=== PATIENT | female | born 1935 | race Caucasian/White ===

== ENCOUNTER → 2016-11-29 | Outpatient (CLI) | payer MEDICARE, MEDICAID ==
[2016-11-29 18:27] LABS: ALBUMIN 3.6 GM/DL (3.2-5.2); ALBUMIN/GLOBULIN RATIO 1.06 (1.00-1.93); ALKALINE PHOSPHATASE 153 U/L (45-117); ALT/SGPT 25 U/L (12-78); ANION GAP 7 MEQ/L (8-16); AST/SGOT 23 U/L (15-37); BILIRUBIN,TOTAL 0.5 MG/DL (0.2-1.0); BLOOD UREA NITROGEN 15 MG/DL (7-18); CALCIUM LEVEL 9.3 MG/DL (8.8-10.2); CARBON DIOXIDE LEVEL 29 MEQ/L (21-32); CHLORIDE LEVEL 100 MEQ/L (98-107); CHOLESTEROL LEVEL 172 MG/DL (<200); CREATININE FOR GFR 0.77 MG/DL (0.55-1.02); GLOMERULAR FILTRATION RATE > 60.0 (>39); GLUCOSE, FASTING 98 MG/DL (83-110); POTASSIUM SERUM 4.1 MEQ/L (3.5-5.1); SODIUM LEVEL 136 MEQ/L (136-145); TRIGLYCERIDES LEVEL 112 MG/DL (<150)
== END ==
LOC: M WUC 08:32
PROVIDERS: ATTEND Nurse Practitioner Family
DX: R73.01 Impaired fasting glucose (principal); E55.9 Vitamin D deficiency, unspecified; I10 Essential (primary) hypertension

== ENCOUNTER → 2016-11-30 | Outpatient (CLI) | payer MEDICARE, MEDICAID ==
--- NOTE | 2016-11-30 11:48 | REP ---
THYROID ULTRASOUND: Real-time sonographic evaluation of the thyroid performed and compared to a prior study of 03/04/2016. Right lobe measures 4.4 x 2.5 x 2.7 cm and left lobe 3.9 x 1.6 x 1.2 cm. A complex cystic nodule in the lower pole on the right measures 5 x 6 x 3 mm unchanged. There appears to be a new slightly hypoechoic nodule in the mid right lobe 4 mm in diameter. In the left lobe a heterogeneous primarily solid nodule in the mid aspect measures 3.5 x 2.5 x 2.7 cm, unchanged. Complex cystic nodule in the left lower pole appears new measuring 4 x 3 x 2 mm. IMPRESSION: New solid nodule mid right lobe 4 mm in diameter is of doubtful significance. Complex nodule in the lower pole of the right lobe is unchanged. Dominant nodule mid left lobe unchanged. New complex cystic nodule left lower pole measures 4 x 3 x 2 mm. Signed by Thom Reyes MD 11/30/2016 03:54 P
== END ==
LOC: M RAD 10:12
PROVIDERS: ATTEND Otolaryngology
DX: R94.6 Abnormal results of thyroid function studies (principal)

== ENCOUNTER → 2017-04-01 | Outpatient (CLI) | payer MEDICARE, MEDICAID ==
--- NOTE | 2017-04-01 14:40 | REPMRS ---
Patient History The patient states she has not had a clinical breast exam in over a year. Patient is postmenopausal. Family history of breast cancer in sister at age 50 or over, breast cancer in 2 maternal aunts under age 50, and endometrial cancer in daughter at age 50 or over. 2 benign cyst aspirations of the left breast, August 08, 2009. Digital Woman Screen Mammo: April 01, 2017 - Exam #: [id number] Bilateral CC and MLO view(s) were taken. Technologist: Isidra Leung Technologist Prior study comparison: March 25, 2016, digital woman screen mammo performed at [facility]. February 25, 2015, digital woman screen mammo performed at [facility]. FINDINGS: There are scattered fibroglandular densities. There has been no change in the appearance of the mammogram from the prior studies. There is a mild amount of residual fibroglandular tissue which is fairly symmetric. There is no interval development of dominant mass, architectural distortion, or clustered microcalcification suggestive of malignancy. There is a benign appearing intramammary node in the upper outer quadrant of the left breast. Scattered lymph nodes are seen in the right axilla. No significant changes when compared with prior studies. ASSESSMENT: BI-RADS/ACR category 2 mammogram. Benign finding(s). Recommendation Routine screening mammogram in 1 year (for women over age 40). This mammogram was interpreted with the aid of an FDA-approved computer-aided dectection system. A. Negative x-ray reports should not delay biopsy if a dominant or clinically suspicious mass is present. B. Four to eight percent of cancers are not identified by mammography. C. Adenosis and dense breast may obscure an underlying neoplasm. Electronically Signed By: Hernandez Leung MD 04/01/17 [id number]
== END ==
LOC: M WHC 11:09
PROVIDERS: ATTEND Family Medicine
DX: Z12.31 Encounter for screening mammogram for malignant neoplasm of breast (principal); Z78.0 Asymptomatic menopausal state; Z80.3 Family history of malignant neoplasm of breast

== ENCOUNTER → 2017-06-09 | Outpatient (CLI) | payer MEDICARE, MEDICAID ==
--- NOTE | 2017-06-09 15:37 | REP ---
Left hip two views: Comparison 02/08/2013. There is demineralization. There is no fracture or dislocation. No calcifications or foreign bodies except for calcified vascular atheroma. No change from the prior study. Impression: Negative plain film study of the left hip. However, given that the the patient has had symptoms for 2 weeks. Consider MRI follow up. Signed by Thom Nur MD 06/09/2017 03:28 P
== END ==
LOC: M WUC 14:11
PROVIDERS: ATTEND Nurse Practitioner Family
DX: M25.552 Pain in left hip (principal); M85.88 Other specified disorders of bone density and structure, other site

== ENCOUNTER → 2017-06-11 | Outpatient (CLI) | payer MEDICARE, MEDICAID ==
--- NOTE | 2017-06-11 16:29 | REP ---
Follow-up low-dose lung screening CT: Comparisons 06/25/2016. The study is performed without IV contrast. Images are presented at lung windowing only. The patient has five lung nodules, all 3 mm in diameter or less, unchanged from the prior study on images 46, 63, 64 and 65. There are no new nodules or masses. There are numerous bulla scattered throughout the lung austin bilaterally, unchanged. There is a parenchymal scar in the posterior sulcus of the right lung, unchanged. Impression: There are five lung nodules, all 3 mm in size or less, unchanged from the prior study. This is a category 2 low-dose screening lung CT with the probability of malignancy less than 1%. Annual follow-up low-dose screening CT is recommended. Signed by Thom Nur MD 06/11/2017 04:20 P
== END ==
LOC: M RAD 12:35
PROVIDERS: ATTEND Nurse Practitioner Family
DX: Z12.2 Encounter for screening for malignant neoplasm of respiratory organs (principal); Z87.891 Personal history of nicotine dependence; R91.8 Other nonspecific abnormal finding of lung field

== ENCOUNTER → 2017-06-23 | Outpatient (CLI) | payer MEDICARE, MEDICAID ==
--- NOTE | 2017-06-23 13:38 | REP ---
THYROID ULTRASOUND: Real-time sonographic evaluation of the thyroid performed and compared to a prior study of 11/30/2016. Right lobe measures 4.2 x 2.0 x 1.7 cm and the left lobe 5.9 x 2.1 x 3.0 cm. Once again, there is a tiny nodule in the mid right lobe, 6 x 3 x 4 mm and complex cyst in the lower pole on the right 5 x 4 x 6 mm. There is an unchanged nodule in the mid left lobe 3.5 x 2.8 x 3.0 cm. There is an adjacent tiny 3 mm cyst. IMPRESSION: Stable exam. Signed by Thom Reyes MD 06/23/2017 04:44 P
== END ==
LOC: M RAD 10:42
PROVIDERS: ATTEND Otolaryngology
DX: R94.6 Abnormal results of thyroid function studies (principal)

== ENCOUNTER → 2017-07-11 | Outpatient (CLI) | payer MEDICARE, MEDICAID ==
[2017-07-11 19:06] LABS: ALBUMIN 3.6 GM/DL (3.2-5.2); ANION GAP 8 MEQ/L (8-16); BLOOD UREA NITROGEN 12 MG/DL (7-18); CALCIUM LEVEL 9.6 MG/DL (8.8-10.2); CARBON DIOXIDE LEVEL 29 MEQ/L (21-32); CHLORIDE LEVEL 97 MEQ/L (98-107); CREATININE FOR GFR 0.73 MG/DL (0.55-1.02); GLOMERULAR FILTRATION RATE > 60.0 (>39); GLUCOSE, FASTING 100 MG/DL (83-110); POTASSIUM SERUM 5.1 MEQ/L (3.5-5.1); SODIUM LEVEL 134 MEQ/L (136-145)
== END ==
LOC: M WUC 08:14
PROVIDERS: ATTEND Nurse Practitioner Family
DX: I10 Essential (primary) hypertension (principal)

== ENCOUNTER → 2017-07-11 | Outpatient (CLI) | payer MEDICARE, MEDICAID ==
[2017-07-11 19:06] LABS: BASO # 0.1 10^3/uL (0.0-0.2); BASO % 1.2 % (0.0-1.0); EOS # 0.4 10^3/uL (0.0-0.50); EOS % 5.7 % (0.0-3.0); IMMATURE GRANULOCYTE % 0.3 % (0-0); LYMPH # 2.2 10^3/uL (1.5-4.5); LYMPH % 32.2 % (24.0-44.0); MEAN CORPUSCULAR HEMOGLOBIN 28.7 pg (27.0-33.0); MEAN CORPUSCULAR HGB CONC 32.6 g/dl (32.0-36.5); MEAN CORPUSCULAR VOLUME 87.9 fl (80.0-96.0); MONO # 0.6 10^3/uL (0.0-0.8); NEUTROPHILS # 3.6 10^3/uL (1.8-7.7); NEUTROPHILS % 51.6 % (36.0-66.0); PLATELET COUNT, AUTOMATED 318 10^3/uL (150-450); RED CELL DISTRIBUTION WIDTH 14.2 % (11.5-14.5); WHITE BLOOD COUNT 6.9 10^3/uL (4.0-10.0)
[2017-07-11 19:15] LABS: ALBUMIN 3.5 GM/DL (3.2-5.2); ALBUMIN/GLOBULIN RATIO 0.97 (1.00-1.93); ALKALINE PHOSPHATASE 158 U/L (45-117); ALT/SGPT 28 U/L (12-78); ANION GAP 10 MEQ/L (8-16); AST/SGOT 19 U/L (7-37); BILIRUBIN,TOTAL 0.5 MG/DL (0.2-1.0); BLOOD UREA NITROGEN 12 MG/DL (7-18); CALCIUM LEVEL 9.2 MG/DL (8.8-10.2); CARBON DIOXIDE LEVEL 27 MEQ/L (21-32); CHLORIDE LEVEL 99 MEQ/L (98-107); CREATININE FOR GFR 0.79 MG/DL (0.55-1.02); FREE T4 1.04 NG/DL (0.76-1.46); GLOMERULAR FILTRATION RATE > 60.0 (>39); GLUCOSE, FASTING 97 MG/DL (83-110); MAGNESIUM LEVEL 1.7 MG/DL (1.8-2.4); POTASSIUM SERUM 4.9 MEQ/L (3.5-5.1); SODIUM LEVEL 136 MEQ/L (136-145); TOTAL PROTEIN 7.1 GM/DL (6.4-8.2)
== END ==
LOC: M WUC 08:09
PROVIDERS: ATTEND Nurse Practitioner Family
DX: I10 Essential (primary) hypertension (principal); E07.9 Disorder of thyroid, unspecified; E55.9 Vitamin D deficiency, unspecified

== ENCOUNTER → 2018-01-23 | Outpatient (CLI) | payer MEDICARE, MEDICAID ==
[2018-01-23 17:28] LABS: ALBUMIN 3.7 GM/DL (3.2-5.2); ALBUMIN/GLOBULIN RATIO 1.16 (1.00-1.93); ALKALINE PHOSPHATASE 137 U/L (45-117); ALT/SGPT 27 U/L (12-78); ANION GAP 8 MEQ/L (8-16); AST/SGOT 20 U/L (7-37); BILIRUBIN,TOTAL 0.4 MG/DL (0.2-1.0); BLOOD UREA NITROGEN 17 MG/DL (7-18); CALCIUM LEVEL 9.3 MG/DL (8.8-10.2); CARBON DIOXIDE LEVEL 27 MEQ/L (21-32); CHLORIDE LEVEL 101 MEQ/L (98-107); CREATININE FOR GFR 0.73 MG/DL (0.55-1.30); GLOMERULAR FILTRATION RATE > 60.0 (>32); GLUCOSE, FASTING 96 MG/DL (70-100); MAGNESIUM LEVEL 1.8 MG/DL (1.8-2.4); POTASSIUM SERUM 4.3 MEQ/L (3.5-5.1); SODIUM LEVEL 136 MEQ/L (136-145); TOTAL PROTEIN 6.9 GM/DL (6.4-8.2)
== END ==
LOC: M WUC 08:08
DX: I10 Essential (primary) hypertension (principal)
CPT/HCPCS: 83735

== ENCOUNTER → 2018-02-07 | Outpatient (REF) | payer MEDICARE, MEDICAID ==
[2018-02-07 16:20] LABS: TOTAL 25(OH) VITAMIN D 26.3 NG/ML (30.0-100.0)
== END ==
LOC: M SFHCPLAZ 14:00
DX: E55.9 Vitamin D deficiency, unspecified (principal); Z68.41 Body mass index [BMI] 40.0-44.9, adult
CPT/HCPCS: 82306

== ENCOUNTER → 2018-03-25 | Outpatient (CLI) | payer MEDICARE, MEDICAID | LOC: M RAD 14:02 | DX: J84.10 Pulmonary fibrosis, unspecified (principal) | CPT/HCPCS: 71250 ==

== ENCOUNTER → 2018-06-24 | Outpatient (CLI) | payer MEDICARE, MEDICAID | LOC: M PLARAD 07:39 | DX: M25.571 Pain in right ankle and joints of right foot (principal); Z53.29 Procedure and treatment not carried out because of patient's decision for other reasons ==

== ENCOUNTER → 2018-06-24 | Outpatient (CLI) | payer MEDICARE, MEDICAID ==
[2018-06-24 14:53] LABS: CREATININE FOR GFR 0.73 MG/DL (0.55-1.30); GLOMERULAR FILTRATION RATE > 60.0 (>32)
[2018-06-24 14:53] LABS: BLOOD UREA NITROGEN 12 MG/DL (7-18)
== END ==
LOC: M WUC 10:11
DX: M25.571 Pain in right ankle and joints of right foot (principal)
CPT/HCPCS: 82565

== ENCOUNTER → 2018-07-01 | Outpatient (CLI) | payer MEDICARE, MEDICAID | LOC: M PLARAD 08:07 | DX: M19.071 Primary osteoarthritis, right ankle and foot (principal); M25.471 Effusion, right ankle | CPT/HCPCS: 73723 ==

== ENCOUNTER → 2018-07-15 | Outpatient (CLI) | payer MEDICARE, MEDICAID | LOC: M RAD 09:11 | DX: E04.1 Nontoxic single thyroid nodule (principal) | CPT/HCPCS: 76536 ==

== ENCOUNTER → 2018-08-16 | Outpatient (CLI) | payer MEDICARE, MEDICAID ==
[2018-08-16 12:48] LABS: ALBUMIN 3.4 GM/DL (3.2-5.2); ALT/SGPT 20 U/L (12-78); BILIRUBIN,TOTAL 0.7 MG/DL (0.2-1.0); BLOOD UREA NITROGEN 14 MG/DL (7-18); CARBON DIOXIDE LEVEL 29 MEQ/L (21-32); CHLORIDE LEVEL 96 MEQ/L (98-107); CREATININE FOR GFR 0.73 MG/DL (0.55-1.30); GLOMERULAR FILTRATION RATE > 60.0 (>32); GLUCOSE, FASTING 97 MG/DL (70-100); MAGNESIUM LEVEL 1.5 MG/DL (1.8-2.4); POTASSIUM SERUM 4.2 MEQ/L (3.5-5.1); SODIUM LEVEL 134 MEQ/L (136-145); TOTAL PROTEIN 6.9 GM/DL (6.4-8.2)
== END ==
LOC: M WUC 08:28
PROVIDERS: ATTEND Nurse Practitioner Family
DX: I10 Essential (primary) hypertension (principal)

== ENCOUNTER → 2018-08-19 | Outpatient (CLI) | payer MEDICARE, MEDICAID ==
[~2018-08-19] MED LIST: LIDOCAINE 1% MDV 20ML VIAL As Ordered ONE
--- NOTE | 2018-08-19 17:13 | REP ---
ULTRASOUND-GUIDED LEFT THYROID BIOPSY The procedure was performed under the direct supervision of Dr. Sol. The patient has a history of A 4.3 x 2.7 x 3.5 cm complex solid and cystic nodule in the mid/lower pole of the left thyroid seen on a previous ultrasound dated 07/15 10/17. The risks and benefits of the procedure were explained to the patient and informed consent was obtained. The left thyroid nodule was localized using ultrasound guidance. The skin was prepped and draped in a sterile fashion. 1% lidocaine was used as a local anesthetic. Using ultrasound guidance four fine-needle aspirations were obtained using 25 gauge needles. The patient tolerated the procedure well and there were no immediate complications. After the appropriate amount of monitored convalescence the patient was discharged from the department. Reviewed by MALICK Granda 08/19/2018 03:14 P Electronically Signed by Chris Sol MD 08/19/2018 05:03 P
== END ==
LOC: M RADPRO 11:50
PROVIDERS: ATTEND Otolaryngology
DX: R94.6 Abnormal results of thyroid function studies (principal); E04.2 Nontoxic multinodular goiter; J44.9 Chronic obstructive pulmonary disease, unspecified; I10 Essential (primary) hypertension; K21.9 Gastro-esophageal reflux disease without esophagitis; Z87.891 Personal history of nicotine dependence; Z79.82 Long term (current) use of aspirin; Z79.899 Other long term (current) drug therapy; Z88.0 Allergy status to penicillin

== ENCOUNTER → 2019-01-19 | Outpatient (CLI) | payer MEDICARE, MEDICAID ==
--- NOTE | 2019-01-19 14:17 | REPMRS ---
Patient History The patient states she has not had a clinical breast exam in over a year. Family history of breast cancer at age 50 or over in sister, breast cancer under age 50 in maternal aunt, breast cancer at age 50 or over in maternal aunt, endometrial cancer at age 50 or over in daughter. 2 benign cyst aspirations of the left breast, August 08, 2009. 3D TOMOSYNTHESIS WAS PERFORMED. Digital Woman Screen Mammo: January 19, 2019 - Exam #: [id number] Bilateral CC and MLO view(s) were taken. Technologist: Mary Anne Monet, Technologist Prior study comparison: April 01, 2017, digital woman screen mammo performed at [facility] [employer] [facility] [employer]. March 25, 2016, digital woman screen mammo performed at [facility]. FINDINGS: There are scattered fibroglandular densities. There is a fairly symmetric fibroglandular pattern in both breasts. There has been no interval development of masses, areas of architectural distortion or clusters of microcalcifications typical of malignancy. Assessment: BI-RADS/ACR category 2 mammogram. Benign Findings. Recommendation Routine screening mammogram of both breasts in 1 year (for women over age 40). This mammogram was interpreted with the aid of an FDA-approved computer-aided dectection system. Electronically Signed By: Thom Reyes MD 01/19/19 4515
== END ==
LOC: M WHC 12:46
PROVIDERS: ATTEND Nurse Practitioner Family
DX: Z12.31 Encounter for screening mammogram for malignant neoplasm of breast (principal); Z80.3 Family history of malignant neoplasm of breast; Z86.018 Personal history of other benign neoplasm

== ENCOUNTER → 2019-02-27 | Outpatient (CLI) | payer MEDICARE, MEDICAID ==
--- NOTE | 2019-02-27 16:29 | REP ---
Ultrasound-guided left thyroid biopsy This procedure was performed by MALICK Dwyer, under the direct supervision of Dr. Reyes. The patient has a history of heterogeneous enlarged thyroid gland with a dominant nodule on the left than that has increased in size from the previous study of ultrasound dated 07/15/2019. The risks and the benefits of the procedure were explained to the patient and informed consent was obtained both verbally and written. Directly prior to the start of the procedure, a formal time out was completed in the procedure room. The left] thyroid nodule was localized using ultrasound guidance. The skin was prepped and draped in a sterile fashion. 1% lidocaine was used as a local anesthetic. Using ultrasound guidance 6 fine-needle aspirations were obtained using 25 gauge needles of the left thyroid nodule. The patient tolerated the procedure well and there were no immediate complications. After the appropriate amount of monitored convalescence the patient was discharged from the department. Reviewed by MALICK Dwyer 02/27/2019 01:50 P Electronically Signed by Thom Reyes MD 02/27/2019 04:20 P
== END ==
LOC: M RADPRO 12:15
PROVIDERS: ATTEND Otolaryngology
DX: E04.2 Nontoxic multinodular goiter (principal); Z79.82 Long term (current) use of aspirin; Z79.899 Other long term (current) drug therapy; Z88.0 Allergy status to penicillin

== ENCOUNTER → 2019-04-14 | Outpatient (REF) | payer MEDICARE, MEDICAID | LOC: M LAB REF 12:52 | PROVIDERS: ATTEND Otolaryngology | DX: E04.2 Nontoxic multinodular goiter (principal); R94.6 Abnormal results of thyroid function studies ==

== ENCOUNTER → 2019-05-31 | Outpatient (REF) | payer MEDICARE, MEDICAID ==
[2019-05-31 10:12] LABS: HEMATOCRIT 42.6 % (36.0-47.0); HEMOGLOBIN 14.5 g/dl (12.0-15.5); MEAN CORPUSCULAR HEMOGLOBIN 29.4 pg (27.0-33.0); MEAN CORPUSCULAR VOLUME 86.4 fl (80.0-96.0); PLATELET COUNT, AUTOMATED 328 10^3/uL (150-450); RED BLOOD COUNT 4.93 10^6/uL (4.00-5.40); WHITE BLOOD COUNT 7.1 10^3/uL (4.0-10.0)
[2019-05-31 10:26] LABS: ALBUMIN 3.6 GM/DL (3.2-5.2); ALT/SGPT 24 U/L (12-78); BILIRUBIN,TOTAL 0.7 MG/DL (0.2-1.0); BLOOD UREA NITROGEN 13 MG/DL (7-18); CALCIUM LEVEL 9.7 MG/DL (8.8-10.2); CARBON DIOXIDE LEVEL 27 MEQ/L (21-32); CHLORIDE LEVEL 96 MEQ/L (98-107); CHOLESTEROL LEVEL 178 MG/DL (<200); CHOLESTEROL RISK RATIO 2.781 (<5); CREATININE FOR GFR 0.85 MG/DL (0.55-1.30); GLOMERULAR FILTRATION RATE > 60.0 (>32); GLUCOSE, FASTING 102 MG/DL (70-100); HDL CHOLESTEROL 64 MG/DL (>40); LDL CHOLESTEROL 86 MG/DL (<100); MAGNESIUM LEVEL 1.6 MG/DL (1.8-2.4); NON-HDL-C 114 MG/DL; POTASSIUM SERUM 4.4 MEQ/L (3.5-5.1); SODIUM LEVEL 131 MEQ/L (136-145); TOTAL PROTEIN 7.1 GM/DL (6.4-8.2); TRIGLYCERIDES LEVEL 141 MG/DL (<150)
[2019-05-31 10:52] LABS: TOTAL 25(OH) VITAMIN D 44.9 NG/ML (30.0-100.0)
== END ==
LOC: M SFHCPLAZ 08:17
PROVIDERS: ATTEND Nurse Practitioner Family
DX: I10 Essential (primary) hypertension (principal); E78.2 Mixed hyperlipidemia; R73.01 Impaired fasting glucose; E66.9 Obesity, unspecified; K21.9 Gastro-esophageal reflux disease without esophagitis; Z79.899 Other long term (current) drug therapy

== ENCOUNTER → 2019-12-11 | Outpatient (REF) | payer MEDICARE, MEDICAID ==
[2019-12-11 14:18] LABS: BLOOD UREA NITROGEN 16 MG/DL (7-18); CALCIUM LEVEL 10.1 MG/DL (8.8-10.2); CARBON DIOXIDE LEVEL 23 MEQ/L (21-32); CHLORIDE LEVEL 97 MEQ/L (98-107); CREATININE FOR GFR 0.74 MG/DL (0.55-1.30); GLOMERULAR FILTRATION RATE > 60.0 (>32); GLUCOSE, FASTING 111 MG/DL (70-100); MAGNESIUM LEVEL 1.7 MG/DL (1.8-2.4); POTASSIUM SERUM 4.7 MEQ/L (3.5-5.1); SODIUM LEVEL 128 MEQ/L (136-145)
[2019-12-11 14:36] LABS: HEMOGLOBIN A1c 6.4 %
== END ==
LOC: M SFHCPLAZ 10:19
PROVIDERS: ATTEND Family Medicine
DX: R73.01 Impaired fasting glucose (principal); I10 Essential (primary) hypertension; E83.42 Hypomagnesemia
CPT/HCPCS: 36415; 80048; 83036; 83735; G0463

== ENCOUNTER → 2019-12-14 | Outpatient (REF) | payer MEDICARE, MEDICAID ==
[2019-12-14 11:43] LABS: BLOOD UREA NITROGEN 18 MG/DL (7-18); CALCIUM LEVEL 10.3 MG/DL (8.8-10.2); CARBON DIOXIDE LEVEL 26 MEQ/L (21-32); CHLORIDE LEVEL 97 MEQ/L (98-107); CREATININE FOR GFR 0.78 MG/DL (0.55-1.30); GLOMERULAR FILTRATION RATE > 60.0 (>32); GLUCOSE, FASTING 105 MG/DL (70-100); MAGNESIUM LEVEL 2.1 MG/DL (1.8-2.4); POTASSIUM SERUM 4.5 MEQ/L (3.5-5.1); SODIUM LEVEL 130 MEQ/L (136-145)
[2019-12-14 11:45] LABS: HEMOGLOBIN A1c 6.4 %
== END ==
LOC: M SFHCPLAZ 10:25
PROVIDERS: ATTEND Family Medicine
DX: R73.01 Impaired fasting glucose (principal); I10 Essential (primary) hypertension; E83.42 Hypomagnesemia

== ENCOUNTER → 2020-02-15 | Outpatient (CLI) | payer MEDICARE, MEDICAID ==
--- NOTE | 2020-02-15 10:27 | REPPI ---
TWO-VIEW CHEST: 02/15/2020 INDICATION: Dyspnea. COMPARISON: 11/07/2006 FINDINGS: Bibasilar atelectasis is re-demonstrated. There is no significant pulmonary consolidation or pneumothorax. The cardiac silhouette is unremarkable in size. IMPRESSION: No acute cardiopulmonary process. Electronically Signed by Joseph Shaver DO 02/16/2020 08:42 A
== END ==
LOC: M PLAIMG 09:11
PROVIDERS: ATTEND Family Medicine
DX: J98.11 Atelectasis (principal); R06.02 Shortness of breath; R73.01 Impaired fasting glucose; I10 Essential (primary) hypertension; E87.1 Hypo-osmolality and hyponatremia
CPT/HCPCS: 36415; 71046; 80048; 83036; 83930; 83935; 84300; 85027; G0463

== ENCOUNTER → 2020-02-15 | Outpatient (REF) | payer MEDICARE, MEDICAID ==
[2020-02-15 11:20] LABS: HEMATOCRIT 45.7 % (36.0-47.0); HEMOGLOBIN 15.4 g/dl (12.0-15.5); MEAN CORPUSCULAR HEMOGLOBIN 29.6 pg (27.0-33.0); MEAN CORPUSCULAR HGB CONC 33.7 g/dl (32.0-36.5); MEAN CORPUSCULAR VOLUME 87.9 fl (80.0-96.0); PLATELET COUNT, AUTOMATED 320 10^3/uL (150-450); WHITE BLOOD COUNT 7.3 10^3/uL (4.0-10.0)
[2020-02-15 11:22] LABS: BLOOD UREA NITROGEN 15 MG/DL (7-18); CALCIUM LEVEL 9.7 MG/DL (8.8-10.2); CARBON DIOXIDE LEVEL 28 MEQ/L (21-32); CHLORIDE LEVEL 100 MEQ/L (98-107); CREATININE FOR GFR 0.81 MG/DL (0.55-1.30); GLOMERULAR FILTRATION RATE > 60.0 (>32); GLUCOSE, FASTING 103 MG/DL (70-100); POTASSIUM SERUM 4.8 MEQ/L (3.5-5.1); SODIUM LEVEL 135 MEQ/L (136-145)
[2020-02-15 11:26] LABS: OSMOLALITY SERUM 284 MOSM/KG (280-301)
[2020-02-15 11:41] LABS: HEMOGLOBIN A1c 6.1 %
[2020-02-15 17:49] LABS: OSMOLALITY URINE 515 MOSM/KG (500-800)
[2020-02-15 19:06] LABS: SODIUM,RANDOM URINE 33 MEQ/L
== END ==
LOC: M SFHCPLAZ 09:09
PROVIDERS: ATTEND Family Medicine
DX: R06.02 Shortness of breath (principal); R73.01 Impaired fasting glucose; I10 Essential (primary) hypertension; E87.1 Hypo-osmolality and hyponatremia

== ENCOUNTER → 2020-03-10 | Outpatient (CLI) | payer MEDICARE, MEDICAID ==
[2020-03-10 13:37] LABS: ALBUMIN 3.4 GM/DL (3.2-5.2); ALT/SGPT 28 U/L (12-78); BILIRUBIN,TOTAL 0.4 MG/DL (0.2-1.0); BLOOD UREA NITROGEN 13 MG/DL (7-18); CALCIUM LEVEL 9.3 MG/DL (8.8-10.2); CARBON DIOXIDE LEVEL 27 MEQ/L (21-32); CHLORIDE LEVEL 98 MEQ/L (98-107); CHOLESTEROL LEVEL 144 MG/DL (<200); CREATININE FOR GFR 0.71 MG/DL (0.55-1.30); GLOMERULAR FILTRATION RATE > 60.0 (>32); GLUCOSE, FASTING 99 MG/DL (70-100); HDL CHOLESTEROL 59 MG/DL (>40); LDL CHOLESTEROL 67 MG/DL (<100); NON-HDL-C 85 MG/DL; POTASSIUM SERUM 4.2 MEQ/L (3.5-5.1); SODIUM LEVEL 132 MEQ/L (136-145); TRIGLYCERIDES LEVEL 90 MG/DL (<150)
== END ==
LOC: M WUC 08:08
PROVIDERS: ATTEND Physician Assistant
DX: E78.2 Mixed hyperlipidemia (principal)

== ENCOUNTER → 2020-06-23 | Outpatient (CLI) | payer MEDICARE, MEDICAID ==
[2020-06-23 17:56] LABS: BLOOD UREA NITROGEN 13 MG/DL (7-18); CALCIUM LEVEL 8.7 MG/DL (8.8-10.2); CARBON DIOXIDE LEVEL 27 MEQ/L (21-32); CHLORIDE LEVEL 103 MEQ/L (98-107); CREATININE FOR GFR 0.82 MG/DL (0.55-1.30); GLOMERULAR FILTRATION RATE > 60.0 (>32); GLUCOSE, FASTING 94 MG/DL (70-100); POTASSIUM SERUM 3.9 MEQ/L (3.5-5.1); SODIUM LEVEL 138 MEQ/L (136-145)
== END ==
LOC: M WUC 08:03
PROVIDERS: ATTEND Physician Assistant
DX: I10 Essential (primary) hypertension (principal)

== ENCOUNTER 2020-07-18 10:39 | Emergency (ER) | payer MEDICARE, MEDICAID ==
[~2020-07-18] VITALS: Ht 154.9 cm; Wt 94.1 kg
[2020-07-18] MEDS ORDERED: LATA0.0015 (10:55)
[2020-07-18] MEDS ORDERED: FAMO40TA3 (10:55)
[2020-07-18] MEDS ORDERED: ASPI81CH33 PO (10:55)
[2020-07-18] MEDS ORDERED: AMLO1TAB24 (10:55)
[2020-07-18] MEDS ORDERED: INDA125TA (10:55)
[2020-07-18] MEDS ORDERED: ROSU10TA6 (10:55)
[2020-07-18] MEDS ORDERED: IRBE300T7 (10:55)
[2020-07-18] MEDS ORDERED: POTA1TAB14 (10:55)
[2020-07-18] MEDS ORDERED: TREL1AER (10:55)
[2020-07-18] MEDS ORDERED: BISO5TAB14 (10:55)
[2020-07-18] MEDS ORDERED: VENTAER (10:55)
[2020-07-18] MEDS ORDERED: NORCO, ANEXSIA 5/325MG TABLET (HYDROcodone/ACETAMINOPHEN) PO ONE (12:00)
--- NOTE | 2020-07-18 12:27 | REPVR ---
PROCEDURE INFORMATION: Exam: CT Lumbar Spine Without Contrast Exam date and time: 07/18/2020 11:47 AM Age: 84 years old Clinical indication: Low back pain; Additional info: Low back pain radiating to left leg TECHNIQUE: Imaging protocol: Computed tomography images of the lumbar spine without contrast. Radiation optimization: All CT scans at this facility use at least one of these dose optimization techniques: automated exposure control; mA and/or kV adjustment per patient size (includes targeted exams where dose is matched to clinical indication); or iterative reconstruction. COMPARISON: No relevant prior studies available. FINDINGS: Vertebrae: Krfg-lv-[id number] upper lumbar dextroconvex scoliosis and lower lumbar levoconvex scoliosis. There is right lateral listhesis of L2 on L3. Trace 1-2 mm of degenerative retrolisthesis of L1 on L2. Approximately 4 mm of grade 1 degenerative anterolisthesis of L4 on L5. Marked left eccentric disc height loss and spondylosis at L2-L3 along the inner curvature of upper lumbar dextroconvex scoliosis. L1-L2: Left foraminal disc protrusion causes moderate left neural foraminal stenosis. L2-L3: Left eccentric disc osteophyte complex, facet arthropathy and ligamentum flavum buckling. Central spinal canal stenosis is mild. The lateral recesses are narrowed near the L3 nerve roots. Severe left and moderate right neural foraminal stenoses. L3-L4: Marked facet arthropathy and ligamentum flavum buckling. No significant central spinal canal stenosis. Moderate right and mild left neural foraminal stenoses. L4-L5: Anterolisthesis with pseudo bulging of the intervertebral disc. Severe facet arthropathy. The central spinal canal remains patent. The lateral recesses are narrowed near the L5 nerve roots. No significant foraminal stenoses. L5-S1: Moderate to severe facet arthropathy. No stenoses. Gallbladder and bile ducts: Cholecystectomy clips in the gallbladder fossa. Kidneys and ureters: The left kidney demonstrates a simple cyst measuring approximately 5.6 cm. No specific follow-up is indicated. There are additional smaller left kidney simple cysts. Stomach and bowel: A duodenal lipoma measures approximately 1.3 cm. Vasculature: The aorta demonstrates atherosclerosis. Soft tissues: Unremarkable. IMPRESSION: 1. Degenerative scoliosis. 2. Left eccentric degenerative disc disease at L2-L3. 3. Moderate left neural foraminal stenosis at L1-L2. 4. Lateral recess stenoses at L2-L3. Severe left and moderate right neural foraminal stenoses. 5. Moderate right and mild left neural foraminal stenoses at L3-L4. 6. Lateral recess stenoses at L4-L5. COMMENTS: Consistent with the [employer]'s Incidental Findings Committee white paper (J Am Giacomo Radiol 2018): Any incidental renal lesion less than 1 cm or classified as too small to characterize, or any incidental cystic renal lesion characterized as simple-appearing, is likely benign. No follow-up imaging is recommended for these lesions per consensus recommendations based on imaging criteria. Electronically signed by: Azra Dawn On 07/18/2020 12:26:56 PM
--- NOTE | 2020-07-18 13:41 | REP ---
INDICATION: left hip pain. TECHNIQUE: AP pelvis and two views left hip FINDINGS: AP pelvis shows moderate bilateral asymmetric hip joint space narrowing. Degenerative changes are seen involving the imaged spine. Degenerative changes are seen involving the sacroiliac joints. There is no evidence of an acute fracture. Two views of the left hip show asymmetric and joint space narrowing. There is no fracture, dislocation, or subluxation. IMPRESSION: Chronic changes as described above. <Electronically signed by Prasad Crabtree > 07/18/20 1040
[2020-07-18] MEDS ORDERED: NORC1TAB7 PO (14:22)
[2020-07-18 14:52] VITALS: BP 180/81
--- NOTE | 2020-07-20 09:39 | ED PDOC ---
Post-Departure Follow-Up dr fregoso faxed formal repor tof ct ls spine for fu Meron Villalta MD Jul 20, 2020 09:39
== END 2020-07-18 15:00 | disposition home or self-care (01) ==
LOC: EDBD 10:39 → M ED 10:39
DX: M16.12 Unilateral primary osteoarthritis, left hip (principal); M51.36 Other intervertebral disc degeneration, lumbar region; I10 Essential (primary) hypertension; J44.9 Chronic obstructive pulmonary disease, unspecified; E04.9 Nontoxic goiter, unspecified; M19.90 Unspecified osteoarthritis, unspecified site; Z79.899 Other long term (current) drug therapy; Z79.82 Long term (current) use of aspirin; Z88.0 Allergy status to penicillin

== ENCOUNTER → 2020-09-17 | Outpatient (REF) | payer MEDICARE, MEDICAID ==
[~2020-09-17] MED LIST changes: +AMLO1TAB24 PO; +ASPI81CH33 PO; +BISO5TAB14 PO; +COMBAER6 INH; +DEXA6TAB PO; +FAMO20TA PO; +FAMO40TA3 PO; +INDA125TA PO; +IRBE300T7 PO; +LATA0.0015 OU; -LIDOCAINE 1% MDV 20ML VIAL As Ordered ONE; +NORC1TAB7 PO; +POTA1TAB14 PO; +ROSU10TA6 PO; +TREL1AER INH; +VENTAER INH
[2020-09-17 14:08] LABS: HEMOGLOBIN A1c 5.5 %
[2020-09-17 14:31] LABS: CREATININE FOR GFR 0.96 MG/DL (0.55-1.30); GLOMERULAR FILTRATION RATE 59.1 (>32); POTASSIUM SERUM 4.5 MEQ/L (3.5-5.1)
== END ==
LOC: M SFHCPLAZ 10:27
PROVIDERS: ATTEND Family Medicine
DX: R73.01 Impaired fasting glucose (principal); I10 Essential (primary) hypertension
CPT/HCPCS: 36415; 80048; 83036; G0463

== ENCOUNTER 2020-09-29 09:43 | Inpatient (IN) | payer MEDICARE, MEDICAID ==
[~2020-09-29] VITALS: Ht 154.9 cm; Wt 52.4 kg
[~2020-09-29 09:43] MED LIST changes: -COMBAER6 INH; -DEXA6TAB PO; -FAMO20TA PO
--- OUTSIDE RECORDS SUMMARY | 2020-09-29 09:48 | CCD ---
Author Author [facility] Organization [facility] Address Unknown Phone Unavailable Care Team Providers Care Avionics System Engineer Name Role Phone Gisele Boyce Unavailable PROBLEMS Type Condition ICD9-CM Code [id number] Code Onset Dates Condition S tatus SNOMED Code Notes Problem Essential hypertension I10 Active 58960893 Problem BMI 40.0-44.9, adult Z68.41 Active 475398936 Problem Arthritis M19.90 Active 6121045 Problem Vitamin D deficiency E55.9 Active 24501068 Problem Meralgia paresthetica of right side G57.11 Acti ve 609938588484761 Problem Obesity E66.9 Active 998501241 Problem Chronic obstructive pulmonary disease, unspecified COPD ty pe J44.9 Active 28824229 Problem Impaired fasting glucose R73.01 Active 0816792 07 Problem Stress incontinence N39.3 Active 71691677 Problem Gastroesophageal reflux disease, esophagitis pre sence not specified K21.9 Active 553485919 Problem Hypomagnesemia E83.42 Active 760484082 Problem Mixed hyperlipidemia E78.2 Active 089047177 ALLERGIES Allergen (clinical drug ingredient) Drug/Non Drug Allergy do cumented on EMR Reaction Allergy Type Onset Date Status Penicillin (For Allergies Use Only) Anaphylaxis Drug Aller gy Active ENCOUNTERS from 1935 to 2020-09-21 Encounter Location Date Provider Diagnosis [address] [address] Aug, Gisele Boyce Pain of left lateral upper thigh M79.652 ; Gastroesophageal reflux disease, esophagitis presence not specified K21.9 ; Essential hypertension I10 ; Impaired fasting glucose R73.01 ; Mixed hyperlipidemia E78.2 ; Chronic obstructive pulmonary disease, unspecified COPD type J44.9 and Age-related osteoporosis without current pathological fracture M81.0 IMMUNIZATIONS Vaccine Route Administration Date Status Influenza (High Dose 65 & up) IM Intramuscular Jun 10, 2016 A dministered Influenza (High Dose 65 & up) IM Intramuscular Jun 03, 2015 A dministered Zoster 0.65mL (Zostavax) IM Intramuscular Jul 08, 2011 Admini stered Pneumococcal Adult 0.5mL (Pneumovax 23) Unknown Jul 08, 2011 Administered TDAP 0.5mL (Boostrix) Unknown Sep 10, 2008 Administer ed Pneumococcal 0.5mL (Prevnar 13) IM Intramuscular Jul 03, 2015 Administered Influenza (High Dose 65 & up) Unknown Jun 02, 2017 Ad ministered Influenza (6mo & up) Fluzone Unknown Jun 04, 2017 Adm inistered Influenza (Pharmacy Given) Unknown Jun 07, 2020 Admin istered Influenza (6mo & up) Fluzone Unknown Jun 01, 2011 Adm inistered Influenza (18 yrs & older) Flublok IM Intramuscular Jun 07, 2019 Administered Influenza (6mo & up) Fluzone Unknown Sep 03, 2009 Adm inistered SOCIAL HISTORY Tobacco Use: Social History Observation Description Date Details (start date - stop date) Former Smoker Sex Assigned At : Social History Observation Description Sex Assigned At Unknown Education: Question Answer Notes Level of Education: High School Audit Question Answer Notes Total Score: 0 Interpretation: Alcohol Education Language: Question Answer Notes Languages spoken: Estonian Latter Day: Question Answer Notes [employer] 08 [employer] Sexual Hx: Question Answer Notes Had sex in the last 12 months (vaginal, oral, or anal)? No Drug and Alcohol Question Answer Notes Total Score: 0 Interpretation: No problems reported Alcohol Screening: Question Answer Notes Did you have a drink containing alcohol in the past year? Ye s Points 1 Interpretation Negative How often did you have six or more drinks on one occas ion in the past year? Never (0 points) How many drinks did you have on a typica l day when you were drinking in the past year? 1 or 2 (0 points) How often did you have a drink containing alcohol in t he past year? Monthly or less (1 point) BMI Care Goal Follow-Up Question Answer Notes Above Normal BMI Follow-Up Lifestyle education regarding t Tobacco Use: Question Answer Notes Are you a: former smoker she quit smoking in 2000; prior to that she had accrued a 45 pack year hx How long has it been since you last smoked? > 10 years REASON FOR REFERRAL No Information VITAL SIGNS Weight 208 lbs Aug, Height 61.5 in Aug, BMI 38.66 kg/m2 Aug, Heart Rate 18 /min Aug, Respiratory Rate 70 /min Aug, Temperature 97.3 degrees Fahrenheit Aug, Oximetry 96 Aug, Blood pressure systolic 150 mm Hg Aug, Blood pressure diastolic 80 mm Hg Aug, MEDICATIONS Medication SIG (Take, Route, Frequency, Duration) Notes Start Da te End Date Status Zinc 15 MG 1 tab Orally Once a day A ctive Selenimin-200 200 MCG 1 tablet Orally- 299mcg Once a day- otc Active Vitamin D3 2000 UNIT 1 tablet (23200) Orally BID otc Active Magnesium 400 MG 1 capsule with food Orally once daily Active Cinnamon 500 MG 2 caps Orally daily otc Active Irbesartan 300 MG 1 tablet Orally Once a day. Dr. Aguilera Active Vitamin B Complex 1 1 tab(s) p.o. once daily Active Indapamide 1.25 MG 1 tablet in the morning Orally Once a day Active Norvasc 5mg 1 tab orally twice daily Active Atorvastatin Calcium 10 MG 1 tablet Orally Once a day Active Potassium Chloride ER 20 MEQ 1 tab Orally daily Active Co Q 10 200 mg 1 cap(s) p.o. daily/OTC Active Vitamin C 1000 mg 1 tab(s) p.o. daily Active Saline Nasal [place] 0.65 % 2 drops in each nostril as needed Nasally every 2 hrs Active Tylenol PM Extra Strength 500-25 MG 1 tablet Orally at bedtime as nee ded Active Famotidine 40 MG 1 tablet at bedtime Orally Once a day Feb, Active Eye Drops Relief 0.05-0.25 % Ophthalmic Active Lutein 20 MG 1 cap(s) Orally daily A ctive FiberCon 625 MG 1 tablet Orally TID otc Active Flaxseed Oil 1000 MG Orally QOD Act wei Trelegy Ellipta 100-62.5-25 MCG/INH 1 puff Inhalation Once a day Active Aspir-Low 81 MG 1 tablet Orally Once a day Active Ventolin HFA 108 (90 Base) MCG/ACT 1 puff as needed Inhalation ever y 4 hrs Active Bisoprolol Fumarate 5 MG 1 tablet Orally Once a day Active Glucosamine Chondr Complex 500-400 MG 1 capsule with a meal Orally bi d Active Tart Moody Advanced Orally Acti ve May Have zeaxanthin daily Activ e May have tumerics as directed 725mg otc daily Active PROCEDURES No Information RESULTS Component Value Reference Range HEMOGLOBIN A1c Reviewed date:09/18/2020 07:04:26 Interpretation:Normal Performing Lab:[facility], [facility] [address] [address] , ,[place] [address] HEMOGLOBIN A1c 5.5 ESTIMATED AVERAGE GLUCOSE 111 60-110 Basic Metabolic Profile (BMP) Reviewed date:09/18/2020 07:04:26 Interpretation:Normal Performing Lab:[facility], [facility] [address] [address] , ,[place] [address] GLUCOSE, FASTING 105 70-100 BLOOD UREA NITROGEN 21 7-18 CREATININE FOR GFR 0.96 0.55-1.30 GLOMERULAR FILTRATION RATE 59.1 >32 SODIUM LEVEL 135 136-145 POTASSIUM SERUM 4.5 3.5-5.1 CHLORIDE LEVEL 102 98-107 CARBON DIOXIDE LEVEL 26 21-32 CALCIUM LEVEL 10.0 8.8-10.2 REASON FOR VISIT F/u HTN, IFG, GERD MEDICAL (GENERAL) HISTORY Type Description Date Medical History Hypertension Medical History Hyperlipidemia Medical History Obesity Medical History Cataracts - Dr. Ye Medical History Vitamin D deficiency Medical History DEXA 02/2016 F/U 5 years Medical History Left hip XR 02/09 nml Medical History MRI Brain11/05/14 Min Small vessel disease / Mild Vol loss Medical History Echo CANNY 04/1315 Grade I DD, Nml Systolic Function. Medical History Thyroid mass- ENT: Dr. Mccallum Medical History Stable pulmonary nodules on lung CT Medical History Colonoscopy: Patent refuses Medical History Regadenosen NM stress test normal 01/29/20 Surgical History appendicitis 1953 Surgical History D & C x 4 (Zev Hinds) early Surgical History tubal ligation 1961 Surgical History hysterectomy 1967 Surgical History cholecystectomy 2006 Surgical History vaginal polyps ([place]) 2007 Surgical History Colonoscopy: declines; refuses stools ca rds and cologuard Surgical History thyroid biopsy-benign 11/08/2015 Surgical History Multiple thyroid biopsy's per pt, [facility] 2019 Hospitalization History admitted for 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 If reflux persists, she should call and I will switch her back to omeprazole. Aug, Essential hypertension (ICD-10 - I10) Per JNC 8 guidelines, goal BP 150/90 if age >60; is meeting goal on current regimen. Advised heart-healthy diet, sodium restriction. Aug, Impaired fasting glucose (ICD-10 - R73.01) Recheck A1c. Aug, Mixed hyperlipidemia (ICD-10 - E78.2) Aug, Chronic obstructive pulmonar y disease, unspecified COPD type (ICD- 10 - J44.9) Symptoms currently at her baseline; has some difficulty with exertion - cardiac workup negative and PFTs stable. I suspect deconditioning and obesity likely are contributing to her CIFUENTES. Aug, Age-related osteoporosis wit hout current pathological fracture (ICD-10 - M81.0) Dexa in 2015 showed fairly normal bone density; due for repeat this year. Declines order now, will schedule with her [employer] provider at [facility] to have this ordered. PLAN OF TREATMENT Medication Medication Name Sig Start Date Stop Date Trelegy Ellipta 100-62.5-25 MCG/INH 1 puff Inhalation Once a day Bisoprolol Fumarate 5 MG 1 tablet Orally Once a day Atorvastatin Calcium 10 MG 1 tablet Orally Once a day Ventolin HFA 108 (90 Base) MCG/ACT 1 puff as needed Inhalation e very 4 hrs Norvasc 5mg 1 tab orally twice daily Indapamide 1.25 MG 1 tablet in the morning Orally Once a day Famotidine 40 MG 1 tablet at bedtime Orally Once a day Feb, 2 020 Potassium Chloride ER 20 MEQ 1 tab Orally daily Irbesartan 300 MG 1 tablet Orally Once a day. Dr. Aguilera Treatment Notes Assessment Notes Clinical Notes Gastroesophageal reflux disease, esophagitis presence not sp ecified I recommended that she stop Vit C as this may be contributing to reflux symptoms. If reflux persists, she should call and I will switch her back to omeprazole. Essential hypertension Per JNC 8 guideli henry, goal BP 150/90 if age >60; is meeting goal on current regimen. Advised heart-healthy diet, sodium restriction. Impaired fasting glucose Recheck A1c. Chronic obstructive pulmonary disease, unspecified COPD type Symptoms currently at her baseline; has some difficulty with exertion - cardiac workup negative and PFTs stable. I suspect deconditioning and obesity likely are contributing to her CIFUENTES. Age-related osteoporosis without current pathological fractu re Dexa in 2016 showed fairly normal bone density; due for repeat this year. Declines order now, will schedule with her [employer] provider at [facility] to have this ordered. Next Appt Details 02/2021; 30 min Reason:AWV Provider Name:Gisele Boyce, 2021-03-18 10:30:00 AM, [address] [place], [address], Follow Up:02/2021; 30 minAWV Insurance Providers Payer Name Payer Address Payer Phone Insured Name Patient Relati onship to Insured Coverage Start Date Coverage End Date MEDICARE Part A and B [address] [facility] [id number] [employer] [address] [facility] [address] [employer] [employer]
--- OUTSIDE RECORDS SUMMARY | 2020-09-29 09:48 | CCD | Continuity of Care Document ---
Author Author Kerri PEREZ PANhanC Organization Unknown Address [address] [place] [address] Phone [phone] Care Team Providers Care Mushroom Cultivator Name Role Phone Gisele Boyce MD [facility] [phone] Problems Description No Information Available Social History Type Date Description Comments Sex Unknown ETOH Use Denies alcohol use Tobacco Use Start: Unknown End: Unknown Patient is a former smoker Allergies, Adverse Reactions, Alerts Active Allergies Reaction Severity Comments Date Penicillin 04/25/2018 Medications Active Medications SIG Qnty Indications Ordering Provide r Date Meloxicam 15mg Tablets 1 by mouth every day with food or milk 90tabs M19.071 Jose Mejia MD Selenium 200mcg Tablets Unknown Turmeric 500mg Capsules Unknown Tart Moody Advanced Capsules Unknown Zeaxanthin Powder Unknown Zinc 30mg Capsules Unknown Saline Mist [place] 0.65% Solution Unknown Eye Drops 0.012-0.2% Solution Unknown Tylenol PM Extra Strength 500-25mg Tablets 2 by mouth every night at bedtime as needed Unknown Melatonin 5mg Capsules 1 by mouth every day Unknown Vaseline Gel around n ostriles as needed Unknown Famotidine 40mg Tablets Unknown Rosuvastatin Calcium 10mg Tablets Unknown Latanoprost 0.005% Solution Unknown Bisoprolol Fumarate 5mg Tablets Unknown Trelegy Ellipta 100- 62.5-25mcg/Inh Aerosol Unknown Ventolin HFA 108(90Base) mcg/Act A erosol Unknown Probiotic Capsules every day Unknown Amiodipine Besayate 5MG Unknown 0 Irbesartan 300mg Tablets 1 by mouth every night at bedtime Unknown Indapamide 1.25mg Tablets one tab by mouth a day Unknown Omeprazole 20mg Capsules DR 1 tab once a day Unknown Magnesium-Oxide 400(241.3Mg) mg Ta blets 1 by mouth twice a day Unknown Potassium 75mg Tablets Unknown Spironolactone 25mg Tablets Unknown Aspirin 81mg Tablets DR 1 by mouth every day Unknown B Complex Tablets Unknown Vitamin C 500mg Capsules 1 by mouth every day Unknown Vitamin D3 25mcg (1000 Ut) Chewtabs Unknown Cinnamon 500mg Tablets Unknown Co-Q 10 [place]-3 Fish Oil Edgar-3 C apsules Unknown Fiber-Caps 625mg Tablets Unknown Flax Seed Oil 1300mg Capsules Unknown Glucosamine Chondroitin 1500 Complex 1500Com Capsules 1 by mouth every day Unknown 000 Lutein 20mg Capsules Unknown Red Yeast Rice 600mg Capsules Unknown Immunizations Description No Information Available Vital Signs Date Vital Result Comment 07/19/2020 10:48am Body Temperature 96.9 F Height 60.5 inches 5'0.50" Weight 203.50 lb BMI (Body Mass Index) 39.1 kg/m2 09/18/2019 9:12am Body Temperature 97.7 F Height 61.50 inches 5'1.50" Weight 211.38 lb BMI (Body Mass Index) 39.3 kg/m2 Results Description No Information Available Procedures Date Code Description Status 08/13/2020 06277 Manual Therapy Each 15 Minutes C ompleted 08/13/2020 68619 Therapeutic Procedure, Each 15 M inutes Completed 08/06/2020 41113 Physical Therapy Eval - Low Comp lexity Completed Medical Devices Description No Information Available Encounters Type Date Location Provider Dx Diagnosis Office Visit 08/16/2020 3:00p Nba Perez PA-C G5 7.02 Lesion of sciatic nerve, left lower limb Office Visit 07/19/2020 10:15a [place] Beatris Perez PA-C G5 7.02 Lesion of sciatic nerve, left lower limb Assessments Date Code Description Provider 08/16/2020 G57.02 Lesion of sciatic nerve, left lo wer limb Beatris Perez PA-C 08/13/2020 G57.02 Lesion of sciatic nerve, left lo wer limb Yashira Lassiter P.T.A. 08/06/2020 G57.02 Lesion of sciatic nerve, left lo wer limb Lukasz Moreno, PT, DPT 07/19/2020 G57.02 Lesion of sciatic nerve, left lo wer limb Beatris Perez PA-C Plan of Treatment Future Appointment(s):* 08/20/2020 11:00 am - Yashira Lassiter P.T.A. at Physical Therapy 08/16/2020 - Beatris Perez PA-C* G57.02 Lesion of sciatic nerve, left lower limb* Follow up:* prn. Functional Status Description No Information Available Mental Status Description No Information Available Referrals Refer to Reason for Referral Status Appt Date Beatris Perez PA-C PT BASED ON MED. [facility] TO PT DEPT. NT C reated [address] [place] [address] [place] [address] [phone]
--- OUTSIDE RECORDS SUMMARY | 2020-09-29 09:48 | CCD ---
Continuity of Care Document (CCD) Created on: 09/04/2020 Kerri Sanchez External Reference #: [id number] : 1935 Sex: Female Author Author Kerri COE Organization Unknown Address [address] [place] [address] Phone [phone] Care Team Providers Care Emergency Medicine Physician Assistant Name Role Phone Gisele Boyce MD [facility] [phone] Problems Description No Information Available Social History [...] Unknown Zinc 30mg Capsules Unknown Saline Mist [place] 0.65% Solution Unknown Eye Drops 0.012-0.2% Solution [...] Unknown Cinnamon 500mg Tablets Unknown Co-Q 10 [place]-3 Fish Oil [place]-3 C apsules Unknown Fiber-Caps 625mg Tablets Unknown [...] Information Available Procedures Date Code Description Status 08/20/2020 44461 Manual Therapy Each 15 Minutes C ompleted 08/20/2020 22647 Therapeutic Procedure, Each 15 M inutes Completed 08/13/2020 20383 Manual Therapy Each 15 Minutes C ompleted 08/13/2020 30585 Therapeutic Procedure, Each 15 M inutes Completed 08/06/2020 96970 Physical Therapy Eval - Low Comp lexity Completed Medical Devices Description No Information Available Encounters Type Date Location Provider Dx Diagnosis Office Visit 08/16/2020 3:00p [place] Perez PA-C G5 7.02 Lesion of sciatic nerve, left lower limb Office Visit 07/19/2020 10:15a Nba Perez PA-C G5 7.02 Lesion of sciatic nerve, left lower limb Assessments Date Code Description Provider 08/20/2020 G57.02 Lesion of sciatic nerve, left lo wer limb Yashira Scee P.T.A. 08/16/2020 G57.02 Lesion of sciatic nerve, left lo wer limb Beatris Perez PA-C 08/13/2020 G57.02 Lesion of sciatic nerve, left lo wer limb Yashira Scee P.T.A. 08/06/2020 G57.02 Lesion of sciatic nerve, left lo wer limb Lukasz Moreno, PT, DPT 07/19/2020 G57.02 Lesion of sciatic nerve, left lo wer limb Beatris Perez PA-C Plan of Treatment 08/16/2020 - Beatris Perez PA-C* G57.02 Lesion of sciatic nerve, left lower limb* Follow up:* prn. Functional Status Description No Information Available Mental Status Description No Information Available Referrals Refer to Dr Reason for Referral Status Appt Date Beatris Perez PA-C PT BASED ON MED. [facility] TO PT DEPT. NT C reated [address] [place] [address] [address] [place] [address] [phone]
--- OUTSIDE RECORDS SUMMARY | 2020-09-29 09:48 | CCD | Continuity of Care Document ---
Author Author Kerri LASSITER Organization Unknown Address [address] [place] [address] Phone [phone] Care Team Providers Care Surgical Services Manager Name Role Phone Gisele Boyce MD [facility] [phone] Problems Description No Information Available Social History [...] Unknown Zinc 30mg Capsules Unknown Saline Mist [place] 0.65% Solution Unknown Eye Drops 0.012-0.2% Solution [...] Unknown Cinnamon 500mg Tablets Unknown Co-Q 10 [place]-3 Fish Oil [place]-3 C apsules Unknown Fiber-Caps 625mg Tablets Unknown [...] Available Procedures Date Code Description Status 08/13/2020 60263 Manual Therapy Each 15 Minutes C ompleted 08/13/2020 20817 Therapeutic Procedure, Each 15 M inutes Completed 08/06/2020 42472 Physical Therapy Eval - Low Comp lexity Completed Medical Devices Description No Information Available Encounters Type Date Location Provider Dx Diagnosis Office Visit 07/19/2020 10:15a Nba Perez PA-C G5 7.02 Lesion of sciatic nerve, left lower limb Assessments Date Code Description Provider 08/16/2020 G57.02 Lesion of sciatic nerve, left lo wer limb Beatris Perez PA-C 08/13/2020 G57.02 Lesion of sciatic nerve, left lo wer limb Yashira Lassiter P.T.AXavier 08/06/2020 G57.02 Lesion of sciatic nerve, left [...] Beatris Perez PA-C PT BASED ON MED. [facility] TO PT DEPT. NT C reated [address] [place] [address] [address] [place] [address] [phone]
--- OUTSIDE RECORDS SUMMARY | 2020-09-29 09:48 | CCD ---
Author Author [facility] Organization [facility] Address Unknown Phone Unavailable Care Team Providers Care Supervisor Mirror Fabrication Name Role Phone Gisele Boyce Unavailable PROBLEMS Type Condition ICD9-CM Code [id number] Code Onset Dates Condition S tatus SNOMED Code Notes Problem Essential hypertension I10 Active 64407408 Problem BMI 40.0-44.9, adult Z68.41 Active 043961414 Problem Arthritis M19.90 Active 4653225 Problem Vitamin D deficiency E55.9 Active 68031905 Problem Meralgia paresthetica of right side G57.11 Acti ve 269636150209276 Problem Obesity E66.9 Active 037197548 Problem Chronic obstructive pulmonary disease, unspecified COPD ty pe J44.9 Active 05375590 Problem Impaired fasting glucose R73.01 Active 8623816 07 Problem Stress incontinence N39.3 Active 57861843 Problem Gastroesophageal reflux disease, esophagitis pre sence not specified K21.9 Active 297828715 Problem Hypomagnesemia E83.42 Active 217418810 Problem Mixed hyperlipidemia E78.2 Active 351280743 ALLERGIES Allergen (clinical drug ingredient) Drug/Non Drug Allergy do cumented on EMR Reaction Allergy Type Onset Date Status Penicillin (For Allergies Use Only) Anaphylaxis Drug Aller gy Active ENCOUNTERS from 1935 to 2020-08-14 Encounter Location Date Provider Diagnosis [facility] [address] [place] [address] Jul, Gisele Austen IMMUNIZATIONS Vaccine Route Administration Date Status Influenza [...] Education Language: Question Answer Notes Languages spoken: French Temple: Question Answer Notes Temple 08 Orthodoxy Sexual Hx: Question Answer Notes Had sex [...] REASON FOR REFERRAL No Information VITAL SIGNS No information MEDICATIONS Medication SIG (Take, Route, Frequency, Duration) Notes Start Da te End Date Status Indapamide 1.25 MG 1 tablet in the morning Orally Once a day Active Eye Drops Relief 0.05-0.25 % Ophthalmic Active Irbesartan 300 MG 1 tablet Orally Once a day. Dr. Aguilera Active Melatonin 5 MG 1 tablet at bedtime as neede d with food Orally: 5mg/10mg Once a day as needed Active Aspir-Low 81 MG 1 tablet Orally Once a day Active Atorvastatin Calcium 10 MG 1 tablet Orally Once a day Active Vitamin D3 2000 UNIT 1 tablet (71922) Orally BID otc Active Saline Nasal [place] 0.65 % 2 drops in each nostril as needed Nasally every 2 hrs Active Tylenol PM Extra Strength 500-25 MG 1 tablet Orally at bedtime as nee ded Active Famotidine 40 MG 1 tablet at bedtime Orally Once a day for 90 da y(s) Feb, Active Cinnamon 500 MG 2 caps Orally daily otc Active Lutein 20 MG 1 cap(s) Orally daily A ctive Zinc 15 MG 1 tab Orally Once a day A ctive Magnesium 400 MG 1 capsule with food Orally once daily Active Vitamin C 1000 mg 1 tab(s) p.o. daily Active Vitamin B Complex 1 1 tab(s) p.o. once daily Active Selenimin-200 200 MCG 1 tablet Orally- 299mcg Once a day- otc Active Flaxseed Oil 1000 MG Orally QOD Act wei Co Q 10 200 mg 1 cap(s) p.o. daily/OTC Active Norvasc 5mg 1 tab orally twice daily for 90 days Active FiberCon 625 MG 1 tablet Orally TID otc Active May have tumerics as directed 725mg otc daily Active Glucosamine Chondr Complex 500-400 MG 1 capsule with a meal Orally bi d Active May Have zeaxanthin daily Activ e Tart Moody Advanced Orally Acti ve Potassium Chloride ER 20 MEQ 1 tab Orally daily for 90 days Active PROCEDURES No Information RESULTS No Results REASON FOR VISIT New Refill Request MEDICAL (GENERAL) HISTORY Type Description Date Medical History Hypertension Medical History Hyperlipidemia Medical History Obesity Medical History Cataracts - Dr. Ye Medical History Vitamin D deficiency Medical History DEXA 02/2016 F/U 5 years Medical History Left hip XR 02/09 nml Medical History MRI Brain3//15 Min Small vessel disease / Mild Vol loss Medical History Echo CANNY 04/1315 Grade I DD, Nml Systolic Function. Medical History Thyroid mass- ENT: Dr. Mccallum Medical History Stable pulmonary nodules on lung CT Medical History Colonoscopy: Patent refuses Medical History Regadenosen NM stress test normal 01/29/20 20 Surgical History appendicitis 1953 Surgical History D & C x 4 (Zve Zuniga) early Surgical History tubal ligation 1961 Surgical History hysterectomy 1967 Surgical History cholecystectomy 2006 Surgical History vaginal polyps ([place]) 2007 Surgical History Colonoscopy: declines; refuses stools ca rds and cologuard Surgical History thyroid biopsy-benign 11/08/2015 Surgical History Multiple thyroid biopsy's per pt, [facility] 2018 Hospitalization History admitted for anaphylaxis to penicill in [place] No Information Health Concerns No Information MEDICAL EQUIPMENT No Information MENTAL STATUS No Information FUNCTIONAL STATUS No Information ASSESSMENTS No Information PLAN OF TREATMENT Medication Medication Name Sig Start Date Stop Date Famotidine 40 MG 1 tablet at bedtime Orally Once a day fo r 90 day(s) Feb, Potassium Chloride ER 20 MEQ 1 tab Orally daily for 90 days Irbesartan 300 MG 1 tablet Orally Once a day. Dr. Aguilera Norvasc 5mg 1 tab orally twice daily for 90 days Atorvastatin Calcium 10 MG 1 tablet Orally Once a day Indapamide 1.25 MG 1 tablet in the morning Orally Once a day Next Appt Details Provider Name:Gisele Boyce, 2020-09-17 10:00:00 AM, [address] [place], [address], Insurance Providers Payer Name Payer Address Payer Phone Insured Name Patient Relati onship to Insured Coverage Start Date Coverage End Date MEDICARE Part A and B [address] [facility] [phone] ANGELINE PRIETO MEDICAID [place]O [id number] [facility] [id number] ANGELINE PRIETO
--- OUTSIDE RECORDS SUMMARY | 2020-09-29 09:48 | CCD | Continuity of Care Document ---
Author Author Kerri PEREZ PANhanC Organization Unknown Address [address] [place] [address] Phone [phone] Care Team Providers Care Supervisor Insecticide Name Role Phone Gisele Boyce MD [facility] [phone] Problems Description No Information Available Social History [...] Unknown Zinc 30mg Capsules Unknown Saline Mist [place] 0.65% Solution Unknown Eye Drops 0.012-0.2% Solution [...] Unknown Cinnamon 500mg Tablets Unknown Co-Q 10 [place]-3 Fish Oil [place]-3 C apsules Unknown Fiber-Caps 625mg Tablets Unknown [...] Available Procedures Date Code Description Status 08/20/2020 46508 Manual Therapy Each 15 Minutes C ompleted 08/20/2020 19813 Therapeutic Procedure, Each 15 M inutes Completed 08/13/2020 94085 Manual Therapy Each 15 Minutes C ompleted 08/13/2020 86915 Therapeutic Procedure, Each 15 M inutes Completed 08/06/2020 25390 Physical Therapy Eval - Low Comp lexity Completed Medical Devices Description No Information Available Encounters Type Date Location Provider Dx Diagnosis Office Visit 08/16/2020 3:00p [place] PA-C G5 7.02 Lesion of sciatic [...] limb Beatris Perez PA-C Plan of Treatment No Information Available Functional Status Description No Information Available Mental Status Description No Information Available Referrals Refer to Reason for Referral Status Appt Date Beatris Perez PA-C [facility] TO PT DEPT. NT C reated [address] [place] [address] [address] [place], [place] [id number] [phone]
--- OUTSIDE RECORDS SUMMARY | 2020-09-29 09:49 | CCD ---
Author Author [facility] Organization [facility] Address Unknown Phone Unavailable Care Team Providers Care Lead Data Entry Operator Name Role Phone Gisele Boyce Unavailable PROBLEMS Type Condition ICD9-CM Code [id number] Code Onset Dates Condition S tatus SNOMED Code Notes Problem Essential hypertension I10 Active 45509784 Problem BMI 40.0-44.9, adult Z68.41 Active 432946302 Problem Arthritis M19.90 Active 6158787 Problem Vitamin D deficiency E55.9 Active 94998663 Problem Meralgia paresthetica of right side G57.11 Acti ve 364255451481361 Problem Obesity E66.9 Active 772568725 Problem Chronic obstructive pulmonary disease, unspecified COPD ty pe J44.9 Active 63110182 Problem Impaired fasting glucose R73.01 Active 0456876 07 Problem Stress incontinence N39.3 Active 37581477 Problem Gastroesophageal reflux disease, esophagitis pre sence not specified K21.9 Active 688604101 Problem Hypomagnesemia E83.42 Active 297568501 Problem Mixed hyperlipidemia E78.2 Active 910983722 ALLERGIES Allergen (clinical drug ingredient) Drug/Non Drug Allergy do cumented on EMR Reaction Allergy Type Onset Date Status Penicillin (For Allergies Use Only) Anaphylaxis Drug Aller gy Active ENCOUNTERS from 1935 to 2020-07-19 Encounter Location Date Provider Diagnosis [facility] [address] [place] [address] Jun, Gisele Austen IMMUNIZATIONS Vaccine Route Administration Date [...] Unknown Jun 04, 2017 Adm inistered Influenza (18 yrs & older) Flublok IM Intramuscular Jun 07, 2019 Administered Influenza (6mo & up) Fluzone Unknown Jun 01, 2011 Adm inistered Influenza (Pharmacy Given) Unknown Jun 07, 2020 Admin istered Influenza (6mo & up) Fluzone Unknown Sep [...] Education Language: Question Answer Notes Languages spoken: Slovak Shinto: Question Answer Notes Shinto 08 Holiness Sexual Hx: Question Answer Notes Had sex [...] Active Vitamin D3 2000 UNIT 1 tablet (64680) Orally BID otc Active Saline Nasal [place] 0.65 % 2 drops in each nostril [...] 5mg 1 tab orally twice daily for 45 Active FiberCon 625 MG 1 tablet Orally [...] Information RESULTS No Results REASON FOR VISIT Ed visit [facility] D/C 07/18: Leg Pain MEDICAL (GENERAL) HISTORY Type Description Date Medical History Hypertension Medical History Hyperlipidemia Medical History Obesity Medical History Cataracts - Dr. Garcia-angela Medical History Vitamin D deficiency Medical History DEXA 02/2016 F/U 5 years Medical History Left hip XR 02/09 nml Medical History MRI Brain11/05/15 Min Small vessel disease / Mild Vol loss Medical History Echo CANNY 04/1315 Grade I DD, Nml Systolic Function. Medical History Thyroid mass- ENT: Dr. Mccallum Medical History Stable pulmonary nodules on lung CT Medical History Colonoscopy: Patent refuses Medical History Regadenosen NM stress test normal 01/29/20 20 Surgical History appendicitis 1953 Surgical History D & C x 4 (Zev Zuniga) early Surgical History tubal ligation 1961 [...] 5mg 1 tab orally twice daily for 45 Atorvastatin Calcium 10 MG 1 tablet Orally Once a day Indapamide 1.25 MG 1 tablet in the morning Orally Once a day Next Appt Details Provider Name:Gisele Boyce, 2020-09-17 10:00:00 AM, [address] [place], [address], Insurance Providers Payer Name Payer Address Payer Phone Insured Name Patient Relati onship to Insured Coverage Start Date Coverage End Date MEDICAID [employer] [address] [facility] [id number] ANGELINE PRIETO MEDICARE Part A and B [address] [facility] [id number] [phone] ANGELINE PRIETO
--- OUTSIDE RECORDS SUMMARY | 2020-09-29 09:49 | CCD | Continuity of Care Document ---
Author Author Kerri ZARCO DPT Organization Unknown Address [address] [place] [address] Phone [phone] Care Team Providers Care Inspector Plating Name Role Phone Gisele Boyce MD [facility] [phone] Problems Description No Information Available Social History [...] Unknown Zinc 30mg Capsules Unknown Saline Mist [place] 0.65% Solution Unknown Eye Drops 0.012-0.2% Solution [...] Unknown Cinnamon 500mg Tablets Unknown Co-Q 10 [place]-3 Fish Oil [place]-3 C apsules Unknown Fiber-Caps 625mg Tablets Unknown [...] kg/m2 Results Description No Information Available Procedures Description No Information Available Medical Devices Description No Information Available Encounters Type Date Location Provider Dx Diagnosis Office Visit 07/19/2020 10:15a Nba Perez PA-C G5 7.02 Lesion of sciatic nerve, left lower limb Assessments Date Code Description Provider 08/06/2020 G57.02 Lesion of sciatic nerve, left lo wer limb Lukasz Zarco, PT, DPT 07/19/2020 G57.02 Lesion of sciatic nerve, left lo wer limb Beatris Perez PA-C Plan of Treatment Future Appointment(s):* 08/13/2020 11:30 am - Yashira Lassiter P.T.A. at Physical Therapy * 08/16/2020 3:00 pm - Beatris Perez PA-C at [place] Functional Status Description No Information Available Mental Status Description No Information Available Referrals Refer to Dr Reason for Referral Status Appt Date Beatris Perez PA-C PT BASED ON MED. [facility] TO PT DEPT. NT C reated [address] [facility] [address] [place] [address] [phone]
--- OUTSIDE RECORDS SUMMARY | 2020-09-29 09:49 | CCD | Continuity of Care Document ---
Author Author Kerri ZARCO DPT Organization Unknown Address [address] [place] [address] Phone [phone] Care Team Providers Care Consumer Advocate Name Role Phone Gisele Boyce MD [facility] [phone] Problems Description No Information Available Social History [...] Unknown Zinc 30mg Capsules Unknown Saline Mist [place] 0.65% Solution Unknown Eye Drops 0.012-0.2% Solution [...] Unknown Cinnamon 500mg Tablets Unknown Co-Q 10 [place]-3 Fish Oil [place]-3 C apsules Unknown Fiber-Caps 625mg Tablets Unknown [...] Information Available Procedures Date Code Description Status 08/06/2020 06900 Physical Therapy Eval - Low Comp lexity Completed Medical Devices Description No Information Available Encounters Type Date Location Provider Dx Diagnosis Office Visit 07/19/2020 10:15a Nba Perez PA-C G5 7.02 Lesion of sciatic nerve, left lower limb Assessments Date Code Description Provider 08/06/2020 G57.02 Lesion of sciatic nerve, left lo wer limb Lukasz M. Dinan, PT, DPT 07/19/2020 G57.02 Lesion of sciatic nerve, left lo wer limb Beatris Perez PA-C Plan of Treatment Future Appointment(s):* 08/13/2020 11:30 am - Yashira Lassiter P.T.A. at Physical Therapy * 08/16/2020 3:00 pm - Beatris Perez PA-C at [place] Functional Status Description No Information Available Mental Status Description No Information Available Referrals Refer to Reason for Referral Status Appt Date Beatris Perez PA-C PT BASED ON MED. [facility] TO PT DEPT. NT C reated [facility] [address] [place] [address] [phone]
--- OUTSIDE RECORDS SUMMARY | 2020-09-29 09:49 | CCD | Continuity of Care Document ---
Author Author Kerri PEREZ PANhanC Organization Unknown Address [address] [place] [address] Phone [phone] Care Team Providers Care Joinery Factory Worker Name Role Phone Gisele Boyce MD [facility] [phone] Problems Description No Information Available Social History [...] Unknown Zinc 30mg Capsules Unknown Saline Mist [place] 0.65% Solution Unknown Eye Drops 0.012-0.2% Solution [...] Unknown Cinnamon 500mg Tablets Unknown Co-Q 10 [place]-3 Fish Oil [place]-3 C apsules Unknown Fiber-Caps 625mg Tablets Unknown [...] lower limb Assessments Date Code Description Provider 07/19/2020 G57.02 Lesion of sciatic nerve, left lo wer limb Beatris Perez PA-C Plan of Treatment Future Appointment(s):* 08/06/2020 12:30 pm - Lukasz Moreno, PT, DPT at Physical Therapy * 08/16/2020 3:00 pm - Beatris Perez PA-C at [place] 07/19/2020 - Beatris Perez PA-C* G57.02 Lesion of sciatic nerve, left lower limb* Follow up:* 4 weeks back/left hip recheck Functional Status Description No Information Available Mental Status Description No Information Available Referrals Refer to Reason for Referral Status Appt Date Beatris Perez PA-C PT BASED ON MED. [facility] TO PT DEPT. NT C reated [address] [facility] [address] [place] [address] [phone]
--- OUTSIDE RECORDS SUMMARY | 2020-09-29 09:49 | CCD | Continuity of Care Document ---
Author Author Kerri HEBERT PA Organization Unknown Address [address] [place] [address] Phone [phone] Care Team Providers Care Bean Picker Name Role Phone Gisele Boyce M.D. AUTM [phone] Kathy Scott M.D. AUTM [phone] Problems Active Problems Provider Date Epistaxis Roscoe Mccallum MD Onset: 09/27/2014 Breast lump Aj Hernández DO Onset: 5 Gastroesophageal reflux disease Roscoe Mccallum MD Onset: 0 11/06/2014 Allergic rhinitis Vickey Macedo II, PA-C Onset: 02/12/2015 Thyroid function tests abnormal Roscoe Mccallum MD Onset: 1 09/28/2014 Essential hypertension Onset: Ex-smoker MANDEEP Campos Onset: 04/24/2020 Panacinar emphysema MANDEEP Campos Onset: 04/24/2020 Social History Type Date Description Comments Sex Unknown Cigarette Use Pack Years - 62 ETOH Use Denies alcohol use Recreational Drug Use Denies Drug Use Tobacco Use Start: Unknown End: Unknown Patient is a former smoker 1-1 1/2 PPD FOR 40 YEARS QUIT 2000 Smoking Status Reviewed: 07/10/20 Patient is a former smoker 1- 1 1/2 PPD FOR 40 YEARS QUIT 2000 Allergies, Adverse Reactions, Alerts Active Allergies Reaction Severity Comments Date Penicillin HIVES,THROAT CLOSING 009 Medications Active Medications SIG Qnty Indications Ordering Provide r Date Trelegy Ellipta 100- 62.5-25mcg/Inh Aerosol 1 puff daily 60units J43.1 Wilfrido Boss DXavierOXavier 06/03/2020 Ventolin HFA 108(90Base) mcg/Act A erosol 2 puffs qid/prn 18gm J43.1 Wilfrido Boss D.O. 06/03/2020 Bisoprolol Fumarate 5mg Tablets 1 tab by mouth every day Unknown Rosuvastatin Calcium 10mg Tablets 1 tab by mouth every day Unknown Famotidine 40mg Tablets 1 by mouth every day Unknown Probiotic Capsules 1 by mouth every day Unknown Cholestoff 450mg Tablets 2 tabs by mouth every day Unknown Irbesartan 300mg Tablets 1 tab by mouth every day Unknown Selenium 299mcg Tablets 1 qd Unknown Flaxseed Oil 1000mg Capsules 1 cap by mouth 3x a week Unknown Fiber Formula Capsules 1 tab by mouth three times a day Unknown Cinnamon 500mg Tablets 1 tab by mouth every day Unknown Vitamin D3 2000Unit Tablets 5 Per Day Unknown Zinc 15 30mg Tablets once a d ay Unknown Tart Moody Advanced 1200mg Capsul es daily Unknown Aspir-[address] 1 tab by mouth every day Unknown Amlodipine Besylate 5mg Tablets 1 by mouth bid Unknown Indepamide 1.25mg 1 tab by mouth every day Unknown Glucosamine Chondroitin Complex C apsules 1 tab by mouth twice a day Unknown Tumeric 720mg daily Unknown Zeaxanthin 4mg Tab daily Unknown Lutein 20mg Capsules 1 tab by mouth every day Unknown Coq10 Maximum Strength 200mg Capsu les t by mouth every day Unknown Vitamin C 1000mg Tablets maicol y Unknown Vitamin B Complex Tablets 1 by mouth every day Unknown Magnesium Oxide 400mg Tablets 1 tab by mouth every day Unknown Potassium Chloride ER 20Meq Tablet s ER 1 tab by mouth every day Unknown 0 Eye Drops Solution Unknown Saline Nasal [place] 0.65% Solution use twice daily 1Month Unknown Immunizations CPT Code Status Date Vaccine Lot # [id number] Given 06/08/2019 Afluria, Quadrivalent, 0.5ml , [facility]# [id number] Vital Signs Date Vital Result Comment 07/10/2020 2:57pm BP Systolic 138 mmHg BP Diastolic 72 mmHg Heart Rate 81 /min O2 % BldC Oximetry 92 % Body Temperature 97.4 F Height 61 inches 5'1" Weight 209.00 lb BMI (Body Mass Index) 39.5 kg/m2 [place] Body Weight 105 lb Weight 94.802 kg 06/03/2020 3:02pm BP Systolic 168 mmHg BP Diastolic 84 mmHg Heart Rate 66 /min O2 % BldC Oximetry 96 % Body Temperature 96.7 F Height 61 inches 5'1" Weight 209.50 lb BMI (Body Mass Index) 39.6 kg/m2 [place] Body Weight 105 lb Weight 95.029 kg Results Description No Information Available Procedures Date Code Description Status 06/03/2020 54601 Aerosol Or Vapor Inhalations Com pleted 04/30/2020 13905 Diffusing Capacity Completed 04/30/2020 59019 Plethysmography Determination Rozina ng Volumes & Per Airway Resist Completed 04/30/2020 03312 Maximum Breathing Capacity, Maxi mal Voluntary Ventilation Completed 04/30/2020 82585 Bronchospasm Evaluation Complete d Medical Devices Description No Information Available Encounters Type Date Location Provider Dx Diagnosis Office Visit 06/03/2020 3:00p [facility] MANDEEP Campos J43.1 Panlobular emphysema Z87.891 Personal history of nicotine dependence Office Visit 04/24/2020 10:30a [facility] MANDEEP Campos J43.1 Panlobular emphysema R06.00 Dyspnea, unspecified Z87.891 Personal history of nicotine dependence Assessments Date Code Description Provider 07/10/2020 J43.1 Panlobular emphysema Carlos corea PA 07/10/2020 Z87.891 Personal history of nicotine dep endence MANDEEP Campos 06/03/2020 J43.1 Panlobular emphysema MANDEEP Feliz 06/03/2020 Z87.891 Personal history of nicotine dep endence MANDEEP Campos 04/30/2020 J43.1 Panlobular emphysema Pulmonary [facility] 04/24/2020 J43.1 Panlobular emphysema MANDEEP Feliz 04/24/2020 R06.00 Dyspnea, unspecified MANDEEP Feliz 04/24/2020 Z87.891 Personal history of nicotine dep endence MANDEEP Campos Plan of Treatment Future Appointment(s):* 01/07/2021 11:30 am - MANDEEP Campos at [facility] 07/10/2020 - MANDEEP Campos* J43.1 Panlobular emphysema * Z87.891 Personal history of nicotine dependence * * New Labs:* FVL/[place], Ordered: 07/10/20 * Follow up:* Follow up in 6 months with jamie Functional Status Functional Condition Comment Date Status Glasses Active Independent with all ADL's Activ e Standard cane is used to ambulate Active Mental Status Mental Condition Comment Date Status Cognitive ability not impaired A ctive Referrals Description No Information Available
--- OUTSIDE RECORDS SUMMARY | 2020-09-29 09:49 | CCD | Continuity of Care Document ---
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 Isidra Hays DPM-pc Onset: 01/31/2018 Pain in limb Isidra Hays DPM-pc Onset: 01/31/2018 Hammer toe Isidra Hays DPM-pc Onset: 01/31/2018 Onychomycosis Isidra Hays DPM-pc Onset: 01/31/2018 Social History Type Date Description Comments Sex Unknown Tobacco Use Start: Unknown End: Unknown Former Cigarette Smo ker Tobacco Use Start: Unknown Never Smoked Cigars Tobacco Use Start: Unknown Never Smoked A Pipe Smoking Status Reviewed: 05/22/20 Never Smoked A Pipe Tobacco Use Start: Unknown Never Used Smokeless Tobacco ETOH Use Rarely consumes alcohol Tobacco Use Start: Unknown End: Unknown Patient is a former smoker Allergies, Adverse Reactions, Alerts Active Allergies Reaction Severity Comments Date Penicillin Urticaria 01/31/2018 Medications Active Medications SIG Qnty Indications Ordering Provide r Date Zinc 15 66mg Tablets Unknown Zeaxanthin Powder Unknown Tart Moody Advanced Capsules Unknown Turmeric 500mg Capsules 1 by mouth twice a day Unknown Probiotic Capsules once a da y Unknown Magnesium Oxide 400mg Capsules 1 by mouth once daily Unknown Lutein 20mg Capsules Unknown Glucosamine Chondroitin Complex C apsules Unknown Flax Seed Oil 1000mg Capsules Unknown Ra Fiber-Cap 625mg Tablets Unknown Cholestoff 450mg Tablets Unknown Cinnamon 500mg Tablets Unknown Vitamin D3 50mcg (2000 Ut) Capsules Unknown Vitamin C 1000mg Tablets 1 000 mg a day Unknown B Complex Tablets Unknown Aspirin Adult Low Dose 81mg Tablet s DR 1 by mouth every day Unknown Ventolin HFA 108(90Base) mcg/Act A erosol 2 puff every 4-6 hours as needed Unknown 0 Trelegy Ellipta 100- 62.5-25mcg/Inh Aerosol inhale 1 puff by mouth once a day. Unknow n Bisoprolol Fumarate 5mg Tablets Unknown Latanoprost 0.005% Solution 1 drop into both eyes at night. Unknown Rosuvastatin Calcium 10mg Tablets 1 by mouth every day Unknown Famotidine 40mg Tablets take one tablet by mouth twice a day Unknown Irbesartan 300mg Tablets T deborah One A Day Unknown Omeprazole 20mg Capsules DR Unknown Indapamide 1.25mg Tablets [place]tecJay [place] Amlodipine Besylate 5mg Tablets Unknown Potassium Chloride Juliette ER 20Meq Tablets ER Unknown Immunizations Description No Information Available Vital Signs Date Vital Result Comment 08/01/2020 10:26am Weight 204.00 lb Weight 92.534 kg Height 61 inches 5'1" BMI (Body Mass Index) 38.5 kg/m2 BSA (Body Surface Area) 1.90 m2 01/16/2019 3:29pm Weight 213.00 lb Weight 96.617 kg Results Description No Information Available Procedures Date Code Description Status 08/01/2020 94845 Debridement Nails Any Method 6 O r More Completed 08/01/2020 77886 Pare Hyperkeratotic Lesion, 2-4 Completed 05/22/2020 56268 Debridement Nails Any Method 6 O r More Completed 05/22/2020 12913 Pare Hyperkeratotic Lesion, 2-4 Completed 03/12/2020 92889 Debridement Nails Any Method 6 O r More Completed 03/12/2020 21050 Pare Hyperkeratotic Lesion, 2-4 Completed Medical Devices Description No Information Available Encounters Description No Information Available Assessments Date Code Description Provider 08/01/2020 E11.49 Type 2 diabetes joaquin itus with other diabetic neurological complication JASON MontanaM-pc 08/01/2020 M20.10 Hallux valgus (acquired), unspec ified foot Isidra JASON HaysM-pc 08/01/2020 M20.41 Other hammer toe(s) (acquired), right foot Isidra Zay DPM-pc 08/01/2020 B35.1 Tinea unguium Isidra Hays DPM-pc 08/01/2020 L84 Corns and callosities Isidra Will iams, DPM-pc 08/01/2020 M79.671 Pain in right foot Isidra Beckwith korin DPM-pc 05/22/2020 E11.49 Type 2 diabetes joaquin itus with other diabetic neurological complication JASON MontanaM-pc 05/22/2020 M20.10 Hallux valgus (acquired), unspec ified foot Isidra Zay DPM-pc 05/22/2020 M20.41 Other hammer toe(s) (acquired), right foot Isidra JASON HaysM-pc 05/22/2020 B35.1 Tinea unguium Isidra Zay DPM-pc 05/22/2020 L84 Corns and callosities Isidra Will iams, DPM-pc 05/22/2020 M79.671 Pain in right foot Isidra Beckwith korni DPM-pc 03/12/2020 E11.49 Type 2 diabetes joaquin itus with other diabetic neurological complication IsidraJASON JovelM-pc 03/12/2020 M20.10 Hallux valgus (acquired), unspec ified foot JASON MontanaM-pc 03/12/2020 M20.41 Other hammer toe(s) (acquired), right foot Isidra Zay DPM-pc 03/12/2020 B35.1 Tinea unguium Isidra Zay DPM-pc 03/12/2020 L84 Corns and callosities Isidra Will iams, DPM-pc 03/12/2020 M79.671 Pain in right foot Laurel Still Plan of Treatment Future Appointment(s):* 10/10/2020 10:00 am - Laurel Montana at [facility] Pod[facility] 08/01/2020 - Laurel Montana* E11.49 Type 2 diabetes mellitus with other diabetic neurological complication * M20.10 Hallux valgus (acquired), unspecified foot * M20.41 Other hammer toe(s) (acquired), right foot * B35.1 Tinea unguium* Comments:* Pairing or cutting of hyperkeratotic lesions: 2 to 4 lesions from pinch callus region and medial side of first metatarsals with scalpel and burred to normal thicknessDebridement of nail(s), any method: x10 with nippers and burred to normal thickness she is continuing to walk with a cane for stability and will start physical therapy for her back next weekLotion to feet, follow-up 10 weeks. * L84 Corns and callosities * M79.671 Pain in right foot * All * New Medication:* - Functional Status Description No Information Available Mental Status Description No Information Available Referrals Description No Information Available
--- OUTSIDE RECORDS SUMMARY | 2020-09-29 09:49 | CCD | Continuity of Care Document ---
Author Author Kerri PEREZ PA-C Organization Unknown Address [address] [place] [id number] Phone [phone] Care Team Providers Care Damage Prevention Coordinator Name Role Phone Gisele Boyce MD [facility] [phone] Problems Description No Information Available Social History [...] day with food or milk 90tabs M19.071 Jsoe Mejia MD Vaseline Gel around n ostriles as needed Unknown Melatonin 5mg Capsules 1 by mouth every day Unknown Tylenol PM Extra Strength 500-25mg Tablets 2 by mouth every night at bedtime as needed Unknown Eye Drops 0.012-0.2% Solution Unknown Saline Mist [place] 0.65% Solution Unknown Zinc 30mg Capsules Unknown Zeaxanthin Powder Unknown Tart Moody Advanced Capsules Unknown Turmeric 500mg Capsules Unknown Selenium 200mcg Tablets Unknown Red Yeast Rice 600mg Capsules Unknown Lutein 20mg Capsules Unknown Glucosamine Chondroitin 1500 Complex 1500Com Capsules 1 by mouth every day Unknown 000 Flax Seed Oil 1300mg Capsules Unknown Fiber-Caps 625mg Tablets Unknown Co-Q 10 Hope-3 Fish Oil Hope-3 C apsules Unknown Cinnamon 500mg Tablets Unknown Vitamin D3 25mcg (1000 Ut) Chewtabs Unknown Vitamin C 500mg Capsules 1 by mouth every day Unknown B Complex Tablets Unknown Aspirin 81mg Tablets DR 1 by mouth every day Unknown Spironolactone 25mg Tablets Unknown Potassium 75mg Tablets Unknown Magnesium-Oxide 400(241.3Mg) mg Ta blets 1 by mouth twice a day Unknown Omeprazole 20mg Capsules DR 1 tab once a day Unknown Indapamide 1.25mg Tablets one tab by mouth a day Unknown Irbesartan 300mg Tablets 1 by mouth every night at bedtime Unknown Amiodipine Besayate 5MG Unknown 0 Immunizations Description No Information Available Vital Signs [...] Information Available Assessments Date Code Description Provider 07/19/2020 G57.02 Lesion of sciatic nerve, left lo wer limb Beatris Perez PA-C Plan of Treatment 07/19/2020 - Beatris Perez PA-C* G57.02 Lesion of sciatic nerve, left lower limb* Follow up:* 4 weeks back/left hip recheck Functional Status Description No Information Available Mental Status Description No Information Available Referrals Description No Information Available
--- OUTSIDE RECORDS SUMMARY | 2020-09-29 09:50 | CCD ---
Author Author [facility] Organization [facility] Address Unknown Phone Unavailable Care Team Providers Care Power Transformer Assembler Name Role Phone Radha Ferrera, Erick Goyal MD, FACS Unavailable Unavailable Garcia Ferrera, Erick Goyal MD, FACS Unavailable Unavailable Garcia Ferrera, Erick Goyal MD, FACS Unavailable Unavailable Garcia Ferrera, Erick Goyal MD, FACS Unavailable Unavailable Garcia Ferrera, Erick Goyal MD, FACS Unavailable Unavailable Garcia Ferrera, Erick Goyal MD, FACS Unavailable Unavailable Garcia Ferrera, Erick Goyal MD, FACS Unavailable Unavailable Garcia Ferrera, Erick Goyal MD, FACS Unavailable Unavailable Garcia Ferrera, Erick Goyal MD, FACS Unavailable Unavailable Garcia Ferrera, Erick Goyal MD, FACS Unavailable Unavailable Garcia Ferrera, Erick Goyal MD, FACS Unavailable Unavailable Garcia Ferrera, Erick Goyal MD, FACS Unavailable Unavailable Garcia Ferrera, Erick Goyal MD, FACS Unavailable Unavailable Garcia Ferrera, Erick Goyal MD, FACS Unavailable Unavailable Garcia Ferrera, Erick Goyal MD, FACS Unavailable Unavailable Garcia Ferrera, Erick Goyal MD, FACS Unavailable Unavailable Garcia Ferrera, Erick Goyal MD, FACS Unavailable Unavailable Garcia Ferrera, Erick Goyal MD, FACS Unavailable Unavailable Garcia Ferrera, Erick Goyal MD, FACS Unavailable Unavailable Garcia Ferrera, Erick Goyal MD, FACS Unavailable Unavailable Garcia Ferrera, Erick Goyal MD, FACS Unavailable Unavailable Garcia Ferrera, Erick Goyal MD, FACS Unavailable Unavailable Garcia Ferrera, Erick Goyal MD, FACS Unavailable Unavailable Garcia Ferrera, Erick Goyal MD, FACS Unavailable Unavailable Garcia Ferrera, Erick Goyal MD, FACS Unavailable Unavailable Garcia Ferrera, Erick Goyal MD, FACS Unavailable Unavailable Garcia Ferrera, Erick Goyal MD, FACS Unavailable Unavailable Garcia Ferrera, Erick Goyal MD, FACS Unavailable Unavailable Garcia Ferrera, Erick Goyal MD, FACS Unavailable Unavailable Garcia Ferrera, Erick Goyal MD, FACS Unavailable Unavailable Garcia Ferrera, Erick Goyal MD, FACS Unavailable Unavailable Garcia Ferrera, Erick Goyal MD, FACS Unavailable Unavailable Garcia Ferrera, Erick Goyal MD, FACS Unavailable Unavailable Garcia Ferrera, Erick Goyal MD, FACS Unavailable Unavailable Symenow, Homa Gisele PA Unavailable Unavailable Symenow, Homa Gisele PA Unavailable Unavailable Symenow, Homa Gisele PA Unavailable Unavailable Symenow, Homa Gisele PA Unavailable Unavailable Symenow, Homa Gisele PA Unavailable Unavailable Symenow, Homa Gisele PA Unavailable Unavailable Symenow, Homa Gisele PA Unavailable Unavailable Symenow, Homa Gisele PA Unavailable Unavailable Symenow, Homa Gisele PA Unavailable Unavailable Symenow, Homa Gisele PA Unavailable Unavailable Symenow, Homa Gisele PA Unavailable Unavailable Symenow, Homa Gisele PA Unavailable Unavailable Symenow, Homa Gisele PA Unavailable Unavailable Symenow, Homa Gisele PA Unavailable Unavailable Symenow, Homa Gisele PA Unavailable Unavailable Symenow, Homa Gisele PA Unavailable Unavailable Symenow, Homa Gisele PA Unavailable Unavailable Symenow, Homa Gisele PA Unavailable Unavailable Symenow, Homa Gisele PA Unavailable Unavailable Symenow, Homa Gisele PA Unavailable Unavailable Symenow, Homa Gisele PA Unavailable Unavailable Symenow, Homa Gisele PA Unavailable Unavailable Symenow, Homa Gisele PA Unavailable Unavailable Symenow, Homa Gisele PA Unavailable Unavailable Symenow, Homa Gisele PA Unavailable Unavailable Symenow, Homa Gisele PA Unavailable Unavailable Symenow, Homa Gisele PA Unavailable Unavailable Symenow, Homa Gisele PA Unavailable Unavailable Symenow, Homa Gisele PA Unavailable Unavailable Symenow, Homa Gisele PA Unavailable Unavailable Symenow, Homa Gisele PA Unavailable Unavailable Symenow, Homa Gisele PA Unavailable Unavailable Symenow, Homa Gisele PA Unavailable Unavailable Symenow, Homa Gisele PA Unavailable Unavailable Symenow, Homa Gisele PA Unavailable Unavailable Symenow, Homa Gisele PA Unavailable Unavailable LIS, J MARIANELA DPM PC Unavailable Unavailable LIS, J MARIANELA [facility] Unavailable Unavailable LIS, J MARIANELA [facility] Unavailable Unavailable LIS, J MARIANELA [facility] Unavailable Unavailable LIS, J MARIANELA [facility] Unavailable Unavailable LIS, J MARIANELA [facility] Unavailable Unavailable LIS, J MARIANELA [facility] Unavailable Unavailable LIS, J MARIANELA [facility] Unavailable Unavailable LIS, J MARIANELA [facility] Unavailable Unavailable LIS, J MARIANELA [facility] Unavailable Unavailable LIS, J MARIANELA [facility] Unavailable Unavailable LIS, J MARIANELA [facility] Unavailable Unavailable LIS, J MARIANELA [facility] Unavailable Unavailable LIS, J MARIANLEA [facility] Unavailable Unavailable LIS, J MARIANELA [facility] Unavailable Unavailable LIS, J MARIANELA [facility] Unavailable Unavailable LIS, J MARIANELA [facility] Unavailable Unavailable LIS, J MARIANELA [facility] Unavailable Unavailable LIS, J MARIANELA [facility] Unavailable Unavailable LIS, J MARIANELA [facility] Unavailable Unavailable LIS, J MARIANELA [facility] Unavailable Unavailable LIS, J MARIANELA [facility] Unavailable Unavailable LIS, J MARIANELA [facility] Unavailable Unavailable LIS, J MARIANELA [facility] Unavailable Unavailable LIS, J MARIANELA [facility] Unavailable Unavailable LIS, J MARIANELA [facility] Unavailable Unavailable Ana, M Giacomoatt PA Unavailable Unavailable Mateo Perezatt PA Unavailable Unavailable Mateo Perezatt PA Unavailable Unavailable Ana, M Giacomoatt PA Unavailable Unavailable Ana, M Giacomoatt PA Unavailable Unavailable Ana, M Barratt PA Unavailable Unavailable Perez, M Barratt PA Unavailable Unavailable Perez, M Barratt PA Unavailable Unavailable Ana, M Giacomoatt PA Unavailable Unavailable Ana, M Giacomoatt PA Unavailable Unavailable Ana, M Giacomoatt PA Unavailable Unavailable Perez, M Giacomoatt PA Unavailable Unavailable Perez, M Giacomoatt PA Unavailable Unavailable Perez, M Barratt PA Unavailable Unavailable Perez, M Barratt PA Unavailable Unavailable Ana, M Giacomoatt PA Unavailable Unavailable Ana, Mateo Goodenatt PA Unavailable Unavailable Perez, M Barratt PA Unavailable Unavailable Perez, M Barratt PA Unavailable Unavailable Perez, M Barratt PA Unavailable Unavailable Perez, M Barratt PA Unavailable Unavailable Perez, M Barratt PA Unavailable Unavailable Perez, M Barratt PA Unavailable Unavailable Perez, M Barratt PA Unavailable Unavailable Perez, M Barratt PA Unavailable Unavailable Perez, M Barratt PA Unavailable Unavailable Perez, M Barratt PA Unavailable Unavailable Overholt, T Parrish PA Unavailable Unavailable Overholt, T Parrish PA Unavailable Unavailable Overholt, T Parrish PA Unavailable Unavailable Overholt, T Parrish PA Unavailable Unavailable Overholt, T Parrish PA Unavailable Unavailable Overholt, T Parrish PA Unavailable Unavailable Overholt, T Parrish PA Unavailable Unavailable Overholt, T Parrish PA Unavailable Unavailable Overholt, T Parrish PA Unavailable Unavailable Overholt, T Parrish PA Unavailable Unavailable Overholt, T Parrish PA Unavailable Unavailable Overholt, T Parrish PA Unavailable Unavailable Overholt, T Parrish PA Unavailable Unavailable Overholt, T Parrish PA Unavailable Unavailable Overholt, T Parrish PA Unavailable Unavailable HEBERT, M JAI PA Unavailable Unavailable HEBERT, M JAI PA Unavailable Unavailable HEBERT, M JAI PA Unavailable Unavailable HEBERT, M JAI PA Unavailable Unavailable HEBERT, M JAI PA Unavailable Unavailable HEBERT, M JAI PA Unavailable Unavailable HEBERT, M JAI PA Unavailable Unavailable HEBERT, M JAI PA Unavailable Unavailable HEBERT, M JAI PA Unavailable Unavailable HEBERT, M JAI PA Unavailable Unavailable HEBERT, M JAI PA Unavailable Unavailable HEBERT, M JAI PA Unavailable Unavailable HEBERT, M JAI PA Unavailable Unavailable HEBERT, M JAI PA Unavailable Unavailable HEBERT, M JAI PA Unavailable Unavailable HEBERT, M JAI PA Unavailable Unavailable HEBERT, M JAI PA Unavailable Unavailable HEBERT, M JAI PA Unavailable Unavailable HEBERT, M JAI PA Unavailable Unavailable HEBERT, M JAI PA Unavailable Unavailable HEBERT, M JAI PA Unavailable Unavailable HEBERT, M JAI PA Unavailable Unavailable HEBERT, M JAI PA Unavailable Unavailable HEBERT, M JAI PA Unavailable Unavailable HEBERT, M JAI PA Unavailable Unavailable HEBERT, M JAI PA Unavailable Unavailable HEBERT, M JAI PA Unavailable Unavailable HEBERT, M JAI PA Unavailable Unavailable HEBERT, M JAI PA Unavailable Unavailable HEBERT, M JAI PA Unavailable Unavailable HEBERT, Mateo VERGARA MANDEEP Unavailable Unavailable HEBERT, Mateo VERGARA MANDEEP Unavailable Unavailable HEBERT, Mateo VERGARA MANDEEP Unavailable Unavailable Re-disclosure Warning The records that you are about to access may contain information from federally-assisted alcohol or drug abuse programs. If such information is present, then the following federally mandated warning applies: This information has been disclosed to you from records protected by federal confidentiality rules (42 CFR part 2). The federal rules prohibit you from making any further disclosure of this information unless further disclosure is expressly permitted by the written consent of the person to whom it pertains or as otherwise permitted by 42 CFR part 2. A general authorization for the release of medical or other information is NOT sufficient for this purpose. The Federal rules restrict any use of the information to criminally investigate or prosecute any alcohol or drug abuse patient.The records that you are about to access may contain highly sensitive health information, the redisclosure of which is protected by Article 27-F of the [facility] Public Health law. If you continue you may have access to information: Regarding HIV / AIDS; Provided by facilities licensed or operated by the [facility] Office of Mental Health; or Provided by the [facility] Office for People With Developmental Disabilities. If such information is present, then the following [facility] mandated warning applies: This information has been disclosed to you from confidential records which are protected by state law. State law prohibits you from making any further disclosure of this information without the specific written consent of the person to whom it pertains, or as otherwise permitted by law. Any unauthorized further disclosure in violation of state law may result in a fine or senior living sentence or both. A general authorization for the release of medical or other information is NOT sufficient authorization for further disc losure. Allergies and Adverse Reactions Type Description Substance Reaction Status Data Source(s ) Drug allergy Penicillin (For Allergies Use Only) Drug allergy Anaph ylaxis Active eCW1 ([facility]) Family History Family Member Name Family Member Gender Family Member Status Date o f Status Description Data Source(s) Unknown Male Problem MEDENT ([facility] ) Encounters Encounter Providers Location Date Indications Data Source(s ) [place] [address] [facility] [address] 09/17/2020 12:00:00 AM EST eCW1 ([facility]) Outpatient Attender: Beatris KAUFMAN Physical Therapy 02:00:00 PM EST MEDENT ([facility]) [place] [address] [facility] [address] 08/13/2020 12:00:00 AM EST eCW1 ([facility]) Outpatient Attender: MARIANELA HAYS [facility] 08/01/2020 10:00:00 AM EST - 08/01/2020 10:00:00 AM EST [facility] Outpatient Attender: Beatris KAUFMAN Physical Therapy 09:15:00 AM EST MEDENT ([facility]) Unknown [address] [facility] [address] 07/19/2020 12:00:00 AM EST eCW1 ([facility]) Outpatient Attender: Gisele KAUFMAN Main Office 06/25/2020 09:15:00 AM EDT MEDENT ([facility]) Outpatient<td ID="encounterTypeDescripti onID0">IOP CHECK</td><td>Jay Jay Ferrera MD, FACS</td><td>Jay Jay Pina MD [facility]</td><td>06/05/2020</td><td>2:24PM</td><td>3:09PM</td><td><content ID="encounterDiagnosisID0-0">Borderline Glaucoma Open Angle with Borderline Findings Both Eyes</content></td> Attender: Jay Jay Ferrera MD, FACS [facility] 06/05/2020 02:24:00 PM EDT - 06/05/2020 03:09:00 PM ED T Borderline Glaucoma Open Angle with Borderline Findings Both Eyes ANN (Jay Jay Ferrera MD [facility]) Borderline Glaucoma Open Angle with Bord heather Findings Both Eyes Outpatient Attender: JAI Mccallum/Melida/Unruly/Reji dl 06/03/2020 03:00:00 PM EDT MEDENT ([facility]) Outpatient Attender: MARIANELA HAYS [facility] 05/28/2020 04:06:00 PM EDT - 05/22/2020 04:06:00 PM EDT [facility] Patient discharged. Unknown [address] [facility] [address] 05/21/2020 12:00:00 AM EDT eCW1 ([facility]) Outpatient Attender: Gisele KAUFMAN Main Office 05/08/2020 08:00:00 AM EDT MEDENT ([facility]) Outpatient Attender: JAI Mccallum/Melida/Unruly/Rein lula 04/24/2020 10:30:00 AM EDT MEDENT ([facility]) Outpatient<td ID="encounterTypeDescripti onID1">9 Month Follow-Up</td><td>Jay Jay Pina MD, FACS</td><td>Jay Jay Pina MD [facility]</td><td>04/04/2020</td><td>9:47AM</td><td>10:40AM</td><td><content ID="encounterDiagnosisID1-0">History of Nicotine Dependence</content>, <content ID="encounterDiagnosisID1-1">Essential Hypertension</content>, <content ID="encounterDiagnosisID1-2">Cataract Senile Posterior Subcapsular Polar</content>, <content ID="encounterDiagnosisID1-3">Cataract Senile Nuclear</content>, <content ID="encounterDiagnosisID1-4">Borderline Glaucoma Open Angle with Borderline Findings Both Eyes</content>, <content ID="encounterDiagnosisID1-5">Cataract Senile Cortical Bilateral</content>, <content ID="encounterDiagnosisID1-6">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</content></td> Attender: Jay Jay Ferrera MD, FACS Jay Jay Pina MD [facility] 04/04/2020 09:47:00 AM EDT - 04/04/2020 10:40:00 AM EDT Macular Degeneration Nonexudative Bilate ral Intermediate Dry Stage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Cataract Senile Cortical BilateralEssential HypertensionCataract Senile Cortical BilateralEssential HypertensionHistory of Nicotine DependenceHistory of Nicotine DependenceCataract Senile Posterior Subcapsular PolarCataract Senile Posterior Subcapsular PolarBorderline Glaucoma Open Angle with Borderline Findings Both EyesCataract Senile NuclearBorderline Glaucoma Open Angle with Borderline Findings Both EyesCataract Senile Nuclear ANN (Jay Jay Ferrera MD [facility]) Macular Degeneration Nonexudative Bilate ral Intermediate Dry Stage Macular Degeneration Nonexudative Bilate ral Intermediate Dry Stage Cataract Senile Cortical Bilateral Essential Hypertension Cataract Senile Cortical Bilateral Essential Hypertension History of Nicotine Dependence History of Nicotine Dependence Cataract Senile Posterior Subcapsular Po lar Cataract Senile Posterior Subcapsular Po lar Borderline Glaucoma Open Angle with Bord heather Findings Both Eyes Cataract Senile Nuclear Borderline Glaucoma Open Angle with Bord heather Findings Both Eyes Cataract Senile Nuclear Out[place] [address] [facility] [address] 03/19/2020 12:00:00 AM EDT eCW1 [facility]) Outpatient Attender: MARIANELA HAYS DPM PC 03/12/2020 03:10:00 PM EDT - 03/12/2020 03:10:00 PM EDT [facility] Unknown [address] [facility] [address] 02/19/2020 12:00:00 AM EDT eCW1 ([facility]) Outpatient [address] [facility] [place] [address] 02/15/2020 12:00:00 AM EDT eCW1 ([facility]) Unknown [address] [facility] [place] [address] 02/10/2020 12:00:00 AM EDT eCW1 ([facility]) Outpatient Attender: MARIANELA HAYS DPM [facility] 01/02/2020 01:29:00 PM EDT - 01/02/2020 01:29:00 PM EDT [facility] Outpatient Attender: Gisele KAUFMAN Main Office 12/27/2019 09:45:00 AM EDT MEDENT ([facility]) [facility] [address] [facility] [address] 12/15/2019 12:00:00 AM EDT eCW1 ([facility]) [address] [address] 12/12/2019 12:00:00 AM EDT eCW1 ([facility]) [address] [address] 12/12/2019 12:00:00 AM EDT eCW1 ([facility]) [address] [address] 12/11/2019 12:00:00 AM EDT eCW1 ([facility]) [address] [address] 11/01/2019 12:00:00 AM EST eCW1 ([facility]) [address] [address] 10/29/2019 12:00:00 AM EST eCW1 ([facility]) [address] [address] 10/26/2019 12:00:00 AM EST eCW1 ([facility]) Outpatient Attender: MARIANELA PIERRE 10/24/2019 10:24:00 AM EST - 10/24/2019 10:24:00 AM [facility] Outpatient Attender: Parrish KAUFMAN Physical Therapy 08:00:00 AM EST MEDENT ([facility]) Outpatient Attender: MARIANELA IPERRE 08/15/2019 10:47:00 AM EST - 08/15/2019 10:47:[address] [address] 08/10/2019 12:00:00 AM EST eCW1 ([facility]) [address] [address] 08/02/2019 12:00:00 AM EST eCW1 ([facility]) Immunizations Vaccine Date Status Description Data Source(s) COVID-19 VACCINE, MRNA, [id number], LNP-S ([employer])/PF 09/28/19 12:00:00 AM EST completed [facility] IIV3. This is one of two codes replacing CVX 15, which is being retired. 06/07/2020 03:12:00 PM EDT completed eCW1 ([facility]) IIV3. This is one of two codes replacing CVX 15, which is being retired. 06/07/2020 03:12:00 PM EDT completed eCW1 ([facility]) IIV3. This is one of two codes replacing CVX 15, which is being retired. 06/07/2020 03:12:00 PM EDT completed eCW1 ([facility]) INFLUENZA VACCINE QUADRIVALENT (65 YR UP)/MF59 C.1/PF 05/28/2020 12:00:00 AM EDT completed [facility] Medications Medication Brand Name Start Date Product Form Dose Route Admi nistrative Instructions Pharmacy Instructions Status Indications Reaction Description Data Source(s) 100-62.5-25 mcg 08/27/2020 12:00:00 AM EST blister with lynda ce 60 INHALE ONE PUFF BY MOUTH EVERY DAY INHALE ONE PUFF BY MOUTH EVERY DAY SOLD: 08/30/2020 [facility] 5 mg 08/20/2020 12:00:00 AM EST tablet 180 TAKE ONE TABLET BY MOUTH TWICE A DAY TAKE ONE TABLET BY MOUTH TWICE A DAY SOLD: 08/21/2020 [facility] 5-325 mg 07/18/2020 12:00:00 AM EST tablet 15 TAKE ONE TABLET BY MOUTH THREE TIMES A DAY NEEDED FOR PAIN MAXIMUM DAILY DOSE = THREE TABLETS TAKE ONE TABLET BY MOUTH THREE TIMES A DAY NEEDED FOR PAIN MAXIMUM DAILY DOSE = THREE TABLETS SOLD: 07/18/2020 [facility] 5 mg 07/15/2020 12:00:00 AM EST tablet 90 TAKE ONE TABLET BY MOUTH TWICE A DAY TAKE ONE TABLET BY MOUTH TWICE A DAY SOLD: 07/18/2020 [facility] 200 ACTUAT Albuterol 0.09 MG/ACTUAT Metered Dose Inhal er [Ventolin] Ventolin HFA 06/24/2020 12:00:00 AM EDT RESPIRATORY active MEDENT ([facility]) latanoprost 0.05 MG/ML Ophthalmic Solution Latanoprost 06/24/2020 12:00:00 AM EDT OPHTHALMIC active MEDENT ([facility]) Trelegy Ellipta Trelegy Ellipta 06/24/2020 12:00:00 AM EDT RESPIRATORY active MEDENT ([facility]) Famotidine 40 MG Oral Tablet Famotidine 40 MG Oral Tablet 12:00:00 AM EDT 1 active famotidine 40 MG Oral Tablet ANN (Jay Jay Ferrera MD [facility]) Indapamide 1.25 MG Oral Tablet Indapamide 1.25 MG Oral Table t 06/05/2020 12:00:00 AM EDT 1 active indapami de 1.25 MG Oral Tablet ANN (Jay Jay Ferrera MD [facility]) Bisoprolol Fumarate 5 MG Oral Tablet Bisoprolol Fumarate 5 M G Oral Tablet 06/05/2020 12:00:00 AM EDT 1 active bisoprolol fumarate 5 MG Oral Tablet ANN (Jay Jay Ferrera MD [facility]) Rosuvastatin calcium 10 MG Oral Tablet Rosuvastatin Ca lcium 10 MG Oral Tablet Rosuvastatin Calcium 10 MG Oral Tablet 06/05/2020 12:00:00 AM EDT 1 active rosuvastatin calcium 10 MG Oral Tablet ANN (Jay Jay Ferrera MD [facility]) Trelegy Ellipta 100-62.5-25 MCG/INH Inhalation Aerosol Powder Breath Activated Trelegy Ellipta 100-62.5-25 MCG/INH Inhalation Aerosol Powder Breath Activated 06/05/2020 12:00:00 AM EDT active 30 ACTUAT fluticasone furoate 0.1 MG/ACTUAT / umeclidinium 0.0625 MG/ACTUAT / vilanterol 0.025 MG/ACTUAT Dry Powder Inhaler [Trelegy] ANN (Jay Jay Ferrera MD [facility]) 200 ACTUAT Albuterol 0.09 MG/ACTUAT Mete red Dose Inhaler [Ventolin] Ventolin HFA 108 (90 Base) MCG/ACT Inhalation Aerosol Solution Ventolin HFA 108 (90 Base) MCG/ACT Inhalation Aerosol Solution 06/05/2020 12:00:00 AM EDT 1 active [id number] 200 ACTUAT albuter ol 0.09 MG/ACTUAT Metered Dose Inhaler [Ventolin] ANN (Jay Jay Ferrera MD [facility]) Amlodipine 5 MG Oral Tablet amLODIPine Besylate 5 MG O ral Tablet amLODIPine Besylate 5 MG Oral Tablet 06/05/2020 12:00:00 AM EDT 1 active amlodipine 5 MG Oral Tablet ANN (Jay Jay Ferrera MD [facility]) irbesartan 300 MG Oral Tablet Irbesartan 300 MG Oral T ablet Irbesartan 300 MG Oral Tablet 06/05/2020 12:00:00 AM EDT 1 active irbesartan 300 MG Oral Tablet ANN (Jay Jay Ferrera MD [facility]) 90 mcg/actuation 06/04/2020 12:00:00 AM EDT HFA aerosol inha ler 18 INHALE TWO PUFFS BY MOUTH FOUR TIMES A DAY NEEDED INHALE TWO PUFFS BY MOUTH FOUR TIMES A DAY NEEDED SOLD: 07/01/2020 [facility] 90 mcg/actuation 06/04/2020 12:00:00 AM EDT HFA aerosol inha ler 18 INHALE TWO PUFFS BY MOUTH FOUR TIMES A DAY NEEDED INHALE TWO PUFFS BY MOUTH FOUR TIMES A DAY NEEDED SOLD: 07/27/2020 [facility] 90 mcg/actuation 06/04/2020 12:00:00 AM EDT HFA aerosol inha ler 18 INHALE TWO PUFFS BY MOUTH FOUR TIMES A DAY NEEDED INHALE TWO PUFFS BY MOUTH FOUR TIMES A DAY NEEDED SOLD: 06/04/2020 [facility] 100-62.5-25 mcg 06/03/2020 12:00:00 AM EDT blister with lynda ce 60 INHALE ONE PUFF BY MOUTH EVERY DAY INHALE ONE PUFF BY MOUTH EVERY DAY SOLD: 08/02/2020 [facility] 100-62.5-25 mcg 06/03/2020 12:00:00 AM EDT blister with lynda ce 60 INHALE ONE PUFF BY MOUTH EVERY DAY INHALE ONE PUFF BY MOUTH EVERY DAY SOLD: 06/03/2020 [facility] Trelegy Ellipta Trelegy Ellipta 06/03/2020 12:00:00 AM EDT RESPIRATORY active MEDENT ([facility], ) 200 ACTUAT Albuterol 0.09 MG/ACTUAT Metered Dose Inhal er [Ventolin] Ventolin HFA 06/03/2020 12:00:00 AM EDT RESPIRATORY active MEDENT ([facility], ) 100-62.5-25 mcg 06/03/2020 12:00:00 AM EDT blister with lynda ce 60 INHALE ONE PUFF BY MOUTH EVERY DAY INHALE ONE PUFF BY MOUTH EVERY DAY SOLD: 07/01/2020 [facility] 20 mEq 05/30/2020 12:00:00 AM EDT tablet extended release 90 TAKE ONE TABLET BY MOUTH EVERY DAY WITH FOOD TAKE ONE TABLET BY MOUTH EVERY DAY WITH FOOD SOLD: 06/03/2020 [facility] Glucosamine Chondroitin Complex 05/07/2020 12:00:00 AM EDT ORAL active MEDENT ([facility]) Polyethylene Glycol 400 4 MG/ML / Propyl kristina glycol 3 MG/ML Ophthalmic Solution [Systane] Systane 05/07/2020 12:00:00 AM EDT activ e MEDENT ([facility]) Famotidine 40 MG Oral Tablet Famotidine 05/07/2020 12:00:00 AM EDT ORAL active MEDENT ([facility]) Diphenhydramine Citrate 38 MG / Ibuprofen 200 MG Oral Tablet Ibuprofen PM 05/07/2020 12:00:00 AM EDT ORAL active MEDENT ([facility]) 20 mEq 05/04/2020 12:00:00 AM EDT tablet,ER particles/cry stals 90 TAKE ONE TABLET BY MOUTH EVERY DAY TAKE ONE TABLET BY MOUTH EVERY DAY SOLD: 05/07/2020 [facility] 5 mg 04/24/2020 12:00:00 AM EDT tablet 45 TAKE ONE-HALF TABLET BY MOUTH EVERY DAY TAKE ONE-HALF TABLET BY MOUTH EVERY DAY SOLD: 07/18/2020 [facility] 5 mg 04/24/2020 12:00:00 AM EDT tablet 45 TAKE ONE-HALF TABLET BY MOUTH EVERY DAY TAKE ONE-HALF TABLET BY MOUTH EVERY DAY SOLD: 04/24/2020 [facility] Bisoprolol Fumarate 5 MG Oral Tablet Bisoprolol Fumarate 12:00:00 AM EDT ORAL active [facility] ([facility] Rosuvastatin calcium 10 MG Oral Tablet [Crestor] Crestor 04/22/2020 12:00:00 AM EDT ORAL active [facility] ([facility]) 10 mg 04/22/2020 12:00:00 AM EDT tablet 90 TAKE ONE TABLET BY MOUTH AT BEDTIME TAKE ONE TABLET BY MOUTH AT BEDTIME SOLD: 07/18/2020 [facility] 10 mg 04/22/2020 12:00:00 AM EDT tablet 90 TAKE ONE TABLET BY MOUTH AT BEDTIME TAKE ONE TABLET BY MOUTH AT BEDTIME SOLD: 04/24/2020 [facility] 5 mg 04/15/2020 12:00:00 AM EDT tablet 90 TAKE ONE TABLET BY MOUTH TWICE A DAY TAKE ONE TABLET BY MOUTH TWICE A DAY SOLD: 06/03/2020 [facility] 5 mg 04/15/2020 12:00:00 AM EDT tablet 90 TAKE ONE TABLET BY MOUTH TWICE A DAY TAKE ONE TABLET BY MOUTH TWICE A DAY SOLD: 04/17/2020 [facility] Famotidine 40 MG Oral Tablet Famotidine 40 MG Oral Tablet 12:00:00 AM EDT 1 active famotidine 40 MG Oral Tablet ANN (Jay Jay Ferrera MD [facility]) 0.005 % 04/04/2020 12:00:00 AM EDT drops 7 PLACE 1 DROP IN EACH EYE AT BEDTIME PLACE 1 DROP IN EACH EYE AT BEDTIME SOLD: 08/30/2020 [facility] Atorvastatin 10 mg Oral Tablet Atorvastatin 10 mg Oral Table t 04/04/2020 12:00:00 AM EDT 1 aborted Atorvas tatin 10 mg ANN (Jay Jay Ferrera MD [facility]) latanoprost 0.05 MG/ML Ophthalmic Soluti on Latanoprost 0.005% Ophthalmic Solution Latanoprost 0.005% Ophthalmic Solution 04/04/2020 12:00:00 AM EDT 1 active latanoprost 0.05 MG/ ML Ophthalmic Solution ANN (Jay Jay Ferrera MD [facility]) 0.005 % 04/04/2020 12:00:00 AM EDT drops 7 PLACE 1 DROP IN EACH EYE AT BEDTIME PLACE 1 DROP IN EACH EYE AT BEDTIME SOLD: 04/06/2020 [facility] 0.005 % 04/04/2020 12:00:00 AM EDT drops 7 PLACE 1 DROP IN EACH EYE AT BEDTIME PLACE 1 DROP IN EACH EYE AT BEDTIME SOLD: 06/19/2020 [facility] Famotidine 40 MG Oral Tablet FAMOTIDINE 03/19/2020 12:00:00 AM EDT tab let 90 TAKE ONE TABLET BY MOUTH AT BEDTIME TAKE ONE TABLET BY MOUTH AT BEDTIME SOLD: 09/17/2020 [facility] Famotidine 40 MG Oral Tablet Famotidine 40 MG 03/19/2020 12:00:00 A M EDT 1.0 {tablet_at_bedtime} active Famotidine 4 0 MG eCW1 ([facility]) Famotidine 40 MG Oral Tablet Famotidine 40 MG 03/19/2020 12:00:00 A M EDT 1.0 {tablet_at_bedtime} active Famotidine 4 0 MG eCW1 ([facility]) Famotidine 40 MG Oral Tablet Famotidine 40 MG 03/19/2020 12:00:00 A M EDT 1.0 {tablet_at_bedtime} active Famotidine 4 0 MG eCW1 ([facility]) Famotidine 40 MG Oral Tablet Famotidine 40 MG 03/19/2020 12:00:00 A M EDT 1.0 {tablet_at_bedtime} active Famotidine 4 0 MG eCW1 ([facility]) 40 mg 03/19/2020 12:00:00 AM EDT tablet 90 TAKE ONE TABLET BY MOUTH AT BEDTIME TAKE ONE TABLET BY MOUTH AT BEDTIME SOLD: 03/22/2020 [facility] Famotidine 40 MG Oral Tablet Famotidine 40 MG 03/19/2020 12:00:00 A M EDT 1.0 {tablet_at_bedtime} active Famotidine 4 0 MG eCW1 ([facility]) 40 mg 03/19/2020 12:00:00 AM EDT tablet 90 TAKE ONE TABLET BY MOUTH AT BEDTIME TAKE ONE TABLET BY MOUTH AT BEDTIME SOLD: 06/19/2020 [facility] 300 mg 02/16/2020 12:00:00 AM EDT tablet 90 TAKE ONE TABLET BY MOUTH EVERY DAY AT BEDTIME TAKE ONE TABLET BY MOUTH EVERY DAY AT BEDTIME SOLD: 02/17/2020 [facility] 300 mg 02/16/2020 12:00:00 AM EDT tablet 90 TAKE ONE TABLET BY MOUTH EVERY DAY AT BEDTIME TAKE ONE TABLET BY MOUTH EVERY DAY AT BEDTIME SOLD: 08/16/2020 [facility] 300 mg 02/16/2020 12:00:00 AM EDT tablet 90 TAKE ONE TABLET BY MOUTH EVERY DAY AT BEDTIME TAKE ONE TABLET BY MOUTH EVERY DAY AT BEDTIME SOLD: 05/16/2020 [facility] 1.25 mg 01/23/2020 12:00:00 AM EDT tablet 90 TAKE ONE TABLET BY MOUTH EVERY DAY TAKE ONE TABLET BY MOUTH EVERY DAY SOLD: 07/18/2020 [facility] 1.25 mg 01/23/2020 12:00:00 AM EDT tablet 90 TAKE ONE TABLET BY MOUTH EVERY DAY TAKE ONE TABLET BY MOUTH EVERY DAY SOLD: 01/25/2020 [facility] 1.25 mg 01/23/2020 12:00:00 AM EDT tablet 90 TAKE ONE TABLET BY MOUTH EVERY DAY TAKE ONE TABLET BY MOUTH EVERY DAY SOLD: 04/24/2020 [facility] atorvastatin 10 MG Oral Tablet Atorvastatin Calcium 01/09/2020 1 2:00:00 AM EDT ORAL completed MED[facility] ([facility]) 10 mg 01/09/2020 12:00:00 AM EDT tablet 90 TAKE ONE TABLET BY MOUTH AT BEDTIME TAKE ONE TABLET BY MOUTH AT BEDTIME SOLD: 04/10/2020 [facility] 10 mg 01/09/2020 12:00:00 AM EDT tablet 90 TAKE ONE TABLET BY MOUTH AT BEDTIME TAKE ONE TABLET BY MOUTH AT BEDTIME SOLD: 01/11/2020 [facility] Methylcellulose 500 MG Oral Tablet Fiber Therapy 12/26/2019 12:00:00 AM EDT ORAL active [facility] ([facility]) 20 mg 11/01/2019 12:00:00 AM EST capsule,delayed release (DR/EC) 90 TAKE ONE CAPSULE BY MOUTH EVERY DAY TAKE ONE CAPSULE BY MOUTH EVERY DAY SOLD: 11/05/2019 [facility] 20 mg 11/01/2019 12:00:00 AM EST capsule,delayed release (DR/EC) 90 TAKE ONE CAPSULE BY MOUTH EVERY DAY TAKE ONE CAPSULE BY MOUTH EVERY DAY SOLD: 01/30/2020 [facility] 20 mEq 10/30/2019 12:00:00 AM EST tablet extended release 90 TAKE ONE TABLET BY MOUTH EVERY DAY TAKE ONE TABLET BY MOUTH EVERY DAY SOLD: 01/30/2020 [facility] 20 mEq 10/30/2019 12:00:00 AM EST tablet extended release 90 TAKE ONE TABLET BY MOUTH EVERY DAY TAKE ONE TABLET BY MOUTH EVERY DAY SOLD: 11/01/2019 [facility] 5 mg 10/27/2019 12:00:00 AM EST tablet 60 TAKE ONE TABLET BY MOUTH TWICE A DAY TAKE ONE TABLET BY MOUTH TWICE A DAY SOLD: 02/17/2020 [facility] 5 mg 10/27/2019 12:00:00 AM EST tablet 60 TAKE ONE TABLET BY MOUTH TWICE A DAY TAKE ONE TABLET BY MOUTH TWICE A DAY SOLD: 03/18/2020 [facility] 5 mg 10/27/2019 12:00:00 AM EST tablet 60 TAKE ONE TABLET BY MOUTH TWICE A DAY TAKE ONE TABLET BY MOUTH TWICE A DAY SOLD: 12/21/2019 [facility] 5 mg 10/27/2019 12:00:00 AM EST tablet 60 TAKE ONE TABLET BY MOUTH TWICE A DAY TAKE ONE TABLET BY MOUTH TWICE A DAY SOLD: 11/21/2019 [facility] 5 mg 10/27/2019 12:00:00 AM EST tablet 60 TAKE ONE TABLET BY MOUTH TWICE A DAY TAKE ONE TABLET BY MOUTH TWICE A DAY SOLD: 01/19/2020 [facility] 5 mg 10/27/2019 12:00:00 AM EST tablet 60 TAKE ONE TABLET BY MOUTH TWICE A DAY TAKE ONE TABLET BY MOUTH TWICE A DAY SOLD: 10/29/2019 [facility] 15 mg 10/16/2019 12:00:00 AM EST tablet 90 TAKE ONE TABLET BY MOUTH EVERY DAY WITH FOOD OR MILK TAKE ONE TABLET BY MOUTH EVERY DAY WITH FOOD OR MILK S OLD: 10/20/2019 [facility] meloxicam 15 MG Oral Tablet Meloxicam 09/18/2019 12:00:00 AM EST ORAL active [facility] ([facility]) No Active Medications 09/18/2019 12:00:00 AM EST completed [facility] ([facility]) 15 mg 09/18/2019 12:00:00 AM EST tablet 30 TAKE ONE TABLET BY MOUTH EVERY DAY WITH FOOD OR MILK TAKE ONE TABLET BY MOUTH EVERY DAY WITH FOOD OR MILK S OLD: 09/18/2019 [facility] Cyclobenzaprine hydrochloride 10 MG Oral Tablet CYCLOBENZAPR INE [facility] 2019 12:00:00 AM EST tablet 10 TAKE ONE TABLET BY MOUTH AT BEDTIME TAKE ONE TABLET BY MOUTH AT BEDTIME SOLD: 2019 [facility] 800 mg 2019 12:00:00 AM EST tablet 30 TAKE ONE TABLET BY MOUTH THREE TIMES A DAY TAKE ONE TABLET BY MOUTH THREE TIMES A DAY SOLD: 2019 [facility] 20 mEq 08/02/2019 12:00:00 AM EST tablet extended release 90 TAKE ONE TABLET BY MOUTH EVERY DAY TAKE ONE TABLET BY MOUTH EVERY DAY SOLD: 08/05/2019 [facility] 5 mg 05/04/2019 12:00:00 AM EDT tablet 180 TAKE ONE TABLET BY MOUTH TWICE A DAY TAKE ONE TABLET BY MOUTH TWICE A DAY SOLD: 08/01/2019 [facility] 20 mg 05/04/2019 12:00:00 AM EDT capsule,delayed release (DR/EC) 90 TAKE ONE CAPSULE BY MOUTH EVERY DAY TAKE ONE CAPSULE BY MOUTH EVERY DAY SOLD: 08/01/2019 [facility] 300 mg 03/01/2019 12:00:00 AM EDT tablet 90 TAKE ONE TABLET BY MOUTH EVERY DAY AT BEDTIME TAKE ONE TABLET BY MOUTH EVERY DAY AT BEDTIME SOLD: 11/21/2019 [facility] 300 mg 03/01/2019 12:00:00 AM EDT tablet 90 TAKE ONE TABLET BY MOUTH EVERY DAY AT BEDTIME TAKE ONE TABLET BY MOUTH EVERY DAY AT BEDTIME SOLD: 08/31/2019 [facility] 25 mg 02/18/2019 12:00:00 AM EDT tablet 45 TAKE ONE-HALF TABLET BY MOUTH EVERY DAY TAKE ONE-HALF TABLET BY MOUTH EVERY DAY SOLD: 08/22/2019 [facility] 25 mg 02/18/2019 12:00:00 AM EDT tablet 45 TAKE ONE-HALF TABLET BY MOUTH EVERY DAY TAKE ONE-HALF TABLET BY MOUTH EVERY DAY SOLD: 11/21/2019 [facility] Spironolactone 25MG Oral Tablet Spironolactone 25MG Oral Tab let 01/31/2019 12:00:00 AM EDT 1 aborted Spirono lactone ANN (Jay Jay Ferrera MD [facility]) 1.25 mg 01/30/2019 12:00:00 AM EDT tablet 90 TAKE ONE TABLET BY MOUTH EVERY DAY TAKE ONE TABLET BY MOUTH EVERY DAY SOLD: 08/01/2019 [facility] 1.25 mg 01/30/2019 12:00:00 AM EDT tablet 90 TAKE ONE TABLET BY MOUTH EVERY DAY TAKE ONE TABLET BY MOUTH EVERY DAY SOLD: 10/29/2019 [facility] Magnesium-Vitamin D3-Turmeric [phone]-UNIT-MG O ral Capsule, conventional Magnesium-Vitamin D3-Turmeric [phone]-UNIT-MG Oral Capsule, conventional 08/05/2016 12:00:00 AM EST 1 aborted Magnesium-Vitamin D3-Turmeric ANN (Jay Jay Ferrera MD [facility]) Omeprazole 20 MG Delayed Release Oral Ca psule Omeprazole 20 MG Capsule, delayed-release Omeprazole 20 MG Capsule, delayed-release 03/11/2015 1 2:00:00 AM EDT 1 aborted omeprazole 20 MG Delayed Release Oral Capsule ANN (Jay Jay Ferrera MD [facility]) Amlodipine 10 MG Oral Tablet amLODIPine Besylate 10 MG OR TABS amLODIPine Besylate 10 MG OR TABS 03/07/2013 12:00:00 AM EDT 1 aborted amlodipine 10 MG Oral Tablet ANN (Jay Jay Ferrera MD [facility]) Insurance Providers Payer name Policy type / Coverage type Policy ID Covered libertarian ID Covered libertarian's relationship to [place] Policy [place] Plan Information EMEDNY [id number] SP [id number] MEDICARE [id number] SP [id number] J16 MEDICARE PART A [facility] [id number] 18 [id number] MEDICAID -PHYSICIAN [id number] MEDICAID [id number] MEDICARE C [id number] S [id number] J16 MEDICAID M [id number] Medicare Part B [facility] Other 0 Se lf 0 Medicare Part B [facility] Other 0 Se lf 0 MEDICAID [id number] SP [id number] [facility]-Medicaid [id number] [facility]-Medicare Part B [id number] MEDICARE [id number] SP [id number] A [facility]-Medicaid [id number] [facility] [id number] [facility] [id number] ANSI-Medicaid [id number] Medicaid Medigap Part B [id number] Self [id number] Medicare (Part B) Medicare Primary [id number] Self [id number] Medicaid Medigap Part B [id number] Self [id number] Medicare (Part B) Medicare Primary [id number] Self [id number] ANSI-Medicaid [id number] ANSI-Medicare Part B [id number] ANSI-Medicare Part B [id number] ANSI-Medicaid [id number] MEDICARE [id number] SP [id number] J16 MEDICAID [id number] SP [id number] Medicaid [place] Medigap Part B [id number] Self [id number] [place] Medicare Primary [id number] Self [id number] ANSI-Medicaid [id number] ANSI-Medicare Part B [id number] [place] Medig[place] Part [place] [id number] Self [id number] [place] Medicare Primary [id number] Self [id number] Medicare [place] Gov't Servi Medicare Primary [id number] Self [id number] MVP (pr) Commercial [id number] Self [id number] [place] Med[place] [id number] Self [id number] [place] [id number] Self [id number] MEDICARE [id number] SP [id number] A MVP (pr) Commercial [id number] Self [id number] [place] Med[place] [id number] Self [id number] [place] [id number] Self [id number] MVP (pr) Commercial [id number] Self [id number] [place] Med[place] Part [place] [id number] Self [id number] [place] [id number] Self [id number] MEDICARE PART A [facility] [id number] 18 [id number] Medicare Part B [facility] Other 0 Se lf 0 MEDICARE [id number] SP [id number] A MEDICAID [id number] SP [id number] [place] Medig[place] Part [place] [id number] Self [id number] [place] Medicare Primary [id number] Self [id number] Medicaid Medigap Part B [id number] Self [id number] Medicare (Part B) Medicare Primary [id number] Self [id number] Medicaid Medigap Part B [id number] Self [id number] Medicare (Part B) Medicare Primary [id number] Self [id number] MEDICARE [id number] SP [id number] A [place] Part [place] [id number] Self [id number] [place] Primary [id number] Self [id number] MEDICARE [id number] SP [id number] A [place] Med[place] Part [place] [id number] Self [id number] [place] Medicare Primary [id number] Self [id number] Medicare (Part B) Medicare Primary Self Medicaid Medigap Part B 2 1 Self 2 1 MEDICARE C [id number] S [id number] A Medicare [place] Gov't Servi Medicare Primary Self Medicare Medicare Primary Self [id number] A [id number] Problems, Conditions, and Diagnoses Code Display Name Description Problem Type Effective Dates Data Source(s) 529260550 Excess skin of eyelid (finding) Dermatochalasis Both E yelids Finding 06/05/2020 03:07:00 PM EDT ANN (Jay Jay Ferrera MD [facility]) 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 Problem 0 04/24/2020 12:00:00 AM EDT MEDENT ([facility], ) [id number] Ex-smoker Ex-smoker Problem 04/24/2020 12:00:00 AM ED T MEDENT ([facility], ) [id number] 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 Problem 04/04/2020 12:00:00 AM EDT ANN (Jay Jay Ferrera MD [facility]) 584190261 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 Problem 04/04/2020 12:00:00 AM EDT ANN (Jay Jay Ferrera [facility]) J44.9 06279261 Chronic obstructive pulmonary di sease, unspecified COPD type Problem 02/15/2020 12:00:00 AM EDT eCW1 ([facility]) 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 Diagnosis 08/01/2020 10:00:00 AM [facility] B351 Tinea unguium Tinea unguium Diagnosis 08/01/2020 10:00:00 AM [facility] M2041 Other hammer toe(s) (acquired), right fo ot Other hammer toe(s) (acquired), right foot Diagnosis 08/01/2020 10:00:00 AM [facility] M2010 Hallux valgus (acquired), unspecified fo ot Hallux valgus (acquired), unspecified foot Diagnosis 08/01/2020 10:00:00 AM [facility] L84 Corns and callosities Corns and callosities Diagnosis 08/01/2020 10:00:00 AM EST [facility] T09003 Pain in right foot Pain in right foot Diagnosis 03:10:00 PM EDT [facility] Surgeries/Procedures Procedure Description Date Indications Data Source(s) THERAPEUTIC PX 1/> AREAS EACH 15 MIN EXERCISES 12:00:00 AM EST MEDENT ([facility] ) MANUAL THERAPY TQS 1/> REGIONS EACH 15 MINUTES 12:00:00 AM EST MEDENT ([facility]) THERAPEUTIC PX 1/> AREAS EACH 15 MIN EXERCISES 12:00:00 AM EST MED[facility] ([facility]) MANUAL THERAPY TQS 1/> REGIONS EACH 15 MINUTES 12:00:00 AM EST MEDENT ([facility]) Physical Therapy Eval - Low Complexity 08/06/2020 12:0 0:00 AM EST MEDENT ([facility]) Pare Hyperkeratotic Lesion, 2-4 08/01/2020 12:00:00 AM EST MEDENT ([facility]) Debridement Nails Any Method 6 Or More 08/01/2020 12:0 0:00 AM EST [facility] ([facility]) ECG ROUTINE ECG W/LEAST 12 LDS W/I&R 06/25/2020 12:00: 00 AM EDT MEDENT ([facility]) Intermediate Eye Exam Established Patient Intermediate Eye Exam Established Patient 06/05/2020 12:00:00 AM EDT ANN (Saeid Ferrera MD [facility]) Aerosol Or Vapor Inhalations 06/03/2020 12:00:00 AM ED T MEDENT ([facility], ) Pare Hyperkeratotic Lesion, 2-4 05/22/2020 12:00:00 AM EDT MEDENT ([facility]) Debridement Nails Any Method 6 Or More 05/22/2020 12:0 0:00 AM EDT MED[facility] ([facility]) Bronchospasm Evaluation 04/30/2020 12:00:00 AM EDT MEDENT ([facility], ) Maximum Breathing Capacity, Maximal Voluntary Ventilation 04/30/2020 12:00:00 AM EDT MEDENT ([facility], ) Plethysmography Determination Lung Volumes & Per Airway Resi st 04/30/2020 12:00:00 AM EDT MEDENT ([facility], ) DIFFUSING CAPACITY 04/30/2020 12:00:00 AM EDT MEDENT ([facility]) Scodi, optic nerve with interpretation a nd report (WAIVER OF LIABILITY ON FILE (ABN)) Scodi, optic nerve with interpretation a nd report (WAIVER OF LIABILITY ON FILE (ABN)) 04/04/2020 12:00:00 AM EDT ANN (Saeid Ferrera MD [facility]) Comprehensive eye exam established patient (Signi/Sep Eval. & Man.) Comprehensive eye exam established patient (Signi/Sep Eval. & Man.) 04/04/2020 12:00:00 AM EDT ANN (Jay Jay Ferrera MD [facility]) Comprehensive eye exam established patient (25) Compre hensive eye exam established patient (25) 04/04/2020 12:00:00 AM EDT ANN (Jay Jay Ferrera MD [facility]) COMPUTERIZED OPHTHALMIC IMAGING OPTIC NERVE Scodi, opt ic nerve with interpretation and report (GA) 04/04/2020 12:00:00 AM EDT [facility] (Jay Jay Ferrera MD [facility]) Pare Hyperkeratotic Lesion, 2-4 03/12/2020 12:00:00 AM EDT MEDENT ([facility]) Debridement Nails Any Method 6 Or More 03/12/2020 12:0 0:00 AM [facility] MYOCARDIAL SPECT MULTIPLE STUDIES 01/29/2020 12:00:00 AM EDT MEDENT ([facility]) CV STRS TST XERS&/OR RX CONT ECG PHYS SI&R 01/29/2020 12:00:00 AM EDT MED[facility] ([facility]) ECHO TTHRC R-T 2D W/WOM-MODE COMPL SPEC&COLR DOP 01/04 12:00:00 AM EDT MED[facility] ([facility]) Pare Hyperkeratotic Lesion, 2-4 01/02/2020 12:00:00 AM EDT MED[facility] ([facility]) Debridement Nails Any Method 6 Or More 01/02/2020 12:0 0:00 AM EDT MED[facility] ([facility]) ECG ROUTINE ECG W/LEAST 12 LDS W/I&R 12/27/2019 12:00: 00 AM EDT MEDENT ([facility]) Office Visit, Est Pt., Level 4 PC 12/11/2019 12:00:00 AM EDT eCW1 ([facility]) Office Visit, Est Pt., Level 2 FC 12/11/2019 12:00:00 AM EDT eCW1 ([facility]) Pare Hyperkeratotic Lesion, 2-4 10/24/2019 12:00:00 AM EST MED[facility] ([facility]) Debridement Nails Any Method 6 Or More 10/24/2019 12:0 0:00 AM EST [facility] ([facility]) Pare Hyperkeratotic Lesion, 2-4 08/15/2019 12:00:00 AM EST [facility] ([facility]) Debridement Nails Any Method 6 Or More 08/15/2019 12:0 0:00 AM EST MED[facility] ([facility]) Results ID Date Data Source Basic Metabolic Profile (BMP) 09/17/2020 12:00:00 AM EST eCW 1 ([facility]) Name Value Range Interpretation Code Description Data María Elena rce(s) Supporting Document(s) 0.96 0.55-1.30 CREATININE FOR GFR eCW1 ([facility]) 105 70-100 GLUCOSE, FASTING eCW1 ([facility]) 21 7-18 BLOOD UREA NITROGEN eCW1 ([facility]) 135 136-145 SODIUM LEVEL eCW1 ([facility]) 59.1 >32 GLOMERULAR FILTRATION RATE eCW 1 ([facility]) 4.5 3.5-5.1 POTASSIUM SERUM eCW1 ([facility]) 102 98-107 CHLORIDE LEVEL eCW1 ([facility]) 10.0 8.8-10.2 CALCIUM LEVEL eCW1 ([facility]) 26 21-32 CARBON DIOXIDE LEVEL eCW1 ([facility]) ID Date Data Source [id number] 09/17/2020 12:00:00 AM EST eCW1 ([facility]) Name Value Range Interpretation Code Description Data María Elena rce(s) Supporting Document(s) Hemoglobin A1c/Hemoglobin.total in Blood 5.5 HEMOGLOBIN A1c eCW1 ([facility]) ID Date Data Source [id number] 09/04/2020 12:00:00 AM EST [facility] Name Value Range Interpretation Code Description Data María Elena rce(s) Supporting Document(s) Carestart Rapid COVID Antigen Test Negative [facility] This lab was reported by Andrez ferreira. ID Date Data Source [id number] 09/04/2020 12:00:00 AM EST [facility] Name Value Range Interpretation Code Description Data María Elena rce(s) Supporting Document(s) SARS coronavirus 2 RNA [Presence] in Res piratory specimen by AP[facility]LL[facility] with probe detection NEGATIVE [facility] This lab was ordered by Andrez Arango and reported by [facility] [employer]. ID Date Data Source [id number] 06/23/2020 08:04:00 AM EDT [facility]) Name Value Range Interpretation Code Description Data María Elena rce(s) Supporting Document(s) Blood Urea Nitrogen 13 mg/dL 7-18 [facility] ([facility]) Glucose, Fasting 94 mg/dL 70-100 [facility]) Glomerular Filtration Rate Laboratory test result MEDENT ([facility]) <content>Units are mL/min/1.73 m2</content>
<content></content>
<content>Chronic Kidney Disease Staging per NKF:</content>
<content></content>
<content>Stage I & II GFR >=60 Normal to Mildly Decreased</content>
<content>Stage III GFR 30- 59 Moderately Decreased</content>
<content>Stage IV GFR 15-29 Severely Decreased</content>
<content>Stage V GFR <15 Very Little GFR Left</content>
<content>ESRD GFR <15 on [facility]</content>
<content></content> Creatinine For GFR 0.82 mg/dL 0.55-1.30 MED[facility] ([facility]) Sodium Level 138 meq/L 136-145 [facility] ([facility]) Carbon Dioxide Level 27 meq/L 21-32 [facility] ([facility]) Chloride Level 103 meq/L 98-107 [facility] ([facility]) Potassium Serum 3.9 meq/L 3.5-5.1 [facility] ([facility]) Calcium Level 8.7 mg/dL 8.8-10.2 [facility] ([facility]) Anion Gap 8 meq/L 8-16 [facility] ID Date Data Source [id number] 03/10/2020 08:15:00 AM EDT [facility] ([facility]) Name Value Range Interpretation Code Description Data María Elena rce(s) Supporting Document(s) Triglycerides Level 90 mg/dL [facility] ([facility]) LDL Cholesterol 67 mg/dL [facility] ([facility]) Cholesterol Level 144 mg/dL [facility] ([facility]) HDL Cholesterol 59 mg/dL [facility] [facility]) Cholesterol Risk Ratio 2.440 MEDENT ([facility]) Non-HDL-C 85 mg/dL [facility] ID Date Data Source [id number] 03/10/2020 08:15:00 AM EDT MED[facility] ([facility]) Name Value Range Interpretation Code Description Data María Elena rce(s) Supporting Document(s) Blood Urea Nitrogen 13 mg/dL 7-18 MED[facility] ([facility]) Glucose, Fasting 99 mg/dL 70-100 MED[facility] ([facility]) Creatinine For GFR 0.71 mg/dL 0.55-1.30 MED[facility] ([facility]) Sodium Level 132 meq/L 136-145 MED[facility] ([facility]) Potassium Serum 4.2 meq/L 3.5-5.1 MED[facility] ([facility]) Glomerular Filtration Rate Laboratory test result MEDENT ([facility]) <content>Units are mL/min/1.73 m2</content>
<content></content>
<content>Chronic Kidney Disease Staging per NKF:</content>
<content></content>
<content>Stage I & II GFR >=60 Normal to Mildly Decreased</content>
<content>Stage III GFR 30- 59 Moderately Decreased</content>
<content>Stage IV GFR 15-29 Severely Decreased</content>
<content>Stage V GFR <15 Very Little GFR Left</content>
<content>ESRD GFR <15 on [facility]</content>
<content></content> Carbon Dioxide Level 27 meq/L 21-32 MEDENT ([facility]) Anion Gap 7 meq/L 8-16 MED[facility] ([facility]) Chloride Level 98 meq/L 98-107 MEDENT ([facility]) Calcium Level 9.3 mg/dL 8.8-10.2 MEDENT ([facility]) Ast/Sgot 25 U/L 7-37 MED[facility] ([facility]) Alt/SGPT 28 U/L 12-78 MED[facility] ([facility]) Alkaline Phosphatase 134 U/L 45-117 MED[facility] ([facility]) Total Protein 7.0 GM/DL 6.4-8.2 MED[facility] ([facility]) Bilirubin,Total 0.4 mg/dL 0.2-1.0 MED[facility] ([facility]) Albumin/Globulin Ratio 0.9 1.2-2.2 MED[facility] ([facility]) Albumin 3.4 GM/DL 3.2-5.2 [facility] ([facility]) ID Date Data Source [id number] 12/14/2019 08:16:00 AM EDT MED[facility] ([facility]) Name Value Range Interpretation Code Description Data María Elena rce(s) Supporting Document(s) Magnesium Level 2.1 1.8-2.4 MED[facility] ([facility]) ID Date Data Source [id number] 12/14/2019 08:16:00 AM EDT MED[facility] ([facility]) Name Value Range Interpretation Code Description Data María Elena rce(s) Supporting Document(s) Glucose 105 70-100 [facility] ([facility]) Blood Urea Nitrogen 18 7-18 [facility] ([facility]) Creatinine 0.78 0.55-1.30 MED[facility] ([facility]) Potassium 4.5 3.5-5.1 [facility] ([facility]) Sodium 130 136-145 MED[facility] ([facility]) Chloride 97 98-107 MED[facility] ([facility]) Carbon Dioxide 26 21-32 MED[facility] ([facility]) Calcium 10.3 8.8-10.2 MED[facility] ([facility]) Glomerular filtration rate/1.73 sq M.pre dicted [Volume Rate/Area] in Serum or Plasma by Creatinine-based formula (MDRD) Laboratory test result MEDENT ([facility]) ID Date Data Source [id number] 12/14/2019 08:16:00 AM EDT [facility] ([facility]) Name Value Range Interpretation Code Description Data María Elena rce(s) Supporting Document(s) Hemoglobin A1c/Hemoglobin.total in Blood 6.4 MED[facility] ([facility]) ID Date Data Source [id number] 12/11/2019 12:00:00 AM EDT eCW1 ([facility]) Name Value Range Interpretation Code Description Data María Elena rce(s) Supporting Document(s) 1.7 1.8-2.4 MAGNESIUM LEVEL [facility] ([facility]) Procedure Social History Code Duration Value Status Description Data Source(s ) Smoking 09/17/2020 12:00:00 AM EST Former Smoker completed Former Smoker eCW1 ([facility]) Smoking 07/10/2020 12:00:00 AM EST Patient is a former smoker completed Patient is a former smoker MEDENT ([facility], ) Smoking 06/25/2020 12:00:00 AM EDT Patient is a former smoker completed Patient is a former smoker [facility] ([facility]) Smoking 06/06/2020 11:01:23 AM EDT Ex-smoker (finding) complet ed Ex-smoker (finding) ANN (Jay Jay Ferrera MD [facility]) Smoking 05/22/2020 12:00:00 AM EDT Never Smoked A Pipe complet ed Never Smoked A Pipe MEDENT ([facility]) Smoking 03/19/2020 12:00:00 AM EDT Former Smoker completed Former Smoker eCW1 ([facility]) Smoking 03/19/2020 12:00:00 AM EDT Former Smoker completed Former Smoker eCW1 ([facility]) Smoking 03/19/2020 12:00:00 AM EDT Former Smoker completed Former Smoker eCW1 ([facility]) Smoking 03/19/2020 12:00:00 AM EDT Former Smoker completed Former Smoker eCW1 ([facility]) Smoking 02/15/2020 12:00:00 AM EDT Former Smoker completed Former Smoker eCW1 ([facility]) Smoking 02/15/2020 12:00:00 AM EDT Former Smoker completed Former Smoker eCW1 ([facility]) Smoking 01/30/2020 12:00:00 AM EDT Former Smoker completed Former Smoker eCW1 ([facility]) Vital Signs ID Date Data Source [id number] Name Value Range Interpretation Code Description Data Source(s) Diastolic blood pressure 80 mm[Hg] 80 mm[Hg] eCW1 ([facility]) Systolic blood pressure 150 mm[Hg] 150 mm[Hg] e CW1 ([facility]) Body temperature 97.3 [degF] 97.3 [degF] eCW1 ( [facility]) Respiratory rate 70 /min 70 /min eCW1 ([facility]) Heart rate 18 /min 18 /min eCW1 ([facility]) Body mass index (BMI) [Ratio] 38.66 kg/m2 38.66 kg/m2 W1 ([facility]) Body height 61.5 [in_i] 61.5 [in_i] W1 ([facility]) Body weight 208 [lb_av] 208 [lb_av] eCW1 ([facility]) Body surface area Derived from formula 1.90 m2 1.90 m2 MEDENT ([facility]) Body mass index (BMI) [Ratio] 38.5 kg/m2 38.5 k g/m2 MEDENT ([facility]) Body height 61 [in_i] 61 [in_i] MEDENT ([facility]) 5'1" Body weight 92.534 kg 92.534 kg MEDENT ([facility]) Body weight 204.00 [lb_av] 204.00 [lb_av] MEDEN T ([facility]) Body mass index (BMI) [Ratio] 39.1 kg/m2 39.1 k g/m2 MEDENT ([facility] ) Body weight 203.50 [lb_av] 203.50 [lb_av] MEDEN T ([facility] ) Body height 60.5 [in_i] 60.5 [in_i] MEDENT ([facility] ) 5'0.50" Body temperature 96.9 [degF] 96.9 [degF] MEDENT ([facility]) Body weight 94.802 kg 94.802 kg MEDENT ([facility], ) [place] body weight 105 [lb_av] 105 [lb_av] MEDEN T ([facility], ) Body mass index (BMI) [Ratio] 39.5 kg/m2 39.5 k g/m2 MEDENT ([facility], ) Body weight 209.00 [lb_av] 209.00 [lb_av] MEDEN T ([facility], ) Body height 61 [in_i] 61 [in_i] MEDENT ([facility], ) 5'1" Body temperature 97.4 [degF] 97.4 [degF] [facility] Oxygen saturation in Arterial blood by Pulse oximetry 92 % 92 % [facility] ([facility], ) Heart rate 81 /min 81 /min MEDENT ([facility] ) Diastolic blood pressure 72 mm[Hg] 72 mm[Hg] MEDENT ([facility], ) Systolic blood pressure 138 mm[Hg] 138 mm[Hg] [facility] Diastolic blood pressure--standing 70 mm[Hg] 7 0 mm[Hg] MEDENT ([facility]) [place] Systolic blood pressure--standing 130 mm[Hg] 13 0 mm[Hg] MEDENT ([facility]) [place] Diastolic blood pressure 76 mm[Hg] 76 mm[Hg] MEDENT ([facility]) sitting Systolic blood pressure 136 mm[Hg] 136 mm[Hg] M EDENT ([facility]) sitting Diastolic blood pressure 76 mm[Hg] 76 mm[Hg] MEDENT ([facility]) sitting, large cuff Systolic blood pressure 138 mm[Hg] 138 mm[Hg] M EDENT ([facility]) sitting, large cuff Respiratory rate 16 /min 16 /min MEDENT ( [facility]) Heart rate 76 /min 76 /min [facility] ([facility]) Regular Body mass index (BMI) [Ratio] 39.1 kg/m2 39.1 k g/m2 [facility] Body height 61 [in_i] 61 [in_i] MED[facility] ([facility]) 5'1" Body weight 207.00 [lb_av] 207.00 [lb_av] MEDEN T ([facility]) Body weight 95.029 kg 95.029 kg [facility] ([facility]) [place] body weight 105 [lb_av] 105 [lb_av] MEDEN T ([facility]) Body mass index (BMI) [Ratio] 39.6 kg/m2 39.6 k g/m2 [facility] ([facility]) Body weight 209.50 [lb_av] 209.50 [lb_av] [facility] Body height 61 [in_i] 61 [in_i] [facility] 5'1" Body temperature 96.7 [degF] 96.7 [degF] [facility] ([facility]) Oxygen saturation in Arterial blood by Pulse oximetry 96 % 96 % [facility] ([facility]) Heart rate 66 /min 66 /min [facility] ([facility]) Diastolic blood pressure 84 mm[Hg] 84 mm[Hg] [facility] ([facility]) Systolic blood pressure 168 mm[Hg] 168 mm[Hg] [facility] ([facility]) Diastolic blood pressure 66 mm[Hg] 66 mm[Hg] [facility]) sitting, large cuff Systolic blood pressure 136 mm[Hg] 136 mm[Hg] [facility]) sitting, large cuff Respiratory rate 16 /min 16 /min [facility]) Heart rate 80 /min 80 /min [facility]) Regular Body mass index (BMI) [Ratio] 39.1 kg/m2 39.1 k g/m2 [facility]) Body height 61 [in_i] 61 [in_i] [facility]) 5'1" Body weight 207.00 [lb_av] 207.00 [lb_av] MEDEN T ([facility]) Body weight 94.462 kg 94.462 kg [facility] ([facility]) [place] body weight 105 [lb_av] 105 [lb_av] [facility] Body mass index (BMI) [Ratio] 39.3 kg/m2 39.3 k g/m2 [facility] ([facility]) Body weight 208.25 [lb_av] 208.25 [lb_av] [facility] Body height 61 [in_i] 61 [in_i] [facility] ([facility]) 5'1" Body temperature 97.9 [degF] 97.9 [degF] [facility] ([facility]) Oxygen saturation in Arterial blood by Pulse oximetry 95 % 95 % [facility] ([facility]) Heart rate 99 /min 99 /min [facility] ([facility]) Diastolic blood pressure 82 mm[Hg] 82 mm[Hg] [facility] ([facility]) Systolic blood pressure 176 mm[Hg] 176 mm[Hg] [facility] ([facility]) Diastolic blood pressure 80 mm[Hg] 80 mm[Hg] eCW1 ([facility]) Systolic blood pressure 152 mm[Hg] 152 mm[Hg] e CW1 ([facility]) Body temperature 97.1 [degF] 97.1 [degF] eCW1 ( [facility]) Respiratory rate 118 /min 118 /min eCW1 ([facility]) Heart rate 18 /min 18 /min eCW1 ([facility]) Body mass index (BMI) [Ratio] 38.66 kg/m2 38.66 kg/m2 eCW1 ([facility]) Body height 61.5 [in_i] 61.5 [in_i] eCW1 ([facility]) Body weight 208 [lb_av] 208 [lb_av] eCW1 ([facility]) Diastolic blood pressure 84 mm[Hg] 84 mm[Hg] eCW1 ([facility]) Systolic blood pressure 148 mm[Hg] 148 mm[Hg] e CW1 ([facility]) Body temperature 97.9 [degF] 97.9 [degF] eCW1 ( [facility]) Respiratory rate 96 /min 96 /min eCW1 ([facility]) Heart rate 18 /min 18 /min eCW1 ([facility]) Body mass index (BMI) [Ratio] 38.66 kg/m2 38.66 kg/m2 eCW1 ([facility]) Body height 61.5 [in_i] 61.5 [in_i] eCW1 ([facility]) Body weight 208 [lb_av] 208 [lb_av] eCW1 ([facility]) Diastolic blood pressure--standing 68 mm[Hg] 6 8 mm[Hg] MEDENT ([facility]) Ra Systolic blood pressure--standing 122 mm[Hg] 12 2 mm[Hg] MED[facility] ([facility]) Ra Diastolic blood pressure 74 mm[Hg] 74 mm[Hg] MED[facility] ([facility]) sitting Systolic blood pressure 138 mm[Hg] 138 mm[Hg] M EDENT ([facility]) sitting Diastolic blood pressure 74 mm[Hg] 74 mm[Hg] MEDENT ([facility]) sitting, large cuff Systolic blood pressure 136 mm[Hg] 136 mm[Hg] M EDENT ([facility]) sitting, large cuff Respiratory rate 16 /min 16 /min MEDENT ( [facility]) Heart rate 88 /min 88 /min [facility] ([facility]) Regular Body mass index (BMI) [Ratio] 39.1 kg/m2 39.1 k g/m2 MED[facility] ([facility]) Body height 61 [in_i] 61 [in_i] [facility]) 5'1" Body weight 207.00 [lb_av] 207.00 [lb_av] MEDEN T ([facility]) Diastolic blood pressure 80 mm[Hg] 80 mm[Hg] eCW1 ([facility]) Systolic blood pressure 148 mm[Hg] 148 mm[Hg] e CW1 ([facility]) Body temperature 96.2 [degF] 96.2 [degF] eCW1 ( [facility]) Respiratory rate 95 /min 95 /min eCW1 ([facility]) Heart rate 18 /min 18 /min eCW1 ([facility]) Body mass index (BMI) [Ratio] 39.22 kg/m2 39.22 kg/m2 eCW1 ([facility]) Body height 61.5 [in_us] 61.5 [in_us] eCW1 ([facility]) Body weight Measured 211 [lb_av] 211 [lb_av] eC W1 ([facility]) Body weight 94.802 kg 94.802 kg MEDENT ([facility], ) [place] body weight 105 [lb_av] 105 [lb_av] MEDEN T ([facility], ) Body mass index (BMI) [Ratio] 39.5 kg/m2 39.5 k g/m2 MEDENT ([facility], ) Body weight 209.00 [lb_av] 209.00 [lb_av] MEDEN T ([facility]) Body height 61 [in_i] 61 [in_i] MEDENT ([facility] 5'1" Body mass index (BMI) [Ratio] 39.3 kg/m2 39.3 k g/m2 MEDENT ([facility] ) Body weight 211.38 [lb_av] 211.38 [lb_av] MEDEN T ([facility] ) Body height 61.50 [in_i] 61.50 [in_i] MEDENT ([facility]) 5'1.50" Body temperature 97.7 [degF] 97.7 [degF] MEDENT ([facility] ) Patient Treatment Plan of Care Planned Activity Planned Date Details Description Data Source (s) latanoprost 0.05 MG/ML Ophthalmic Solution 04/04/2020 12:00:00 AM Ashley JUAREZ (JayJ ay Ferrera MD [facility]) Famotidine 40 MG Oral Tablet 03/19/2020 12:00:00 AM EDT eCW1 ([facility]) Famotidine 40 MG Oral Tablet 03/19/2020 12:00:00 AM EDT eCW1 ([facility]) Famotidine 40 MG Oral Tablet 03/19/2020 12:00:00 AM EDT eCW1 ([facility]) Famotidine 40 MG Oral Tablet 03/19/2020 12:00:00 AM EDT eCW1 ([facility]) Famotidine 40 MG Oral Tablet 03/19/2020 12:00:00 AM EDT eCW1 ([facility])
[2020-09-29 10:27] LABS: BASO % 0.5 % (0.0-1.0); EOS % 0.2 % (0.0-3.0); HEMATOCRIT 44.7 % (36.0-47.0); HEMOGLOBIN 14.7 g/dl (12.0-15.5); LYMPH # 1.1 10^3/uL (1.5-5.0); LYMPH % 19.5 % (24.0-44.0); MEAN CORPUSCULAR HGB CONC 32.9 g/dl (32.0-36.5); MEAN CORPUSCULAR VOLUME 88.2 fl (80.0-96.0); MONO # 0.6 10^3/uL (0.0-0.8); MONO % 10.1 % (0.0-5.0); NEUTROPHILS % 69.4 % (36.0-66.0); PLATELET COUNT, AUTOMATED 186 10^3/uL (150-450); RED BLOOD COUNT 5.07 10^6/uL (4.00-5.40); WHITE BLOOD COUNT 5.8 10^3/uL (4.0-10.0)
--- NOTE | 2020-09-29 10:31 | REP ---
INDICATION: Syncope/near-syncope. COMPARISON: Comparison chest x-ray March 08, 2015. TECHNIQUE: Portable upright AP chest radiograph. FINDINGS: The lungs are well inflated and free of infiltrate. Pleural angles are sharp. Heart size is normal. Pulmonary vasculature is not increased. Patient is rotated somewhat to the right for the current view. The aorta is calcific and tortuous as before. There is a granulomatous nodule in the right lateral pleural angle unchanged. 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 IMPRESSION: No active disease. <Electronically signed by Darren Sol > 09/29/20 1022
--- OUTSIDE RECORDS SUMMARY | 2020-09-29 10:37 | CCD ---
Author Author [facility] Organization [facility] Address Unknown Phone Unavailable Care Team Providers Care Ag Service Manager Name Role Phone Radha Ferrera, Erick Goyal [...] Mateo Perezatt PA Unavailable Unavailable Ana, M Barratt PA Unavailable Unavailable Ana, M Giacomoatt PA Unavailable Unavailable Ana, M Barratt PA Unavailable Unavailable Perez, M Barratt PA Unavailable Unavailable Perez, M Barratt PA Unavailable Unavailable Perez, M Barratt PA Unavailable Unavailable Perez, M Giacomoatt PA [...] T Parrish PA Unavailable Unavailable Overholt, T Parirsh PA Unavailable Unavailable Overholt, T Parrish PA [...] Unavailable HEBERT, M JAI PA Unavailable Unavailable EHBERT, M JAI PA Unavailable Unavailable HEBERT, M JAI PA Unavailable Unavailable HEBERT, M JAI PA Unavailable Unavailable HEBERT, M JAI PA Unavailable Unavailable HEBERT, M JAI PA Unavailable Unavailable HEBERT, M JAI PA Unavailable Unavailable HEBERT, Mateo JAI KAUFMAN Unavailable Unavailable HEBERT, Mateo JAI KAUFMAN Unavailable Unavailable Re-disclosure Warning The records that [...] is protected by Article 27-F of the [facility] Public Health law. If you continue you may have access to information: Regarding HIV / AIDS; Provided by facilities licensed or operated by the [facility] Office of Mental Health; or Provided by the [facility] Office for People With Developmental Disabilities. If such information is present, then the following [facility] mandated warning applies: This information has [...] law may result in a fine or nursing home sentence or both. A general authorization for the release of medical or other information is NOT sufficient authorization for further disc losure. Allergies and Adverse Reactions Type Description Substance Reaction Status Data Source(s ) Drug allergy Penicillin (For Allergies Use Only) Drug allergy Anaph ylaxis Active eCW1 ([facility]) Family History Family Member Name Family Member Gender Family Member Status Date o f Status Description Data Source(s) Unknown Male Problem MEDENT ([facility], ) Encounters Encounter Providers Location Date Indications Data Source(s ) [place] [address] [facility] [facility] [address] 09/17/2020 12:00:00 AM EST eCW1 ([facility]) Outpatient Attender: Beatris KAUFMAN Physical Therapy 02:00:00 PM EST MEDENT ([facility]) Unknown [address] [facility] [address] 08/13/2020 12:00:00 AM EST eCW1 ([facility]) Outpatient Attender: MARIANELA HAYS D[facility] 08/01/2020 10:00:00 AM EST - 08/01/2020 10:00:00 AM EST [facility] Outpatient Attender: Beatris KAUFMAN Physical Therapy 09:15:00 AM EST MEDENT ([facility]) Unknown [address] [facility] [address] 07/19/2020 12:00:00 AM EST eCW1 ([facility]) Outpatient Attender: Gisele KAUFMAN Main Office 06/25/2020 09:15:00 AM EDT MEDENT ([facility]) Outpatient<td ID="encounterTypeDescripti onID0">IOP CHECK</td><td>Jay Jay Ferrera MD, FACS</td><td>Jay Jay Pina MD [facility]</td><td>06/05/2020</td><td>2:24PM</td><td>3:09PM</td><td><content ID="encounterDiagnosisID0-0">Borderline Glaucoma Open Angle with Borderline Findings Both Eyes</content></td> Attender: Jay Jay Ferrera MD, FACS [facility] 06/05/2020 02:24:00 PM EDT - 06/05/2020 03:09:00 PM ED T Borderline Glaucoma Open Angle with Borderline Findings Both Eyes ANN (Jay Jay Ferrera MD [facility]) Borderline Glaucoma Open Angle with Bord heather Findings Both Eyes Outpatient Attender: JAI Mccallum/Melida/Unruly/Reji dl 06/03/2020 03:00:00 PM EDT MEDENT ([facility]) Outpatient Attender: MARIANELA HAYS DPM PC 05/28/2020 04:06:00 PM EDT - 05/22/2020 04:06:00 PM EDT [facility] Patient discharged. Unknown [address] [facility] [facility] [address] 05/21/2020 12:00:00 AM EDT eCW1 ([facility]) Outpatient Attender: Gisele KAUFMAN Main Office 05/08/2020 08:00:00 AM EDT MEDENT ([facility]) Outpatient Attender: JAI Mccallum/Melida/Unruly/Rein lula 04/24/2020 10:30:00 AM EDT MEDENT ([facility]) Outpatient<td ID="encounterTypeDescripti onID1">9 Month Follow-Up</td><td>Jay Jay Pina MD, FACS</td><td>Jay Jay Pina MD [facility]</td><td>04/04/2020</td><td>9:47AM</td><td>10:40AM</td><td><content ID="encounterDiagnosisID1-0">History of Nicotine Dependence</content>, <content ID="encounterDiagnosisID1-1">Essential Hypertension</content>, <content ID="encounterDiagnosisID1-2">Cataract Senile Posterior Subcapsular Polar</content>, <content ID="encounterDiagnosisID1-3">Cataract Senile Nuclear</content>, <content ID="encounterDiagnosisID1-4">Borderline Glaucoma Open Angle with Borderline Findings Both Eyes</content>, <content ID="encounterDiagnosisID1-5">Cataract Senile Cortical Bilateral</content>, <content ID="encounterDiagnosisID1-6">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 [address] 03/19/2020 12:00:00 AM EDT eCW1 ([facility]) Outpatient Attender: MARIANELA HAYS DPM PC 03/12/2020 03:10:00 PM EDT - 03/12/2020 03:10:00 PM EDT [facility] Unknown [address] [facility] [address] 02/19/2020 12:00:00 AM EDT eCW1 ([facility]) Outpatient [address] [facility] [place] [address] 02/15/2020 12:00:00 AM EDT eCW1 ([facility]) Unknown [address] [facility] [place] [address] 02/10/2020 12:00:00 AM EDT eCW1 ([facility]) Outpatient Attender: MARIANELA HAYS DPM PC 01/02/2020 01:29:00 PM EDT - 01/02/2020 01:29:00 PM EDT [facility] Outpatient Attender: Gisele KAUFMAN Main Office 12/27/2019 09:45:00 AM EDT MEDENT ([facility] [address] [facility] [address] 12/15/2019 12:00:00 AM EDT eCW1 ([facility]) [address] [address] 12/12/2019 12:00:00 AM EDT eCW1 ([facility]) [address] [address] 12/12/2019 12:00:00 AM EDT eCW1 ([facility]) [address] [address] 12/11/2019 12:00:00 AM EDT eCW1 ([facility]) [address] [address] 11/01/2019 12:00:00 AM EST eCW1 ([facility]) [address] [address] 10/29/2019 12:00:00 AM EST eCW1 ([facility]) [address] [address] 10/26/2019 12:00:00 AM EST eCW1 ([facility]) Outpatient Attender: MARIANELA PIERRE 10/24/2019 10:24:00 AM EST - 10/24/2019 10:24:00 AM [facility] Outpatient Attender: Parrish KAUFMAN Physical Therapy 08:00:00 AM EST MEDENT ([facility]) Outpatient Attender: MARIANELA PIERRE 08/15/2019 10:47:00 AM EST - 08/15/2019 10:47:[address] [address] 08/10/2019 12:00:00 AM EST eCW1 ([facility]) [address] [address] 08/02/2019 12:00:00 AM EST eCW1 ([facility]) Immunizations Vaccine Date Status Description Data Source(s) COVID-19 VACCINE, MRNA, [id number], LNP-S (needmade)/PF 09/28/19 21 12:00:00 AM EST completed [facility] IIV3. This is one of two codes replacing CVX 15, which is being retired. 06/07/2020 03:12:00 PM EDT completed eCW1 ([facility]) IIV3. This is one of two codes replacing CVX 15, which is being retired. 06/07/2020 03:12:00 PM EDT completed eCW1 ([facility]) IIV3. This is one of two codes replacing CVX 15, which is being retired. 06/07/2020 03:12:00 PM EDT completed eCW1 ([facility]) INFLUENZA VACCINE QUADRIVALENT (65 YR UP)/MF59 [...] AM EDT RESPIRATORY active MEDENT ([facility]) latanoprost 0.05 MG/ML Ophthalmic Solution Latanoprost 06/24/2020 12:00:00 AM EDT OPHTHALMIC active MEDENT ([facility]) Trelegy Ellipta Trelegy Ellipta 06/24/2020 12:00:00 AM EDT RESPIRATORY active MEDENT ([facility]) Famotidine 40 MG Oral Tablet Famotidine 40 MG Oral Tablet 12:00:00 AM EDT 1 active famotidine 40 MG Oral Tablet ANN (Jay Jay Ferrera MD [facility]) Indapamide 1.25 MG Oral Tablet Indapamide 1.25 MG Oral Table t 06/05/2020 12:00:00 AM EDT 1 active indapami de 1.25 MG Oral Tablet ANN (Jay Jay Ferrera MD [facility]) Bisoprolol Fumarate 5 MG Oral Tablet Bisoprolol Fumarate 5 M G Oral Tablet 06/05/2020 12:00:00 AM EDT 1 active bisoprolol fumarate 5 MG Oral Tablet ANN (Jay Jay Ferrera MD [facility]) Rosuvastatin calcium 10 MG Oral Tablet Rosuvastatin Ca lcium 10 MG Oral Tablet Rosuvastatin Calcium 10 MG Oral Tablet 06/05/2020 12:00:00 AM EDT 1 active rosuvastatin calcium 10 MG Oral Tablet ANN (Jay Jay Ferrera MD [facility]) Trelegy Ellipta 100-62.5-25 MCG/INH Inhalation Aerosol Powder Breath Activated Trelegy Ellipta 100-62.5-25 MCG/INH Inhalation Aerosol Powder Breath Activated 06/05/2020 12:00:00 AM EDT active 30 ACTUAT fluticasone furoate 0.1 MG/ACTUAT / umeclidinium 0.0625 MG/ACTUAT / vilanterol 0.025 MG/ACTUAT Dry Powder Inhaler [Trelegy] ANN (Jay Jay Ferrera MD [facility]) 200 ACTUAT Albuterol 0.09 MG/ACTUAT Mete red Dose Inhaler [Ventolin] Ventolin HFA 108 (90 Base) MCG/ACT Inhalation Aerosol Solution Ventolin HFA 108 (90 Base) MCG/ACT Inhalation Aerosol Solution 06/05/2020 12:00:00 AM EDT 1 active [id number] 200 ACTUAT albuter ol 0.09 MG/ACTUAT Metered Dose Inhaler [Ventolin] ANN (Jay Jay Ferrera MD [facility]) Amlodipine 5 MG Oral Tablet amLODIPine Besylate 5 MG O ral Tablet amLODIPine Besylate 5 MG Oral Tablet 06/05/2020 12:00:00 AM EDT 1 active amlodipine 5 MG Oral Tablet ANN (Jay Jay Ferrera MD [facility]) irbesartan 300 MG Oral Tablet Irbesartan 300 MG Oral T ablet Irbesartan 300 MG Oral Tablet 06/05/2020 12:00:00 AM EDT 1 active irbesartan 300 MG Oral Tablet ANN (Jay Jay Ferrera MD [facility]) 90 mcg/actuation 06/04/2020 12:00:00 AM EDT HFA [...] 06/03/2020 12:00:00 AM EDT RESPIRATORY active MEDENT ([facility], ) 200 ACTUAT Albuterol 0.09 MG/ACTUAT Metered Dose Inhal er [Ventolin] Ventolin HFA 06/03/2020 12:00:00 AM EDT RESPIRATORY active MEDENT ([facility], ) 100-62.5-25 mcg 06/03/2020 12:00:00 AM [...] EDT ORAL active MEDENT ([facility]) Polyethylene Glycol 400 4 MG/ML / Propyl kristina glycol 3 MG/ML Ophthalmic Solution [Systane] Systane 05/07/2020 12:00:00 AM EDT activ e MEDENT ([facility] Famotidine 40 MG Oral Tablet Famotidine 05/07/2020 12:00:00 AM EDT ORAL active MEDENT ([facility]) Diphenhydramine Citrate 38 MG / Ibuprofen 200 MG Oral Tablet Ibuprofen PM 05/07/2020 12:00:00 AM EDT ORAL active MEDENT ([facility]) 20 mEq 05/04/2020 12:00:00 AM EDT tablet,ER [...] ORAL active MEDENT ([facility] Rosuvastatin calcium 10 MG Oral Tablet [Crestor] Crestor 04/22/2020 12:00:00 AM EDT ORAL active MEDENT ([facility]) 10 mg 04/22/2020 12:00:00 AM EDT tablet [...] Oral Tablet ANN (Jay Jay Ferrera MD [facility]) 0.005 % 04/04/2020 12:00:00 AM EDT drops 7 PLACE 1 DROP IN EACH EYE AT BEDTIME PLACE 1 DROP IN EACH EYE AT BEDTIME SOLD: 08/30/2020 [facility] Atorvastatin 10 mg Oral Tablet Atorvastatin 10 mg Oral Table t 04/04/2020 12:00:00 AM EDT 1 aborted Atorvas tatin 10 mg ANN (Jay Jay Ferrera MD [facility]) latanoprost 0.05 MG/ML Ophthalmic Soluti on Latanoprost 0.005% Ophthalmic Solution Latanoprost 0.005% Ophthalmic Solution 04/04/2020 12:00:00 AM EDT 1 active latanoprost 0.05 MG/ ML Ophthalmic Solution ANN (Jay Jay Ferrera MD [facility]) 0.005 % 04/04/2020 12:00:00 AM EDT drops [...] {tablet_at_bedtime} active Famotidine 4 0 MG eCW1 ([facility]) Famotidine 40 MG Oral Tablet Famotidine 40 MG 03/19/2020 12:00:00 A M EDT 1.0 {tablet_at_bedtime} active Famotidine 4 0 MG eCW1 ([facility]) Famotidine 40 MG Oral Tablet Famotidine 40 MG 03/19/2020 12:00:00 A M EDT 1.0 {tablet_at_bedtime} active Famotidine 4 0 MG eCW1 ([facility]) Famotidine 40 MG Oral Tablet Famotidine 40 MG 03/19/2020 12:00:00 A M EDT 1.0 {tablet_at_bedtime} active Famotidine 4 0 MG eCW1 ([facility]) 40 mg 03/19/2020 12:00:00 AM EDT tablet 90 TAKE ONE TABLET BY MOUTH AT BEDTIME TAKE ONE TABLET BY MOUTH AT BEDTIME SOLD: 03/22/2020 [facility] Famotidine 40 MG Oral Tablet Famotidine 40 MG 03/19/2020 12:00:00 A M EDT 1.0 {tablet_at_bedtime} active Famotidine 4 0 MG eCW1 ([facility]) 40 mg 03/19/2020 12:00:00 AM EDT [...] AM EDT ORAL completed MEDENT ([facility]) 10 mg 01/09/2020 12:00:00 AM EDT tablet [...] EDT ORAL active MEDENT ([facility]) 20 mg 11/01/2019 12:00:00 AM EST capsule,delayed [...] 09/18/2019 12:00:00 AM EST ORAL active MEDENT ([facility]) No Active Medications 09/18/2019 12:00:00 AM EST completed MEDENT ([facility]) 15 mg 09/18/2019 12:00:00 AM [...] TABLET BY MOUTH AT BEDTIME SOLD: 2019 [facility] 800 mg 2019 12:00:00 AM EST tablet 30 TAKE ONE TABLET BY MOUTH THREE TIMES A DAY TAKE ONE TABLET BY MOUTH THREE TIMES A DAY SOLD: 2019 [facility] 20 mEq 08/02/2019 12:00:00 AM EST [...] TABLET BY MOUTH EVERY DAY SOLD: 08/22/2019 [facility] 25 mg 02/18/2019 12:00:00 AM EDT tablet 45 TAKE ONE-HALF TABLET BY MOUTH EVERY DAY TAKE ONE-HALF TABLET BY MOUTH EVERY DAY SOLD: 11/21/2019 [facility] Spironolactone 25MG Oral Tablet Spironolactone 25MG Oral Tab let 01/31/2019 12:00:00 AM EDT 1 aborted Spirono lactone ANN (Jay Jay Ferrera MD [facility]) 1.25 mg 01/30/2019 12:00:00 AM EDT tablet 90 TAKE ONE TABLET BY MOUTH EVERY DAY TAKE ONE TABLET BY MOUTH EVERY DAY SOLD: 08/01/2019 [facility] 1.25 mg 01/30/2019 12:00:00 AM EDT tablet 90 TAKE ONE TABLET BY MOUTH EVERY DAY TAKE ONE TABLET BY MOUTH EVERY DAY SOLD: 10/29/2019 [facility] Magnesium-Vitamin D3-Turmeric 339-0705-677XR-UNIT-MG O ral Capsule, conventional Magnesium-Vitamin D3-Turmeric 971-9304-985BZ-UNIT-MG Oral Capsule, conventional 08/05/2016 12:00:00 AM EST 1 aborted Magnesium-Vitamin D3-Turmeric ANN (Jay Jay Ferrera MD [facility]) Omeprazole 20 MG Delayed Release Oral Ca psule Omeprazole 20 MG Capsule, delayed-release Omeprazole 20 MG Capsule, delayed-release 03/11/2015 1 2:00:00 AM EDT 1 aborted omeprazole 20 MG Delayed Release Oral Capsule ANN (Jay Jay Ferrera MD [facility]) Amlodipine 10 MG Oral Tablet amLODIPine Besylate 10 MG OR TABS amLODIPine Besylate 10 MG OR TABS 03/07/2013 12:00:00 AM EDT 1 aborted amlodipine 10 MG Oral Tablet ANN (Jay Jay Ferrera MD [facility]) Insurance Providers Payer name Policy type / Coverage type Policy ID Covered libertarian ID Covered libertarian's relationship to [place] Policy [place] Plan Information EMEDNY [id number] SP [id number] MEDICARE [id number] SP [id number] J16 MEDICARE PART A [facility] [id number] 18 [id number] MEDICAID -PHYSICIAN [id number] MEDICAID [id number] MEDICARE C [id number] S [id number] J16 MEDICAID M [id number] Medicare Part B Health system Other 0 Se lf 0 Medicare Part B Health system Other 0 Se lf 0 MEDICAID [id number] SP [id number] [facility]-Medicaid [id number] [facility]-Medicare Part B [id number] MEDICARE [id number] SP [id number] A [facility]-Medicaid [id number] [facility] [id number] [facility] [id number] ANSI-Medicaid [id number] Medicaid Medigap Part B [id number] Self [id number] Medicare (Part B) Medicare Primary [id number] Self [id number] Medicaid Medigap Part B [id number] Self [id number] Medicare (Part B) Medicare Primary [id number] Self [id number] ANSI-Medicaid [id number] ANSI-Medicare Part B [id number] ANSI-Medicare Part B [id number] ANSI-Medicaid [id number] MEDICARE [id number] SP [id number] J16 MEDICAID [id number] SP [id number] [place] Part [place] [id number] Self [id number] Medicare [place] Medicare Primary [id number] Self [id number] ANSI-Medicaid [id number] ANSI-Medicare Part B [id number] [place] [id number] Self [id number] [place] Medicare Primary [id number] Self [id number] Medicare [place] Gov't Servi Medicare Primary [id number] Self [id number] MVP (pr) Commercial [id number] Self [id number] [place] [id number] Self [id number] [place] Primary [id number] Self [id number] MEDICARE [id number] SP [id number] A MVP (pr) Commercial [id number] Self [id number] [place] [id number] Self [id number] [place] Primary [id number] Self [id number] MVP (pr) Commercial [id number] Self [id number] [place] [id number] Self [id number] [place] Primary [id number] Self [id number] MEDICARE PART A [facility] [id number] 18 [id number] Medicare Part B [facility] Other 0 Se lf 0 MEDICARE [id number] SP [id number] A MEDICAID [id number] SP [id number] [place] Part [place] [id number] Self [id number] [place] Medicare Primary [id number] Self [id number] Medicaid Medigap Part B [id number] Self [id number] Medicare (Part B) Medicare Primary [id number] Self [id number] Medicaid Medigap Part B [id number] Self [id number] Medicare (Part B) Medicare Primary [id number] Self [id number] MEDICARE [id number] SP [id number] A [place] Part [place] [id number] Self [id number] [place] Medicare Primary [id number] Self [id number] MEDICARE [id number] SP [id number] [place] [id number] Self [id number] [place] Medicare Primary [id number] Self [id number] Medicare (Part B) Medicare Primary Self Medicaid Medigap Part B 2 1 Self 2 1 MEDICARE C [id number] S [id number] A Medicare [place]l Gov't Servi Medicare Primary Self Medicare Medicare Primary Self [id number] A [id number] Problems, Conditions, and Diagnoses Code Display Name Description Problem Type Effective Dates Data Source(s) 792726607 Excess skin of eyelid (finding) Dermatochalasis Both E yelids Finding 06/05/2020 03:07:00 PM EDT ANN (Jay Jay Ferrera MD [facility]) [id number] Panacinar emphysema Panacinar emphysema Problem 0 04/24/2020 12:00:00 AM EDT MEDENT ([facility], ) 2499896 Ex-smoker Ex-smoker Problem 04/24/2020 12:00:00 AM ED T MEDENT ([facility], ) 290387576 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 Problem 04/04/2020 12:00:00 AM EDT ANN (Jay Jay Ferrera MD [facility]) 484293994 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 B351 Tinea unguium Tinea unguium Diagnosis 08/01/2020 10:00:00 AM [facility] M2041 Other hammer toe(s) (acquired), right fo ot Other hammer toe(s) (acquired), right foot Diagnosis 08/01/2020 10:00:00 AM [facility] M2010 Hallux valgus (acquired), unspecified fo ot Hallux valgus (acquired), unspecified foot Diagnosis 08/01/2020 10:00:00 AM [facility] L84 Corns and callosities Corns and callosities Diagnosis 08/01/2020 10:00:00 AM EST [facility] [id number] Pain in right foot Pain in right foot Diagnosis 03:10:00 PM EDT [facility] Surgeries/Procedures Procedure Description Date Indications Data Source(s) THERAPEUTIC PX 1/> AREAS EACH 15 MIN EXERCISES 12:00:00 AM EST MEDENT ([facility] MANUAL THERAPY TQS 1/> REGIONS EACH 15 MINUTES 12:00:00 AM EST MEDENT ([facility]) THERAPEUTIC PX 1/> AREAS EACH 15 MIN EXERCISES 12:00:00 AM EST MEDENT ([facility]) MANUAL THERAPY TQS 1/> REGIONS EACH 15 MINUTES 12:00:00 AM EST MEDENT ([facility]) Physical Therapy Eval - Low Complexity 08/06/2020 12:0 0:00 AM EST MEDENT ([facility]) Pare Hyperkeratotic Lesion, 2-4 08/01/2020 12:00:00 AM EST MEDENT ([facility]) Debridement Nails Any Method 6 Or More 08/01/2020 12:0 0:00 AM EST MEDENT ([facility]) ECG ROUTINE ECG W/LEAST 12 LDS W/I&R 06/25/2020 12:00: 00 AM EDT MEDENT ([facility]) Intermediate Eye Exam Established Patient Intermediate Eye Exam Established Patient 06/05/2020 12:00:00 AM EDT ANN (Saeid katherine Ferrera MD [facility]) Aerosol Or Vapor Inhalations 06/03/2020 12:00:00 AM ED T MEDENT ([facility], ) Pare Hyperkeratotic Lesion, 2-4 05/22/2020 12:00:00 AM EDT MEDENT ([facility]) Debridement Nails Any Method 6 Or More 05/22/2020 12:0 0:00 AM EDT MEDENT ([facility]) Bronchospasm Evaluation 04/30/2020 12:00:00 AM EDT MEDENT ([facility], ) Maximum Breathing Capacity, Maximal Voluntary Ventilation 04/30/2020 12:00:00 AM EDT MEDENT ([facility], ) Plethysmography Determination Lung Volumes & Per Airway Resi st 04/30/2020 12:00:00 AM EDT MEDENT ([facility], ) DIFFUSING CAPACITY 04/30/2020 12:00:00 AM EDT MEDENT ([facility]) Scodi, optic nerve with interpretation a nd report (WAIVER OF LIABILITY ON FILE (ABN)) Scodi, optic nerve with interpretation a nd report (WAIVER OF LIABILITY ON FILE (ABN)) 04/04/2020 12:00:00 AM EDT ANN (Saeid Ferrera MD [facility]) Comprehensive eye exam established patient (Signi/Sep Eval. & Man.) Comprehensive eye exam established patient (Signi/Sep Eval. & Man.) 04/04/2020 12:00:00 AM EDT ANN (Jay Jay Ferrera MD [facility]) Comprehensive eye exam established patient (25) Compre hensive eye exam established patient (25) 04/04/2020 12:00:00 AM EDT ANN (Jay Jay Ferrera MD [facility]) COMPUTERIZED OPHTHALMIC IMAGING OPTIC NERVE Scodi, opt ic nerve with interpretation and report (GA) 04/04/2020 12:00:00 AM EDT GR EENWAY (Jay Jay Ferrera MD [facility]) Pare Hyperkeratotic Lesion, 2-4 03/12/2020 12:00:00 AM EDT MEDENT ([facility] [place]) Debridement Nails Any Method 6 Or More 03/12/2020 12:0 0:00 AM EDT [facility] [place]) MYOCARDIAL SPECT MULTIPLE STUDIES 01/29/2020 12:00:00 AM EDT MEDENT ([facility]) CV STRS TST XERS&/OR RX CONT ECG PHYS SI&R 01/29/2020 12:00:00 AM EDT MEDENT ([facility]) ECHO TTHRC R-T 2D W/WOM-MODE COMPL SPEC&COLR DOP 01/04 12:00:00 AM EDT MEDENT ([facility]) Pare Hyperkeratotic Lesion, 2-4 01/02/2020 12:00:00 AM EDT MEDENT ([facility] [place]) Debridement Nails Any Method 6 Or More 01/02/2020 12:0 0:00 AM EDT MEDENT ([facility] [place]) ECG ROUTINE ECG W/LEAST 12 LDS W/I&R 12/27/2019 12:00: 00 AM EDT MEDENT ([facility]) Office Visit, Est Pt., Level 4 PC 12/11/2019 12:00:00 AM EDT eCW1 ([facility]) Office Visit, Est Pt., Level 2 FC 12/11/2019 12:00:00 AM EDT eCW1 ([facility]) Pare Hyperkeratotic Lesion, 2-4 10/24/2019 12:00:00 AM EST MEDENT ([facility] [place]) Debridement Nails Any Method 6 Or More 10/24/2019 12:0 0:00 AM EST MEDENT ([facility] [place]) Pare Hyperkeratotic Lesion, 2-4 08/15/2019 12:00:00 AM EST MEDENT ([facility] [place]) Debridement Nails Any Method 6 Or More 08/15/2019 12:0 0:00 AM EST MEDENT ([facility] [place]) Results ID Date Data Source Basic Metabolic Profile (BMP) 09/17/2020 12:00:00 AM EST eCW 1 ([facility]) Name Value Range Interpretation Code Description Data María Elena rce(s) Supporting Document(s) 0.96 0.55-1.30 CREATININE FOR GFR eCW1 ([facility]) 105 70-100 GLUCOSE, FASTING eCW1 ([facility]) 21 7-18 BLOOD UREA NITROGEN eCW1 ([facility]) 135 136-145 SODIUM LEVEL eCW1 (Pending sale to [facility]) 59.1 >32 GLOMERULAR FILTRATION RATE eCW 1 ([facility]) 4.5 3.5-5.1 POTASSIUM SERUM eCW1 ([facility] 102 98-107 CHLORIDE LEVEL eCW1 ([facility]) 10.0 8.8-10.2 CALCIUM LEVEL eCW1 ([facility]) 26 21-32 CARBON DIOXIDE LEVEL eCW1 ([facility]) ID Date Data Source [id number] 09/17/2020 12:00:00 AM EST eCW1 ([facility]) Name Value Range Interpretation Code Description Data María Elena rce(s) Supporting Document(s) Hemoglobin A1c/Hemoglobin.total in Blood 5.5 HEMOGLOBIN A1c eCW1 ([facility]) ID Date Data Source [id number] 09/04/2020 12:00:00 AM EST [facility] Name Value Range Interpretation Code Description Data María Elena rce(s) Supporting Document(s) Carestart Rapid COVID Antigen Test Negative [facility] This lab was reported by Andrez ferreira. ID Date Data Source [id number] 09/04/2020 12:00:00 AM EST [facility] Name Value Range Interpretation Code Description Data María Elena rce(s) Supporting Document(s) SARS coronavirus 2 RNA [Presence] in Res piratory specimen by APOLLO with probe detection NEGATIVE [facility] This lab was ordered by Andrez Arango and reported by [facility]. ID Date Data Source [id number] 06/23/2020 08:04:00 AM EDT [facility]ENT ([facility]) Name Value Range Interpretation Code Description Data María Elena rce(s) Supporting Document(s) Blood Urea Nitrogen 13 mg/dL 7-18 MEDENT ([facility]) Glucose, Fasting 94 mg/dL 70-100 MEDENT ([facility]) Glomerular Filtration Rate Laboratory test result MEDENT ([facility]) <content>Units are mL/min/1.73 m2</content>
<content></content>
<content>Chronic Kidney Disease Staging per NKF:</content>
<content></content>
<content>Stage I & II GFR >=60 Normal to Mildly Decreased</content>
<content>Stage III GFR 30- 59 Moderately Decreased</content>
<content>Stage IV GFR 15-29 Severely Decreased</content>
<content>Stage V GFR <15 Very Little GFR Left</content>
<content>ESRD GFR <15 on COMMUNICATIONS SENIOR ASSOCIATE</content>
<content></content> Creatinine For GFR 0.82 mg/dL 0.55-1.30 MEDENT ([facility]) Sodium Level 138 meq/L 136-145 MEDENT ([facility]) Carbon Dioxide Level 27 meq/L 21-32 MEDENT ([facility]) Chloride Level 103 meq/L 98-107 MEDENT ([facility]) Potassium Serum 3.9 meq/L 3.5-5.1 MEDENT ([facility]) Calcium Level 8.7 mg/dL 8.8-10.2 MEDENT ([facility]) Anion Gap 8 meq/L 8-16 [facility] ID Date Data Source [id number] 03/10/2020 08:15:00 AM EDT MEDENT ([facility]i [facility]) Name Value Range Interpretation Code Description Data María Elena rce(s) Supporting Document(s) Triglycerides Level 90 mg/dL MEDENT ([facility]) LDL Cholesterol 67 mg/dL MEDENT ([facility]) Cholesterol Level 144 mg/dL MEDENT ([facility]) HDL Cholesterol 59 mg/dL MEDENT ([facility]) Cholesterol Risk Ratio 2.440 MEDENT ([facility]) Non-HDL-C 85 mg/dL [facility] ID Date Data Source [id number] 03/10/2020 08:15:00 AM EDT MEDENT ([facility]) Name Value Range Interpretation Code Description Data María Elena rce(s) Supporting Document(s) Blood Urea Nitrogen 13 mg/dL 7-18 MEDENT ([facility]) Glucose, Fasting 99 mg/dL 70-100 MEDENT ([facility]) Creatinine For GFR 0.71 mg/dL 0.55-1.30 MEDENT ([facility]) Sodium Level 132 meq/L 136-145 MEDENT ([facility]) Potassium Serum 4.2 meq/L 3.5-5.1 MEDENT ([facility]) Glomerular Filtration Rate Laboratory test result MEDENT ([facility]) <content>Units are mL/min/1.73 m2</content>
<content></content>
<content>Chronic Kidney Disease Staging per NKF:</content>
<content></content>
<content>Stage I & II GFR >=60 Normal to Mildly Decreased</content>
<content>Stage III GFR 30- 59 Moderately Decreased</content>
<content>Stage IV GFR 15-29 Severely Decreased</content>
<content>Stage V GFR <15 Very Little GFR Left</content>
<content>ESRD GFR <15 on COMMUNICATIONS SENIOR ASSOCIATE</content>
<content></content> Carbon Dioxide Level 27 meq/L 21-32 MEDENT ([facility] Anion Gap 7 meq/L 8-16 MEDENT ([facility] Chloride Level 98 meq/L 98-107 MEDENT ([facility] Calcium Level 9.3 mg/dL 8.8-10.2 MEDENT ([facility] Ast/Sgot 25 U/L 7-37 MEDENT ([facility] Alt/SGPT 28 U/L 12-78 MEDENT ([facility] Alkaline Phosphatase 134 U/L 45-117 MEDENT ([facility] Total Protein 7.0 GM/DL 6.4-8.2 MEDENT ([facility] Bilirubin,Total 0.4 mg/dL 0.2-1.0 MEDENT ([facility] Albumin/Globulin Ratio 0.9 1.2-2.2 MEDENT ([facility] Albumin 3.4 GM/DL 3.2-5.2 MEDENT ([facility] ID Date Data Source [id number] 12/14/2019 08:16:00 AM EDT MEDENT ([facility] Name Value Range Interpretation Code Description Data María Elena rce(s) Supporting Document(s) Magnesium Level 2.1 1.8-2.4 MEDENT ([facility] ID Date Data Source [id number] 12/14/2019 08:16:00 AM EDT MEDENT ([facility] Name Value Range Interpretation Code Description Data María Elena rce(s) Supporting Document(s) Glucose 105 70-100 MEDENT ([facility] Blood Urea Nitrogen 18 7-18 MEDENT ([facility] Creatinine 0.78 0.55-1.30 MEDENT ([facility] Potassium 4.5 3.5-5.1 MEDENT ([facility] Sodium 130 136-145 MEDENT ([facility] Chloride 97 98-107 MEDENT ([facility] Carbon Dioxide 26 21-32 MEDENT ([facility]) Calcium 10.3 8.8-10.2 MEDENT ([facility] Glomerular filtration rate/1.73 sq M.pre dicted [Volume Rate/Area] in Serum or Plasma by Creatinine-based formula (MDRD) Laboratory test result MEDENT ([facility]) ID Date Data Source [id number] 12/14/2019 08:16:00 AM EDT MEDENT ([facility]i [facility]) Name Value Range Interpretation Code Description Data María Elena rce(s) Supporting Document(s) Hemoglobin A1c/Hemoglobin.total in Blood 6.4 MEDENT ([facility]) ID Date Data Source [id number] [id number] 12/11/2019 12:00:00 AM EDT eCW1 ([facility]) Name Value Range Interpretation Code Description Data María Elena rce(s) Supporting Document(s) 1.7 1.8-2.4 MAGNESIUM LEVEL [facility] Procedure Social History Code Duration Value Status Description Data Source(s ) Smoking 09/17/2020 12:00:00 AM EST Former Smoker completed Former Smoker eCW1 ([facility]) Smoking 07/10/2020 12:00:00 AM EST Patient is a former smoker completed Patient is a former smoker MEDENT ([facility], ) Smoking 06/25/2020 12:00:00 AM EDT Patient is a former smoker completed Patient is a former smoker [facility] ([facility]) Smoking 06/06/2020 11:01:23 AM EDT Ex-smoker (finding) complet ed Ex-smoker (finding) ANN (Jay Jay Ferrera MD [facility]) Smoking 05/22/2020 12:00:00 AM EDT Never Smoked A Pipe complet ed Never Smoked A Pipe MEDENT ([facility] [place]) Smoking 03/19/2020 12:00:00 AM EDT Former Smoker completed Former Smoker eCW1 ([facility]) Smoking 03/19/2020 12:00:00 AM EDT Former Smoker completed Former Smoker eCW1 ([facility]) Smoking 03/19/2020 12:00:00 AM EDT Former Smoker completed Former Smoker eCW1 ([facility]) Smoking 03/19/2020 12:00:00 AM EDT Former Smoker completed Former Smoker eCW1 ([facility]) Smoking 02/15/2020 12:00:00 AM EDT Former Smoker completed Former Smoker eCW1 ([facility]) Smoking 02/15/2020 12:00:00 AM EDT Former Smoker completed Former Smoker eCW1 ([facility]) Smoking 01/30/2020 12:00:00 AM EDT Former Smoker completed Former Smoker eCW1 ([facility]) Vital Signs ID Date Data Source UNK Name Value Range Interpretation Code Description Data Source(s) Diastolic blood pressure 80 mm[Hg] 80 mm[Hg] eCW1 ([facility]) Systolic blood pressure 150 mm[Hg] 150 mm[Hg] e CW1 ([facility]) Body temperature 97.3 [degF] 97.3 [degF] eCW1 ( [facility]) Respiratory rate 70 /min 70 /min eCW1 ([facility]) Heart rate 18 /min 18 /min eCW1 ([facility] Body mass index (BMI) [Ratio] 38.66 kg/m2 38.66 kg/m2 W1 ([facility]) Body height 61.5 [in_i] 61.5 [in_i] W1 ([facility]) Body weight 208 [lb_av] 208 [lb_av] eCW1 ([facility]) Body surface area Derived from formula 1.90 m2 1.90 m2 MEDENT ([facility] [place]) Body mass index (BMI) [Ratio] 38.5 kg/m2 38.5 k g/m2 MEDENT ([facility] [place]) Body height 61 [in_i] 61 [in_i] MEDENT ([facility]) 5'1" Body weight 92.534 kg 92.534 kg MEDENT ([facility]) Body weight 204.00 [lb_av] 204.00 [lb_av] MEDEN T ([facility] [place]) Body mass index (BMI) [Ratio] 39.1 kg/m2 39.1 k g/m2 MEDENT ([facility] ) Body weight 203.50 [lb_av] 203.50 [lb_av] MEDEN T ([facility] ) Body height 60.5 [in_i] 60.5 [in_i] MEDENT ([facility] ) 5'0.50" Body temperature 96.9 [degF] 96.9 [degF] MEDENT ([facility]) Body weight 94.802 kg 94.802 kg MEDENT ([facility], ) [place] body weight 105 [lb_av] 105 [lb_av] MEDEN T ([facility], ) Body mass index (BMI) [Ratio] 39.5 kg/m2 39.5 k g/m2 MEDENT ([facility], ) Body weight 209.00 [lb_av] 209.00 [lb_av] MEDEN T ([facility], ) Body height 61 [in_i] 61 [in_i] MEDENT ([facility], ) 5'1" Body temperature 97.4 [degF] 97.4 [degF] [facility] ([facility], ) Oxygen saturation in Arterial blood by Pulse oximetry 92 % 92 % [facility] ([facility], ) Heart rate 81 /min 81 /min [facility] ([facility], ) Diastolic blood pressure 72 mm[Hg] 72 mm[Hg] [facility] Systolic blood pressure 138 mm[Hg] 138 mm[Hg] [facility]) Diastolic blood pressure--standing 70 mm[Hg] 7 0 mm[Hg] MEDENT ([facility]) [place] Systolic blood pressure--standing 130 mm[Hg] 13 0 mm[Hg] MEDENT ([facility]) [place] Diastolic blood pressure 76 mm[Hg] 76 mm[Hg] MEDENT ([facility]) sitting Systolic blood pressure 136 mm[Hg] 136 mm[Hg] M EDENT ([facility]) sitting Diastolic blood pressure 76 mm[Hg] 76 mm[Hg] MEDENT ([facility]) sitting, large cuff Systolic blood pressure 138 mm[Hg] 138 mm[Hg] M EDENT ([facility]) sitting, large cuff Respiratory rate 16 /min 16 /min MEDENT ( [facility]) Heart rate 76 /min 76 /min MEDENT ([facility]) Regular Body mass index (BMI) [Ratio] 39.1 kg/m2 39.1 k g/m2 [facility] Body height 61 [in_i] 61 [in_i] MEDENT ([facility]i [facility]) 5'1" Body weight 207.00 [lb_av] 207.00 [lb_av] MEDEN T ([facility]) Body weight 95.029 kg 95.029 kg [facility] ([facility]) [place] body weight 105 [lb_av] 105 [lb_av] MEDEN T ([facility]) Body mass index (BMI) [Ratio] 39.6 kg/m2 39.6 k g/m2 [facility] ([facility]) Body weight 209.50 [lb_av] 209.50 [lb_av] [facility]) Body height 61 [in_i] 61 [in_i] [facility] 5'1" Body temperature 96.7 [degF] 96.7 [degF] [facility] ([facility]) Oxygen saturation in Arterial blood by Pulse oximetry 96 % 96 % [facility] ([facility]) Heart rate 66 /min 66 /min [facility] ([facility]) Diastolic blood pressure 84 mm[Hg] 84 mm[Hg] [facility] ([facility]) Systolic blood pressure 168 mm[Hg] 168 mm[Hg] [facility] ([facility]) Diastolic blood pressure 66 mm[Hg] 66 mm[Hg] [facility]) sitting, large cuff Systolic blood pressure 136 mm[Hg] 136 mm[Hg] [facility] ([facility]) sitting, large cuff Respiratory rate 16 /min 16 /min [facility]) Heart rate 80 /min 80 /min [facility]) Regular Body mass index (BMI) [Ratio] 39.1 kg/m2 39.1 k g/m2 [facility]) Body height 61 [in_i] 61 [in_i] [facility] ([facility]i [facility]) 5'1" Body weight 207.00 [lb_av] 207.00 [lb_av] MEDEN T ([facility]) Body weight 94.462 kg 94.462 kg [facility] ([facility]) [place] body weight 105 [lb_av] 105 [lb_av] [facility]) Body mass index (BMI) [Ratio] 39.3 kg/m2 39.3 k g/m2 [facility] ([facility]) Body weight 208.25 [lb_av] 208.25 [lb_av] [facility]) Body height 61 [in_i] 61 [in_i] [facility] ([facility]) 5'1" Body temperature 97.9 [degF] 97.9 [degF] [facility] ([facility]) Oxygen saturation in Arterial blood by Pulse oximetry 95 % 95 % [facility] ([facility]) Heart rate 99 /min 99 /min [facility] ([facility]) Diastolic blood pressure 82 mm[Hg] 82 mm[Hg] [facility] ([facility]) Systolic blood pressure 176 mm[Hg] 176 mm[Hg] [facility] ([facility]) Diastolic blood pressure 80 mm[Hg] 80 mm[Hg] eCW1 ([facility]) Systolic blood pressure 152 mm[Hg] 152 mm[Hg] e CW1 ([facility]) Body temperature 97.1 [degF] 97.1 [degF] eCW1 ( [facility]) Respiratory rate 118 /min 118 /min eCW1 ([facility]) Heart rate 18 /min 18 /min eCW1 ([facility] Body mass index (BMI) [Ratio] 38.66 kg/m2 38.66 kg/m2 eCW1 ([facility]) Body height 61.5 [in_i] 61.5 [in_i] eCW1 ([facility]) Body weight 208 [lb_av] 208 [lb_av] eCW1 ([facility]) Diastolic blood pressure 84 mm[Hg] 84 mm[Hg] eCW1 ([facility]) Systolic blood pressure 148 mm[Hg] 148 mm[Hg] e CW1 ([facility]) Body temperature 97.9 [degF] 97.9 [degF] eCW1 ( [facility]) Respiratory rate 96 /min 96 /min eCW1 ([facility]) Heart rate 18 /min 18 /min eCW1 ([facility] Body mass index (BMI) [Ratio] 38.66 kg/m2 38.66 kg/m2 eCW1 ([facility]) Body height 61.5 [in_i] 61.5 [in_i] eCW1 ([facility]) Body weight 208 [lb_av] 208 [lb_av] eCW1 ([facility]) Diastolic blood pressure--standing 68 mm[Hg] 6 8 mm[Hg] MEDENT ([facility] Ra Systolic blood pressure--standing 122 mm[Hg] 12 2 mm[Hg] MEDENT ([facility]) Ra Diastolic blood pressure 74 mm[Hg] 74 mm[Hg] MEDENT ([facility] sitting Systolic blood pressure 138 mm[Hg] 138 mm[Hg] M EDENT ([facility] sitting Diastolic blood pressure 74 mm[Hg] 74 mm[Hg] MEDENT ([facility]) sitting, large cuff Systolic blood pressure 136 mm[Hg] 136 mm[Hg] M EDENT ([facility]) sitting, large cuff Respiratory rate 16 /min 16 /min MEDENT ( [facility]) Heart rate 88 /min 88 /min MEDENT ([facility]) Regular Body mass index (BMI) [Ratio] 39.1 kg/m2 39.1 k g/m2 MEDENT ([facility]) Body height 61 [in_i] 61 [in_i] MEDENT ([facility]) 5'1" Body weight 207.00 [lb_av] 207.00 [lb_av] MEDEN T ([facility]) Diastolic blood pressure 80 mm[Hg] 80 mm[Hg] eCW1 ([facility]) Systolic blood pressure 148 mm[Hg] 148 mm[Hg] e CW1 ([facility]) Body temperature 96.2 [degF] 96.2 [degF] eCW1 ( [facility]) Respiratory rate 95 /min 95 /min eCW1 ([facility]) Heart rate 18 /min 18 /min eCW1 ([facility] Body mass index (BMI) [Ratio] 39.22 kg/m2 39.22 kg/m2 eCW1 ([facility]) Body height 61.5 [in_us] 61.5 [in_us] eCW1 ([facility]) Body weight Measured 211 [lb_av] 211 [lb_av] eC W1 ([facility]) Body weight 94.802 kg 94.802 kg MEDENT ([facility], ) [place] body weight 105 [lb_av] 105 [lb_av] MEDEN T ([facility], ) Body mass index (BMI) [Ratio] 39.5 kg/m2 39.5 k g/m2 MEDENT ([facility], ) Body weight 209.00 [lb_av] 209.00 [lb_av] MEDEN T ([facility], ) Body height 61 [in_i] 61 [in_i] MEDENT ([facility]) 5'1" Body mass index (BMI) [Ratio] 39.3 kg/m2 39.3 k g/m2 MEDENT ([facility] ) Body weight 211.38 [lb_av] 211.38 [lb_av] MEDEN T ([facility] ) Body height 61.50 [in_i] 61.50 [in_i] MEDENT ([facility]) 5'1.50" Body temperature 97.7 [degF] 97.7 [degF] MEDENT ([facility] ) Patient Treatment Plan of Care Planned Activity Planned Date Details Description Data Source (s) latanoprost 0.05 MG/ML Ophthalmic Solution 04/04/2020 12:00:00 AM Ashley JUAREZ (Jay Jay Ferrera MD [facility]) Famotidine 40 MG Oral Tablet 03/19/2020 12:00:00 AM EDT eCW1 ([facility]) Famotidine 40 MG Oral Tablet 03/19/2020 12:00:00 AM EDT eCW1 ([facility]) Famotidine 40 MG Oral Tablet 03/19/2020 12:00:00 AM EDT eCW1 ([facility]) Famotidine 40 MG Oral Tablet 03/19/2020 12:00:00 AM EDT eCW1 ([facility]) Famotidine 40 MG Oral Tablet 03/19/2020 12:00:00 AM EDT eCW1 ([facility])
[2020-09-29 10:47] LABS: INR 1.02; PROTHROMBIN TIME 13.6 SECONDS (12.5-14.3)
[2020-09-29 10:48] LABS: PARTIAL THROMBOPLASTIN TIME 29.4 SECONDS (24.2-38.5)
[2020-09-29 10:50] LABS: D-DIMER QUANT 1942.78 ng/ml (<500)
[2020-09-29 10:57] LABS: C REACTIVE PROTEIN QUANTITATIV 0.83 MG/DL (0.00-0.30)
[2020-09-29 12:10] LABS: ALBUMIN 3.3 GM/DL (3.2-5.2); ALT/SGPT 29 U/L (12-78); BILIRUBIN,TOTAL 0.3 MG/DL (0.2-1.0); BLOOD UREA NITROGEN 20 MG/DL (7-18); CARBON DIOXIDE LEVEL 23 MEQ/L (21-32); CHLORIDE LEVEL 104 MEQ/L (98-107); CK-MB VALUE MASS 3.3 NG/ML (<3.6); CPK CREATINE PHOSPHOKINASE 227 U/L (26-192); GLOMERULAR FILTRATION RATE > 60.0 (>32); GLUCOSE, FASTING 100 MG/DL (70-100); MB/CK RELATIVE INDEX 1.45 (< OR =4); POTASSIUM SERUM 3.5 MEQ/L (3.5-5.1); SODIUM LEVEL 138 MEQ/L (136-145); TOTAL PROTEIN 6.8 GM/DL (6.4-8.2); TROPONIN I < 0.02 NG/ML (< 0.10)
--- NOTE | 2020-09-29 12:22 | ECGEPIP ---
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 No prior ECG available for comparison at the time of interpretation. Electronically Signed on 09-29-2020 12:22:31 EST by Jay Jay Aguilera
[2020-09-29] MEDS ORDERED: MOM 30ML SUSPENSION UDC PO PRN (12:45)
--- OUTSIDE RECORDS SUMMARY | 2020-09-29 13:27 | CCD ---
Author Author [facility] Organization [facility] Address Unknown Phone Unavailable Care Team Providers Care Retention Manager Name Role Phone Radha Ferrera, Erick [...] [facility] Unavailable Unavailable LIS, J MARAINELA [facility] Unavailable Unavailable LIS, J MARIANELA [...] Unavailable HEBERT, M JAI PA Unavailable Unavailable HEEBRT, M JAI PA Unavailable Unavailable HEBERT, M [...] is protected by Article 27-F of the [facility] Public Health law. If you continue you may have access to information: Regarding HIV / AIDS; Provided by facilities licensed or operated by the [facility] Office of Mental Health; or Provided by the [facility] Office for People With Developmental Disabilities. If such information is present, then the following [facility] mandated warning applies: This information has [...] law may result in a fine or correction sentence or both. A general authorization for the release of medical or other information is NOT sufficient authorization for further disc losure. Allergies and Adverse Reactions Type Description Substance Reaction Status Data Source(s ) Drug allergy Penicillin (For Allergies Use Only) Drug allergy Anaph ylaxis Active eCW1 ([facility]) Family History Family Member Name Family Member Gender Family Member Status Date o f Status Description Data Source(s) Unknown Male Problem MEDENT ([facility], ) Encounters Encounter Providers Location Date Indications Data Source(s ) [place] [address] [facility] [facility] [address] 09/17/2020 12:00:00 AM EST eCW1 ([facility]) Outpatient Attender: Beatris KAUFMAN Physical Therapy 02:00:00 PM EST MEDENT ([facility]) [place] [address] [address] 08/13/2020 12:00:00 AM EST eCW1 ([facility]) Outpatient Attender: MARIANELA HAYS [facility] 08/01/2020 10:00:00 AM EST - 08/01/2020 10:00:00 AM EST [facility] Outpatient Attender: Beatris KAUFMAN Physical Therapy 09:15:00 AM EST MEDENT ([facility]) [place] [address] [address] 07/19/2020 12:00:00 AM EST eCW1 ([facility]) Outpatient Attender: Gisele KAUFMAN Main Office 06/25/2020 09:15:00 AM EDT MEDENT ([facility]) Outpatient<td ID="encounterTypeDescripti onID0">IOP CHECK</td><td>Jay Jay Ferrera MD, FACS</td><td>Jay Jay Pina MD [facility]</td><td>06/05/2020</td><td>2:24PM</td><td>3:09PM</td><td><content ID="encounterDiagnosisID0-0">Borderline Glaucoma Open Angle with Borderline Findings Both Eyes</content></td> Attender: Jay Jay Ferrera MD, FACS [facility] 06/05/2020 02:24:00 PM EDT - 06/05/2020 03:09:00 PM ED T Borderline Glaucoma Open Angle with Borderline Findings Both Eyes ANN (Jay Jay Ferrera MD [facility]) Borderline Glaucoma Open Angle with Bord heather Findings Both Eyes Outpatient Attender: JAI Mccallum/Melida/Unruly/Reji dl 06/03/2020 03:00:00 PM EDT MEDENT ([facility]) Outpatient Attender: MARIANELA HAYS DPM [facility] 05/28/2020 04:06:00 PM EDT - 05/22/2020 04:06:00 PM EDT [facility] Patient discharged. [place] [address] [address] 05/21/2020 12:00:00 AM EDT eCW1 ([facility]) Outpatient Attender: Gisele KAUFMAN Main Office 05/08/2020 08:00:00 AM EDT MEDENT ([facility]) Outpatient Attender: JAI Mccallum/Melida/Unruly/Rein lula 04/24/2020 10:30:00 AM EDT MEDENT ([facility]) Outpatient<td ID="encounterTypeDescripti onID1">9 Month Follow-Up</td><td>Jay Jay Pina MD, FACS</td><td>Jay Jay Pina MD [facility]</td><td>04/04/2020</td><td>9:47AM</td><td>10:40AM</td><td><content ID="encounterDiagnosisID1-0">History of Nicotine Dependence</content>, <content ID="encounterDiagnosisID1-1">Essential Hypertension</content>, <content ID="encounterDiagnosisID1-2">Cataract Senile Posterior Subcapsular Polar</content>, <content ID="encounterDiagnosisID1-3">Cataract Senile Nuclear</content>, <content ID="encounterDiagnosisID1-4">Borderline Glaucoma Open Angle with Borderline Findings Both Eyes</content>, <content ID="encounterDiagnosisID1-5">Cataract Senile Cortical Bilateral</content>, <content ID="encounterDiagnosisID1-6">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</content></td> Attender: Jay Jay Ferrera MD, FACS [facility] Jay [facility] 04/04/2020 09:47:00 AM [...] Senile Nuclear ANN (Jay Jay Ferrera MD [facility]) Macular Degeneration Nonexudative Bilate ral Intermediate Dry [...] Both Eyes Cataract Senile Nuclear [place] [address] [facility] [address] 03/19/2020 12:00:00 AM EDT eCW1 ([facility]) Outpatient Attender: MARIANELA HAYS DPM PC 03/12/2020 03:10:00 PM EDT - 03/12/2020 03:10:00 PM EDT [facility] Unknown [address] [facility] [address] 02/19/2020 12:00:00 AM EDT eCW1 ([facility]) Outpatient [address] [facility] [place] [address] 02/15/2020 12:00:00 AM EDT eCW1 ([facility]) Unknown [address] [facility] [place] [address] 02/10/2020 12:00:00 AM EDT eCW1 ([facility]) Outpatient Attender: MARIANELA HAYS DPM PC 01/02/2020 01:29:00 PM EDT - 01/02/2020 01:29:00 PM EDT [facility] Outpatient Attender: Gisele KAUFMAN Main Office 12/27/2019 09:45:00 AM EDT MEDENT ([facility]) [facility] [address] [address] 12/15/2019 12:00:00 AM EDT eCW1 ([facility]) [address] [address] 12/12/2019 12:00:00 AM EDT eCW1 ([facility]) [address] [address] 12/12/2019 12:00:00 AM EDT eCW1 ([facility]) [address] [address] 12/11/2019 12:00:00 AM EDT eCW1 ([facility]) [address] [address] 11/01/2019 12:00:00 AM EST eCW1 ([facility]) [address] [address] 10/29/2019 12:00:00 AM EST eCW1 ([facility]) [address] [address] 10/26/2019 12:00:00 AM EST eCW1 ([facility]) Outpatient Attender: MARIANELA PIERRE 10/24/2019 10:24:00 AM EST - 10/24/2019 10:24:[address] [facility] Outpatient Attender: Parrish KAUFMAN Physical Therapy 08:00:00 AM EST MEDENT ([facility]) Outpatient Attender: MARIANELA PIERRE 08/15/2019 10:47:00 AM EST - 08/15/2019 10:47:[address] [address] 08/10/2019 12:00:00 AM EST eCW1 ([facility]) [address] [address] 08/02/2019 12:00:00 AM EST eCW1 ([facility]) Immunizations Vaccine Date Status Description Data Source(s) COVID-19 VACCINE, MRNA, [id number], LNP-S ([employer])/PF 09/28/19 21 12:00:00 AM EST completed [facility] IIV3. This is one of two codes replacing CVX 15, which is being retired. 06/07/2020 03:12:00 PM EDT completed eCW1 ([facility]) IIV3. This is one of two codes replacing CVX 15, which is being retired. 06/07/2020 03:12:00 PM EDT completed eCW1 ([facility]) IIV3. This is one of two codes replacing CVX 15, which is being retired. 06/07/2020 03:12:00 PM EDT completed eCW1 ([facility]) INFLUENZA VACCINE QUADRIVALENT (65 YR UP)/MF59 [...] AM EDT RESPIRATORY active MEDENT ([facility]) latanoprost 0.05 MG/ML Ophthalmic Solution Latanoprost 06/24/2020 12:00:00 AM EDT OPHTHALMIC active MEDENT ([facility]) Trelegy Ellipta Trelegy Ellipta 06/24/2020 12:00:00 AM EDT RESPIRATORY active MEDENT ([facility]) Famotidine 40 MG Oral Tablet Famotidine 40 MG Oral Tablet 12:00:00 AM EDT 1 active famotidine 40 MG Oral Tablet ANN (Jay Jay Ferrera MD [facility]) Indapamide 1.25 MG Oral Tablet Indapamide 1.25 MG Oral Table t 06/05/2020 12:00:00 AM EDT 1 active indapami de 1.25 MG Oral Tablet ANN (Jay Jay Ferrera MD [facility]) Bisoprolol Fumarate 5 MG Oral Tablet Bisoprolol Fumarate 5 M G Oral Tablet 06/05/2020 12:00:00 AM EDT 1 active bisoprolol fumarate 5 MG Oral Tablet ANN (Jay Jay Ferrera MD [facility]) Rosuvastatin calcium 10 MG Oral Tablet Rosuvastatin Ca lcium 10 MG Oral Tablet Rosuvastatin Calcium 10 MG Oral Tablet 06/05/2020 12:00:00 AM EDT 1 active rosuvastatin calcium 10 MG Oral Tablet ANN (Jay Jay Ferrera MD [facility]) Trelegy Ellipta 100-62.5-25 MCG/INH Inhalation Aerosol Powder Breath Activated Trelegy Ellipta 100-62.5-25 MCG/INH Inhalation Aerosol Powder Breath Activated 06/05/2020 12:00:00 AM EDT active 30 ACTUAT fluticasone furoate 0.1 MG/ACTUAT / umeclidinium 0.0625 MG/ACTUAT / vilanterol 0.025 MG/ACTUAT Dry Powder Inhaler [Trelegy] ANN (Jay Jay Ferrera MD [facility]) 200 ACTUAT Albuterol 0.09 MG/ACTUAT Mete red Dose Inhaler [Ventolin] Ventolin HFA 108 (90 Base) MCG/ACT Inhalation Aerosol Solution Ventolin HFA 108 (90 Base) MCG/ACT Inhalation Aerosol Solution 06/05/2020 12:00:00 AM EDT 1 active [id number] 200 ACTUAT albuter ol 0.09 MG/ACTUAT Metered Dose Inhaler [Ventolin] ANN (Jay Jay Ferrera MD [facility]) Amlodipine 5 MG Oral Tablet amLODIPine Besylate 5 MG O ral Tablet amLODIPine Besylate 5 MG Oral Tablet 06/05/2020 12:00:00 AM EDT 1 active amlodipine 5 MG Oral Tablet ANN (Jay Jay Ferrera MD [facility]) irbesartan 300 MG Oral Tablet Irbesartan 300 MG Oral T ablet Irbesartan 300 MG Oral Tablet 06/05/2020 12:00:00 AM EDT 1 active irbesartan 300 MG Oral Tablet ANN (Jay Jay Ferrera MD [facility]) 90 mcg/actuation 06/04/2020 12:00:00 AM EDT HFA [...] 06/03/2020 12:00:00 AM EDT RESPIRATORY active MEDENT ([facility], ) 200 ACTUAT Albuterol 0.09 MG/ACTUAT Metered Dose Inhal er [Ventolin] Ventolin HFA 06/03/2020 12:00:00 AM EDT RESPIRATORY active MEDENT ([facility], ) 100-62.5-25 mcg 06/03/2020 12:00:00 AM [...] EDT ORAL active MEDENT ([facility]) Polyethylene Glycol 400 4 MG/ML / Propyl kristina glycol 3 MG/ML Ophthalmic Solution [Systane] Systane 05/07/2020 12:00:00 AM EDT activ e MEDENT ([facility]) Famotidine 40 MG Oral Tablet Famotidine 05/07/2020 12:00:00 AM EDT ORAL active MEDENT ([facility]) Diphenhydramine Citrate 38 MG / Ibuprofen 200 MG Oral Tablet Ibuprofen PM 05/07/2020 12:00:00 AM EDT ORAL active MEDENT ([facility]) 20 mEq 05/04/2020 12:00:00 AM EDT tablet,ER [...] ORAL active MEDENT ([facility] Rosuvastatin calcium 10 MG Oral Tablet [Crestor] Crestor 04/22/2020 12:00:00 AM EDT ORAL active MEDENT ([facility] 10 mg 04/22/2020 12:00:00 AM EDT tablet [...] Oral Tablet ANN (Jay Jay Ferrera MD [facility]) 0.005 % 04/04/2020 12:00:00 AM EDT drops 7 PLACE 1 DROP IN EACH EYE AT BEDTIME PLACE 1 DROP IN EACH EYE AT BEDTIME SOLD: 08/30/2020 [facility] Atorvastatin 10 mg Oral Tablet Atorvastatin 10 mg Oral Table t 04/04/2020 12:00:00 AM EDT 1 aborted Atorvas tatin 10 mg ANN (Jay Jay Ferrera MD [facility]) latanoprost 0.05 MG/ML Ophthalmic Soluti on Latanoprost 0.005% Ophthalmic Solution Latanoprost 0.005% Ophthalmic Solution 04/04/2020 12:00:00 AM EDT 1 active latanoprost 0.05 MG/ ML Ophthalmic Solution ANN (Jay Jay Ferrera MD [facility]) 0.005 % 04/04/2020 12:00:00 AM EDT drops [...] {tablet_at_bedtime} active Famotidine 4 0 MG eCW1 ([facility]) Famotidine 40 MG Oral Tablet Famotidine 40 MG 03/19/2020 12:00:00 A M EDT 1.0 {tablet_at_bedtime} active Famotidine 4 0 MG eCW1 ([facility]) Famotidine 40 MG Oral Tablet Famotidine 40 MG 03/19/2020 12:00:00 A M EDT 1.0 {tablet_at_bedtime} active Famotidine 4 0 MG eCW1 ([facility]) Famotidine 40 MG Oral Tablet Famotidine 40 MG 03/19/2020 12:00:00 A M EDT 1.0 {tablet_at_bedtime} active Famotidine 4 0 MG eCW1 ([facility]) 40 mg 03/19/2020 12:00:00 AM EDT tablet 90 TAKE ONE TABLET BY MOUTH AT BEDTIME TAKE ONE TABLET BY MOUTH AT BEDTIME SOLD: 03/22/2020 [facility] Famotidine 40 MG Oral Tablet Famotidine 40 MG 03/19/2020 12:00:00 A M EDT 1.0 {tablet_at_bedtime} active Famotidine 4 0 MG eCW1 ([facility]) 40 mg 03/19/2020 12:00:00 AM EDT tablet [...] AM EDT ORAL completed MEDENT ([facility]) 10 mg 01/09/2020 12:00:00 AM EDT tablet [...] EDT ORAL active MEDENT ([facility]) 20 mg 11/01/2019 12:00:00 AM EST capsule,delayed [...] 09/18/2019 12:00:00 AM EST ORAL active MEDENT ([facility]) No Active Medications 09/18/2019 12:00:00 AM EST completed MEDENT ([facility]) 15 mg 09/18/2019 12:00:00 [...] Spirono lactone ANN (Jay Jay Ferrera MD [facility]) 1.25 mg 01/30/2019 12:00:00 AM EDT tablet 90 TAKE ONE TABLET BY MOUTH EVERY DAY TAKE ONE TABLET BY MOUTH EVERY DAY SOLD: 08/01/2019 [facility] 1.25 mg 01/30/2019 12:00:00 AM EDT tablet 90 TAKE ONE TABLET BY MOUTH EVERY DAY TAKE ONE TABLET BY MOUTH EVERY DAY SOLD: 10/29/2019 [facility] Magnesium-Vitamin D3-Turmeric 395-5190-969NZ-UNIT-MG O ral Capsule, conventional Magnesium-Vitamin D3-Turmeric 832-2607-430DO-UNIT-MG Oral Capsule, conventional 08/05/2016 12:00:00 AM EST 1 aborted Magnesium-Vitamin D3-Turmeric ANN (Jay Jay Ferrera MD [facility]) Omeprazole 20 MG Delayed Release Oral Ca psule Omeprazole 20 MG Capsule, delayed-release Omeprazole 20 MG Capsule, delayed-release 03/11/2015 1 2:00:00 AM EDT 1 aborted omeprazole 20 MG Delayed Release Oral Capsule ANN (Jay Jay Ferrera MD [facility]) Amlodipine 10 MG Oral Tablet amLODIPine Besylate 10 MG OR TABS amLODIPine Besylate 10 MG OR TABS 03/07/2013 12:00:00 AM EDT 1 aborted amlodipine 10 MG Oral Tablet ANN (Jay Jay Ferrera MD [facility]) Insurance Providers Payer name Policy type / Coverage type Policy ID Covered green party ID Covered green party's relationship to [place] Policy [place] Plan Information EMEDNY [id number] SP [id number] MEDICARE [id number] SP [id number] J16 MEDICARE PART A [facility] [id number] 18 [id number] MEDICAID -PHYSICIAN [id number] MEDICAID [id number] MEDICARE C [id number] S [id number] J16 MEDICAID M [id number] Medicare Part B [facility] Other 0 Se lf 0 Medicare Part B [facility] Other 0 Se lf 0 MEDICAID [id number] SP [id number] [facility] [id number] [facility]-Medicare Part B [id number] MEDICARE [id number] SP [id number] A [facility]-Medicaid [id number] [facility] [id number] [facility] [id number] ANSI-Medicaid [id number] Medicaid Medigap Part B [id number] Self [id number] Medicare (Part B) Medicare Primary [id number] Self [id number] Medicaid Medigap Part B [id number] Self [id number] Medicare (Part B) Medicare Primary [id number] Self [id number] ANSI-Medicaid [id number] ANSI-Medicare Part B [id number] ANSI-Medicare Part B [id number] ANSI-Medicaid [id number] MEDICARE [id number] SP [id number] J16 MEDICAID [id number] SP [id number] [place] Part [place] [id number] Self [id number] [place] Medicare Primary [id number] Self [id number] ANSI-Medicaid [id number] ANSI-Medicare Part B [id number] [place] [id number] Self [id number] [place] Medicare Primary [id number] Self [id number] Medicare [place] Gov't Servi Medicare Primary [id number] Self [id number] MVP (pr) Commercial [id number] Self [id number] [place] [id number] Self [id number] [place] Primary [id number] Self [id number] MEDICARE [id number] SP [id number] A MVP (pr) Commercial [id number] Self [id number] [place] [id number] Self [id number] [place] Primary [id number] Self [id number] MVP (pr) Commercial [id number] Self [id number] [place] [id number] Self [id number] [place] Primary [id number] Self [id number] MEDICARE PART A [facility] [id number] 18 [id number] Medicare Part B [facility] Other 0 Se lf 0 MEDICARE [id number] SP [id number] A MEDICAID [id number] SP [id number] [place] Part [place] [id number] Self [id number] [place] Medicare Primary [id number] Self [id number] Medicaid Medigap Part B [id number] Self [id number] Medicare (Part B) Medicare Primary [id number] Self [id number] Medicaid Medigap Part B [id number] Self [id number] Medicare (Part B) Medicare Primary [id number] Self [id number] MEDICARE [id number] SP [id number] A [place] Part [place] [id number] Self [id number] [place] Medicare Primary [id number] Self [id number] MEDICARE [id number] SP [id number] [place] [id number] Self [id number] [place] Medicare Primary [id number] Self [id number] Medicare (Part B) Medicare Primary Self Medicaid Medigap Part B 2 1 Self 2 1 MEDICARE C [id number] S [id number] A Medicare [place] Gov't Servi Medicare Primary Self Medicare Medicare Primary Self [id number] A [id number] Problems, Conditions, and Diagnoses Code Display Name Description Problem Type Effective Dates Data Source(s) 360784162 Excess skin of eyelid (finding) Dermatochalasis Both E yelids Finding 06/05/2020 03:07:00 PM EDT ANN (Jay Jay Ferrera MD [facility]) 9802532 Panacinar emphysema Panacinar emphysema Problem 0 04/24/2020 12:00:00 AM EDT MEDENT ([facility], ) 4470515 Ex-smoker Ex-smoker Problem 04/24/2020 12:00:00 AM ED T MEDENT ([facility], ) [id number] 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 Problem 04/04/2020 12:00:00 AM EDT ANN (Jay Jay Ferrera MD [facility]) 577389980 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 B351 Tinea unguium Tinea unguium Diagnosis 08/01/2020 10:00:[address] [facility] M2041 Other hammer toe(s) (acquired), right fo ot Other hammer toe(s) (acquired), right foot Diagnosis 08/01/2020 10:00:[address] [facility] M2010 Hallux valgus (acquired), unspecified fo ot Hallux valgus (acquired), unspecified foot Diagnosis 08/01/2020 10:00:[address] [facility] L84 Corns and callosities Corns and callosities Diagnosis 08/01/2020 10:00:00 AM EST [facility] A90466 Pain in right foot Pain in right foot Diagnosis 03:10:00 PM EDT [facility] Surgeries/Procedures Procedure Description Date Indications Data Source(s) THERAPEUTIC PX 1/> AREAS EACH 15 MIN EXERCISES 12:00:00 AM EST MEDENT ([facility] MANUAL THERAPY TQS 1/> REGIONS EACH 15 MINUTES 12:00:00 AM EST MEDENT ([facility]) THERAPEUTIC PX 1/> AREAS EACH 15 MIN EXERCISES 12:00:00 AM EST MEDENT ([facility]) MANUAL THERAPY TQS 1/> REGIONS EACH 15 MINUTES 12:00:00 AM EST MEDENT ([facility]) Physical Therapy Eval - Low Complexity 08/06/2020 12:0 0:00 AM EST MEDENT ([facility]) Pare Hyperkeratotic Lesion, 2-4 08/01/2020 12:00:00 AM EST MEDENT ([facility]) Debridement Nails Any Method 6 Or More 08/01/2020 12:0 0:00 AM EST MEDENT ([facility]) ECG ROUTINE ECG W/LEAST 12 LDS W/I&R 06/25/2020 12:00: 00 AM EDT MEDENT ([facility]) Intermediate Eye Exam Established Patient Intermediate Eye Exam Established Patient 06/05/2020 12:00:00 AM EDT ANN (Saeid katherine Ferrera MD [facility]) Aerosol Or Vapor Inhalations 06/03/2020 12:00:00 AM ED T MEDENT ([facility], ) Pare Hyperkeratotic Lesion, 2-4 05/22/2020 12:00:00 AM EDT MEDENT ([facility]) Debridement Nails Any Method 6 Or More 05/22/2020 12:0 0:00 AM EDT MEDENT ([facility]) Bronchospasm Evaluation 04/30/2020 12:00:00 AM EDT MEDENT ([facility], ) Maximum Breathing Capacity, Maximal Voluntary Ventilation 04/30/2020 12:00:00 AM EDT MEDENT ([facility], ) Plethysmography Determination Lung Volumes & Per Airway Resi st 04/30/2020 12:00:00 AM EDT MEDENT ([facility], ) DIFFUSING CAPACITY 04/30/2020 12:00:00 AM EDT MEDENT ([facility]) Scodi, optic nerve with interpretation a nd report (WAIVER OF LIABILITY ON FILE (ABN)) Scodi, optic nerve with interpretation a nd report (WAIVER OF LIABILITY ON FILE (ABN)) 04/04/2020 12:00:00 AM EDT ANN (Saeid Ferrera MD [facility]) Comprehensive eye exam established patient (Signi/Sep Eval. & Man.) Comprehensive eye exam established patient (Signi/Sep Eval. & Man.) 04/04/2020 12:00:00 AM EDT ANN (Jay Jay Ferrera MD [facility]) Comprehensive eye exam established patient (25) Compre hensive eye exam established patient (25) 04/04/2020 12:00:00 AM EDT ANN (Jay Jay Ferrera MD [facility]) COMPUTERIZED OPHTHALMIC IMAGING OPTIC NERVE Scodi, opt ic nerve with interpretation and report (GA) 04/04/2020 12:00:00 AM EDT [facility]AY (Jay Jay Ferrera MD [facility]) Pare Hyperkeratotic Lesion, 2-4 03/12/2020 12:00:00 AM EDT MEDENT ([facility]) Debridement Nails Any Method 6 Or More 03/12/2020 12:0 0:00 [facility] MYOCARDIAL SPECT MULTIPLE STUDIES 01/29/2020 12:00:00 AM EDT MEDENT ([facility]) CV STRS TST XERS&/OR RX CONT ECG PHYS SI&R 01/29/2020 12:00:00 AM EDT MEDENT ([facility]) ECHO TTHRC R-T 2D W/WOM-MODE COMPL SPEC&COLR DOP 01/04 12:00:00 AM EDT MEDENT ([facility]) Pare Hyperkeratotic Lesion, 2-4 01/02/2020 12:00:00 AM EDT MEDENT ([facility]) Debridement Nails Any Method 6 Or More 01/02/2020 12:0 0:00 AM EDT MEDENT ([facility]) ECG ROUTINE ECG W/LEAST 12 LDS W/I&R 12/27/2019 12:00: 00 AM EDT MEDENT ([facility]) Office Visit, Est Pt., Level 4 PC 12/11/2019 12:00:00 AM EDT eCW1 ([facility] [facility] Visit, Est Pt., Level 2 FC 12/11/2019 12:00:00 AM EDT eCW1 ([facility]) Pare Hyperkeratotic Lesion, 2-4 10/24/2019 12:00:00 AM EST MEDENT ([facility]) Debridement Nails Any Method 6 Or More 10/24/2019 12:0 0:00 AM EST MEDENT ([facility]) Pare Hyperkeratotic Lesion, 2-4 08/15/2019 12:00:00 AM EST MEDENT ([facility]) Debridement Nails Any Method 6 Or More 08/15/2019 12:0 0:00 AM EST MEDENT ([facility]) Results ID Date Data Source Basic Metabolic Profile (BMP) 09/17/2020 12:00:00 AM EST eCW 1 ([facility]) Name Value Range Interpretation Code Description Data María Elena rce(s) Supporting Document(s) 0.96 0.55-1.30 CREATININE FOR GFR eCW1 ([facility]) 105 70-100 GLUCOSE, FASTING eCW1 ([facility]) 21 7-18 BLOOD UREA NITROGEN eCW1 ([facility]) 135 136-145 SODIUM LEVEL eCW1 ([facility]) 59.1 >32 GLOMERULAR FILTRATION RATE eCW 1 ([facility]) 4.5 3.5-5.1 POTASSIUM SERUM eCW1 ([facility]) 102 98-107 CHLORIDE LEVEL eCW1 ([facility]) 10.0 8.8-10.2 CALCIUM LEVEL eCW1 ([facility]) 26 21-32 CARBON DIOXIDE LEVEL eCW1 ([facility]) ID Date Data Source [id number] 09/17/2020 12:00:00 AM EST eCW1 ([facility]) Name Value Range Interpretation Code Description Data María Elena rce(s) Supporting Document(s) Hemoglobin A1c/Hemoglobin.total in Blood 5.5 HEMOGLOBIN A1c eCW1 ([facility]) ID Date Data Source [id number] 09/04/2020 12:00:00 AM EST [facility] Name Value Range Interpretation Code Description Data María Elena rce(s) Supporting Document(s) Carestart Rapid COVID Antigen Test Negative [facility] This lab was reported by Andrez ferreira. ID Date Data Source [id number] 09/04/2020 12:00:00 AM EST [facility] Name Value Range Interpretation Code Description Data María Elena rce(s) Supporting Document(s) SARS coronavirus 2 RNA [Presence] in Res piratory specimen by APOLLO with probe detection NEGATIVE [facility] This lab was ordered by Andrez Arango and reported by [employer] [facility] [employer]. ID Date Data Source [id number] 06/23/2020 08:04:00 AM EDT MEDENT ([facility]) Name Value Range Interpretation Code Description Data María Elena rce(s) Supporting Document(s) Blood Urea Nitrogen 13 mg/dL 7-18 MEDENT ([facility]) Glucose, Fasting 94 mg/dL 70-100 MEDENT ([facility]) Glomerular Filtration Rate Laboratory test result MEDENT ([facility]) <content>Units are mL/min/1.73 m2</content>
<content></content>
<content>Chronic Kidney Disease Staging per NKF:</content>
<content></content>
<content>Stage I & II GFR >=60 Normal to Mildly Decreased</content>
<content>Stage III GFR 30- 59 Moderately Decreased</content>
<content>Stage IV GFR 15-29 Severely Decreased</content>
<content>Stage V GFR <15 Very Little GFR Left</content>
<content>ESRD GFR <15 on [facility]</content>
<content></content> Creatinine For GFR 0.82 mg/dL 0.55-1.30 MEDENT ([facility]) Sodium Level 138 meq/L 136-145 MEDENT ([facility]) Carbon Dioxide Level 27 meq/L 21-32 MEDENT ([facility]) Chloride Level 103 meq/L 98-107 MEDENT ([facility]) Potassium Serum 3.9 meq/L 3.5-5.1 MEDENT ([facility]) Calcium Level 8.7 mg/dL 8.8-10.2 MEDENT ([facility]) Anion Gap 8 meq/L 8-16 [facility] ID Date Data Source [id number] 03/10/2020 08:15:00 AM EDT MEDENT ([facility]) Name Value Range Interpretation Code Description Data María Elena rce(s) Supporting Document(s) Triglycerides Level 90 mg/dL MEDENT ([facility]) LDL Cholesterol 67 mg/dL MEDENT ([facility]) Cholesterol Level 144 mg/dL MEDENT ([facility]) HDL Cholesterol 59 mg/dL MEDENT ([facility]) Cholesterol Risk Ratio 2.440 MEDENT ([facility]) Non-HDL-C 85 mg/dL [facility] ID Date Data Source [id number] 03/10/2020 08:15:00 AM EDT MEDENT ([facility]) Name Value Range Interpretation Code Description Data María Elena rce(s) Supporting Document(s) Blood Urea Nitrogen 13 mg/dL 7-18 MEDENT ([facility]) Glucose, Fasting 99 mg/dL 70-100 MEDENT ([facility]) Creatinine For GFR 0.71 mg/dL 0.55-1.30 MEDENT ([facility]) Sodium Level 132 meq/L 136-145 MEDENT ([facility]) Potassium Serum 4.2 meq/L 3.5-5.1 MEDENT ([facility]) Glomerular Filtration Rate Laboratory test result MEDENT ([facility]) <content>Units are mL/min/1.73 m2</content>
<content></content>
<content>Chronic Kidney Disease Staging per NKF:</content>
<content></content>
<content>Stage I & II GFR >=60 Normal to Mildly Decreased</content>
<content>Stage III GFR 30- 59 Moderately Decreased</content>
<content>Stage IV GFR 15-29 Severely Decreased</content>
<content>Stage V GFR <15 Very Little GFR Left</content>
<content>ESRD GFR <15 on [facility]</content>
<content></content> Carbon Dioxide Level 27 meq/L 21-32 MEDENT ([facility]) Anion Gap 7 meq/L 8-16 MEDENT ([facility]) Chloride Level 98 meq/L 98-107 MEDENT ([facility]) Calcium Level 9.3 mg/dL 8.8-10.2 MEDENT ([facility]) Ast/Sgot 25 U/L 7-37 MEDENT ([facility]) Alt/SGPT 28 U/L 12-78 MEDENT ([facility]) Alkaline Phosphatase 134 U/L 45-117 MEDENT ([facility]) Total Protein 7.0 GM/DL 6.4-8.2 MEDENT ([facility]) Bilirubin,Total 0.4 mg/dL 0.2-1.0 MEDENT ([facility]) Albumin/Globulin Ratio 0.9 1.2-2.2 MEDENT ([facility]) Albumin 3.4 GM/DL 3.2-5.2 MEDENT ([facility]) ID Date Data Source [id number] 12/14/2019 08:16:00 AM EDT MEDENT ([facility]) Name Value Range Interpretation Code Description Data María Elena rce(s) Supporting Document(s) Magnesium Level 2.1 1.8-2.4 MEDENT ([facility]) ID Date Data Source [id number] 12/14/2019 08:16:00 AM EDT MEDENT ([facility]) Name Value Range Interpretation Code Description Data María Elena rce(s) Supporting Document(s) Glucose 105 70-100 MEDENT ([facility]) Blood Urea Nitrogen 18 7-18 MEDENT ([facility]) Creatinine 0.78 0.55-1.30 MEDENT ([facility]) Potassium 4.5 3.5-5.1 MEDENT ([facility]) Sodium 130 136-145 MEDENT ([facility]) Chloride 97 98-107 MEDENT ([facility]) Carbon Dioxide 26 21-32 MEDENT ([facility]) Calcium 10.3 8.8-10.2 MEDENT ([facility]) Glomerular filtration rate/1.73 sq M.pre dicted [Volume Rate/Area] in Serum or Plasma by Creatinine-based formula (MDRD) Laboratory test result MEDENT ([facility]) ID Date Data Source [id number] 12/14/2019 08:16:00 AM EDT MEDENT ([facility]) Name Value Range Interpretation Code Description Data María Elena rce(s) Supporting Document(s) Hemoglobin A1c/Hemoglobin.total in Blood 6.4 MEDENT ([facility]) ID Date Data Source [id number] [id number] 12/11/2019 12:00:00 AM EDT eCW1 ([facility]) Name Value Range Interpretation Code Description Data María Elena rce(s) Supporting Document(s) 1.7 1.8-2.4 MAGNESIUM LEVEL [facility] ([facility]) Procedure Social History Code Duration Value Status Description Data Source(s ) Smoking 09/17/2020 12:00:00 AM EST Former Smoker completed Former Smoker eCW1 ([facility]) Smoking 07/10/2020 12:00:00 AM EST Patient is a former smoker completed Patient is a former smoker MEDENT ([facility], ) Smoking 06/25/2020 12:00:00 AM EDT Patient is a former smoker completed Patient is a former smoker [facility] ([facility]) Smoking 06/06/2020 11:01:23 AM EDT Ex-smoker (finding) complet ed Ex-smoker (finding) ANN (Jay Jay Ferrera MD [facility]) Smoking 05/22/2020 12:00:00 AM EDT Never Smoked A Pipe complet ed Never Smoked A Pipe MEDENT ([facility]) Smoking 03/19/2020 12:00:00 AM EDT Former Smoker completed Former Smoker eCW1 ([facility]) Smoking 03/19/2020 12:00:00 AM EDT Former Smoker completed Former Smoker eCW1 ([facility]) Smoking 03/19/2020 12:00:00 AM EDT Former Smoker completed Former Smoker eCW1 ([facility]) Smoking 03/19/2020 12:00:00 AM EDT Former Smoker completed Former Smoker eCW1 ([facility]) Smoking 02/15/2020 12:00:00 AM EDT Former Smoker completed Former Smoker eCW1 ([facility]) Smoking 02/15/2020 12:00:00 AM EDT Former Smoker completed Former Smoker eCW1 ([facility]) Smoking 01/30/2020 12:00:00 AM EDT Former Smoker completed Former Smoker eCW1 ([facility]) Vital Signs ID Date Data Source [id number] Name Value Range Interpretation Code Description Data Source(s) Diastolic blood pressure 80 mm[Hg] 80 mm[Hg] eCW1 ([facility]) Systolic blood pressure 150 mm[Hg] 150 mm[Hg] e CW1 ([facility]) Body temperature 97.3 [degF] 97.3 [degF] eCW1 ( [facility]) Respiratory rate 70 /min 70 /min eCW1 ([facility]) Heart rate 18 /min 18 /min eCW1 ([facility]) Body mass index (BMI) [Ratio] 38.66 kg/m2 38.66 kg/m2 W1 ([facility]) Body height 61.5 [in_i] 61.5 [in_i] W1 ([facility]) Body weight 208 [lb_av] 208 [lb_av] eCW1 ([facility]) Body surface area Derived from formula 1.90 m2 1.90 m2 MEDENT ([facility]) Body mass index (BMI) [Ratio] 38.5 kg/m2 38.5 k g/m2 MEDENT ([facility]) Body height 61 [in_i] 61 [in_i] MEDENT ([facility]) 5'1" Body weight 92.534 kg 92.534 kg MEDENT ([facility]) Body weight 204.00 [lb_av] 204.00 [lb_av] MEDEN T ([facility]) Body mass index (BMI) [Ratio] 39.1 kg/m2 39.1 k g/m2 MEDENT ([facility] ) Body weight 203.50 [lb_av] 203.50 [lb_av] MEDEN T ([facility] ) Body height 60.5 [in_i] 60.5 [in_i] MEDENT ([facility] ) 5'0.50" Body temperature 96.9 [degF] 96.9 [degF] MEDENT ([facility]) Body weight 94.802 kg 94.802 kg MEDENT ([facility], ) [place] body weight 105 [lb_av] 105 [lb_av] MEDEN T ([facility], ) Body mass index (BMI) [Ratio] 39.5 kg/m2 39.5 k g/m2 MEDENT ([facility], ) Body weight 209.00 [lb_av] 209.00 [lb_av] MEDEN T ([facility], ) Body height 61 [in_i] 61 [in_i] MEDENT ([facility], ) 5'1" Body temperature 97.4 [degF] 97.4 [degF] [facility] ([facility], ) Oxygen saturation in Arterial blood by Pulse oximetry 92 % 92 % [facility] ([facility], ) Heart rate 81 /min 81 /min [facility] ([facility], ) Diastolic blood pressure 72 mm[Hg] 72 mm[Hg] [facility] ([facility], ) Systolic blood pressure 138 mm[Hg] 138 mm[Hg] [facility] ([facility]) Diastolic blood pressure--standing 70 mm[Hg] 7 0 mm[Hg] MEDENT ([facility]) [place] Systolic blood pressure--standing 130 mm[Hg] 13 0 mm[Hg] MEDENT ([facility]) [place] Diastolic blood pressure 76 mm[Hg] 76 mm[Hg] MEDENT ([facility]) sitting Systolic blood pressure 136 mm[Hg] 136 mm[Hg] M EDENT ([facility]) sitting Diastolic blood pressure 76 mm[Hg] 76 mm[Hg] MEDENT ([facility]) sitting, large cuff Systolic blood pressure 138 mm[Hg] 138 mm[Hg] M EDENT ([facility]) sitting, large cuff Respiratory rate 16 /min 16 /min MEDENT ( [facility]) Heart rate 76 /min 76 /min MEDENT ([facility]) Regular Body mass index (BMI) [Ratio] 39.1 kg/m2 39.1 k g/m2 [facility] Body height 61 [in_i] 61 [in_i] MEDENT ([facility]) 5'1" Body weight 207.00 [lb_av] 207.00 [lb_av] MEDEN T ([facility]) Body weight 95.029 kg 95.029 kg [facility] ([facility]) [place] body weight 105 [lb_av] 105 [lb_av] MEDEN T ([facility]) Body mass index (BMI) [Ratio] 39.6 kg/m2 39.6 k g/m2 [facility] ([facility]) Body weight 209.50 [lb_av] 209.50 [lb_av] [facility] Body height 61 [in_i] 61 [in_i] [facility] 5'1" Body temperature 96.7 [degF] 96.7 [degF] [facility] ([facility]) Oxygen saturation in Arterial blood by Pulse oximetry 96 % 96 % [facility] ([facility]) Heart rate 66 /min 66 /min [facility] ([facility]) Diastolic blood pressure 84 mm[Hg] 84 mm[Hg] [facility] ([facility]) Systolic blood pressure 168 mm[Hg] 168 mm[Hg] [facility] ([facility]) Diastolic blood pressure 66 mm[Hg] 66 mm[Hg] [facility]) sitting, large cuff Systolic blood pressure 136 mm[Hg] 136 mm[Hg] [facility]) sitting, large cuff Respiratory rate 16 /min 16 /min [facility] ( [facility] Heart rate 80 /min 80 /min [facility]) Regular Body mass index (BMI) [Ratio] 39.1 kg/m2 39.1 k g/m2 [facility]) Body height 61 [in_i] 61 [in_i] [facility] ([facility]) 5'1" Body weight 207.00 [lb_av] 207.00 [lb_av] MEDEN T ([facility]) Body weight 94.462 kg 94.462 kg [facility] ([facility]) [place] body weight 105 [lb_av] 105 [lb_av] [facility]) Body mass index (BMI) [Ratio] 39.3 kg/m2 39.3 k g/m2 [facility] ([facility]) Body weight 208.25 [lb_av] 208.25 [lb_av] [facility]) Body height 61 [in_i] 61 [in_i] [facility] ([facility]) 5'1" Body temperature 97.9 [degF] 97.9 [degF] [facility] ([facility]) Oxygen saturation in Arterial blood by Pulse oximetry 95 % 95 % [facility] ([facility]) Heart rate 99 /min 99 /min [facility] ([facility]) Diastolic blood pressure 82 mm[Hg] 82 mm[Hg] [facility] ([facility]) Systolic blood pressure 176 mm[Hg] 176 mm[Hg] [facility] ([facility]) Diastolic blood pressure 80 mm[Hg] 80 mm[Hg] eCW1 ([facility]) Systolic blood pressure 152 mm[Hg] 152 mm[Hg] e CW1 ([facility]) Body temperature 97.1 [degF] 97.1 [degF] eCW1 ( [facility]) Respiratory rate 118 /min 118 /min eCW1 ([facility]) Heart rate 18 /min 18 /min eCW1 ([facility]) Body mass index (BMI) [Ratio] 38.66 kg/m2 38.66 kg/m2 eCW1 ([facility]) Body height 61.5 [in_i] 61.5 [in_i] eCW1 ([facility]) Body weight 208 [lb_av] 208 [lb_av] eCW1 ([facility]) Diastolic blood pressure 84 mm[Hg] 84 mm[Hg] eCW1 ([facility]) Systolic blood pressure 148 mm[Hg] 148 mm[Hg] e CW1 ([facility]) Body temperature 97.9 [degF] 97.9 [degF] eCW1 ( [facility]) Respiratory rate 96 /min 96 /min eCW1 ([facility]) Heart rate 18 /min 18 /min eCW1 ([facility]) Body mass index (BMI) [Ratio] 38.66 kg/m2 38.66 kg/m2 eCW1 ([facility]) Body height 61.5 [in_i] 61.5 [in_i] eCW1 ([facility]) Body weight 208 [lb_av] 208 [lb_av] eCW1 ([facility]) Diastolic blood pressure--standing 68 mm[Hg] 6 8 mm[Hg] MEDENT ([facility]) Ra Systolic blood pressure--standing 122 mm[Hg] 12 2 mm[Hg] MEDENT ([facility]) Ra Diastolic blood pressure 74 mm[Hg] 74 mm[Hg] MEDENT ([facility]) sitting Systolic blood pressure 138 mm[Hg] 138 mm[Hg] M EDENT ([facility]) sitting Diastolic blood pressure 74 mm[Hg] 74 mm[Hg] MEDENT ([facility]) sitting, large cuff Systolic blood pressure 136 mm[Hg] 136 mm[Hg] M EDENT ([facility]) sitting, large cuff Respiratory rate 16 /min 16 /min MEDENT ( [facility]) Heart rate 88 /min 88 /min MEDENT ([facility]) Regular Body mass index (BMI) [Ratio] 39.1 kg/m2 39.1 k g/m2 MEDENT ([facility]) Body height 61 [in_i] 61 [in_i] MEDENT ([facility]) 5'1" Body weight 207.00 [lb_av] 207.00 [lb_av] MEDEN T ([facility]) Diastolic blood pressure 80 mm[Hg] 80 mm[Hg] eCW1 ([facility]) Systolic blood pressure 148 mm[Hg] 148 mm[Hg] e CW1 ([facility]) Body temperature 96.2 [degF] 96.2 [degF] eCW1 ( [facility]) Respiratory rate 95 /min 95 /min eCW1 ([facility]) Heart rate 18 /min 18 /min eCW1 ([facility]) Body mass index (BMI) [Ratio] 39.22 kg/m2 39.22 kg/m2 eCW1 ([facility]) Body height 61.5 [in_us] 61.5 [in_us] eCW1 ([facility]) Body weight Measured 211 [lb_av] 211 [lb_av] eC W1 ([facility]) Body weight 94.802 kg 94.802 kg MEDENT ([facility], ) [place] body weight 105 [lb_av] 105 [lb_av] MEDEN T ([facility], ) Body mass index (BMI) [Ratio] 39.5 kg/m2 39.5 k g/m2 MEDENT ([facility], ) Body weight 209.00 [lb_av] 209.00 [lb_av] MEDEN T ([facility], ) Body height 61 [in_i] 61 [in_i] MEDENT ([facility] 5'1" Body mass index (BMI) [Ratio] 39.3 kg/m2 39.3 k g/m2 MEDENT ([facility] ) Body weight 211.38 [lb_av] 211.38 [lb_av] MEDEN T ([facility] ) Body height 61.50 [in_i] 61.50 [in_i] MEDENT ([facility]) 5'1.50" Body temperature 97.7 [degF] 97.7 [degF] MEDENT ([facility] ) Patient Treatment Plan of Care Planned Activity Planned Date Details Description Data Source (s) latanoprost 0.05 MG/ML Ophthalmic Solution 04/04/2020 12:00:00 AM Ashley JUAREZ (Jay Jay Ferrera MD [facility]) Famotidine 40 MG Oral Tablet 03/19/2020 12:00:00 AM EDT eCW1 ([facility]) Famotidine 40 MG Oral Tablet 03/19/2020 12:00:00 AM EDT eCW1 ([facility]) Famotidine 40 MG Oral Tablet 03/19/2020 12:00:00 AM EDT eCW1 ([facility]) Famotidine 40 MG Oral Tablet 03/19/2020 12:00:00 AM EDT eCW1 ([facility]) Famotidine 40 MG Oral Tablet 03/19/2020 12:00:00 AM EDT eCW1 ([facility])
--- NOTE | 2020-09-29 15:43 | HPEPDOC ---
General Date of Admission 09/29/20 Date of Service: Sep 29, 2020 Chief Complaint The patient is a 85-year-old female admitted with a reason for visit of Flu Symptoms. Source: Patient, RN/MD History of Present Illness 85 year old female with HTN, obesity, HLD, COPD presented to ED after a syncopal episode this morning. She has been feeling unwell for the last 7 days feeling achy. She had 2 days of diarrhea 7 days ago. She took some Imodium from her friend on the second day of diarrhea and it stopped. There was no abdominal pain or vomiting. then the next few days she was just achy all over most worst at the hips were she has arthritis. However yesterday she was not feeling too bad so got the pfizer vaccine (09/28/20). This morning she was brushing her teeth in the bathroom when she started feeling very dizzy and light headed collapsed to the floor. She did not injuries. Then several times while she was trying to stand up she was dizzy and light headed and had presyncopal episodes. She then came to [facility] ED. She is positive for COVID-19 today in the ED. She was noted to be hypoxic in the ED with oxygen saturations to 88% in room air during conversation and was started on 2 l nasal canula. In the ED she continues to be very dizzy and light headed becoming presyncopal and unable to stand. She was admitted for Syncope with COVID -19 infection. Home Medications Scheduled Amlodipine Besylate (Amlodipine Besylate) 5 Mg Tablet, 5 MG PO BID, (Reported) Aspirin (Aspirin) 81 Mg Tab.chew, 81 MG PO DAILY, (Reported) Bisoprolol Fumarate (Bisoprolol Fumarate) 5 Mg Tablet, 2.5 MG PO DAILY, (Reported) Famotidine (Famotidine) 40 Mg Tablet, 40 MG PO QHS, (Reported) Fluticasone/Umeclidin/Vilanter (Trelegy Ellipta 100-62.5-25) 1 Each Blst.w.dev, 1 PUFF INH DAILY, (Reported) Indapamide (Indapamide) 1.25 Mg Tablet, 1.25 MG PO DAILY, (Reported) Irbesartan (Irbesartan) 300 Mg Tablet, 300 MG PO QHS, (Reported) Latanoprost/Pf (Latanoprost 0.005% Eye Drop) 7.5 Ml Drops, 1 DROP OU QHS, (Repor traci) Potassium Chloride (Potassium Chloride) 20 Meq Tablet.er, 20 MEQ PO DAILY, (Reported) Rosuvastatin Calcium (Rosuvastatin Calcium) 10 Mg Tablet, 10 MG PO QHS, (Reported) Scheduled PRN Albuterol Sulfate (Ventolin Hfa) 18 Gm Hfa.aer.ad, 2 PUFF INH Q4H PRN for SOB/WHEEZING, (Reported) Allergies Coded Allergies: Penicillins (Verified Allergy, Unknown, 07/18/20) Past Medical History Medical History COPD HYPERTENSION HYPERLIPIDEMIA OBESITY CATARACTS (STRICKLAND-ORTEZ) IMPAIRED FASTING GLUCOSE VITAMIN D DEFICIENCY GRADE I DD THYROID MASS- ENT: DR. 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 CT Surgical History APPENDECTOMY 1953 D & C X 4 (OSBALDO HERNANDES) EARLY TUBAL LIGATION 1961 HYSTERECTOMY 1967 CHOLECYSTECTOMY 2006 VAGINAL POLYPS (ADRIAN) 2007 THYROID BIOPSY-BENIGN 11/08/2015 MULTIPLE THYROID BIOPSY'S PER PT, [facility] 2019 Family History FATHER: 59 YRS, Heart disease MOTHER: 96 YRS, NATURAL CAUSES BROTHER - WITH A AAA SISTER with H/o Breast cancer, diabetes, HTN One Son WITH AORTIC VALVE REPLACEMENT, ONE Daughter WITH H/O UTERINE CANCER Social History * Smoker: Denies Alcohol: rarely Drugs: denies A-FIB/CHADSVASC A-FIB History Current/History of A-Fib/PAF?: No Review of Systems Constitutional: Denies: Chills, Fever, Night Sweats Eyes: Denies: Pain, Vision change ENT: Denies: Head Aches, Ear Pain, Dysphagia Skin: Denies: Rash, Lesions, Breakdown Pulmonary: Denies: Dyspnea, Cough Cardiovascular: Denies: Chest Pain, Palpitations, Orthopnea, Paroxysmal Noc. Dyspnea, Lt Headedness Gastrointestinal: Reports: Nausea; Denies: Vomiting, Abdominal Pain, Diarrhea Genitourinary: Denies: Dysuria, Frequency, Incontinence, Retention Hematologic: Denies: Bruising, Bleeding Excessively Musculoskeletal: Reports: Back Pain, Joint Pain (both hips); Denies: Neck Pain, Muscle Pain, Spasms Neurological: Denies: Weakness, Numbness, Change in speech, Confusion Psych: Reports: Mood Normal Physical Examination General Exam: Positive: Alert, Cooperative, No Acute Distress Eye Exam: Positive: PERRLA, Conjunctiva & lids normal, EOMI; Negative: Sclera icteric ENT Exam: Positive: Atraumatic, Mucous membr. moist/pink, Pharynx Normal Neck Exam: Positive: Supple; Negative: JVD, thyromegaly Chest Exam: Positive: Clear to auscultation, Diminished Heart Exam: Positive: Rate Normal, Regular Rhythm, Normal S1, Normal S2; Negative: Murmurs, Rubs Abdomen Exam: Positive: Normal bowel sounds, Soft; Negative: Tenderness, Hepatospenomegaly Extremity Exam: Negative: Clubbing, Cyanosis, Edema Neuro Exam: Positive: Normal Speech, Normal Tone Psych Exam: Positive: Memory Intact, Oriented x 3 Vital Signs Vital Signs Date Time Temp Pulse Resp B/P (MAP) Pulse Ox O2 Delivery O2 Flow Rate FiO2 09/29/20 11:16 75 20 95 Nasal Cannula 2.0 09/29/20 11:15 185/90 (121) 09/29/20 09:58 98.2 Laboratory Data Labs 24H Laboratory Tests 2 09/29/20 10:03: SARS Antigen (LFIA) POSITIVEH 09/29/20 10:07: Immature Granulocyte % (Auto) 0.3, Neutrophils (%) (Auto) 69.4H, Lymphocytes (%) (Auto) 19.5L, Monocytes (%) (Auto) 10.1H, Eosinophils (%) (Auto) 0.2, Basophils (%) (Auto) 0.5, Neutrophils # (Auto) 4.0, Lymphocytes # (Auto) 1.1L, Monocytes # (Auto) 0.6, Eosinophils # (Auto) 0.0, Basophils # (Auto) 0.0, Nucleated Red Bl ood Cells % (auto) 0.0, Prothrombin Time 13.6, Prothromb Time International Ratio 1.02, Activated Partial Thromboplast Time 29.4, D-Dimer, Quantitative 1942.78H, Anion Gap 11, Glomerular Filtration Rate > 60.0, Calcium Level 9.0, Ferritin 356H, Total Bilirubin 0.3, Aspartate Amino Transf (AST/SGOT) 37, Alanine Aminotransferase (ALT/SGPT) 29, Alkaline Phosphatase 105, Lactate Dehydrogenase 233, Total Creatine Kinase 227H, Creatine Kinase MB 3.3, Creatine Kinase MB Relative Index 1.45, Troponin I < 0.02, C-Reactive Protein, Quantitative 0.83H, Total Protein 6.8, Albumin 3.3, Albumin/Globulin Ratio 0.9L, Thyroid Stimulating Hormone (TSH) 2.430 CBC/BMP Laboratory Tests 09/29/20 10:07 Assessment/Plan 85 year old female with HTN, obesity, HLD, COPD presented to ED after a syncopal episode this morning. She has been feeling unwell for the last 7 days feeling achy. She had 2 days of diarrhea 7 days ago. She took some Imodium from her friend on the second day of diarrhea and it stopped. There was no abdominal pain or vomiting. then the next few days she was just achy all over most worst at the hips were she has arthritis. However yesterday she was not feeling too bad so got the [employer]apt[employer] vaccine (09/28/20). This morning she was brushing her teeth in the bathroom when she started feeling very dizzy and light headed collapsed to the floor. She did not injuries. Then several times while she was trying to stand up she was dizzy and light headed and had presyncopal episodes. She then came to the ED. She is positive for COVID-19 today in the ED. She was noted to be hypoxic in the ED with oxygen saturations to 88% in room air during conversation and was started on 2 l nasal canula. In the ED she continues to be very dizzy and light headed becoming presyncopal and unable to stand. She was admitted for Syncope with COVID -19 infection. Syncope/ presyncope possibly orthostatic or vasovagal syncope. No arrhythmias noted on telemetry in ED. possibly due to COVID- 19 infection will check orthostatic vitals. PT/OT COVID -19 infection spo2 was at 88% now on 2 L , asymptomatic She has COPD so possibly she is close to her baseline oxygen saturations. COPD continue symbicort and spiriva oxygen supplementation albuterol prn. Hypertension bisoprolol, amlodipine, irbesartan. HLD statin. Plan / VTE VTE Prophylaxis Ordered?: Yes FLORENCE KISER MD Sep 29, 2020 13:09
[2020-09-29] MEDS ORDERED: ALBUTEROL 90 MCG/ACT 8GM HFA INHALER INH PRN (15:45)
--- NOTE | 2020-09-29 15:47 | REP ---
INDICATION: bilateral hip pain, fall. COMPARISON: Comparison study 18 July 2020.. TECHNIQUE: AP view of the pelvis, two views presented. FINDINGS: The bony pelvic ring is intact. There is mild diffuse osteopenia. Mild bilateral superior acetabular spurring is noted unchanged. Vascular calcification is observed. IMPRESSION: No fracture seen. <Electronically signed by Darren Sol > 09/29/20 [id number]
[2020-09-29 15:55] VITALS: BP 164/82
[2020-09-29 16:00] VITALS: O2SAT 95
[2020-09-29 16:38] VITALS: BP_SYST 149; BP_SYST 171; BP_SYST 180; BP_DIAS 62; BP_DIAS 78; BP_DIAS 79
[2020-09-29] MEDS ORDERED: NS 1,000 ML IV ONE (17:30)
[2020-09-29] MEDS: SYMBICORT 160/4.5MCG INHALER 6GM INH SCH (20:00)
[2020-09-29] MEDS ORDERED: amLODIPine 5 MG TAB PO SCH (21:00)
[2020-09-29] MEDS ORDERED: IRBESARTAN 150MG TAB PO SCH ×2 (21:00)
[2020-09-29 21:26] VITALS: BP 185/81
[2020-09-29] MEDS: IRBESARTAN 150MG TAB PO SCH (21:28)
[2020-09-29] MEDS: ROSUVASTATIN 10 MG TAB (CRESTOR) PO SCH (21:28)
[2020-09-29 21:30] VITALS: BP 168/62
[2020-09-29] MEDS: DOCUSATE SODIUM 100MG CAPSULE PO SCH (21:31)
[2020-09-29] MEDS: amLODIPine 5 MG TAB PO SCH (21:31)
[2020-09-29] MEDS: ENOXAPARIN 30MG/0.3ML SYRINGE (J1650 PER 10MG) SC SCH (21:31)
[2020-09-29] MEDS: FAMOTIDINE 20 MG TAB PO SCH (22:34)
[2020-09-29] MEDS: ACETAMINOPHEN TAB 650MG DOSE (2X325MG) PO PRN (22:35)
[2020-09-30] VITALS (8 sets, daily range): BP systolic 108–182; BP diastolic 53–81; O2SAT 90–91
[2020-09-30] MEDS ORDERED: NS 250 ML IV ONE (00:45)
[2020-09-30 06:31] LABS: BASO % 0.5 % (0.0-1.0); EOS % 0.2 % (0.0-3.0); HEMATOCRIT 42.1 % (36.0-47.0); HEMOGLOBIN 14.2 g/dl (12.0-15.5); LYMPH # 1.6 10^3/uL (1.5-5.0); LYMPH % 35.9 % (24.0-44.0); MEAN CORPUSCULAR HEMOGLOBIN 29.4 pg (27.0-33.0); MEAN CORPUSCULAR HGB CONC 33.7 g/dl (32.0-36.5); MEAN CORPUSCULAR VOLUME 87.2 fl (80.0-96.0); MONO # 0.4 10^3/uL (0.0-0.8); MONO % 9.2 % (0.0-5.0); NEUTROPHILS # 2.4 10^3/uL (1.5-8.5); PLATELET COUNT, AUTOMATED 164 10^3/uL (150-450); RED BLOOD COUNT 4.83 10^6/uL (4.00-5.40); WHITE BLOOD COUNT 4.4 10^3/uL (4.0-10.0)
[2020-09-30 06:58] LABS: BLOOD UREA NITROGEN 14 MG/DL (7-18); CALCIUM LEVEL 8.4 MG/DL (8.8-10.2); CARBON DIOXIDE LEVEL 27 MEQ/L (21-32); CHLORIDE LEVEL 104 MEQ/L (98-107); CREATININE FOR GFR 0.69 MG/DL (0.55-1.30); GLOMERULAR FILTRATION RATE > 60.0 (>32); GLUCOSE, FASTING 88 MG/DL (70-100); MAGNESIUM LEVEL 1.5 MG/DL (1.8-2.4); POTASSIUM SERUM 2.9 MEQ/L (3.5-5.1); SODIUM LEVEL 138 MEQ/L (136-145)
[2020-09-30] MEDS ORDERED: MAG SULF 1GM/100ML (MAG RUN) 1 GM in IV 1 EA IV ONE (07:15)
[2020-09-30 07:31] LABS: C REACTIVE PROTEIN QUANTITATIV 0.85 MG/DL (0.00-0.30); FERRITIN 393 NG/ML (8-252); LDH LACTATE DEHYDROGENASE 218 U/L (84-246)
[2020-09-30] MEDS: POTASSIUM CHLORIDE 10 MEQ SR TABLET PO SCH ×2 (07:43→11:05)
[2020-09-30 07:50] LABS: D-DIMER QUANT 1573.3 ng/ml (<500)
[2020-09-30] MEDS: ASPIRIN 81 MG CHEW TABLET PO SCH (08:41)
[2020-09-30] MEDS: DOCUSATE SODIUM 100MG CAPSULE PO SCH ×2 (08:41→19:56)
[2020-09-30] MEDS: BISOPROLOL FUM 2.5 MG PER 1/2TAB PO SCH (08:42)
[2020-09-30] MEDS: TIOTROPIUM INHALER/CAPSULE (SPIRIVA) INH SCH (08:43)
[2020-09-30] MEDS: ACETAMINOPHEN TAB 650MG DOSE (2X325MG) PO PRN ×2 (08:43→17:17)
[2020-09-30] MEDS: SYMBICORT 160/4.5MCG INHALER 6GM INH SCH ×2 (08:43→19:57)
[2020-09-30] MEDS: amLODIPine 5 MG TAB PO SCH ×2 (08:43→19:55)
--- NOTE | 2020-09-30 12:11 | IPNPDOC ---
Text Note Date of Service The patient was seen on 09/30/20. NOTE Subjective: Patient is an 85-year-old female with a PMHx of HTN, DLP, COPD, Obesity who presented to the ER after she passed out. Patient has been feeling unwell for the last 7 days, reported diarrhea / weakness / malaise. Patient has received the Pfizer vaccine (09/28/20). She continued to experience weakness and had passed out while brushing her teeth on 09/29. Denied head trauma. Reported continued dizziness with standing. Upon arrival to emergency room, patient was found to have saturations of 88% on room air and was placed on 2L NC oxygen. Patient was admitted to the hospital service for further evaluation and treatment. Patient was seen and examined at the bedside. Currently patient reports that she has not experience any chest pain or palpitations. Reports that she has not experience any significant shortness of breath. Reports mild cough without any significant expectoration. Has not experience any nausea, vomiting, abdominal pain, or urinary discomfort. Objective: Vitals (See below) General: Lying in bed, no acute distress, comfortable, AAOx3 HEENT: NC, AT CVS: RRR, +S1S2 Lungs: Fair air entry b/l, no appreciable wheezing, rhonchi or rales Abdomen: Soft, nondistended, without tenderness Extremities: Lower extremities do not reveal any significant pitting edema, - Calf tenderness Imaging: CXR 09/29: No active disease. Pelvis XR 09/29: No fracture seen. Assessment and plan: Syncope - likely 2/2 orthostatic hypotension, less likely 2/2 vasovagal - Positive orthostatic hypotension in ER - s/p IV fluid hydration - c/w PT and OT evaluation; awaiting clearance COVID19 infection - Remains asymptomatic - Currently patient is stable on 2L NC - Inflammatory markers not significantly elevated - Suspected patient will require some oxygen to maintain saturation 88-92% given her COPD history - Will start incentive spirometry / acapella Chronic COPD - No evidence of exacerbation - Auscultation is without wheezing - c/w inhaled therapy as ordered Hypertension - Positive orthostatic hypotension - c/w Bisoprolol, Amlodipine, irbesartan. DLP - c/w Rosuvastatin GERD - c/w Famotidine DVT prophylaxis - c/w Lovenox 30 QHS Contacts: - Mi (Daughter): [phone] - Jadyn Castro (Niece): - Called and discussed case with Jadyn Castro; addressed all her questions and concerns VSSouth, I+O VSSouth, I+O Laboratory Tests 09/30/20 06:09 Vital Signs Date Time Temp Pulse Resp B/P (MAP) Pulse Ox O2 Delivery O2 Flow Rate FiO2 09/30/20 11:09 88 Nasal Cannula 2.0 09/30/20 08:43 84 144/70 09/30/20 08:00 98.7 18 I&O- Last 24 Hours up to 6 AM 09/30/20 05:59 Intake Total 1120 ml Output Total 200 ml Balance 920 ml EVA SARGENT MD Sep 30, 2020 12:11
[2020-09-30] MEDS ORDERED: POLYVINYL ALCOHOL OPHTH SOLN 15 ML(LIQUITEARS) OU PRN (16:45)
[2020-09-30] MEDS: ENOXAPARIN 30MG/0.3ML SYRINGE (J1650 PER 10MG) SC SCH (19:54)
[2020-09-30] MEDS: ROSUVASTATIN 10 MG TAB (CRESTOR) PO SCH (19:54)
[2020-09-30] MEDS: FAMOTIDINE 20 MG TAB PO SCH (19:55)
[2020-09-30] MEDS: IRBESARTAN 150MG TAB PO SCH (19:56)
[2020-09-30] MEDS ORDERED: LATANOPROST 0.005% OPHTH SOLN 2.5 ML OU SCH (21:00)
[2020-10-01] VITALS: BP_SYST 144; BP_SYST 164; BP_SYST 176; BP_DIAS 76; BP_DIAS 80; BP_DIAS 82; O2SAT 89
[2020-10-01 04:17] VITALS: BP 162/84
[2020-10-01 06:49] LABS: BASO % 0.6 % (0.0-1.0); EOS % 0.2 % (0.0-3.0); HEMATOCRIT 40.9 % (36.0-47.0); HEMOGLOBIN 13.9 g/dl (12.0-15.5); LYMPH # 0.8 10^3/uL (1.5-5.0); LYMPH % 15.4 % (24.0-44.0); MEAN CORPUSCULAR HEMOGLOBIN 29.3 pg (27.0-33.0); MEAN CORPUSCULAR VOLUME 86.3 fl (80.0-96.0); MONO # 0.4 10^3/uL (0.0-0.8); MONO % 7.7 % (0.0-5.0); NEUTROPHILS # 4.1 10^3/uL (1.5-8.5); NEUTROPHILS % 75.9 % (36.0-66.0); PLATELET COUNT, AUTOMATED 155 10^3/uL (150-450); RED BLOOD COUNT 4.74 10^6/uL (4.00-5.40); WHITE BLOOD COUNT 5.3 10^3/uL (4.0-10.0)
[2020-10-01 06:58] LABS: INR 1.03; PROTHROMBIN TIME 13.7 SECONDS (12.5-14.3)
[2020-10-01 06:59] LABS: PARTIAL THROMBOPLASTIN TIME 30.3 SECONDS (24.2-38.5)
[2020-10-01 07:24] LABS: ALBUMIN 2.8 GM/DL (3.2-5.2); ALT/SGPT 31 U/L (12-78); BILIRUBIN,DIRECT 0.1 MG/DL (0.0-0.2); BILIRUBIN,TOTAL 0.5 MG/DL (0.2-1.0); BLOOD UREA NITROGEN 11 MG/DL (7-18); CALCIUM LEVEL 8.4 MG/DL (8.8-10.2); CARBON DIOXIDE LEVEL 26 MEQ/L (21-32); CHLORIDE LEVEL 104 MEQ/L (98-107); CREATININE FOR GFR 0.53 MG/DL (0.55-1.30); FERRITIN 389 NG/ML (8-252); GLOMERULAR FILTRATION RATE > 60.0 (>32); GLUCOSE, FASTING 99 MG/DL (70-100); LDH LACTATE DEHYDROGENASE 250 U/L (84-246); MAGNESIUM LEVEL 1.4 MG/DL (1.8-2.4); NT-PRO BNP 332 PG/ML (<450); POTASSIUM SERUM 3.3 MEQ/L (3.5-5.1); SODIUM LEVEL 137 MEQ/L (136-145)
[2020-10-01] MEDS: TIOTROPIUM INHALER/CAPSULE (SPIRIVA) INH SCH (07:29)
[2020-10-01] MEDS: SYMBICORT 160/4.5MCG INHALER 6GM INH SCH (07:30)
[2020-10-01 08:00] VITALS: BP 169/77
[2020-10-01] MEDS ORDERED: POTASSIUM CHLORIDE 10 MEQ SR TABLET PO ONE (08:45)
[2020-10-01] MEDS ORDERED: VITAMIN D 1,000 INTERNATIONAL UNITS TABLET PO SCH (09:00)
[2020-10-01] MEDS: MAG SULF 1GM/100ML (MAG RUN) 1 GM in IV 1 EA IV SCH ×2 (09:08→10:29)
[2020-10-01] MEDS: ASPIRIN 81 MG CHEW TABLET PO SCH (09:08)
[2020-10-01] MEDS: DOCUSATE SODIUM 100MG CAPSULE PO SCH (09:08)
[2020-10-01] MEDS: amLODIPine 5 MG TAB PO SCH (09:09)
[2020-10-01] MEDS: ACETAMINOPHEN TAB 650MG DOSE (2X325MG) PO PRN ×2 (09:17→15:05)
[2020-10-01 10:17] VITALS: O2SAT 91
[2020-10-01 10:30] VITALS: BP 169/77
[2020-10-01] MEDS: BISOPROLOL FUM 2.5 MG PER 1/2TAB PO SCH (10:30)
[2020-10-01] MEDS ORDERED: COMBAER6 INH (17:20)
[2020-10-01] MEDS ORDERED: FAMO20TA PO (17:20)
[2020-10-01] MEDS ORDERED: DEXA6TAB PO (17:27)
--- NOTE | 2020-10-02 12:03 | ECHO ---
DATE OF PROCEDURE: 10/01/2020 Age: 85 Gender: Female Height: 152 cm Weight: 52 kg REFERRING PHYSICIAN: Osiel Canchola MD INDICATION: Syncope. COVID. MEASUREMENTS: IVS 1.4 cm LV 3.8 cm LVPW 1.2 cm LA 3.5 cm Aorta 2.8 cm IVC 1.2 cm Mitral E wave velocity 88 Mitral A wave 113 E prime septal 7.4 E prime lateral 7.4 FINDINGS: This study is of good technical quality. Underlying sinus rhythm. Left ventricle is normal size and has normal systolic function, I estimate LVEF approximately 65% to 70%. No segmental wall motion abnormalities are appreciated. Right ventricle is also normal size and systolic function. Both atria appear normal. Aortic valve has three cusps. It is mildly sclerotic, but mobility is preserved. Mitral and tricuspid valves appear normal. The pulmonic valve was not well seen. No pericardial effusion is present. Inferior vena cava is normal size and appropriately collapses with inspiration indicative of normal central venous pressure. Aortic root is normal. Aortic arch and abdominal aorta were not well visualized. Doppler interrogation reveals no aortic stenosis or insufficiency. There is trace mitral and trace tricuspid insufficiency. Calculated pulmonary artery pressure is within normal limits. Mitral inflow pattern and tissue Doppler imaging of the mitral annulus revealed grade 1 diastolic dysfunction. CONCLUSIONS: 1. Study is of good technical quality, underlying sinus rhythm. 2. Normal LV size with mild LVH, preserved LV systolic function, and grade 1 diastolic dysfunction. 3. Aortic sclerosis, but no significant stenosis. 4. No additional valvular abnormalities of significance. 5. Normal central venous pressure and likely normal pulmonary artery pressure. COMMENTS: No findings to explain syncopal event. [facility]
--- NOTE | 2020-10-22 18:00 | DS.PDOC ---
Discharge Summary General Date of Admission Sep 29, 2020 at 12:38 Date of Discharge 10/01/20 Discharge Summary PROCEDURES PERFORMED DURING STAY: [None]. ADMITTING DIAGNOSES: syncope Covid-19 infection COPD Hypertension HLD DISCHARGE DIAGNOSES: syncope Covid-19 infection COPD Hypertension HLD COMPLICATIONS/CHIEF COMPLAINT: Pneumonia Due To Covid 19 Virus. HISTORY OF PRESENT ILLNESS: 85 year old female with HTN, obesity, HLD, COPD presented to ED after a syncopal episode this morning. She has been feeling unwell for the last 7 days feeling achy. She had 2 days of diarrhea 7 days ago. She took some Imodium from her friend on the second day of diarrhea and it stopped. There was no abdominal pain or vomiting. then the next few days she was just achy all over most worst at the hips were she has arthritis. However yesterday she was not feeling too bad so got the pfizer vaccine (09/28/20). This morning she was brushing her teeth in the bathroom when she started feeling very dizzy and light headed collapsed to the floor. She did not injuries. Then se veral times while she was trying to stand up she was dizzy and light headed and had presyncopal episodes. She then came to [facility] ED. She is positive for COVID-19 today in the ED. She was noted to be hypoxic in the ED with oxygen saturations to 88% in room air during conversation and was started on 2 l nasal canula. In the ED she continues to be very dizzy and light headed becoming presyncopal and unable to stand. She was admitted for Syncope with COVID -19 infection. HOSPITAL COURSE: Syncope - likely 2/2 orthostatic hypotension, less likely 2/2 vasovagal - Positive orthostatic hypotension in ER - s/p IV fluid hydration - c/w PT and OT evaluation;, cleared for DC home with servies COVID19 infection - Remains asymptomatic - Currently patient is stable on 2L NC - Inflammatory markers not significantly elevated - Suspected patient will require some oxygen to maintain saturation 88-92% given her COPD history - incentive spirometry / acapella - plan for home O2 - dexamethasone on DC Chronic COPD - No evidence of exacerbation - Auscultation is without wheezing - c/w inhaled therapy as ordered Hypertension - Positive orthostatic hypotension - c/w Bisoprolol, Amlodipine, irbesartan. DLP - c/w Rosuvastatin GERD - c/w Famotidine DVT prophylaxis - c/w Lovenox 30 QHS DISCHARGE MEDICATIONS: Please see below. ALLERGIES: Please see below. PHYSICAL EXAMINATION ON DISCHARGE: VITAL SIGNS: Please see below. GENERAL: appears well comfortable at rest, lying in bed, AAO x 3, appears active HEENT: PERRLA, EOMI NECK: supple, normal ROM, no JVD CARDIOVASCULAR EXAMINATION: RRR, normal S1, S2, no murmurs RESPIRATORY EXAMINATION: lungs CTAB, no wheeze, no rales, no crackles ABDOMINAL EXAMINATION: soft, non tender, BS+, no masses palpated EXTREMITIES: no edema, no calf tenderness SKIN: warm, dry NEUROLOGICAL EXAMINATION: no focal neuro deficits, CN 2-12, moving all 4 extremities LABORATORY DATA: Please see below. IMAGING: FINDINGS: This study is of good technical quality. Underlying sinus rhythm. Left ventricle is normal size and has normal systolic function, I estimate LVEF approximately 65% to 70%. No segmental wall motion abnormalities are appreciated. Right ventricle is also normal size and systolic function. Both atria appear normal. Aortic valve has three cusps. It is mildly sclerotic, but mobility is preserved. Mitral and tricuspid valves appear normal. The pulmonic valve was not well seen. No pericardial effusion is present. Inferior vena cava is normal size and appropriately collapses with inspiration indicative of normalcentral venous pressure. Aortic root is normal. Aortic arch and abdominal aorta were not well visualized. Doppler interrogation reveals no aortic stenosis or insufficiency. There is trace mitral and trace tricuspid insufficiency. Calculated pulmonary artery pressure is within normal limits. Mitral inflow pattern and tissue Doppler imaging of the mitral annulus revealed grade 1 diastolic dysfunction. CONCLUSIONS: 1. Study is of good technical quality, underlying sinus rhythm. 2. Normal LV size with mild LVH, preserved LV systolic function, and grade 1 diastolic dysfunction. 3. Aortic sclerosis, but no significant stenosis. 4. No additional valvular abnormalities of significance. 5. Normal central venous pressure and likely normal pulmonary artery pressure. COMMENTS: No findings to explain syncopal event. CXR (09/29/20): FINDINGS: The lungs are well inflated and free of infiltrate. Pleural angles are sharp. Heart size is normal. Pulmonary vasculature is not increased. Patient is rotated somewhat to the right for the current view. The aorta is calcific and tortuous as before. There is a granulomatous nodule in the right lateral pleural angle unchanged. 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 IMPRESSION: No active disease Pelvis XR (09/29/20): FINDINGS: The bony pelvic ring is intact. There is mild diffuse osteopenia. Mild bilateral superior acetabular spurring is noted unchanged. Vascular calcification is observed. IMPRESSION: No fracture seen. PROGNOSIS: good ACTIVITY: As tolerated DIET: 2g Sodium Restriction DISCHARGE PLAN: DC home with services, home O2. DISPOSITION: Home Health Service. DISCHARGE INSTRUCTIONS: f/u with PCP 3-5 days c/w dexamethasone for 7 days If you develop worsening shortness of breath, chest pain, cough, fevers, chills, or otherwise worsening of your symptoms, please call 911 or return to the nearest emergency room ITEMS TO FOLLOWUP ON ON OUTPATIENT: Final echo report - included in DC summary DISCHARGE CONDITION: Stable TIME SPENT ON DISCHARGE: 35 minutes Discharge Medications Scheduled Amlodipine Besylate (Amlodipine Besylate) 5 Mg Tablet, 5 MG PO BID, (Reported) Aspirin (Aspirin) 81 Mg Tab.chew, 81 MG PO DAILY, (Reported) Bisoprolol Fumarate (Bisoprolol Fumarate) 5 Mg Tablet, 2.5 MG PO DAILY, (Reported) Dexamethasone (Dexamethasone) 6 Mg Tablet, 6 MG PO ONCE Famotidine (Famotidine) 40 Mg Tablet, 40 MG PO QHS, (Reported) Famotidine (Famotidine) 20 Mg Tablet, 40 MG PO QHS Fluticasone/Umeclidin/Vilanter (Trelegy Ellipta 100-62.5-25) 1 Each Blst.w.dev, 1 PUFF INH DAILY, (Reported) Indapamide (Indapamide) 1.25 Mg Tablet, 1.25 MG PO DAILY, (Reported) Ipratropium/Albuterol Sulfate (Combivent Respimat 20-100 Mcg) 4 Gm Mist.inhal, 1 PUFF INH QID Irbesartan (Irbesartan) 300 Mg Tablet, 300 MG PO QHS, (Reported) Latanoprost/Pf (Latanoprost 0.005% Eye Drop) 7.5 Ml Drops, 1 DROP OU QHS, (Reported) Potassium Chloride (Potassium Chloride) 20 Meq Tablet.er, 20 MEQ PO DAILY, (Reported) Rosuvastatin Calcium (Rosuvastatin Calcium) 10 Mg Tablet, 10 MG PO QHS, (Reported) Scheduled PRN Albuterol Sulfate (Ventolin Hfa) 18 Gm Hfa.aer.ad, 2 PUFF INH Q4H PRN for SOB/WHEEZING, (Reported) Allergies Coded Allergies: Penicillins (Verified Allergy, Unknown, 07/18/20) FELISHA CAMACHO MD Oct 22, 2020 17:59
== END 2020-10-01 18:06 | disposition home health service (06) | DRG 179 ==
LOC: M ED 09:43 → M ED INP 12:38 → M 4MAIN 14:30
PROVIDERS: ADMIT Internal Medicine Nephrology; ATTEND Family Medicine
DX: U07.1 COVID-19 (principal); I95.1 Orthostatic hypotension; R09.02 Hypoxemia; R55 Syncope and collapse; J44.9 Chronic obstructive pulmonary disease, unspecified; I10 Essential (primary) hypertension; E78.5 Hyperlipidemia, unspecified; E66.9 Obesity, unspecified; R73.01 Impaired fasting glucose; E55.9 Vitamin D deficiency, unspecified; R91.8 Other nonspecific abnormal finding of lung field; Z66 Do not resuscitate; Z88.0 Allergy status to penicillin; Z79.82 Long term (current) use of aspirin; Z79.899 Other long term (current) drug therapy; Z90.49 Acquired absence of other specified parts of digestive tract

== ENCOUNTER → 2020-10-11 | Outpatient (REF) | payer MEDICARE, MEDICAID ==
[~2020-10-11] MED LIST changes: +COMBAER6 INH; +DEXA6TAB PO; +FAMO20TA PO
[2020-10-11 14:19] LABS: BLOOD UREA NITROGEN 24 MG/DL (7-18); CALCIUM LEVEL 9.6 MG/DL (8.8-10.2); CARBON DIOXIDE LEVEL 26 MEQ/L (21-32); CHLORIDE LEVEL 100 MEQ/L (98-107); GLOMERULAR FILTRATION RATE > 60.0 (>32); GLUCOSE, FASTING 87 MG/DL (70-100); MAGNESIUM LEVEL 1.6 MG/DL (1.8-2.4); POTASSIUM SERUM 4.3 MEQ/L (3.5-5.1); SODIUM LEVEL 136 MEQ/L (136-145)
== END ==
LOC: M SFHCPLAZ 11:50
PROVIDERS: ATTEND Family Medicine
DX: E83.42 Hypomagnesemia (principal); I10 Essential (primary) hypertension
CPT/HCPCS: 36415; 80048; 83735; G0463

== ENCOUNTER → 2021-01-08 | Outpatient (CLI) | payer MEDICARE, MEDICAID ==
--- NOTE | 2021-01-08 10:25 | REP ---
INDICATION: ABNORMAL FINDING LUNG FIELD COMPARISON: 02/15/2020 and 09/29/2020. TECHNIQUE: PA/Lateral FINDINGS: Lungs: Bibasilar interstitial prominence is stable, with no evidence of acute infiltrate. Heart: Normal in size. Mediastinum: There is calcification and tortuosity of the thoracic aorta. The mediastinal silhouette is unchanged. Pleural angles: Unremarkable.. Bones and soft tissues: There are mild degenerative changes of the spine without compression deformity. IMPRESSION: No acute pulmonary disease. Stable chronic findings as above. <Electronically signed by Thom Reyes > 01/08/21 1021
== END ==
LOC: M WUC 09:12
PROVIDERS: ATTEND Physician Assistant
DX: R91.8 Other nonspecific abnormal finding of lung field (principal); I70.0 Atherosclerosis of aorta; M47.899 Other spondylosis, site unspecified

== ENCOUNTER → 2021-03-10 | Outpatient (CLI) | payer MEDICARE, MEDICAID ==
[2021-03-10 10:59] LABS: BLOOD UREA NITROGEN 12 MG/DL (7-18); CARBON DIOXIDE LEVEL 27 MEQ/L (21-32); CHLORIDE LEVEL 103 MEQ/L (98-107); CHOLESTEROL LEVEL 136 MG/DL (<200); CREATININE FOR GFR 0.74 MG/DL (0.55-1.30); GLOMERULAR FILTRATION RATE > 60.0 (>32); GLUCOSE, FASTING 109 MG/DL (70-100); HDL CHOLESTEROL 66 MG/DL (>40); LDL CHOLESTEROL 48 MG/DL (<100); NON-HDL-C 70 MG/DL; POTASSIUM SERUM 4.5 MEQ/L (3.5-5.1); SODIUM LEVEL 138 MEQ/L (136-145); TRIGLYCERIDES LEVEL 112 MG/DL (<150)
== END ==
LOC: M WUC 08:15
PROVIDERS: ATTEND Family Medicine
DX: E78.2 Mixed hyperlipidemia (principal); I10 Essential (primary) hypertension

== ENCOUNTER → 2021-05-15 | Outpatient (CLI) | payer MEDICARE, MEDICAID ==
[~2021-05-15] MED LIST changes: +BIOF4GEL4 EX; +CHOL1CAP PO; +CINN500C15 PO; +COQ-100C5 PO; +CVS1CAP2 PO; +D31000TA2 PO; +FIBE625T PO; +IBUP200T45 PO; +LUTE20CA11 PO; +MAGN400C PO; +OCEA200T2 PO; +OMEP-218 PO; +OYST1TAB PO; +PRESCAP PO; +RA G1TAB11 PO; +TARTCAP PO; +TURM500C5 PO; +VITATAB73 PO; +ZEAX5POW PO; +ZINC1TAB2 PO; +tylenol pm PO
--- NOTE | 2021-05-15 15:50 | REPMRS ---
Patient History The patient states she has not had a clinical breast exam in over a year. Family history of breast cancer at age 50 or over in sister, breast cancer under age 50 in maternal aunt, breast cancer at age 50 or over in maternal aunt, endometrial cancer at age 50 or over in daughter. 2 benign cyst aspirations of the left breast, August 08, 2009. Patient states no breast complaints today. Patient has signed MRS History Sheet. Digital Woman Screen Mammo: May 15, 2021 - Exam #: [id number] Bilateral CC and MLO view(s) were taken. Technologist: Kimberlee Concepcion, Technologist Prior study comparison: January 19, 2019, bilateral digital woman screen mammo performed at [facility]. April 01, 2017, digital woman screen mammo performed at [facility]. FINDINGS: There are scattered fibroglandular densities. Screening. Digital screening (2D) mammography was performed bilaterally in the CC and MLO projections. Additionally, breast tomosynthesis (3D mammography) was performed bilaterally in the CC and MLO projections. Todays exam was compared to the prior exam/exams. By history, the patient has no complaints of a palpable breast abnormality or other significant breast complaints. The breasts are unchanged in size and shape. There are no krystle-soft tissue densities or spiculated masses. There is no internal architectural distortion. Once again, stable benign appearing calcifications are seen.There are no suspicious krystle-calcific clusters. Skin thickening or nipple retraction is not present. IMPRESSION: BI-RADS Category 2- Benign Findings. There is no evidence of malignant alteration of the breasts. Followup examination recommended in one year. The Volpara volumetric breast density category is B, there are scattered areas of fibroglandular densities. This mammogram was read with the assistance of [employer],an FDA approved computer aided detection system for mammography. The lifetime Tyrer-Cuzick score is 1 % Negatve x-ray reports should not delay surgical consultation if a dominant or clinically suspicious mass is present. Not all breast cancers can be identified by mammography. Therefore, we recommend that you continue to perform regular breast self-examination and physical examination and then promptly contact your physician of any concerns or changes. Adenosis and dense breasts may obscure an underlying neoplasm. Assessment: BI-RADS/ACR category 2 mammogram. Benign Findings. Recommendation Routine screening mammogram of both breasts in 1 year. Electronically Signed By: Prasad Crabtree DO 05/15/21 3011
--- NOTE | 2021-05-15 15:58 | DEXAMM ---
INDICATION: LOW BONE DENSITY. COMPARISON: 04/13/2016, 04/07/2011. TECHNIQUE: Bone density was measured using dual-energy x-ray absorptiometry (DEXA). FINDINGS: AP SPINE L1-L4 BMD 1.424 g/cm2 Young Adult T-Score 1.9 Age Matched Z-Score 3.8. LT FEMUR, TOTAL BMD 0.964 g/cm2 Young Adult T-Score -0.3 Age Matched Z-Score 1.9. LT NECK BMD 0.985 g/cm2 Young Adult T-Score -0.4 Age Matched Z-Score 1.9. RT FEMUR, TOTAL BMD 0.893 g/cm2 Young Adult T-Score -0.9 Age Matched Z-Score 1.3. RT NECK BMD 0.883 g/cm2 Young Adult T-Score -1.1 Age Matched Z-Score 1.2. IMPRESSION: There is normal bone density of the spine. There is normal bone density of the left hip. There is low bone density of the right hip. The density of the spine has increased 6.3% since the initial exam on 04/07/2011. The density of the spine increased 1.4% since most recent exam on 04/13/2016. The density of the left hip has decreased 10.6% since initial exam on 04/07/2011. The density of the left hip has decreased 6.3% since most recent exam on 04/13/2016. The density of the right hip has decreased 9.9% since the initial exam on 04/07/2011. The density of the right hip has decreased 8.9% since the most recent exam on 04/13/2016. FOLLOW-UP: Recommendation for the next bone density exam: 2 years. <Electronically signed by Thom Reyes > 05/15/21 [id number]
== END ==
LOC: M WHC 14:50
PROVIDERS: ATTEND Family Medicine
DX: Z12.31 Encounter for screening mammogram for malignant neoplasm of breast (principal); Z80.3 Family history of malignant neoplasm of breast; M85.851 Other specified disorders of bone density and structure, right thigh

== ENCOUNTER → 2021-05-21 | Outpatient (CLI) | payer MEDICARE, MEDICAID | LOC: M LABSMTC 09:54 | PROVIDERS: ATTEND Anesthesiology | DX: Z01.812 Encounter for preprocedural laboratory examination (principal); Z20.822 Contact with and (suspected) exposure to COVID-19 ==

== ENCOUNTER 2021-05-26 07:02 | Day surgery (SDC) | payer MEDICARE, MEDICAID ==
[~2021-05-26] VITALS: Ht 154.9 cm; Wt 97.5 kg
[~2021-05-26 07:02] MED LIST changes: +CYCLOPENTOLATE 1% OPHTH SOLN 2 ML BTL OD SCH; +DUOVISC (0.50ML VISCOAT/0.85ML PROVISC) OPHTH KIT As Ordered ONE; +FLURBIPROFEN 0.03% OPHTH SOLN 2.5 ML OD SCH; -IBUP200T45 PO; +IBUP200T46 PO; +LIDOCAINE 1% MDV 20ML VIAL SQ PRN; +LIDOCAINE 1% SDV 5ML VIAL As Ordered ONE; +LR 1,000 ML IV SCH; +PHENYLEPHRINE 2.5% OPHTH SOL 2ML OD SCH; +TETRACAINE 0.5% OPHTH SOLN 4ML OD SCH
[2021-05-26] MEDS ORDERED: fentaNYL 100 MCG/2 ML INJECTION (J3010) As Ordered ONE (07:18)
[2021-05-26] MEDS ORDERED: MIDAZOLAM INJ 2MG/2ML VIAL (J2250 PER 1MG) As Ordered ONE (07:18)
[2021-05-26 10:45] VITALS: BP 194/72
--- NOTE | 2021-06-12 08:07 | RO ---
OPERATIVE NOTE DATE OF OPERATION: 05/26/2021 PREOPERATIVE DIAGNOSIS: Visually significant cataract, right eye. POSTOPERATIVE DIAGNOSIS: Visually significant cataract, right eye. PROCEDURE: Phacoemulsification with a posterior chamber intraocular lens of the right eye. SURGEON: Jerry Jones Jr, DO WHIZZER: ANESTHESIA: DESCRIPTION OF PROCEDURE: Patient was brought back to the operating room. Patient positioned on the table. Patient was prepped and draped in usual manner using Betadine solution. A 1 mm stab blade was then used to make a clear corneal stab incision at the 10 o'clock limbus. Then 1% Lidocaine in a syringe attached to a cannula was brought to the port site and approximately 0.3 mL of Lidocaine was injected into the anterior chamber to help anesthetize the internal segment of the eye. Then Viscoat in a syringe attached to a cannula was brought to the port site and we filled the anterior chamber with the viscoelastic. Then a 2.75 keratome blade was used to make a clear corneal wound at 9 o'clock position. Then a cystitome followed by Utrata forceps was brought through the temporal wound and a continuous tear capsulorrhexis was completed. BSS in a syringe attached to a cannula was then brought through the temporal wound and we hydrodissected the lens nucleus from the capsular bag. Then phacoemulsification apparatus was brought through the temporal wound and we used uriyac-zvc-dwraedw technique to remove the lens nucleus. Then irrigation/aspiration apparatus was brought through the temporal wound and remaining cortical material was stripped away from the capsular bag. Then Provisc in syringe attached to cannula was brought through the temporal wound and we filled the capsular bag as well as the anterior chamber with viscoelastic. An Keshawn AcrySof Toric one-piece foldable lens was inserted into the capsular bag, it was dialed into the axis of 10 degrees with aid of baseline markings placed 180 degrees prior to being brought into the operating room. Using Ahmadi ring we were able to go into the 10 degree marking and position the lens according. Once the lens was in good position irrigation-aspiration apparatus was brought back through the temporal wound and removed remaining viscoelastic material. Then BSS in a syringe attached to a cannula was used to hydrate the corneal wounds. The wounds were checked and found to be leak-free. Seeing this we removed the lid speculum. Patient was brought to ambulatory surgery in stable condition. Patient tolerated the procedure well.
== END 2021-05-26 10:55 | disposition home or self-care (01) ==
LOC: M SDC 07:02
PROVIDERS: ATTEND Ophthalmology
DX: H25.11 Age-related nuclear cataract, right eye (principal); I10 Essential (primary) hypertension; E78.5 Hyperlipidemia, unspecified; E03.9 Hypothyroidism, unspecified; E04.9 Nontoxic goiter, unspecified; J44.9 Chronic obstructive pulmonary disease, unspecified; Z79.899 Other long term (current) drug therapy; Z79.52 Long term (current) use of systemic steroids; Z88.0 Allergy status to penicillin
CPT/HCPCS: 66984; 92015; J2250; J3010; V2787

== ENCOUNTER → 2021-06-18 | Outpatient (CLI) | payer MEDICARE, MEDICAID ==
[~2021-06-18] MED LIST changes: -CYCLOPENTOLATE 1% OPHTH SOLN 2 ML BTL OD SCH; -DUOVISC (0.50ML VISCOAT/0.85ML PROVISC) OPHTH KIT As Ordered ONE; -FLURBIPROFEN 0.03% OPHTH SOLN 2.5 ML OD SCH; -LIDOCAINE 1% MDV 20ML VIAL SQ PRN; -LIDOCAINE 1% SDV 5ML VIAL As Ordered ONE; -LR 1,000 ML IV SCH; -PHENYLEPHRINE 2.5% OPHTH SOL 2ML OD SCH; -TETRACAINE 0.5% OPHTH SOLN 4ML OD SCH
== END ==
LOC: M LABSMTC 10:52
PROVIDERS: ATTEND Anesthesiology
DX: Z01.812 Encounter for preprocedural laboratory examination (principal); Z20.822 Contact with and (suspected) exposure to COVID-19

== ENCOUNTER 2021-06-23 08:26 | Day surgery (SDC) | payer MEDICARE, MEDICAID ==
[~2021-06-23] VITALS: Ht 154.9 cm; Wt 96.6 kg
[~2021-06-23 08:26] MED LIST changes: +CYCLOPENTOLATE 1% OPHTH SOLN 2 ML BTL OS SCH; +DUOVISC (0.50ML VISCOAT/0.85ML PROVISC) OPHTH KIT As Ordered ONE; +FLURBIPROFEN 0.03% OPHTH SOLN 2.5 ML OS SCH; +LIDOCAINE 1% SDV 5ML VIAL As Ordered ONE; +LR 1,000 ML IV SCH; +PHENYLEPHRINE 2.5% OPHTH SOL 2ML OS SCH; +TETRACAINE 0.5% OPHTH SOLN 4ML OS SCH
--- OUTSIDE RECORDS SUMMARY | 2021-06-23 08:31 | CCD ---
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 Isidra Hays DPM-pc Onset: 01/31/2018 Pain in limb Isidra Hasy DPM-pc Onset: 01/31/2018 Hammer toe Isidra Hays DPM-pc Onset: 01/31/2018 Onychomycosis Isidra Hays DPM-pc Onset: 01/31/2018 Social History Type Date Description Comments Sex Unknown Tobacco Use Start: Unknown End: Unknown Former Cigarette Smo ker Tobacco Use Start: Unknown Never Smoked Cigars Tobacco Use Start: Unknown Never Smoked A Pipe Smoking Status Reviewed: 06/03/21 Never Smoked A Pipe Tobacco Use Start: Unknown Never Used Smokeless Tobacco ETOH Use Rarely consumes alcohol Tobacco Use Start: Unknown End: Unknown Patient is a former smoker Allergies, Adverse Reactions, Alerts Active Allergies Criticality Reaction | Severity Comments Date Penicillin Unable to assess criticality Urticaria 01/31/2018 Medications Active Medications SIG Qnty Indications Ordering Provide r Date Ra Fiber-Cap 625mg Tablets Unknown Moxifloxacin HCL 0.5% Solution Instill 1 Drop In The Right Eye Four Times A Day Begin 3 Days Prior To Surgery Unknown Prednisolone Acetate 1% Suspension Unknown Ketorolac Tromethamine 0.5% Solution Unknown Preservision Areds 2 Areds 2 Capsules Unknown Calcium 1000 + D [id number] T ablets 1 by mouth every day Unknown Aspirin [address] 1 by mouth every day Unknown Zinc 15 66mg Tablets Unknown Zeaxanthin Powder Unknown Tart Moody Advanced Capsules Unknown Turmeric 500mg Capsules 1 by mouth twice a day Unknown Probiotic Capsules once a da y Unknown Magnesium Oxide 400mg Capsules 1 by mouth once daily Unknown Lutein 20mg Capsules Unknown Glucosamine Chondroitin Complex C apsules Unknown Flax Seed Oil 1000mg Capsules Unknown Potassium Chloride Juliette ER 20Meq Tablets ER Unknown Cholestoff 450mg Tablets Unknown Cinnamon 500mg Tablets Unknown Vitamin D3 50mcg (2000 Ut) Capsules Unknown Vitamin C 1000mg Tablets 1 000 mg a day Unknown B Complex Tablets Unknown Aspirin Adult Low Dose 81mg Tablet s DR 1 by mouth every day Unknown Ventolin HFA 108(90Base) mcg/Act A erosol 2 puff every 4-6 hours as needed Unknown Trelegy Ellipta 100- 62.5-25mcg/Inh Aerosol inhale 1 puff by mouth once a day. Unknow n Bisoprolol Fumarate 5mg Tablets Unknown Latanoprost 0.005% Solution 1 drop into both eyes at night. Unknown Rosuvastatin Calcium 10mg Tablets 1 by mouth every day Unknown Famotidine 40mg Tablets take one tablet by mouth twice a day Unknown Irbesartan 300mg Tablets T deborah One A Day Unknown Indapamide 1.25mg Tablets Antecbritt Jay Jay Amlodipine Besylate 5mg Tablets Unknown Immunizations Description No Information Available Vital Signs Date Vital Result Comment 08/01/2020 10:26am Weight 204.00 lb Weight 92.534 kg Height 61 inches 5'1" BMI (Body Mass Index) 38.5 kg/m2 BSA (Body Surface Area) 1.90 m2 01/16/2019 3:29pm Weight 213.00 lb Weight 96.617 kg Results Description No Information Available Procedures Date Code Description Status 06/03/2021 33286 Debridement Nails Any Method 6 O r More Completed 06/03/2021 20373 Pare Hyperkeratotic Lesion, 2-4 Completed 03/17/2021 34126 Debridement Nails Any Method 6 O r More Completed 03/17/2021 17178 Pare Hyperkeratotic Lesion, 2-4 Completed 12/31/2020 01859 Debridement Nails Any Method 6 O r More Completed 12/31/2020 64809 Pare Hyperkeratotic Lesion, 2-4 Completed Medical Devices Description No Information Available Encounters Description No Information Available Assessments Date Code Description Provider 06/03/2021 E11.49 Type 2 diabetes joaquin itus with other diabetic neurological complication Isidra Hays DPM-pc 06/03/2021 M20.10 Hallux valgus (acquired), unspec ified foot JASON MontanaM-pc 06/03/2021 M20.41 Other hammer toe(s) (acquired), right foot JASON MontanaM-pc 06/03/2021 B35.1 Tinea unguium JASON MontanaM-pc 06/03/2021 L84 Corns and callosities Isidra Will sharron, DPM-pc 03/17/2021 E11.49 Type 2 diabetes joaquin itus with other diabetic neurological complication MALIK Montanapc 03/17/2021 M20.10 Hallux valgus (acquired), unspec ified foot JASON MontanaM-pc 03/17/2021 M20.41 Other hammer toe(s) (acquired), right foot JASON MontanaM-pc 03/17/2021 B35.1 Tinea unguium JASON MontanaMNhanpc 03/17/2021 L84 Corns and callosities Isidra Will sharron DPM-pc 12/31/2020 E11.49 Type 2 diabetes joaquin itus with other diabetic neurological complication MALIK Montanapc 12/31/2020 M20.10 Hallux valgus (acquired), unspec ified foot Isidra Hays DPM-pc 12/31/2020 M20.41 Other hammer toe(s) (acquired), right foot Isidra Laurel Hays 12/31/2020 B35.1 Tinea unguium Isidra Laurel Hays 12/31/2020 L84 Corns and callosities Isidra Yao Laurel mcdermott Plan of Treatment Future Appointment(s):* 08/18/2021 11:15 am - Laurel Montana at [facility] Podiatry 06/03/2021 - Laurel Montana* E11.49 Type 2 diabetes mellitus with other diabetic neurological complication * M20.10 Hallux valgus (acquired), unspecified foot * M20.41 Other hammer toe(s) (acquired), right foot* Comments:* I removed callus from medial side of first metatarsal and pinch callus bilaterally with scalpel and bur to normal thickness. I debrided mycotic nails: x10 with the present bur to normal thickness. She was advised continue using walker for stability. She will continue taking vitamin D and calcium as directed. I will continue to monitor hammertoes. Lotioned feet. Follow-up in 10 weeks. * B35.1 Tinea unguium * L84 Corns and callosities Functional Status Description No Information Available Mental Status Description No Information Available Referrals Description No Information Available
--- OUTSIDE RECORDS SUMMARY | 2021-06-23 08:31 | CCD | Continuity of Care Document ---
Author Author Kerri HAYS DPM-PC Organization Unknown Address [address] [place] [address] Phone [phone] Care Team Providers Care Human Resource Analyst Name Role Phone [facility] AUTM Problems Active Problems Provider Date Plantar [...] 2 Capsules Unknown Calcium 1000 + D [id number] T ablets 1 by mouth every day [...] Available Procedures Date Code Description Status 06/03/2021 42336 Debridement Nails Any Method 6 O r More Completed 06/03/2021 49673 Pare Hyperkeratotic Lesion, 2-4 Completed 03/17/2021 71194 Debridement Nails Any Method 6 O r More Completed 03/17/2021 73380 Pare Hyperkeratotic Lesion, 2-4 Completed 12/31/2020 45171 Debridement Nails Any Method 6 O r More Completed 12/31/2020 61042 Pare Hyperkeratotic Lesion, 2-4 Completed Medical Devices [...] 08/18/2021 11:15 am - Laurel Montana at [facility] Podiatry 06/03/2021 - Laurel Montana* E11.49 Type [...]
--- OUTSIDE RECORDS SUMMARY | 2021-06-23 08:31 | CCD ---
Author Author [facility] Organization [facility] Address Unknown Phone Unavailable Care Team Providers Care Boxer Operator Name Role Phone Gisele Boyce Unavailable PROBLEMS Type Condition ICD9-CM Code [id number] Code Onset Dates Condition S tatus W/U Status Risk SNOMED Code Notes Problem Essential hypertension I10 Active confirmed 47312201 Problem Stress incontinence N39.3 Active confirmed 89204448 Problem Gastroesophageal reflux disease, esophagitis pre sence not specified K21.9 Active confirmed 871327531 Problem Vitamin D deficiency E55.9 Active confirmed 62491819 Problem Thyroid nodule E04.1 Active confirmed 53463 5005 Problem Obesity E66.9 Active confirmed 793381651 Problem Arthritis of left hip M16.12 Active confirmed 4118775216252875 Problem Impaired fasting glucose R73.01 Active confirmed 300206007 Problem Hypomagnesemia E83.42 Active confirmed 28181 5004 Problem Mixed hyperlipidemia E78.2 Active confirmed 912919479 Problem Meralgia paresthetica of right side G57.11 Acti ve confirmed 397927884622548 Problem Chronic obstructive pulmonary disease, unspecified COPD ty pe J44.9 Active confirmed 26082686 ALLERGIES Allergen (clinical drug ingredient) Drug/Non Drug Allergy do cumented on EMR Reaction Allergy Type Onset Date Status Penicillin (For Allergies Use Only) Anaphylaxis Drug Aller gy Active ENCOUNTERS from 1935 to 2021-04-28 Encounter Location Date Provider Diagnosis [address] [phone] [place] [address] Mar, Gisele Boyce IMMUNIZATIONS Vaccine Route Administration Date Status COVID-19 dose #1 given elsewhere Unspecified Unknown Sep 28, 2020 Administered COVID-19 dose #2 given elsewhere Unspecified Unknown Oct 19, 2020 Administered Influenza (High Dose 65 & up) IM Intramuscular Jun 03, 2015 A dministered Influenza (High Dose 65 & up) IM Intramuscular Jun 10, 2016 A dministered Influenza 18 yrs & older Flublok IM Intramuscular Jun 07, 2019 Administered Influenza 6mo & up Fluzone Unknown Sep 03, 2009 Admin istered Zoster 0.65mL Zostavax IM Intramuscular Jul 08, 2011 Administ ered Influenza Pharmacy Given Unknown Jun 07, 2020 Adminis tered Influenza (High Dose 65 & up) Unknown Jun 02, 2017 Ad ministered Pneumococcal Adult 0.5mL Pneumovax 23 Unknown Jul 08 11 Administered TDAP 0.5mL (Boostrix) Unknown Sep 10, 2008 Administer ed Pneumococcal 0.5mL Prevnar 13 IM Intramuscular Jul 03, 2015 A dministered Influenza 6mo & up Fluzone Unknown Jun 04, 2017 Admin istered Influenza 6mo & up Fluzone Unknown Jun 01, 2011 Admin istered SOCIAL HISTORY Tobacco Use: Social History Observation Description Date Details (start date - stop date) Former Smoker Sex Assigned At : Social History Observation Description Sex Assigned At Unknown Education: Question Answer Notes Level of Education: High School Audit Question Answer Notes Total Score: 1 Interpretation: Alcohol Education Language: Question Answer Notes Languages spoken: Setswana Confucianism: Question Answer Notes Confucianism 08 Yarsanism Sexual Hx: Question Answer Notes Had sex [...] Notes Start Da te End Date Status Selenimin-200 200 MCG 1 tablet Orally- 299mcg Once a day- otc Active Tart Moody Advanced Orally Acti ve Vitamin D3 2000 UNIT 1 tablet (41560) Orally BID otc Active May have tumerics as directed 720mg otc daily Active FiberCon 625 MG 1 tablet Orally TID otc Active Zinc 15 MG 1 tab Orally Once a day A ctive Omeprazole 20 MG 1 capsule 30 minutes before morning meal Orally Once a day for 90 day(s) Active Glucosamine Chondr Complex 500-400 MG 1 capsule with a meal Orally bi d Active Calcium 500 MG 2 tabs to equal 1000mg Orally Once a day Active Potassium Chloride ER 20 MEQ TAKE ONE TABLET BY MOUTH EVERY DAY Orally Once a day for 90 days Active Saline Nasal Ford 0.65 % 2 drops in each nostril as needed Nasally every 2 hrs Active Trelegy Ellipta 100-62.5-25 MCG/INH 1 puff Inhalation Once a day Active Cinnamon 500 MG 2 caps Orally daily otc Active Aspir-Low 81 MG 1 tablet Orally Once a day Active Magnesium 400 MG 1 capsule with food Orally once daily Active Norvasc 5mg 1 tab orally twice daily Active Triamcinolone Acetonide 0.5 % 1 application Externally to chest Twice a day Mar, Active May Have zeaxanthin daily Activ e Co Q 10 200 mg 1 cap(s) p.o. daily/OTC Active Vitamin B Complex 1 1 tab(s) p.o. once daily Active Rosuvastatin Calcium 10 MG 1 tablet Orally Once a day Active Lutein 20 MG 1 cap(s) Orally daily A ctive Indapamide 1.25 MG 1 tablet in the morning Orally Once a day Active Eye Drops Relief 0.05-0.25 % Ophthalmic Active Irbesartan 300 MG 1 tablet Orally Once a day. Dr. Aguilera Active Bisoprolol Fumarate 5 MG 1/2 tablet Orally Once a day Active PROCEDURES No Information RESULTS No Results REASON FOR VISIT New Refill Request MEDICAL (GENERAL) HISTORY Type Description Date Medical History Hypertension Medical History Hyperlipidemia Medical History Obesity Medical History Cataracts and Glaucoma - Dr. Ye Medical History Vitamin D deficiency Medical History DEXA 02/2016 F/U 5 years Medical History Left hip XR 02/09 nml Medical History MRI Brain3/9/15 Min Small vessel disease / Mild Vol loss Medical History Echo [facility] 04/1315 Grade I DD, Nml Systolic Function. Medical History Thyroid mass- ENT: Dr. Mccallum Medical History Stable pulmonary nodules on lung CT Medical History Colonoscopy: Patent refuses Medical History Regadenosen NM stress test n ormal 01/29/2020, Gisele Bedolla at [facility] Medical History COPD - [facility] Pulm Surgical History appendicitis 1953 Surgical History D & C x 4 (Zev Flushing) early Surgical History tubal ligation 1961 Surgical History hysterectomy 1967 Surgical History cholecystectomy 2006 Surgical History vaginal polyps ([place]) 2007 Surgical History Colonoscopy: declines; refuses stools ca rds and cologuard Surgical History thyroid biopsy-benign 11/08/2015 Surgical History Multiple thyroid biopsy's per pt, [facility] EN T 2018 Hospitalization History admitted for anaphylaxis to penicill in Hospitalization History covid 08/2020 Goals Section No Information Health Concerns No Information MEDICAL EQUIPMENT No Information MENTAL STATUS No Information FUNCTIONAL STATUS No Information ASSESSMENTS No Information PLAN OF TREATMENT Medication Medication Name Sig Start Date Stop Date Potassium Chloride ER 20 MEQ TAKE ONE TABLET BY MOUTH EVERY DAY Orally Once a day for 90 days Next Appt Details Provider Name:Gisele Boyce, 2021-11-11 10:00:00 AM, [address] [facility], , [place], [address], Insurance Providers Payer Name Payer Address Payer Phone Insured Name Patient Relati onship to Insured Coverage Start Date Coverage End Date MEDICAID IXI-Play [address] [facility] [id number] ANGELINE PRIETO MEDICARE Part A and B [address] [facility] [phone] ANGELINE PRIETO
--- OUTSIDE RECORDS SUMMARY | 2021-06-23 08:31 | CCD ---
Author Author [facility] Organization [facility] Address Unknown Phone Unavailable Care Team Providers Care Management Trainee Program Stores Name Role Phone Gisele Boyce Unavailable PROBLEMS Type Condition ICD9-CM Code [id number] Code Onset Dates Condition S tatus W/U Status Risk SNOMED Code Notes Problem Vitamin D deficiency E55.9 Active confirmed 41280892 Problem Obesity E66.9 Active confirmed 101614340 Problem Impaired fasting glucose R73.01 Active confirmed 330832972 Problem Gastroesophageal reflux disease, esophagitis pre sence not specified K21.9 Active confirmed 041582177 Problem Hypomagnesemia E83.42 Active confirmed 10318 5004 Problem Mixed hyperlipidemia E78.2 Active confirmed 504200760 Problem Age-related nuclear cataract, left eye H25.12 A ctive confirmed 812362647700782 Problem Stress incontinence N39.3 Active confirmed 39790888 Problem Age-related nuclear cataract, right eye H25.11 Active confirmed 119057228181451 Problem Essential hypertension I10 Active confirmed 31130115 Problem Meralgia paresthetica of right side G57.11 Acti ve confirmed 659691060641105 Problem Chronic obstructive pulmonary disease, unspecified COPD ty pe J44.9 Active confirmed 57989262 Problem Thyroid nodule E04.1 Active confirmed 12120 5005 Problem Arthritis of left hip M16.12 Active confirmed 7670117339267334 ALLERGIES Allergen (clinical drug ingredient) Drug/Non Drug Allergy do cumented on EMR Reaction Allergy Type Onset Date Status Penicillin (For Allergies Use Only) Anaphylaxis Drug Aller gy Active ENCOUNTERS from 1937 to 2021-05-16 Encounter Location Date Provider Diagnosis [address] [phone] [place] [address] 17 Apr, 2021 Gisele Boyce Pre-op evaluation Z01.818 ; Age-related nuclear cataract, right eye H25.11 ; Age-related nuclear cataract, left eye H25.12 ; Chronic obstructive pulmonary disease, unspecified COPD type J44.9 ; Essential hypertension I10 ; Mixed hyperlipidemia E78.2 and Low bone density M85.80 IMMUNIZATIONS Vaccine Route Administration Date Status COVID-19 dose #2 given elsewhere Unspecified Unknown Oct 19, 2020 Administered Influenza 18 yrs & older Flublok IM Intramuscular Jun 07, 2019 Administered Influenza (High Dose 65 & up) Unknown Jun 02, 2017 Ad ministered Influenza Pharmacy Given Unknown Jun 07, 2020 Adminis tered COVID-19 dose #1 given elsewhere Unspecified Unknown Sep 28, 2020 Administered Influenza 6mo & up Fluzone Unknown Sep 03, 2009 Admin istered Influenza (High Dose 65 & up) IM Intramuscular Jun 10, 2016 A dministered Influenza (High Dose 65 & up) IM Intramuscular Jun 03, 2015 A dministered Zoster 0.65mL Zostavax IM Intramuscular Jul 08, 2011 Administ ered Pneumococcal Adult 0.5mL Pneumovax 23 Unknown Jul [...] Education Language: Question Answer Notes Languages spoken: Cypriot Worship: Question Answer Notes Worship 08 Latter-Day Sexual Hx: Question Answer Notes Had sex [...] FOR REFERRAL No Information VITAL SIGNS Weight 214.8 lbs Apr, Weight-kg 97.43 kg Apr, Height 61.5 in Apr, BMI 39.92 kg/m2 Apr, Heart Rate 75 /min Apr, Respiratory Rate 18 /min Apr, Temperature 96.9 degrees Fahrenheit Apr, Oximetry 97 Apr, Blood pressure systolic 124 mm Hg Apr, Blood pressure diastolic 80 mm Hg Apr, MEDICATIONS Medication SIG (Take, Route, Frequency, Duration) Notes Start Da te End Date Status Ventolin HFA 108 (90 Base) MCG/ACT 1 puff as needed Inhalation ever y 4 hrs Active Potassium Chloride ER 20 MEQ TAKE ONE TABLET BY MOUTH EVERY DAY Orally Once a day for 90 days Active Saline Nasal Carbon 0.65 % 2 drops in each nostril as needed Nasally every 2 hrs Active Lutein 20 MG 1 cap(s) Orally daily A ctive Eye Drops Relief 0.05-0.25 % Ophthalmic Active Triamcinolone Acetonide 0.5 % 1 application Externally to chest Twice a day Mar, Active Norvasc 5mg 1 tab orally twice daily Active Co Q 10 200 mg 1 cap(s) p.o. daily/OTC Active May have tumerics as directed 720mg otc daily Active Tart Moody Advanced Orally Acti ve May Have zeaxanthin daily Activ e Omeprazole 20 MG 1 capsule 30 minutes before morning meal Orally Once a day for 90 day(s) Active Aspir-Low 81 MG 1 tablet Orally Once a day Active Calcium 500 MG 2 tabs to equal 1000mg Orally Once a day Active Probiotic - as directed Orally Activ e Rosuvastatin Calcium 10 MG 1 tablet Orally Once a day Active Vitamin B Complex 1 1 tab(s) p.o. once daily Active PreserVision AREDS - as directed Orally Active Magnesium 400 MG 1 capsule with food Orally once daily Active Glucosamine Chondr Complex 500-400 MG 1 capsule with a meal Orally bi d Active Zinc 15 MG 1 tab Orally Once a day A ctive Vitamin D3 2000 UNIT 1 tablet (22536) Orally BID otc Active Trelegy Ellipta 100-62.5-25 MCG/INH 1 puff Inhalation Once a day Active Selenimin-200 200 MCG 1 tablet Orally- 299mcg Once a day- otc Active Indapamide 1.25 MG 1 tablet in the morning Orally Once a day Active Bisoprolol Fumarate 5 MG 1/2 tablet Orally Once a day Active Biofreeze Active Irbesartan 300 MG 1 tablet Orally Once a day. Dr. Aguilera Active Cinnamon 500 MG 2 caps Orally daily otc Active FiberCon 625 MG 1 tablet Orally TID otc Active PROCEDURES from 1937 to 2021-05-16 Procedure Date Ordered Result Body Site ELECTROCARDIOGRAM, COMPLETE EKG 2021-05-16 N/A RESULTS No Results REASON FOR VISIT Preoperative evaluation for right cataract sx on 05/26/21 and left cataract surg jazmin on 06/23/[address] Jones at [facility], surgeons fax [phone], diagnosis c ode H25.11 MEDICAL (GENERAL) HISTORY Type Description Date Medical History Hypertension Medical History Hyperlipidemia Medical History Obesity Medical History Cataracts and Glaucoma - Dr. Ye Medical History Vitamin D deficiency Medical History DEXA 02/2016 F/U 5 years Medical History Left hip XR 02/09 nml Medical History MRI Brain11/05/14 Min Small vessel disease / Mild Vol loss Medical History Echo [facility] 04/1315 Grade I DD, Nml Systolic Function. Medical History Thyroid mass- ENT: Dr. Mccallum Medical History Stable pulmonary nodules on lung CT Medical History Colonoscopy: Patent refuses Medical History Regadenosen NM stress test n ormal 01/29/2020, Gisele Bedolla at [facility] Medical History COPD - [facility] Pulm Surgical History appendicitis 1953 Surgical History D & C x 4 ([facility]) early Surgical History tubal ligation 1961 Surgical History hysterectomy 1967 Surgical History cholecystectomy 2006 Surgical History vaginal polyps ([place]) 2007 Surgical History Colonoscopy: declines; refuses stools ca rds and cologuard Surgical History thyroid biopsy-benign 11/08/2015 Surgical History Multiple thyroid biopsy's per pt, [facility] EN T 2019 Hospitalization History admitted for anaphylaxis to penicill in 1980s Hospitalization History covid 08/2020 Goals Section No Information Health Concerns No Information MEDICAL EQUIPMENT No Information MENTAL STATUS No Information FUNCTIONAL STATUS No Information ASSESSMENTS Encounter Date Diagnosis Assessment Notes Treatment Notes Treatm ent Clinical Notes Apr, Pre-op evaluation (ICD-10 - Z01.818) I discussed the risks vs. benefits of surgery with the patient in generic terms. I feel that the patient is at low risk for perioperative complications as this is a low risk procedure. EKG today shows NSR with rate of 65; similar to last EKG done 12/30/2020. The patient knows that there is always some risk with surgery and that each individual has to make a decision regarding whether the benefits of surgery outweigh the risks in order to proceed. I advised the patient to direct further questions regarding the specifics of the proposed surgical procedure and specific risks to the surgeon. At this time I feel that the patient's acute and chronic medical conditions are sufficiently optimized to proceed with surgery. Apr, Age-related nuclear cataract, right eye (ICD-10 - H25.11) Surgery is planned Apr, Age-related nuclear cataract, left eye (ICD-10 - H25.12) Surgery is planned. Apr, Chronic obstructive pulmonar y disease, unspecified COPD type (ICD- 10 - J44.9) Denies any recent exacerbations. Apr, Essential hypertension (ICD-10 - I10) BP is at goal. Apr, Mixed hyperlipidemia (ICD-10 - E78.2) Apr, Low bone density (ICD-10 - M85.80) I discussed results of Dexa at length; with increased risk of hip fracture, I recommended starting Fosamax; she has an appointment with her dentist in 2 weeks - I asked her to d/w him whether she needs any major dental work, as this should be done prior to starting Fosamax. PLAN OF TREATMENT Treatment Notes Assessment Notes Clinical Notes Pre-op evaluation I discussed the risk s vs. benefits of surgery with the patient in generic terms. I feel that the patient is at low risk for perioperative complications as this is a low risk procedure.EKG today shows NSR with rate of 65; similar to last EKG done 12/30/2020.The patient knows that there is always some risk with surgery and that each individual has to make a decision regarding whether the benefits of surgery outweigh the risks in order to proceed. I advised the patient to direct further questions regarding the specifics of the proposed surgical procedure and specific risks to the surgeon.At this time I feel that the patient's acute and chronic medical conditions are sufficiently optimized to proceed with surgery. Age-related nuclear cataract, right eye Surgery is planned Age-related nuclear cataract, left eye S urgery is planned. Chronic obstructive pulmonary disease, unspecified COPD type Denies any recent exacerbations. Essential hypertension BP is at goal. Low bone density I discussed results of Dexa at length; with increased risk of hip fracture, I recommended starting Fosamax; she has an appointment with her dentist in 2 weeks - I asked her to d/w him whether she needs any major dental work, as this should be done prior to starting Fosamax. Next Appt Details as 10/2021 Reason: Provider Name:Gisele Ramirez Ceferinoradha, 2021-11-11 10:00:00 AM, [address] [facility], , [place], [address], Insurance Providers Payer Name Payer Address Payer Phone Insured Name Patient Relati onship to Insured Coverage Start Date Coverage End Date MEDICARE Part A and B [address] [facility] [address] ANGELINE PRIETO MEDICAID [employer] [address] [facility] [id number] ANGEL[place] PRIETO
--- OUTSIDE RECORDS SUMMARY | 2021-06-23 08:31 | CCD | Continuity of Care Document ---
Author Author Kerri ROMERO MD Organization Unknown Address [address] [place] [address] Phone [phone] Care Team Providers Care Manager Flight Name Role Phone Gisele Boyce MD [facility] [phone] Problems Description No Information Available Social History Type Date Description Comments Sex Unknown ETOH Use Denies alcohol use Tobacco Use Start: Unknown End: Unknown Patient is a former smoker Allergies and adverse reactions Active Allergies Criticality Reaction | Severity Comments Date Penicillin Unable to assess criticality 04/25/2018 Medications Active Medications SIG Qnty Indications Ordering Provide r Date Meloxicam 15mg Tablets 1 by mouth every day with food or milk 90tabs M19.071 oJse Mejia MD Melatonin 5mg Capsules 1 by mouth every day Unknown Selenium 200mcg Tablets Unknown Turmeric 500mg Capsules Unknown Tart Modoy Advanced Capsules Unknown Zeaxanthin Powder Unknown Zinc 30mg Capsules Unknown Saline Mist [place] 0.65% Solution Unknown Eye Drops 0.012-0.2% Solution Unknown Tylenol PM Extra Strength 500-25mg Tablets 2 by mouth every night at bedtime as needed Unknown Red Yeast Rice 600mg Capsules Unknown Vaseline Gel around n ostriles as needed Unknown Famotidine 40mg Tablets Unknown Rosuvastatin Calcium 10mg Tablets Unknown Latanoprost 0.005% Solution Unknown Bisoprolol Fumarate 5mg Tablets Unknown Trelegy Ellipta 100- 62.5-25mcg/Inh Aerosol Unknown Ventolin HFA 108(90Base) mcg/Act A erosol Unknown Probiotic Capsules every day Unknown B Complex Tablets Unknown Amiodipine Besayate 5MG Unknown 0 Irbesartan [...] DR 1 by mouth every day Unknown Lutein 20mg Capsules Unknown Vitamin C 500mg Capsules 1 by mouth every day Unknown Vitamin D3 25mcg (1000 Ut) Chewtabs Unknown Cinnamon 500mg Tablets Unknown Co-Q 10 [place]-3 Fish Oil [place]ust[place]-3 C apsules Unknown Fiber-Caps 625mg Tablets Unknown Flax Seed Oil 1300mg Capsules Unknown Glucosamine Chondroitin 1500 Complex 1500Com Capsules 1 by mouth every day Unknown 000 Immunizations Description No Information Available Vital Signs [...] Available Encounters Description No Information Available Assessments Description No Information Available Plan of Treatment No Information Available Functional Status Description No Information Available Mental Status Description No Information Available Referrals Description No Information Available
--- OUTSIDE RECORDS SUMMARY | 2021-06-23 08:31 | CCD ---
Author Author [facility] Organization [facility] Address Unknown Phone Unavailable Care Team Providers Care Belt Back Operator Name Role Phone Gisele Boyce Unavailable PROBLEMS Type Condition ICD9-CM Code MDS33-JR Code Onset Dates Condition S tatus W/U Status Risk SNOMED Code Notes Problem Vitamin D deficiency E55.9 Active confirmed 35241190 Problem Obesity E66.9 Active confirmed 542022202 Problem Impaired fasting glucose R73.01 Active confirmed 628556568 Problem Gastroesophageal reflux disease, esophagitis pre sence not specified K21.9 Active confirmed 128667863 Problem Hypomagnesemia E83.42 Active confirmed 29296 5004 Problem Mixed hyperlipidemia E78.2 Active confirmed 747492517 Problem Age-related nuclear cataract, left eye H25.12 A ctive confirmed 720338017755092 Problem Stress incontinence N39.3 Active confirmed 54318732 Problem Age-related nuclear cataract, right eye H25.11 Active confirmed 206630424295728 Problem Essential hypertension I10 Active confirmed 85873111 Problem Meralgia paresthetica of right side G57.11 Acti ve confirmed 620847659351227 Problem Chronic obstructive pulmonary disease, unspecified COPD ty pe J44.9 Active confirmed 48358986 Problem Thyroid nodule E04.1 Active confirmed 04807 5005 Problem Arthritis of left hip M16.12 Active confirmed 2262997587230731 ALLERGIES Allergen (clinical drug ingredient) Drug/Non Drug Allergy do cumented on EMR Reaction Allergy Type Onset Date Status Penicillin (For Allergies Use Only) Anaphylaxis Drug Aller gy Active ENCOUNTERS from 1935 to 2021-05-19 Encounter Location Date Provider Diagnosis [address] [phone] [place] [address] Apr, Gisele Boyce Essential hypertension I10 IMMUNIZATIONS Vaccine Route Administration Date Status COVID-19 [...] Education Language: Question Answer Notes Languages spoken: Swedish Adventism: Question Answer Notes Adventism 08 Evangelical Sexual Hx: Question Answer Notes Had sex [...] Notes Start Da te End Date Status Saline Nasal [place] 0.65 % 2 drops in each nostril as needed Nasally every 2 hrs Active Potassium Chloride ER 20 MEQ TAKE ONE TABLET BY MOUTH EVERY DAY Orally Once a day for 90 days Active Selenimin-200 200 MCG 1 tablet Orally- 299mcg Once a day- otc Active Lutein 20 MG 1 cap(s) Orally daily A ctive Eye Drops Relief 0.05-0.25 % Ophthalmic Active Triamcinolone Acetonide 0.5 % 1 application Externally to chest Twice a day Mar, Active Ventolin HFA 108 (90 Base) MCG/ACT 1 puff as needed Inhalation ever y 4 hrs Active Co Q 10 200 mg 1 cap(s) p.o. daily/OTC Active May have tumerics as directed 720mg otc daily Active Tart Moody Advanced Orally Acti ve May Have zeaxanthin daily Activ e Omeprazole 20 MG 1 capsule 30 minutes before morning meal Orally Once a day for 90 day(s) Active Calcium 500 MG 2 tabs to equal 1000mg Orally Once a day Active Indapamide 1.25 MG 1 tablet in the morning Orally Once a day Active Bisoprolol Fumarate 5 MG 1/2 tablet Orally Once a day Active Magnesium 400 MG 1 capsule with food Orally once daily Active Vitamin B Complex 1 1 tab(s) p.o. once daily Active Trelegy Ellipta 100-62.5-25 MCG/INH 1 puff Inhalation Once a day Active Aspir-Low 81 MG 1 tablet Orally Once a day Active Glucosamine Chondr Complex 500-400 MG 1 capsule with a meal Orally bi d Active Zinc 15 MG 1 tab Orally Once a day A ctive Vitamin D3 2000 UNIT 1 tablet (67608) Orally BID otc Active Probiotic - as directed Orally Activ e Rosuvastatin Calcium 10 MG 1 tablet Orally Once a day Active PreserVision AREDS - as directed Orally Active Irbesartan 300 MG 1 tablet Orally Once a day. Dr. Aguilera Active Cinnamon 500 MG 2 caps Orally daily otc Active Biofreeze Active FiberCon 625 MG 1 tablet Orally TID otc Active Norvasc 5mg 1 tab orally twice daily for 90 days Active PROCEDURES No [...] / Mild Vol loss Medical History Echo [facility] 04/1315 Grade I DD, Nml Systolic Function. Medical History Thyroid mass- ENT: Dr. Mccallum Medical History Stable pulmonary nodules on lung CT Medical History Colonoscopy: Patent refuses Medical History Regadenosen NM stress test n ormal 01/29/2020, Gisele Bedolla at [facility] Medical History COPD - [facility] Pul Surgical History appendicitis 1953 Surgical History D & C x 4 ([facility]) early Surgical History tubal ligation 1961 Surgical History hysterectomy 1967 Surgical History cholecystectomy 2006 Surgical History vaginal polyps ([place]) 2007 Surgical History Colonoscopy: declines; refuses stools ca rds and cologuard Surgical History thyroid biopsy-benign 11/08/2015 Surgical History Multiple thyroid biopsy's per pt, [facility] EN T 2018 Hospitalization History admitted for anaphylaxis to penicill in Hospitalization History covid 08/2020 Goals Section No Information Health Concerns No Information MEDICAL EQUIPMENT No Information MENTAL STATUS No Information FUNCTIONAL STATUS No Information ASSESSMENTS Encounter Date Diagnosis Assessment Notes Treatment Notes Treatm ent Clinical Notes Apr, Essential hypertension (ICD-10 - I10) PLAN OF TREATMENT Medication Medication Name Sig Start Date Stop Date Norvasc 5mg 1 tab orally twice daily for 90 days Next Appt Details Provider Name:Gisele Ramirez Austen, 2021-11-11 10:00:00 AM, [address] [facility], , [place], [address], Insurance Providers Payer Name Payer Address Payer Phone Insured Name Patient Relati onship to Insured Coverage Start Date Coverage End Date MEDICAID [employer] [address] [facility] [id number] AN[place]EL[place] PRIETO MEDICARE Part A and B [address] [facility] [address] [phone] ANGELINE PRIETO
--- OUTSIDE RECORDS SUMMARY | 2021-06-23 08:31 | CCD | Continuity of Care Document ---
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] 08/18/2021 11:15 am - Laurel Montana at [facility] Podiatry 06/03/2021 - Laurel Montana* [...]
--- OUTSIDE RECORDS SUMMARY | 2021-06-23 08:31 | CCD | Continuity of Care Document ---
Author Author Kerri HAYS DPM-PC Organization Unknown Address [address] [place] [address] Phone [phone] Care Team Providers Care R&D Lab Technician Name Role Phone [facility] AUTM Problems Active Problems Provider Date Plantar [...] 2 Capsules Unknown Calcium 1000 + D [id number] T ablets 1 by mouth every day [...] Available Procedures Date Code Description Status 06/03/2021 61992 Debridement Nails Any Method 6 O r More Completed 06/03/2021 37120 Pare Hyperkeratotic Lesion, 2-4 Completed 03/17/2021 68456 Debridement Nails Any Method 6 O r More Completed 03/17/2021 47540 Pare Hyperkeratotic Lesion, 2-4 Completed 12/31/2020 84691 Debridement Nails Any Method 6 O r More Completed 12/31/2020 66710 Pare Hyperkeratotic Lesion, 2-4 Completed Medical Devices [...] 08/18/2021 11:15 am - Laurel Montana at [facility] Podiatry 06/03/2021 - Laurel Montana* [...]
--- OUTSIDE RECORDS SUMMARY | 2021-06-23 08:31 | CCD | Continuity of Care Document ---
Author Author Kerri HAYS DPM-PC Organization Unknown Address [address] [place] [address] Phone [phone] Care Team Providers Care Printing Sign Machine Operator Name Role Phone [facility] AUT[facility] Problems Active Problems Provider Date Plantar [...] 2 Capsules Unknown Calcium 1000 + D [id number] T ablets 1 by mouth every day [...] Available Procedures Date Code Description Status 06/03/2021 66726 Debridement Nails Any Method 6 O r More Completed 06/03/2021 35526 Pare Hyperkeratotic Lesion, 2-4 Completed 03/17/2021 03296 Debridement Nails Any Method 6 O r More Completed 03/17/2021 83247 Pare Hyperkeratotic Lesion, 2-4 Completed 12/31/2020 72985 Debridement Nails Any Method 6 O r More Completed 12/31/2020 73854 Pare Hyperkeratotic Lesion, 2-4 Completed Medical Devices [...] 08/18/2021 11:15 am - Laurel Montana at [facility] Podiatry 06/03/2021 - Laurel Montana* E11.49 [...]
--- OUTSIDE RECORDS SUMMARY | 2021-06-23 08:32 | CCD ---
Continuity of Care Document (CCD) Created on: 04/09/2021 Kerri Sanchez External Reference #: [id number] : [id number] Sex: Female Author Author Kerri HEBERT PA Organization Unknown Address [address] [place] [address] Phone [phone] Care Team Providers Care Data Deliverables Manager Name Role Phone Gisele Boyce M.D. AUTM [phone] Kathy Scott M.D. AUTM [phone] Problems Active Problems Provider Date Epistaxis Roscoe [...] 40 YEARS QUIT 2000 Smoking Status Reviewed: 04/09/21 Patient is a former smoker 1- 1 1/2 PPD FOR 40 YEARS QUIT 2000 Allergies, Adverse Reactions, Alerts Active Allergies Reaction Severity Comments Date Penicillin HIVES,THROAT CLOSING 009 Medications Active Medications SIG Qnty Indications Ordering Provide r Date Ventolin HFA 108(90Base) mcg/Act A erosol 2 puffs qid/prn 18gm J43.1 Wilfrido Boss D.O. 06/03/2020 Trelegy Ellipta 100- 62.5-25mcg/Inh Aerosol inhale one puff by mouth every day 60units J43.1 Wilfrido mak DFrankie 06/03/[address] 1 by mouth every day Unknown Bisoprolol Fumarate 5mg Tablets 1 tab by mouth every day Unknown Rosuvastatin Calcium 10mg Tablets 1 tab by mouth every day Unknown Probiotic Capsules 1 by mouth every day Unknown Cholestoff 450mg Tablets 2 tabs by mouth every day Unknown Irbesartan 300mg Tablets 1 tab by mouth every day Unknown Selenium 299mcg Tablets 1 qd Unknown Fiber Formula Capsules 1 tab by [...] 0 Eye Drops Solution Unknown Saline Nasal Lexa 0.65% Solution use twice daily 1Month Unknown Medications Administered in Office Medication SIG Qnty Indications Ordering Provider Date Covid-19 vaccine, Unspecified Inj ection Unknown 10/19/2020 Covid-19 vaccine, Unspecified Inj ection Unknown 09/28/2020 Immunizations CPT Code Status Date Vaccine Lot # [id number] Given 06/08/2019 Afluria, Quadrivalent, 0.5ml , [facility] [id number] Vital Signs Date Vital Result Comment 04/09/2021 9:53am BP Systolic 140 mmHg BP Diastolic 78 mmHg Heart Rate 66 /min O2 % BldC Oximetry 93 % Height 61 inches 5'1" Weight 210.25 lb BMI (Body Mass Index) 39.7 kg/m2 Longs Body Weight 105 lb Weight 95.369 kg BSA (Body Surface Area) 1.93 m2 01/07/2021 11:23am BP Systolic 160 mmHg BP Diastolic 80 mmHg Heart Rate 76 /min O2 % BldC Oximetry 95 % Body Temperature 96.8 F Height 61 inches 5'1" Weight 205.00 lb BMI (Body Mass Index) 38.7 kg/m2 Longs Body Weight 105 lb Weight 92.988 kg BSA (Body Surface Area) 1.91 m2 Results Test Acquired Date Facility Test Result H/L Range Note FVL/Dameon 04/09/2021 [facility] PDFReport SEE IMAGE FVC-Pred 2.12 L FVC-Pre 2.56 L FVC-%Pred-Pre 120 L FVC-LLN 1.49 L Fev1-Pred 1.56 L Fev1-Pre 1.90 L Fev1-%Pred-Pre 122 L Fev1-LLN 1.02 L Fev6-Pred 1.99 L Fev6-Pre 2.56 L Fev6-%Pred-Pre 128 L Fev6-LLN 1.37 L Cos2yok-Wjne 73 % Cvy3hvj-Ajl 74 % Oca6sel-%Pred-Pre 101 % Ncj8lqs-NLK 63 % Pce0jma-Xgjm 94 % Erm9yfe-Xat 100 % Ldi5mvn-%Pred-Pre 106 % FEFMax-Pred 4.05 L/E/sec FEFMax-Pre 5.21 L/E/sec FEFMax-%Pred-Pre 128 L/E/sec FEFMax-LLN 2.49 L/E/sec Lsl8738-Snor 1.09 L/E/sec Kcv7602-Odi 1.40 L/E/sec Dcw3040-%Pred-Pre 129 L/E/sec Dis7832-OBW -0.04 L/E/sec ExpTime-Pre 5.29 sec Tvs3xnq8-Gwur 77 % Igx5rxm8-Use 74 % Hns7cqk8-%Pred-Pre 96 % Owd0hgu0-VMD 68 % FVL/Dameon 01/07/2021 [employer] PDFReport SEE IMAGE FVC-Pred 2.12 L FVC-Pre 2.57 L FVC-%Pred-Pre 120 L FVC-LLN 1.49 L Fev1-Pred 1.56 L Fev1-Pre 1.92 L Fev1-%Pred-Pre 123 L Fev1-LLN 1.02 L Fev6-Pred 1.99 L Fev6-Pre 2.57 L Fev6-%Pred-Pre 129 L Fev6-LLN 1.37 L Teu2gkw-Hhdy 73 % Bgd5uls-Loi 75 % Xip3qhb-%Pred-Pre 102 % Yct7psv-VGY 63 % Mou3bld-Cvgp 94 % Xta1tjc-Iye 100 % Uxz0eyz-%Pred-Pre 106 % FEFMax-Pred 4.05 L/E/sec FEFMax-Pre 7.17 L/E/sec FEFMax-%Pred-Pre 177 L/E/sec FEFMax-LLN 2.49 L/E/sec Uzu2204-Bvmn 1.09 L/E/sec Kfk4486-Jpy 1.36 L/E/sec Czl5594-%Pred-Pre 125 L/E/sec Oib9328-UOH -0.04 L/E/sec ExpTime-Pre 5.96 sec Wqq8kkt0-Ddnl 77 % Pvc1gfl5-Die 75 % Qlo0kbo7-%Pred-Pre 96 % Wgl4iff7-OYO 68 % Procedures Date Code Description Status 01/07/2021 30487 Office/Outpatient Established Mo d MDM 30-39 Min Completed 01/07/2021 48545 Spirometry Completed Medical Devices Description No Information Available Encounters Type Date Location Provider Dx Diagnosis Office Visit 01/07/2021 11:30a [facility] MANDEEP Campos J43.1 Panlobular emphysema R91.8 Other nonspecific abnormal f inding of lung field Z87.891 Personal history of nicotine dependence Assessments Date Code Description Provider 04/09/2021 J43.1 Panlobular emphysema MANDEEP Feliz 04/09/2021 R91.8 Other nonspecific abnormal findi ng of lung field MANDEEP Campos 04/09/2021 Z87.891 Personal history of nicotine dep MANDEEP Carrillo 01/07/2021 J43.1 Panlobular emphysema MANDEEP Feliz 01/07/2021 R91.8 Other nonspecific abnormal findi ng of lung field MANDEEP Campos 01/07/2021 Z87.891 Personal history of nicotine dep yehudaence MANDEPE Campos Plan of Treatment Future Appointment(s):* 10/27/2021 10:00 am - MANDEEP Campos at [facility] 04/09/2021 - MANDEEP Campos* J43.1 Panlobular emphysema * R91.8 Other nonspecific abnormal finding of lung field * Z87.891 Personal history of nicotine dependence * * New Labs:* FVL/[place], Ordered: 04/09/21 * Follow up:* Follow up in 6 months with dameon Functional Status Functional Condition Comment Date Status Glasses Active Independent with all ADL's Activ e Standard cane is used to ambulate Active Mental Status Mental Condition Comment Date Status Cognitive ability not impaired A ctive Referrals Description No Information Available
--- OUTSIDE RECORDS SUMMARY | 2021-06-23 08:32 | CCD ---
Author Author [facility] Organization [facility] Address Unknown Phone Unavailable Care Team Providers Care Automotive Starter Repairer Name Role Phone Gisele Boyce Unavailable PROBLEMS Type Condition ICD9-CM Code AEF00-WA Code Onset Dates Condition S tatus W/U Status Risk SNOMED Code Notes Problem Essential hypertension I10 Active confirmed 83945296 Problem Stress incontinence N39.3 Active confirmed 29697326 Problem Gastroesophageal reflux disease, esophagitis pre sence not specified K21.9 Active confirmed 811048816 Problem Vitamin D deficiency E55.9 Active confirmed 19662383 Problem Thyroid nodule E04.1 Active confirmed 54150 5005 Problem Obesity E66.9 Active confirmed 177704124 Problem Arthritis of left hip M16.12 Active confirmed 0407222776410949 Problem Impaired fasting glucose R73.01 Active confirmed 899429864 Problem Hypomagnesemia E83.42 Active confirmed 38348 5004 Problem Mixed hyperlipidemia E78.2 Active confirmed 803045064 Problem Meralgia paresthetica of right side G57.11 Acti ve confirmed 665578356598716 Problem Chronic obstructive pulmonary disease, unspecified COPD ty pe J44.9 Active confirmed 65233239 ALLERGIES Allergen (clinical drug ingredient) Drug/Non Drug Allergy do cumented on EMR Reaction Allergy Type Onset Date Status Penicillin (For Allergies Use Only) Anaphylaxis Drug Aller gy Active ENCOUNTERS from 1935 to 2021-04-07 Encounter Location Date Provider Diagnosis [address] [phone] [place] [address] Mar, Gisele Boyce IMMUNIZATIONS Vaccine Route Administration Date Status Influenza (High Dose 65 & up) IM Intramuscular Jun 10, 2016 A dministered Influenza 18 yrs & older Flublok IM Intramuscular Jun 07, 2019 Administered COVID-19 dose #2 given elsewhere Unspecified Unknown Oct 19, 2020 Administered Zoster 0.65mL Zostavax IM Intramuscular Jul 08, 2011 Administ ered Influenza (High Dose 65 & up) IM Intramuscular Jun 03, 2015 A dministered Influenza 6mo & up Fluzone Unknown Sep 03, 2009 Admin istered COVID-19 dose #1 given elsewhere Unspecified Unknown Sep 28, 2020 Administered Influenza Pharmacy Given Unknown Jun 07, 2020 [...] Education Language: Question Answer Notes Languages spoken: Chinese Scientologist: Question Answer Notes Scientologist 08 Amish Sexual Hx: Question Answer Notes [...] Notes Start Da te End Date Status Omeprazole 20 MG 1 capsule 30 minutes before morning meal Orally Once a day for 90 day(s) Active Selenimin-200 200 MCG 1 tablet Orally- 299mcg Once a day- otc Active Norvasc 5mg 1 tab orally twice daily Active Aspir-Low 81 MG 1 tablet Orally Once a day Active Cinnamon 500 MG 2 caps Orally daily otc Active Potassium Chloride ER 20 MEQ 1 tab Orally daily Active Zinc 15 MG 1 tab Orally Once a day A ctive Calcium 500 MG 2 tabs to equal 1000mg Orally Once a day Active Ketoconazole 2 % 1 application Externally to axillae and chest Once a day for 14 days Feb, Active Vitamin B Complex 1 1 tab(s) p.o. once daily Active Trelegy Ellipta 100-62.5-25 MCG/INH 1 puff Inhalation Once a day Active Vitamin C 1000 mg 1 tab(s) p.o. daily Not-Taking May have tumerics as directed 720mg otc daily Active Magnesium 400 MG 1 capsule with food Orally once daily Active Tart Moody Advanced Orally Acti ve FiberCon 625 MG 1 tablet Orally TID otc Active May Have zeaxanthin daily Activ e Rosuvastatin Calcium 10 MG 1 tablet Orally Once a day Active Flaxseed Oil 1000 MG Orally QOD Not -Taking Indapamide 1.25 MG 1 tablet in the morning Orally Once a day Active Co Q 10 200 mg 1 cap(s) p.o. daily/OTC Active Glucosamine Chondr Complex 500-400 MG 1 capsule with a meal Orally bi d Active Irbesartan 300 MG 1 tablet Orally Once a day. Dr. Aguilera Active Lutein 20 MG 1 cap(s) Orally daily A ctive Saline Nasal Duarte 0.65 % 2 drops in each nostril as needed Nasally every 2 hrs Active Bisoprolol Fumarate 5 MG 1/2 tablet Orally Once a day Active Eye Drops Relief 0.05-0.25 % Ophthalmic Active Vitamin D3 2000 UNIT 1 tablet (04009) Orally BID otc Active PROCEDURES No Information RESULTS No Results REASON FOR VISIT rash under arms MEDICAL (GENERAL) HISTORY Type Description Date Medical History Hypertension Medical History Hyperlipidemia Medical History Obesity Medical History Cataracts and Glaucoma - Dr. Ye Medical History Vitamin D deficiency Medical History DEXA 02/2016 F/U 5 years Medical History Left hip XR 02/09 nml Medical History MRI Brain11/05/14 Min Small vessel disease / Mild Vol loss Medical History Echo [facility] 04/1315 Grade I DD, Nml Systolic Function. Medical History Thyroid mass- ENT: Dr. Mccallum Medical History Stable pulmonary nodules on lung CT Medical History Colonoscopy: Patent refuses Medical History Regadenosen NM stress test n ormal 01/29/2020, Gisele Bedolla at [facility] Medical History COPD - [facility] Pulm Surgical History appendicitis 1953 Surgical History D & C x 4 (Zev [place]) early Surgical History tubal ligation 1961 Surgical History hysterectomy 1967 Surgical History cholecystectomy 2006 Surgical History vaginal polyps ([place]) 2007 Surgical History Colonoscopy: declines; refuses stools ca rds and cologuard Surgical History thyroid biopsy-benign 11/08/2015 Surgical History Multiple thyroid biopsy's per pt, [facility] EN T 2018 Hospitalization History admitted for anaphylaxis to penicill in Hospitalization History covid 08/2020 Goals Section No Information Health Concerns No Information MEDICAL EQUIPMENT No Information MENTAL STATUS No Information FUNCTIONAL STATUS No Information ASSESSMENTS No Information PLAN OF TREATMENT Medication Medication Name Sig Start Date Stop Date Bisoprolol Fumarate 5 MG 1/2 tablet Orally Once a day Vitamin D3 2000 UNIT 1 tablet (90737) Orally BID otc Irbesartan 300 MG 1 tablet Orally Once a day. Dr. Aguilera Ketoconazole 2 % 1 application Externally to axillae and chest Once a day for 14 days Feb, Magnesium 400 MG 1 capsule with food Orally once daily Trelegy Ellipta 100-62.5-25 MCG/INH 1 puff Inhalation Once a day Potassium Chloride ER 20 MEQ 1 tab Orally daily Norvasc 5mg 1 tab orally twice daily Rosuvastatin Calcium 10 MG 1 tablet Orally Once a day Indapamide 1.25 MG 1 tablet in the morning Orally Once a day Omeprazole 20 MG 1 capsule 30 minutes before morning meal Orally Once a day for 90 day(s) Next Appt Details Provider Name:Gisele Boyce, 2021-04-10 11:00:00 AM, [address] [place] [address], , [place], [address], Provider Name:Gisele Boyce, 2021-11-11 10:00:00 AM, [address] [place] [address], , [place], [address], Insurance Providers Payer Name Payer Address Payer Phone Insured Name Patient Relati onship to Insured Coverage Start Date Coverage End Date MEDICARE Part A and B [address] [facility] [id number] [phone] ANGELINE PRIETO self MEDICAID [employer] [address] [facility] [id number] ANGELINE PRIETO self
--- OUTSIDE RECORDS SUMMARY | 2021-06-23 08:32 | CCD ---
Author Author [facility] Organization [facility] Address Unknown Phone Unavailable Care Team Providers Care Personnel Interviewer Name Role Phone Gisele Boyce Unavailable PROBLEMS Type Condition ICD9-CM Code CFT80-JV Code Onset Dates Condition S tatus W/U Status Risk SNOMED Code Notes Problem Essential hypertension I10 Active confirmed 48345785 Problem Stress incontinence N39.3 Active confirmed 71362322 Problem Gastroesophageal reflux disease, esophagitis pre sence not specified K21.9 Active confirmed 740507183 Problem Vitamin D deficiency E55.9 Active confirmed 16687739 Problem Thyroid nodule E04.1 Active confirmed 71417 5005 Problem Obesity E66.9 Active confirmed 668286840 Problem Arthritis of left hip M16.12 Active confirmed 6783001266534458 Problem Impaired fasting glucose R73.01 Active confirmed 419417210 Problem Hypomagnesemia E83.42 Active confirmed 21334 5004 Problem Mixed hyperlipidemia E78.2 Active confirmed 413136237 Problem Meralgia paresthetica of right side G57.11 Acti ve confirmed 178466823293223 Problem Chronic obstructive pulmonary disease, unspecified COPD ty pe J44.9 Active confirmed 56232034 ALLERGIES Allergen (clinical drug ingredient) Drug/Non Drug Allergy do cumented on EMR Reaction Allergy Type Onset Date Status Penicillin (For Allergies Use Only) Anaphylaxis Drug Aller gy Active ENCOUNTERS from 1935 to 2021-04-24 Encounter Location Date Provider Diagnosis [facility] [address] [place] [address] [place] [address] Mar, Gisele De La Vegaradha Rash R21 IMMUNIZATIONS Vaccine Route Administration Date Status COVID-19 [...] Education Language: Question Answer Notes Languages spoken: Afghan Restorationism: Question Answer Notes Restorationism 08 Sabianist Sexual Hx: Question Answer Notes Had sex [...] FOR REFERRAL No Information VITAL SIGNS Weight 211 lbs Mar, Weight-kg 95.71 kg Mar, Height 61.5 in Mar, BMI 39.22 kg/m2 Mar, Heart Rate 71 /min Mar, Respiratory Rate 16 /min Mar, Temperature 97.6 degrees Fahrenheit Mar, Oximetry 94% Mar, Blood pressure systolic 138 mm Hg Mar, Blood pressure diastolic 72 mm Hg Mar, MEDICATIONS Medication SIG (Take, Route, Frequency, Duration) Notes Start Da te End Date Status Omeprazole 20 MG 1 capsule 30 minutes before morning meal Orally Once a day for 90 day(s) Active Tart Moody Advanced Orally Acti ve Selenimin-200 200 MCG 1 tablet Orally- 299mcg Once a day- otc Active May have tumerics as directed 720mg otc daily Active Calcium 500 MG 2 tabs to equal 1000mg Orally Once a day Active Zinc 15 MG 1 tab Orally Once a day A ctive FiberCon 625 MG 1 tablet Orally TID otc Active Glucosamine Chondr Complex 500-400 MG 1 capsule with a meal Orally bi d Active Triamcinolone Acetonide 0.5 % 1 application Externally to chest Twice a day Mar, Active Norvasc 5mg 1 tab orally twice daily Active Saline Nasal [place] 0.65 % 2 drops in each nostril as needed Nasally every 2 hrs Active Trelegy Ellipta 100-62.5-25 MCG/INH 1 puff Inhalation Once a day Active Vitamin B Complex 1 1 tab(s) p.o. once daily Active May Have zeaxanthin daily Activ e Magnesium 400 MG 1 capsule with food Orally once daily Active Cinnamon 500 MG 2 caps Orally daily otc Active Aspir-Low 81 MG 1 tablet Orally Once a day Active Potassium Chloride ER 20 MEQ 1 tab Orally daily Active Co Q 10 200 mg 1 cap(s) p.o. daily/OTC Active Vitamin D3 2000 UNIT 1 tablet (21447) Orally BID otc Active Rosuvastatin Calcium 10 MG 1 tablet [...] Information RESULTS No Results REASON FOR VISIT F/u rash MEDICAL (GENERAL) HISTORY Type Description Date Medical History Hypertension Medical History Hyperlipidemia Medical History Obesity Medical History Cataracts and Glaucoma - Dr. Ye Medical History Vitamin D deficiency Medical History DEXA 02/2016 F/U 5 years Medical History Left hip XR 02/09 nml Medical History MRI Brain11/05/14 Min Small vessel disease / Mild Vol loss Medical History Echo [facility] 04/1315 Grade I DD, Nml Systolic Function. Medical History Thyroid mass- ENT: Dr. Mccallum Medical History Stable pulmonary nodules on lung CT Medical History Colonoscopy: Patent refuses Medical History Regadenosen NM stress test n ormal 01/29/2020, Gisele Bedolla at [facility] Medical History COPD - [facility] Pul Surgical History appendicitis 1953 Surgical History D & C x 4 (Zev [place]) early Surgical History tubal ligation 1961 Surgical History hysterectomy 1967 Surgical History cholecystectomy 2006 Surgical History vaginal polyps ([place]) 2007 Surgical History Colonoscopy: declines; refuses stools ca rds and cologuard Surgical History thyroid biopsy-benign 11/08/2015 Surgical History Multiple thyroid biopsy's per pt, [facility] EN T 2018 Hospitalization History admitted for anaphylaxis to penicill in Hospitalization History covid 08/2020 Goals Section No Information Health Concerns No Information MEDICAL EQUIPMENT No Information MENTAL STATUS No Information FUNCTIONAL STATUS No Information ASSESSMENTS Encounter Date Diagnosis Assessment Notes Treatment Notes Treatm ent Clinical Notes Mar, Rash (ICD-10 - R21) Resolved with triamcinolone, no longer using triamcinolone. Will monitor. PLAN OF TREATMENT Treatment Notes Assessment Notes Clinical Notes Rash Resolved with triamc inolone, no longer using triamcinolone. Will monitor. Next Appt Details as sched Reason: Provider Name:Gisele Boyce, 2021-11-11 10:00:00 AM, [address] [facility], , [place], [address], Insurance Providers Payer Name Payer Address Payer Phone Insured Name Patient Relati onship to Insured Coverage Start Date Coverage End Date MEDICARE Part A and B [facility] [address] [facility] [place] [phone] ANGELINE PRIETO self MEDICAID [employer] [address] [facility] [id number] ANGELINE PRIETO self
--- OUTSIDE RECORDS SUMMARY | 2021-06-23 08:32 | CCD | Continuity of Care Document ---
Author Author Kerri HEBERT PA Organization Unknown Address [address] [place] [address] Phone [phone] Care Team Providers Care Clerk Supervisor Name Role Phone Gisele Boyce M.D. AUTM [phone] Kathy Scott M.D. AUTM [phone] Problems Active Problems Provider Date Epistaxis Roscoe [...] 0 Eye Drops Solution Unknown Saline Nasal [place] 0.65% Solution use twice daily 1Month Unknown Medications Administered in Office Medication SIG Qnty Indications Ordering Provider Date Covid-19 vaccine, Unspecified Inj ection Unknown 10/19/2020 Covid-19 vaccine, Unspecified Inj ection Unknown 09/28/2020 Immunizations CPT Code Status Date Vaccine Lot # [id number] Given 06/08/2019 Afluria, Quadrivalent, 0.5ml , [facility]# [id number] Vital Signs Date Vital Result Comment 04/09/2021 9:53am BP Systolic 140 mmHg BP Diastolic 78 mmHg Heart Rate 66 /min O2 % BldC Oximetry 93 % Height 61 inches 5'1" Weight 210.25 lb BMI (Body Mass Index) 39.7 kg/m2 [place] Body Weight 105 lb Weight 95.369 kg BSA (Body Surface Area) 1.93 m2 01/07/2021 11:23am BP Systolic 160 mmHg BP Diastolic 80 mmHg Heart Rate 76 /min O2 % BldC Oximetry 95 % Body Temperature 96.8 F Height 61 inches 5'1" Weight 205.00 lb BMI (Body Mass Index) 38.7 kg/m2 [place] Body Weight 105 lb Weight 92.988 kg BSA (Body Surface Area) 1.91 m2 Results Test Acquired Date Facility Test Result H/L Range Note FVL/[place] 04/09/2021 [facility] PD[facility]ep[facility] SEE IMAGE FVC-Pred 2.12 L FVC-Pre 2.56 L FVC-%Pred-Pre 120 L FVC-LLN 1.49 L Fev1-Pred 1.56 L Fev1-Pre 1.90 L Fev1-%Pred-Pre 122 L Fev1-LLN 1.02 L Fev6-Pred 1.99 L Fev6-Pre 2.56 L Fev6-%Pred-Pre 128 L Fev6-LLN 1.37 L Npu4ykt-Jrky 73 % Nsa2hzd-Ynt 74 % Hsb8yfv-%Pred-Pre 101 % Bvz6uce-YDA 63 % Avs9scg-Ibal 94 % Hfx8uay-Cid 100 % Lbv5drl-%Pred-Pre 106 % FEFMax-Pred 4.05 L/E/sec FEFMax-Pre 5.21 L/E/sec FEFMax-%Pred-Pre 128 L/E/sec FEFMax-LLN 2.49 L/E/sec Cxo7275-Abel 1.09 L/E/sec Llt0734-Nzq 1.40 L/E/sec Gul4803-%Pred-Pre 129 L/E/sec Crj3072-DLP -0.04 L/E/sec ExpTime-Pre 5.29 sec Rit4mwu4-Jvgr 77 % Suh3lzb8-Jvv 74 % Egs6iyj0-%Pred-Pre 96 % Oxk6dru4-KIB 68 % FVL/Dameon 01/07/2021 [employer] PDFReport SEE IMAGE FVC-Pred 2.12 L FVC-Pre 2.57 L FVC-%Pred-Pre 120 L FVC-LLN 1.49 L Fev1-Pred 1.56 L Fev1-Pre 1.92 L Fev1-%Pred-Pre 123 L Fev1-LLN 1.02 L Fev6-Pred 1.99 L Fev6-Pre 2.57 L Fev6-%Pred-Pre 129 L Fev6-LLN 1.37 L Qap7otw-Kqhk 73 % Hhk5wgp-Dcr 75 % Wxl3nxs-%Pred-Pre 102 % Fty3ccj-FWS 63 % Yyq3koh-Rnec 94 % Exf4efy-Rfe 100 % Vvw6rxu-%Pred-Pre 106 % FEFMax-Pred 4.05 L/E/sec FEFMax-Pre 7.17 L/E/sec FEFMax-%Pred-Pre 177 L/E/sec FEFMax-LLN 2.49 L/E/sec Cnq5952-Woth 1.09 L/E/sec Jgu8093-Ibh 1.36 L/E/sec Plm5432-%Pred-Pre 125 L/E/sec Aic0697-BDV -0.04 L/E/sec ExpTime-Pre 5.96 sec Gxu2rar0-Bong 77 % Lsp7ydq3-Gzl 75 % Cqd9ghw9-%Pred-Pre 96 % Ccv4ndu6-FPU 68 % Procedures Date Code Description Status 04/09/2021 90113 Office/Outpatient Established Lo w MDM 20-29 Min Completed 04/09/2021 75160 Spirometry Completed 01/07/2021 32215 Office/Outpatient Established Mo d MDM 30-39 Min Completed 01/07/2021 63808 Spirometry Completed Medical Devices Description No Information Available Encounters Type Date Location Provider Dx Diagnosis Office Visit 04/09/2021 10:00a [facility] MANDEEP Campos J43.1 Panlobular emphysema Z87.891 Personal history of nicotine dependence Office Visit 01/07/2021 11:30a [facility] MANDEEP Campos J43.1 Panlobular emphysema R91.8 Other nonspecific abnormal f inding of lung field Z87.891 Personal history of nicotine dependence Assessments Date Code Description Provider 04/09/2021 J43.1 Panlobular emphysema MANDEEP Feliz 04/09/2021 Z87.891 Personal history of nicotine dep endence MANDEEP Campos 01/07/2021 J43.1 Panlobular emphysema MANDEEP Feliz 01/07/2021 R91.8 Other nonspecific abnormal findi ng of lung field MANDEEP Campos 01/07/2021 Z87.891 Personal history of nicotine dep endence MANDEEP Campos Plan of Treatment Future Appointment(s):* 10/27/2021 10:00 am - MANDEEP Campos at [facility] 04/09/2021 - MANDEEP Campos* J43.1 Panlobular emphysema * Z87.891 Personal history of nicotine dependence * * New Labs:* FVL/[place], Ordered: 04/09/21 * Follow up:* Follow up in 6 months with dameon Functional Status Functional Condition Comment Date Status Glasses Active Independent with all ADL's Activ e Standard cane is used to ambulate Active Mental Status Mental Condition Comment Date Status Cognitive ability not impaired A ctive Referrals Description No Information Available
--- OUTSIDE RECORDS SUMMARY | 2021-06-23 08:32 | CCD | Continuity of Care Document ---
Author Author Kerri HEBERT PA Organization Unknown Address [address] [place] [address] Phone [phone] Care Team Providers Care Associate Veterinarian Name Role Phone Gisele Boyce M.D. AUTM [phone] Kathy Scott M.D. AUTM [phone] Problems Active Problems Provider Date Epistaxis Roscoe [...] by mouth every day 60units J43.1 Wilfrido mka DFrankie 06/03/[address] 1 [...] 0 Eye Drops Solution Unknown Saline Nasal [place] 0.65% Solution use twice daily 1Month Unknown Medications Administered in Office Medication SIG Qnty Indications Ordering Provider Date Covid-19 vaccine, Unspecified Inj ection Unknown 10/19/2020 Covid-19 vaccine, Unspecified Inj ection Unknown 09/28/2020 Immunizations CPT Code Status Date Vaccine Lot # [id number] Given 06/08/2019 Afluria, Quadrivalent, 0.5ml , [facility]# [id number] Vital Signs Date Vital Result Comment 04/09/2021 9:53am BP Systolic 140 mmHg BP Diastolic 78 mmHg Heart Rate 66 /min O2 % BldC Oximetry 93 % Height 61 inches 5'1" Weight 210.25 lb BMI (Body Mass Index) 39.7 kg/m2 [place] Body Weight 105 lb Weight 95.369 kg BSA (Body Surface Area) 1.93 m2 01/07/2021 11:23am BP Systolic 160 mmHg BP Diastolic 80 mmHg Heart Rate 76 /min O2 % BldC Oximetry 95 % Body Temperature 96.8 F Height 61 inches 5'1" Weight 205.00 lb BMI (Body Mass Index) 38.7 kg/m2 [place] Body Weight 105 lb Weight 92.988 kg [...] L Fev6-%Pred-Pre 128 L Fev6-LLN 1.37 L Rcq9zwa-Lnek 73 % Njq9tar-Zih 74 % Lhn2vzb-%Pred-Pre 101 % Cjq1wmo-RDY 63 % Fkc6ucy-Kudq 94 % Pmz8xhq-Lgz 100 % Ijf1nic-%Pred-Pre 106 % FEFMax-Pred 4.05 L/E/sec FEFMax-Pre 5.21 L/E/sec FEFMax-%Pred-Pre 128 L/E/sec FEFMax-LLN 2.49 L/E/sec Yot0580-Pmgd 1.09 L/E/sec Syd5812-Mjb 1.40 L/E/sec Xof0668-%Pred-Pre 129 L/E/sec Qhq6624-BXI -0.04 L/E/sec ExpTime-Pre 5.29 sec Jss5mdj2-Llgy 77 % Ulj7zjn7-Rhy 74 % Pwr2szs0-%Pred-Pre 96 % Pau5xnz6-NSR 68 % FVL/Dameon 01/07/2021 SmartTurn, a [employer] PDFReport SEE IMAGE FVC-Pred 2.12 L FVC-Pre 2.57 L FVC-%Pred-Pre 120 L FVC-LLN 1.49 L Fev1-Pred 1.56 L Fev1-Pre 1.92 L Fev1-%Pred-Pre 123 L Fev1-LLN 1.02 L Fev6-Pred 1.99 L Fev6-Pre 2.57 L Fev6-%Pred-Pre 129 L Fev6-LLN 1.37 L Pzf8cbe-Qdzh 73 % Evl4ojg-Eaw 75 % Fbf1ytf-%Pred-Pre 102 % Gsa7yom-BCQ 63 % Xgs5ske-Luin 94 % Nqm2gsi-Lng 100 % Qbo2kfc-%Pred-Pre 106 % FEFMax-Pred 4.05 L/E/sec FEFMax-Pre 7.17 L/E/sec FEFMax-%Pred-Pre 177 L/E/sec FEFMax-LLN 2.49 L/E/sec Nwu6611-Nboo 1.09 L/E/sec Wya3964-Tpn 1.36 L/E/sec Wqm9165-%Pred-Pre 125 L/E/sec Owr3153-WYV -0.04 L/E/sec ExpTime-Pre 5.96 sec Yxw1gwq0-Elct 77 % Add0sxp8-Xzn 75 % Bqr6hmm9-%Pred-Pre 96 % Www5kds4-LHB 68 % Procedures Date Code Description Status 01/07/2021 57785 Office/Outpatient Established Mo d MDM 30-39 Min Completed 01/07/2021 99254 Spirometry Completed Medical Devices Description No Information [...] Z87.891 Personal history of nicotine dep yehudaence MANDEEP Campos Plan of Treatment Future Appointment(s):* 10/27/2021 10:00 am - MANDEEP Campos at [facility] Pulmonary/Thoracic 04/09/2021 - MANDEEP Campos* J43.1 Panlobular emphysema * Z87.891 Personal history of nicotine dependence * * New Labs:* FVL/Dameon, Ordered: 04/09/21 * Follow up:* Follow up in 6 months with dameon Functional Status Functional Condition Comment Date Status Glasses Active Independent with all ADL's Activ e Standard cane is used to ambulate Active Mental Status Mental Condition Comment Date Status Cognitive ability not impaired A ctive Referrals Description No Information Available
--- OUTSIDE RECORDS SUMMARY | 2021-06-23 08:32 | CCD ---
Author Author [facility] Organization [facility] Address Unknown Phone Unavailable Care Team Providers Care Admitting Office Escort Name Role Phone Gisele Boyce Unavailable PROBLEMS Type Condition ICD9-CM Code FZE47-ZB Code Onset Dates Condition S tatus W/U Status Risk SNOMED Code Notes Problem Essential hypertension I10 Active confirmed 10253643 Problem Stress incontinence N39.3 Active confirmed 64603195 Problem Gastroesophageal reflux disease, esophagitis pre sence not specified K21.9 Active confirmed 139065650 Problem Vitamin D deficiency E55.9 Active confirmed 73442822 Problem Thyroid nodule E04.1 Active confirmed 43672 5005 Problem Obesity E66.9 Active confirmed 820496262 Problem Arthritis of left hip M16.12 Active confirmed 4777308542448421 Problem Impaired fasting glucose R73.01 Active confirmed 873583882 Problem Hypomagnesemia E83.42 Active confirmed 88516 5004 Problem Mixed hyperlipidemia E78.2 Active confirmed 909011155 Problem Meralgia paresthetica of right side G57.11 Acti ve confirmed 583585595238336 Problem Chronic obstructive pulmonary disease, unspecified COPD ty pe J44.9 Active confirmed 30402679 ALLERGIES Allergen (clinical drug ingredient) Drug/Non Drug Allergy do cumented on EMR Reaction Allergy Type Onset Date Status Penicillin (For Allergies Use Only) Anaphylaxis Drug Aller gy Active ENCOUNTERS from 1935 to 2021-04-11 Encounter Location Date Provider Diagnosis [address] [phone] [place] [address] Mar, Gisele Austen Itching L29.9 and Tinea gopal evelyn B35.4 IMMUNIZATIONS Vaccine Route Administration Date Status Influenza (High Dose 65 & up) IM Intramuscular Jun 10, 2016 A dministered Influenza 18 yrs & older Flublok IM Intramuscular Jun 07, 2019 Administered Influenza Pharmacy Given Unknown Jun 07, 2020 Adminis tered COVID-19 dose #1 given elsewhere Unspecified Unknown Sep 28, 2020 Administered COVID-19 dose #2 given elsewhere Unspecified Unknown Oct 19, 2020 Administered Influenza 6mo & up Fluzone Unknown Sep 03, 2009 Admin istered Influenza (High Dose 65 & up) Unknown Jun 02, 2017 Ad ministered Influenza (High Dose 65 & up) IM [...] Education Language: Question Answer Notes Languages spoken: Wallisian Pent[employer]ism: Question Answer Notes [employer] 08 [employer] Sexual Hx: Question Answer Notes Had sex [...] FOR REFERRAL No Information VITAL SIGNS Weight 210 lbs Mar, Height 61.5 in Mar, BMI 39.03 kg/m2 Mar, Heart Rate 78 /min Mar, Respiratory Rate 18 /min Mar, Temperature 96.4 degrees Fahrenheit Mar, Oximetry 97 Mar, Blood pressure systolic 136 mm Hg Mar, Blood pressure diastolic 78 mm Hg Mar, MEDICATIONS Medication SIG (Take, Route, Frequency, Duration) Notes Start Da te End Date Status Saline Nasal [place] 0.65 % 2 drops in each nostril as needed Nasally every 2 hrs Active Rosuvastatin Calcium 10 MG 1 tablet Orally Once a day Active Selenimin-200 200 MCG 1 tablet Orally- 299mcg Once a day- otc Active May have tumerics as directed 720mg otc daily Active Cinnamon 500 MG 2 caps Orally daily otc Active Calcium 500 MG 2 tabs to equal 1000mg Orally Once a day Active FiberCon 625 MG 1 tablet Orally TID otc Active Lutein 20 MG 1 cap(s) Orally daily A ctive Aspir-Low 81 MG 1 tablet Orally Once a day Active Vitamin B Complex 1 1 tab(s) p.o. once daily Active Co Q 10 200 mg 1 cap(s) p.o. daily/OTC Active Irbesartan 300 MG 1 tablet Orally Once a day. Dr. Aguilera Active Tart Moody Advanced Orally Acti ve Flaxseed Oil 1000 MG Orally QOD Not -Taking Bisoprolol Fumarate 5 MG 1/2 tablet Orally Once a day Active May Have zeaxanthin daily Activ e Indapamide 1.25 MG 1 tablet in the morning Orally Once a day Active Glucosamine Chondr Complex 500-400 MG 1 capsule with a meal Orally bi d Active Triamcinolone Acetonide 0.5 % 1 application Externally to chest Twice a day Mar, Active Magnesium 400 MG 1 capsule with food Orally once daily Active Omeprazole 20 MG 1 capsule 30 minutes before morning meal Orally Once a day for 90 day(s) Active Eye Drops Relief 0.05-0.25 % Ophthalmic Active Zinc 15 MG 1 tab Orally Once a day A ctive Vitamin C 1000 mg 1 tab(s) p.o. daily Not-Taking Potassium Chloride ER 20 MEQ 1 tab Orally daily Active Trelegy Ellipta 100-62.5-25 MCG/INH 1 puff Inhalation Once a day Active Norvasc 5mg 1 tab orally twice daily Active Vitamin D3 2000 UNIT 1 tablet (19393) Orally BID otc Active PROCEDURES No Information [...] / Mild Vol loss Medical History Echo CANN 04/1315 Grade I DD, Nml Systolic Function. Medical History Thyroid mass- ENT: Dr. Mccallum Medical History Stable pulmonary nodules on lung CT Medical History Colonoscopy: Patent refuses Medical History Regadenosen NM stress test n ormal 01/29/2020, Gisele Bedolla at [facility] Medical History COPD - [facility] Pulm Surgical History appendicitis 1953 Surgical History D & C x 4 (Zev Dobson) early Surgical History tubal ligation 1961 Surgical History hysterectomy 1967 Surgical History cholecystectomy 2006 Surgical History vaginal polyps ([place]) 2007 Surgical History Colonoscopy: declines; refuses stools ca rds and cologuard Surgical History thyroid biopsy-benign 11/08/2015 Surgical History Multiple thyroid biopsy's per pt, [facility] EN T 2019 Hospitalization History admitted for anaphylaxis to penicill in Hospitalization History covid 08/2020 Goals Section No Information Health Concerns No Information MEDICAL EQUIPMENT No Information MENTAL STATUS No Information FUNCTIONAL STATUS No Information ASSESSMENTS Encounter Date Diagnosis Assessment Notes Treatment Notes Treatm ent Clinical Notes Mar, Itching (ICD-10 - L29.9) Very dry skin, possibly induced by the itch-scratch cycle; does not appear to be allergic reaction to ketoconazole, but will stop this. I recommended that she also apply lotion at least BID. Mar, Tinea corporis (ICD-10 - B35.4) Tinea corporis has resolved on exam. PLAN OF TREATMENT Medication Medication Name Sig Start Date Stop Date Triamcinolone Acetonide 0.5 % 1 application Externally to ch est Twice a day Mar, Treatment Notes Assessment Notes Clinical Notes Itching Very dry skin, possi dario induced by the itch-scratch cycle; does not appear to be allergic reaction to ketoconazole, but will stop this. I recommended that she also apply lotion at least BID. Tinea corporis Tinea corporis has r esolved on exam. Next Appt Details as sched 04/23 Reason: Provider Name:Gisele Ramirez Ceferinoradha, 2021-04-23 10:00:00 AM, [address] [place] [address], , [place], [address], Provider Name:Gisele Ramirez Ceferinoradha, 2021-11-11 10:00:00 AM, [address] [place] [address], , [place], [address], Insurance Providers Payer Name Payer Address Payer Phone Insured Name Patient Relati onship to Insured Coverage Start Date Coverage End Date MEDICAID [employer] [address] [facility] [id number] [phone] ANGELINE PRIETO self MEDICARE Part A and B [address] [facility] [address] [phone] ANGELINE PRIETO self
--- OUTSIDE RECORDS SUMMARY | 2021-06-23 08:33 | CCD ---
Author Author [facility] Organization [facility] Address Unknown Phone Unavailable Care Team Providers Care Psychiatric Therapist Name Role Phone Homa Allen Unavailable Unavailable Symenow, Homa KAUFMAN Unavailable Unavailable Symenow, Homa KAUFMAN Unavailable Unavailable SymenoHoma shah Unavailable Unavailable SymenoHoma shah Unavailable Unavailable SymenoHoma shah Unavailable Unavailable SymenoHoma shah Unavailable Unavailable SymenoHoma shah Unavailable Unavailable SymenoHoma shah Unavailable Unavailable SymenoHoma shah PA Unavailable Unavailable SymenoHoma shah PA Unavailable Unavailable Symenoalyssa, Homa Jaquez PA Unavailable Unavailable Symenoalyssa, Homa Jaquez PA Unavailable Unavailable Symenoalyssa, Homa Jaquez PA Unavailable Unavailable Symenoalyssa, Homa Jaquez PA Unavailable Unavailable Symenow, Homa Jaquez PA Unavailable Unavailable Symenow, Homa Jaquez PA Unavailable Unavailable Symenow, Homa Gisele PA [...] Unavailable Symenow, Homa Gisele PA Unavailable Unavailable Perez, M Barratt PA [...] Unavailable Perez, M Barratt PA Unavailable Unavailable Radha Ferrera, Erick Goyal MD, FACS Unavailable Unavailable Radha Ferrera, Erick Goyal MD, FACS Unavailable Unavailable Erick Westbrook MD, FACS Unavailable Unavailable Garcia Ferrera, Erick [...] Ferrera, Erick Goyal MD, FACS Unavailable Unavailable RING, K CAROL ANN PA Unavailable Unavailable RING, K CAROL ANN PA Unavailable Unavailable RING, K CAROL ANN PA Unavailable Unavailable RING, K CARLO ANN PA Unavailable Unavailable RING, K CAROL ANN PA Unavailable Unavailable RING, K CAROL ANN PA Unavailable Unavailable RING, K CAROL ANN PA Unavailable Unavailable RING, K CAROL ANN PA Unavailable Unavailable RING, K CAROL ANN PA Unavailable Unavailable RING, K CAROL ANN PA Unavailable Unavailable RING, K CAROL ANN PA Unavailable Unavailable RING, K CAROL ANN PA Unavailable Unavailable RING, K CAROL ANN PA Unavailable Unavailable RING, K CAROL ANN PA Unavailable Unavailable RING, K CAROL ANN PA Unavailable Unavailable RING, K CAROL ANN PA Unavailable Unavailable RING, K CAROL ANN PA Unavailable Unavailable RING, K CAROL ANN PA Unavailable Unavailable RING, K CAROL ANN PA Unavailable Unavailable RING, K CAROL ANN PA Unavailable Unavailable RING, K CAROL ANN PA Unavailable Unavailable LIS, J MARIANELA DPM [...] LIS, J MARIANELA D[facility] Unavailable Unavailable HEBERT, M JAI PA Unavailable [...] Unavailable HEBERT, M JAI PA Unavailable Unavailable Re-disclosure Warning The records that [...] is protected by Article 27-F of the [facility] Public Health law. If you continue you may have access to information: Regarding HIV / AIDS; Provided by facilities licensed or operated by the [facility] Office of Mental Health; or Provided by the [facility] Office for People With Developmental Disabilities. If such information is present, then the following [facility] mandated warning applies: This information has [...] law may result in a fine or prison sentence or both. A general authorization for the release of medical or other information is NOT sufficient authorization for further disc losure. Family History Family Member Name Family Member Gender Family Member Status Date o f Status Description Data Source(s) Unknown Male Problem MEDENT ([facility]) Encounters Encounter Providers Location Date Indications Data Source(s ) Outpatient Attender: MARIANELA HAYS DPM PC 06/03/2021 10:37:00 AM EDT - 06/03/2021 10:37:00 AM EDT [facility] [place] [address] [facility] [facility] [address] 05/19/2021 12:00:00 AM EDT eCW1 ([facility]) [place] [address] [facility] [address] 05/16/2021 12:00:00 AM EDT eCW1 ([facility]) [place] [address] [address] 04/27/2021 12:00:00 AM EDT eCW1 ([facility]) [place]patient [address] [facility] [facility] [address] 04/23/2021 12:00:00 AM EDT eCW1 ([facility]) [place] [address] [facility] [address] 04/10/2021 12:00:00 AM EDT eCW1 ([facility]) Outpatient Attender: JAI Mccallum/[place]/Unruly/Reji cotton 04/09/2021 10:00:00 AM EDT [facility] ([facility] [place] [address] [address] 04/05/2021 12:00:00 AM EDT eCW1 ([facility]) Outpatient [address] [facility] [address] 03/18/2021 12:00:00 AM EDT eCW1 ([facility]) Outpatient Attender: MARIANELA HAYS DPM PC 03/17/2021 10:23:00 AM EDT - 03/17/2021 10:23:00 AM EDT [facility] Outpatient Attender: CAROL ANN William 02/17/2021 08:20:00 AM EDT MEDENT ([facility] Car e, [facility]) Outpatient Attender: JAI Mccallum/[place]/Unruly/Reji cotton 01/07/2021 11:30:00 AM EDT MEDENT ([facility]) Outpatient Attender: MARIANELA HAYS DPM PC 12/31/2020 01:30:00 PM EDT - 12/31/2020 01:30:00 PM EDT [facility] Outpatient Attender: Gisele KAUFMAN Main Office 12/30/2020 10:15:00 AM EDT MEDENT ([facility] [place] [facility]) <td ID="encounterTypeDescriptionID0">5 M onth Follow-Up and Testing</td><td>Jay Jay Pina MD, FACS</td><td>Jay Jay Pina MD [facility]</td><td>12/04/2020</td><td>8:52AM</td><td>06/05/2020 11:59PM</td><td><content ID="encounterDiagnosisID0-0">Borderline Glaucoma Open Angle with Borderline Findings Both Eyes</content>, <content ID="encounterDiagnosisID0-1">Cataract Senile Cortical Bilateral</content>, <content ID="encounterDiagnosisID0-2">Cataract Senile Nuclear</content>, <content ID="encounterDiagnosisID0-3">Cataract Senile Posterior Subcapsular Polar</content>, <content ID="encounterDiagnosisID0-4">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</content>, <content ID="encounterDiagnosisID0-5">Essential Hypertension</content>, <content ID="encounterDiagnosisID0-6">History of Nicotine Dependence</content></td>Outpatient Attender: Jay Jay Ferrera MD, FACS Jay Jay Pina MD [facility] 12/04/2020 08:52:00 AM EDT - 06/05/2020 11:59:00 PM ED T 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Essential HypertensionCataract Senile Cortical BilateralHistory of Nicotine DependenceCataract Senile Posterior Subcapsular PolarCataract Senile Nuclear Borderline Glaucoma Open Angle with Borderline Findings Both Eyes ANN (Jay Jay Ferrera MD [facility]) Macular Degeneration Nonexudative Bilate ral Intermediate Dry Stage Essential Hypertension Cataract Senile Cortical Bilateral History of Nicotine Dependence Cataract Senile Posterior Subcapsular Po lar Cataract Senile Nuclear Borderline Glaucoma Open Angle with Bord heather Findings Both Eyes Office Visit, Est Pt., Level 4 PC [address] [place] [address] 11/25/2020 12:00:00 AM EDT eCW1 ([facility] hospital) Unknown [address] [address] [address] 10/30/2020 12:00:00 AM EST eCW1 ([facility]) Outpatient Attender: MARIANELA HAYS DPM 10/17/2020 09:20:00 AM EST - 10/17/2020 09:20:00 AM EST [facility] Unknown [address] [facility] [address] 10/12/2020 12:00:00 AM EST eCW1 ([facility]) Outpatient [address] [facility] [place] [address] 10/11/2020 12:00:00 AM EST eCW1 ([facility]) Unknown [address] [facility] [place] [address] 10/07/2020 12:00:00 AM EST eCW1 ([facility]) Unknown [address] [facility] [facility] [place] [address] 10/07/2020 12:00:00 AM EST eCW1 ([facility]) Unknown [address] [facility] [place] [address] 10/04/2020 12:00:00 AM EST eCW1 ([facility]) TeleMedicine Phone E/M by Phys 21-[address] [place] [phone] 10/03/2020 12:00:00 AM EST eCW1 (Critical access hospital) Unknown [address] [place] [address] 10/02/2020 12:00:00 AM EST [facility]) [place] [address] [facility] [address] 10/02/2020 12:00:00 AM EST [facility]) Unknown [address] [facility] [address] 10/01/2020 12:00:00 AM EST [facility]CW1 [facility]) Outpatient [address] [facility] [facility] [address] 09/17/2020 12:00:00 AM EST eCW1 ([facility]) Outpatient Attender: Beatris KAUFMAN Physical Therapy 02:00:00 PM EST MED[facility] ([facility]) [place] [address] [facility] [facility] [address] 08/13/2020 12:00:00 AM EST eCW1 ([facility]) Outpatient Attender: MARIANELA HAYS DPM PC 08/01/2020 10:00:00 AM EST - 08/01/2020 10:00:00 AM EST [facility] Outpatient Attender: Beatris KAUFMAN Physical Therapy 09:15:00 AM EST [facility] ([facility]) Unknown [address] [facility] [facility] [address] 07/19/2020 12:00:00 AM EST eCW1 ([facility]) Outpatient Attender: Gisele KAUFMAN Main Office 06/25/2020 09:15:00 AM EDT MEDENT ([facility]) <td ID="encounterTypeDescriptionID1">IOP CHECK</td><td>Jay Jay Pina MD, FACS</td><td>[facility]</td><td>06/05/2020</td><td>2:24PM</td><td>3:09PM</td><td><content ID="encounterDiagnosisID1-0">Borderline Glaucoma Open Angle with Borderline Findings Both Eyes</content></td>Outpatient Attender: Jay Jay Ferrera MD, FACS Jay Jay Pina MD [facility] 06/05/2020 02:24:00 PM EDT - 06/05/2020 03:09:00 PM EDT Borderline Glaucoma Open Angle with Bord heather Findings Both EyesBorderline Glaucoma Open Angle with Borderline Findings Both Eyes ANN (Jay Jay Ferrera MD [facility]) Borderline Glaucoma Open Angle with Bord heather Findings Both Eyes Borderline Glaucoma Open Angle with Bord heather Findings Both Eyes Outpatient Attender: JAI Mccallum/[place]/Unruly/Rein dl 06/03/2020 03:00:00 PM EDT MED[facility] ([facility]) Outpatient Attender: MARIANELA HAYS DPM PC 05/28/2020 04:06:00 PM EDT - 05/22/2020 04:06:00 PM EDT [facility] Patient discharged. [place] [address] [facility] [facility] [address] 05/21/2020 12:00:00 AM EDT eCW1 ([facility]) Outpatient Attender: Gisele KAUFMAN Main Office 05/08/2020 08:00:00 AM EDT [facility] ([facility]) Outpatient Attender: JAI Mccallum/[place]/Unruly/Rein dl 04/24/2020 10:30:00 AM EDT MED[facility] ([facility]) Immunizations Vaccine Date Status Description Data Source(s) COVID-19 dose #2 given elsewhere Unspecified 10/19/2020 10:4 7:00 AM EST completed eCW1 ([facility]) COVID-19 dose #2 given elsewhere Unspecified 10/19/2020 10:4 7:00 AM EST completed eCW1 ([facility]) COVID-19 dose #2 given elsewhere Unspecified 10/19/2020 10:4 7:00 AM EST completed eCW1 ([facility]) COVID-19 dose #2 given elsewhere Unspecified 10/19/2020 10:4 7:00 AM EST completed eCW1 ([facility]) COVID-19 dose #2 given elsewhere Unspecified 10/19/2020 10:4 7:00 AM EST completed eCW1 ([facility]) COVID-19 dose #2 given elsewhere Unspecified 10/19/2020 10:4 7:00 AM EST completed eCW1 ([facility]) COVID-19 dose #2 given elsewhere Unspecified 10/19/2020 10:4 7:00 AM EST completed eCW1 ([facility]) COVID-19 dose #2 given elsewhere Unspecified 10/19/2020 10:4 7:00 AM EST completed eCW1 ([facility]) COVID-19 VACCINE Pfizer 10/19/2020 12:00:00 AM EST completed [facility] Vaccine Series Complete: YESThis Data wa s Submitted to [facility]. COVID-19 VACCINE, MRNA, [id number], LNP-S (PFIZER)/PF 10/19/19 12:00:00 AM EST completed [facility] COVID-19 dose #1 given elsewhere Unspecified 09/28/2020 10:4 7:00 AM EST completed eCW1 ([facility]) COVID-19 dose #1 given elsewhere Unspecified 09/28/2020 10:4 7:00 AM EST completed eCW1 ([facility]) COVID-19 dose #1 given elsewhere Unspecified 09/28/2020 10:4 7:00 AM EST completed eCW1 ([facility]) COVID-19 dose #1 given elsewhere Unspecified 09/28/2020 10:4 7:00 AM EST completed eCW1 ([facility]) COVID-19 dose #1 given elsewhere Unspecified 09/28/2020 10:4 7:00 AM EST completed eCW1 ([facility]) COVID-19 dose #1 given elsewhere Unspecified 09/28/2020 10:4 7:00 AM EST completed eCW1 ([facility]) COVID-19 dose #1 given elsewhere Unspecified 09/28/2020 10:4 7:00 AM EST completed eCW1 ([facility]) COVID-19 dose #1 given elsewhere Unspecified 09/28/2020 10:4 7:00 AM EST completed eCW1 ([facility]) COVID-19 VACCINE Pfizer 09/28/2020 12:00:00 AM EST completed [facility] Vaccine Series Complete: NOThis Data was Submitted to [facility]. COVID-19 VACCINE, MRNA, [id number], LNP-S (PFIZER)/PF 09/28/19 12:00:00 AM EST completed [facility] IIV3. This is one of two codes replacing CVX 15, which is being retired. 06/07/2020 03:12:00 PM EDT completed eCW1 ([facility] hospital) IIV3. This is one of two codes replacing CVX 15, which is being retired. 06/07/2020 03:12:00 PM EDT completed eCW1 (Critical access hospital) IIV3. This is one of two codes replacing CVX 15, which is being retired. 06/07/2020 03:12:00 PM EDT completed eCW1 (Critical access hospital) IIV3. This is one of two codes replacing CVX 15, which is being retired. 06/07/2020 03:12:00 PM EDT completed eCW1 (Critical access hospital) IIV3. This is one of two codes replacing CVX 15, which is being retired. 06/07/2020 03:12:00 PM EDT completed eCW1 (Critical access hospital) IIV3. This is one of two codes replacing CVX 15, which is being retired. 06/07/2020 03:12:00 PM EDT completed eCW1 (Critical access hospital) IIV3. This is one of two codes replacing CVX 15, which is being retired. 06/07/2020 03:12:00 PM EDT completed eCW1 (Critical access hospital) IIV3. This is one of two codes replacing CVX 15, which is being retired. 06/07/2020 03:12:00 PM EDT completed eCW1 ([facility] access hospital) IIV3. This is one of two codes replacing CVX 15, which is being retired. 06/07/2020 03:12:00 PM EDT completed eCW1 ([facility] access hospital) IIV3. This is one of two codes replacing CVX 15, which is being retired. 06/07/2020 03:12:00 PM EDT completed eCW1 ([facility] hospital) IIV3. This is one of two codes replacing CVX 15, which is being retired. 06/07/2020 03:12:00 PM EDT completed eCW1 (Critical access hospital) IIV3. This is one of two codes replacing CVX 15, which is being retired. 06/07/2020 03:12:00 PM EDT completed eCW1 (Critical access hospital) IIV3. This is one of two codes replacing CVX 15, which is being retired. 06/07/2020 03:12:00 PM EDT completed eCW1 (Critical access hospital) IIV3. This is one of two codes replacing CVX 15, which is being retired. 06/07/2020 03:12:00 PM EDT completed eCW1 (Critical access hospital) IIV3. This is one of two codes replacing CVX 15, which is being retired. 06/07/2020 03:12:00 PM EDT completed eCW1 (Critical access hospital) IIV3. This is one of two codes replacing CVX 15, which is being retired. 06/07/2020 03:12:00 PM EDT completed eCW1 (Critical access hospital) IIV3. This is one of two codes replacing CVX 15, which is being retired. 06/07/2020 03:12:00 PM EDT completed eCW1 (Critical access hospital) IIV3. This is one of two codes replacing CVX 15, which is being retired. 06/07/2020 03:12:00 PM EDT completed eCW1 (Critical access hospital) IIV3. This is one of two codes replacing CVX 15, which is being retired. 06/07/2020 03:12:00 PM EDT completed eCW1 (Critical access hospital) IIV3. This is one of two codes replacing CVX 15, which is being retired. 06/07/2020 03:12:00 PM EDT completed eCW1 (Critical access hospital) IIV3. This is one of two codes replacing CVX 15, which is being retired. 06/07/2020 03:12:00 PM EDT completed eCW1 (Critical access hospital) INFLUENZA VACCINE QUADRIVALENT (65 YR UP)/MF59 C.1/PF 05/28/2020 12:00:00 AM EDT completed [facility] Medications Medication Brand Name Start Date Product Form Dose Route Admi nistrative Instructions Pharmacy Instructions Status Indications Reaction Description Data Source(s) moxifloxacin 5 MG/ML Ophthalmic Solution 0.5 % MOXIFLOXACIN HCL 06/11/2021 12:00:00 AM EDT drops 3 INSTILL 1 DROP I N THE LEFT EYE FOUR TIMES A DAY BEGIN 3 DAYS PRIOR TO SURGERY INSTILL 1 DROP IN THE LEFT EYE FOUR TIME S A DAY BEGIN 3 DAYS PRIOR TO SURGERY SOLD: 06/15/2021 [facility] 240 mcg/0.7 mL 06/09/2021 12:00:00 AM EDT syringe 0 INJECT DIRECTED INJECT DIRECTED SOLD: 06/09/2021 [facility] 1 % 05/27/2021 12:00:00 AM EDT drops,suspension 10 INSTILL 1 DROP IN THE LEFT EYE FOUR TIMES A DAY TO BEGIN AFTER SURGERY INSTILL 1 DROP IN THE LEFT EYE FOUR TIMES A DAY TO BEGIN AFTER SURGERY SOLD: 06/02/2021 [facility] 0.5 % 05/27/2021 12:00:00 AM EDT drops 5 INSTILL 1 DROP IN THE LEFT EYE FOUR TIMES A DAY START 3 DAYS PRIOR TO SURGERY INSTILL 1 DROP IN THE LEFT EYE FOUR TIMES A DAY START 3 DAYS PRIOR TO SURGERY SOLD: 06/02/2021 [facility] 5 mg 05/20/2021 12:00:00 AM EDT tablet 180 TAKE ONE TABLET BY MOUTH TWICE A DAY TAKE ONE TABLET BY MOUTH TWICE A DAY SOLD: 05/22/2021 [facility] 20 mEq 04/25/2021 12:00:00 AM EDT tablet extended release 90 TAKE ONE TABLET BY MOUTH EVERY DAY TAKE ONE TABLET BY MOUTH EVERY DAY SOLD: 04/28/2021 [facility] moxifloxacin 5 MG/ML Ophthalmic Solution 0.5 % MOXIFLOXACIN HCL 04/23/2021 12:00:00 AM EDT drops 3 INSTILL 1 DROP I N THE RIGHT EYE FOUR TIMES A DAY BEGIN 3 DAYS PRIOR TO SURGERY INSTILL 1 DROP IN THE RIGHT EYE FOUR ELOISA ES A DAY BEGIN 3 DAYS PRIOR TO SURGERY SOLD: 04/25/2021 [facility] moxifloxacin 5 MG/ML Ophthalmic Solution 0.5 % MOXIFLOXACIN HCL 04/23/2021 12:00:00 AM EDT drops 3 INSTILL 1 DROP I N THE RIGHT EYE FOUR TIMES A DAY BEGIN 3 DAYS PRIOR TO SURGERY INSTILL 1 DROP IN THE RIGHT EYE FOUR ELOISA ES A DAY BEGIN 3 DAYS PRIOR TO SURGERY SOLD: 05/25/2021 [facility] 0.5 % 04/23/2021 12:00:00 AM EDT drops 10 INSTILL 1 DROP IN THE RIGHT EYE FOUR TIMES A DAY BEGIN 3 DAYS PRIOR TO SURGERY INSTILL 1 DROP IN THE RIGHT EYE FOUR TIMES A DAY BEGIN 3 DAYS PRIOR TO SURGERY SOLD: 04/25/2021 [facility] 1 % 04/22/2021 12:00:00 AM EDT drops,suspension 15 INSTILL 1 DROP IN THE RIGHT EYE FOUR TIMES A DAY TO BE STARTED AFTER SURGERY INSTILL 1 DROP IN THE RIGHT EYE FOUR TIMES A DAY TO BE STARTED AFTER SURGERY SOLD: 04/25/2021 [facility] 0.5 % 04/10/2021 12:00:00 AM EDT ointment 15 USE 1 APPLICATION EXTERNALLY TO CHEST TWO TIMES A DAY USE 1 APPLICATION EXTERNALLY TO CHEST TWO TIMES A DAY SOLD: 04/11/2021 [facility] Triamcinolone Acetonide 0.005 MG/MG Topi zhang Ointment Triamcinolone Acetonide 0.5 % Triamcinolone Acetonide 0.5 % 04/10/2021 12:00:00 AM EDT 1.0 {application} active Triamcinolone Aceton isma 0.5 % eCW1 ([facility]) Triamcinolone Acetonide 0.005 MG/MG Topi zhang Ointment Triamcinolone Acetonide 0.5 % Triamcinolone Acetonide 0.5 % 04/10/2021 12:00:00 AM EDT 1.0 {application} active Triamcinolone Aceton isma 0.5 % eCW1 ([facility]) Triamcinolone Acetonide 0.005 MG/MG Topi zhang Ointment Triamcinolone Acetonide 0.5 % Triamcinolone Acetonide 0.5 % 04/10/2021 12:00:00 AM EDT 1.0 {application} active Triamcinolone Aceton isma 0.5 % eCW1 ([facility]) Triamcinolone Acetonide 0.005 MG/MG Topi zhang Ointment Triamcinolone Acetonide 0.5 % Triamcinolone Acetonide 0.5 % 04/10/2021 12:00:00 AM EDT 1.0 {application} active Triamcinolone Aceton isma 0.5 % eCW1 ([facility]) Triamcinolone Acetonide 0.005 MG/MG Topi zhang Ointment Triamcinolone Acetonide 0.5 % Triamcinolone Acetonide 0.5 % 04/10/2021 12:00:00 AM EDT 1.0 {application} active Triamcinolone Aceton isma 0.5 % eCW1 ([facility]) Ketoconazole 20 MG/ML Topical Cream Ketoconazole 2 % Ketocon azole 2 % 03/18/2021 12:00:00 AM EDT 1.0 {application} active Ketoconazole 2 % eCW1 ([facility]) 2 % 03/18/2021 12:00:00 AM EDT cream 60 APPLY TO AXILLAE AND CHEST ONCE A DAY FOR 14 DAYS APPLY TO AXILLAE AND CHEST ONCE A DAY FOR 14 DAYS SOLD : 03/20/2021 [facility] Ketoconazole 20 MG/ML Topical Cream Ketoconazole 2 % Ketocon azole 2 % 03/18/2021 12:00:00 AM EDT 1.0 {application} active Ketoconazole 2 % eCW1 ([facility]) 20 mg 03/18/2021 12:00:00 AM EDT capsule,delayed release (DR/EC) 90 TAKE ONE CAPSULE BY MOUTH EVERY MORNING 30 MINUTES BEFORE MORNING MEAL ONCE A DAY TAKE ONE CAPSULE BY MOUTH EVERY MORNING 30 MINUTES BEFORE MORNING MEAL ONCE A DAY SOLD: 06/19/2021 [facility] 20 mg 03/18/2021 12:00:00 AM EDT capsule,delayed release (DR/EC) 90 TAKE ONE CAPSULE BY MOUTH EVERY MORNING 30 MINUTES BEFORE MORNING MEAL ONCE A DAY TAKE ONE CAPSULE BY MOUTH EVERY MORNING 30 MINUTES BEFORE MORNING MEAL ONCE A DAY SOLD: 03/20/2021 [facility] 30 ACTUAT fluticasone furoate 0.1 MG/ACT UAT / umeclidinium 0.0625 MG/ACTUAT / vilanterol 0.025 MG/ACTUAT Dry Powder Inhaler [Trelegy] 100-62.5-25 mcg FLUTICASONE/UMECLIDIN/VILANTER 02/24/2021 12:00:00 AM EDT blister with device 60 INHALE ONE PUFF BY MOUTH EVERY DAY INHALE ONE PU FF BY MOUTH EVERY DAY SOLD: 04/25/2021 [facility] 30 ACTUAT fluticasone furoate 0.1 MG/ACT UAT / umeclidinium 0.0625 MG/ACTUAT / vilanterol 0.025 MG/ACTUAT Dry Powder Inhaler [Trelegy] 100-62.5-25 mcg FLUTICASONE/UMECLIDIN/VILANTER 02/24/2021 12:00:00 AM EDT blister with device 60 INHALE ONE PUFF BY MOUTH EVERY DAY INHALE ONE PU FF BY MOUTH EVERY DAY SOLD: 03/26/2021 [facility] 30 ACTUAT fluticasone furoate 0.1 MG/ACT UAT / umeclidinium 0.0625 MG/ACTUAT / vilanterol 0.025 MG/ACTUAT Dry Powder Inhaler [Trelegy] 100-62.5-25 mcg FLUTICASONE/UMECLIDIN/VILANTER 02/24/2021 12:00:00 AM EDT blister with device 60 INHALE ONE PUFF BY MOUTH EVERY DAY INHALE ONE PU FF BY MOUTH EVERY DAY SOLD: 02/25/2021 [facility] 30 ACTUAT fluticasone furoate 0.1 MG/ACT UAT / umeclidinium 0.0625 MG/ACTUAT / vilanterol 0.025 MG/ACTUAT Dry Powder Inhaler [Trelegy] 100-62.5-25 mcg FLUTICASONE/UMECLIDIN/VILANTER 02/24/2021 12:00:00 AM EDT blister with device 60 INHALE ONE PUFF BY MOUTH EVERY DAY INHALE ONE PU FF BY MOUTH EVERY DAY SOLD: 05/25/2021 [facility] 100,000 unit/gram 02/17/2021 12:00:00 AM EDT cream 15 APPLY TO AFFECTED AREA(S) TO AXILLA AND CHEST WITH TRIAMCINOLONE TWO TIMES A DAY UNTIL RESOLUTION APPLY TO AFFECTED AREA(S) TO AXILLA AND CHEST WITH TRIAMCINOLONE TWO TIMES A DAY UNTIL RESOLUTION SOLD: 02/17/2021 [facility] Nystatin 229149 UNT/ML / Triamcinolone Acetonide 1 MG/ ML Topical Cream Nystatin-Triamcinolone 02/17/2021 12:00:00 AM EDT active MED[facility] ([facility]) Indapamide 1.25 MG Oral Tablet Indapamide 02/17/2021 12:00:00 AM EDT active MEDENT ([facility]) Triamcinolone Acetonide 1 MG/ML Topical Cream 0.1 % TRIAMCIN OLONE ACETONIDE 02/17/2021 12:00:00 AM EDT cream 15 APPLY TO AFFECTED AREA(S) THIN LAYER WITH NYSTATIN TO AXILLA AND CHEST TWO TIMES A DAY UNTIL RESOLUTION APPLY TO AFFECTED AREA(S) THIN LAYER WITH NYSTATIN TO AXILLA AND CHEST TWO TIMES A DAY UNTIL RESOLUTION SOLD: 02/17/2021 [facility] Bisoprolol Fumarate 5 MG Oral Tablet Bisoprolol Fumarate 12:00:00 AM EDT active MEDENT ([facility]) 5 mg 02/12/2021 12:00:00 AM EDT tablet 180 TAKE ONE TABLET BY MOUTH TWICE A DAY TAKE ONE TABLET BY MOUTH TWICE A DAY SOLD: 02/13/2021 [facility] 300 mg 02/10/2021 12:00:00 AM EDT tablet 90 TAKE ONE TABLET BY MOUTH EVERY DAY AT BEDTIME TAKE ONE TABLET BY MOUTH EVERY DAY AT BEDTIME SOLD: 05/16/2021 [facility] 300 mg 02/10/2021 12:00:00 AM EDT tablet 90 TAKE ONE TABLET BY MOUTH EVERY DAY AT BEDTIME TAKE ONE TABLET BY MOUTH EVERY DAY AT BEDTIME SOLD: 02/13/2021 [facility] Rosuvastatin calcium 10 MG Oral Tablet ROSUVASTATIN CALCIUM 01/02/2021 12:00:00 AM EDT tablet 90 TAKE ONE TABLET BY MOUTH AT BEDTIME TAKE ONE TABLET BY MOUTH AT BEDTIME SOLD: 01/05/2021 [facility] Rosuvastatin calcium 10 MG Oral Tablet ROSUVASTATIN CALCIUM 01/02/2021 12:00:00 AM EDT tablet 90 TAKE ONE TABLET BY MOUTH AT BEDTIME TAKE ONE TABLET BY MOUTH AT BEDTIME SOLD: 04/05/2021 [facility] 5 mg 01/01/2021 12:00:00 AM EDT tablet 45 TAKE ONE-HALF TABLET BY MOUTH EVERY DAY TAKE ONE-HALF TABLET BY MOUTH EVERY DAY SOLD: 04/05/2021 [facility] 0.005 % 01/01/2021 12:00:00 AM EDT drops 7 INSTILL 1 DROP IN EACH EYE AT NIGHT TIME INSTILL 1 DROP IN EACH EYE AT NIGHT TIME SOLD: 06/02/2021 [facility] 1.25 mg 01/01/2021 12:00:00 AM EDT tablet 90 TAKE ONE TABLET BY MOUTH EVERY DAY TAKE ONE TABLET BY MOUTH EVERY DAY SOLD: 01/05/2021 [facility] 0.005 % 01/01/2021 12:00:00 AM EDT drops 7 INSTILL 1 DROP IN EACH EYE AT NIGHT TIME INSTILL 1 DROP IN EACH EYE AT NIGHT TIME SOLD: 03/20/2021 [facility] 0.005 % 01/01/2021 12:00:00 AM EDT drops 7 INSTILL 1 DROP IN EACH EYE AT NIGHT TIME INSTILL 1 DROP IN EACH EYE AT NIGHT TIME SOLD: 01/05/2021 [facility] 5 mg 01/01/2021 12:00:00 AM EDT tablet 45 TAKE ONE-HALF TABLET BY MOUTH EVERY DAY TAKE ONE-HALF TABLET BY MOUTH EVERY DAY SOLD: 01/05/2021 [facility] 1.25 mg 01/01/2021 12:00:00 AM EDT tablet 90 TAKE ONE TABLET BY MOUTH EVERY DAY TAKE ONE TABLET BY MOUTH EVERY DAY SOLD: 04/05/2021 [facility] Ibuprofen 200 MG Oral Tablet Ibuprofen 200 12/29/2020 12:00:00 AM EDT ORAL active [facility] ([facility]) Calcium 1000 + D 12/29/2020 12:00:00 AM EDT ORAL a ctive [facility] ([facility]) Preservision Areds 2 12/29/2020 12:00:00 AM EDT ORAL active [facility] ([facility]) Omeprazole 20 MG Delayed Release Oral Capsule Omeprazole 12/29/2020 12:00:00 AM EDT ORAL active [facility] ([facility]) Lutein 20 MG Oral Tablet Lutein 12/29/2020 12:00:00 AM EDT ORAL active [facility] ([facility] Magnesium Oxide 400 MG Oral Tablet Magnesium Oxide 12/29/2020 12:00 :00 AM EDT ORAL active [facility] ([facility]) QC Tumeric Complex 12/29/2020 12:00:00 AM EDT ORAL active [facility] ([facility]) Menthol 0.04 MG/MG Topical Gel [Biofreeze] Biofreeze 12/29 12:00:00 AM EDT active [facility] ( [facility]) coenzyme Q10 200 MG Oral Capsule Coq10 12/29/2020 12:00:00 AM EDT ORAL active [facility] ([facility]) 20 mg 12/09/2020 12:00:00 AM EDT capsule,delayed release (DR/EC) 30 TAKE 1 CAPSULE BY MOUTH 30 MINUTES BEFORE MORNING MEAL ONCE DAILY TAKE 1 CAPSULE BY MOUTH 30 MINUTES BEFORE MORNING MEAL ONCE DAILY SOLD: 12/10/2020 [facility] latanoprost 0.05 MG/ML Ophthalmic Soluti on Latanoprost 0.005% Ophthalmic Solution Latanoprost 0.005% Ophthalmic Solution 12/04/2020 12:00:00 AM EDT 1 active latanoprost 0.05 MG/ ML Ophthalmic Solution [place] ([facility]) 30 ACTUAT fluticasone furoate 0.1 MG/ACT UAT / umeclidinium 0.0625 MG/ACTUAT / vilanterol 0.025 MG/ACTUAT Dry Powder Inhaler [Trelegy] 100-62.5-25 mcg FLUTICASONE/UMECLIDIN/VILANTER 11/25/2020 12:00:00 AM EDT blister with device 60 INHALE ONE PUFF BY MOUTH EVERY DAY INHALE ONE PU FF BY MOUTH EVERY DAY SOLD: 01/28/2021 [facility] 30 ACTUAT fluticasone furoate 0.1 MG/ACT UAT / umeclidinium 0.0625 MG/ACTUAT / vilanterol 0.025 MG/ACTUAT Dry Powder Inhaler [Trelegy] 100-62.5-25 mcg FLUTICASONE/UMECLIDIN/VILANTER 11/25/2020 12:00:00 AM EDT blister with device 60 INHALE ONE PUFF BY MOUTH EVERY DAY INHALE ONE PU FF BY MOUTH EVERY DAY SOLD: 12/29/2020 [facility] 100-62.5-25 mcg 11/25/2020 12:00:00 AM EDT blister with lynda ce 60 INHALE ONE PUFF BY MOUTH EVERY DAY INHALE ONE PUFF BY MOUTH EVERY DAY SOLD: 11/25/2020 [facility] 20 mEq 10/30/2020 12:00:00 AM EST tablet extended release 90 TAKE ONE TABLET BY MOUTH EVERY DAY TAKE ONE TABLET BY MOUTH EVERY DAY SOLD: 10/30/2020 [facility] 20 mEq 10/30/2020 12:00:00 AM EST tablet extended release 90 TAKE ONE TABLET BY MOUTH EVERY DAY TAKE ONE TABLET BY MOUTH EVERY DAY SOLD: 01/28/2021 [facility] Covid-19 vaccine, Unspecified 10/19/2020 12:00:00 AM EST completed [facility] ([facility], ) Medication administered onsite Omeprazole 20 MG Delayed Release Oral Capsule Omeprazole 20 MG 10/11/2020 12:00:00 AM EST active Omeprazo le 20 MG eCW1 ([facility]) 20 mg 10/11/2020 12:00:00 AM EST capsule,delayed release (DR/EC) 30 TAKE ONE CAPSULE BY MOUTH EVERY MORNING TAKE ONE CAPSULE BY MOUTH EVERY MORNING SOLD: 10/11/2020 [facility] Omeprazole 20 MG Delayed Release Oral Capsule Omeprazole 20 MG 10/11/2020 12:00:00 AM EST active Omeprazo le 20 MG eCW1 ([facility]) 20 mg 10/11/2020 12:00:00 AM EST capsule,delayed release (DR/EC) 30 TAKE ONE CAPSULE BY MOUTH EVERY MORNING TAKE ONE CAPSULE BY MOUTH EVERY MORNING SOLD: 11/08/2020 [facility] Omeprazole 20 MG Delayed Release Oral Capsule Omeprazole 20 MG 10/11/2020 12:00:00 AM EST active Omeprazo le 20 MG eCW1 ([facility]) Omeprazole 20 MG Delayed Release Oral Capsule Omeprazole 20 MG 10/11/2020 12:00:00 AM EST active Omeprazo le 20 MG eCW1 ([facility]) Dexamethasone 6 MG Oral Tablet Dexamethasone 6 MG 10/03/2020 12:00: 00 AM EST active Dexamethasone 6 MG eCW1 ([facility]) Dexamethasone 6 MG Oral Tablet Dexamethasone 6 MG 10/03/2020 12:00: 00 AM EST active Dexamethasone 6 MG eCW1 ([facility]) Dexamethasone 6 MG Oral Tablet Dexamethasone 6 MG 10/03/2020 12:00: 00 AM EST active Dexamethasone 6 MG eCW1 ([facility]) Dexamethasone 6 MG Oral Tablet Dexamethasone 6 MG 10/03/2020 12:00: 00 AM EST active Dexamethasone 6 MG eCW1 ([facility]) 6 mg 10/03/2020 12:00:00 AM EST tablet 6 TAKE ONE TABLET BY MOUTH EVERY DAY FOR 6 DAYS TAKE ONE TABLET BY MOUTH EVERY DAY FOR 6 DAYS SOLD: 10/03/2020 [facility] Dexamethasone 6 MG Oral Tablet Dexamethasone 6 MG 10/03/2020 12:00: 00 AM EST active Dexamethasone 6 MG eCW1 ([facility]) Dexamethasone 6 MG Oral Tablet Dexamethasone 6 MG 10/03/2020 12:00: 00 AM EST active Dexamethasone 6 MG eCW1 ([facility]) 20-100 mcg/actuation 10/01/2020 12:00:00 AM EST mist 4 INHALE ONE PUFF BY MOUTH FOUR TIMES A DAY INHALE ONE PUFF BY MOUTH FOUR TIMES A DAY SOLD: 10/01/2020 [facility] 2 mg 10/01/2020 12:00:00 AM EST tablet 3 TAKE 3 TABLETS BY MOUTH WITH FOOD A SINGLE DOSE TAKE 3 TABLETS BY MOUTH WITH FOOD A SINGLE DOSE MELVIN [facility] Famotidine 20 MG Oral Tablet FAMOTIDINE 10/01/2020 12:00:00 AM EST tab let 20 TAKE TWO TABLETS BY MOUTH AT BEDTIME TAKE TWO TABLETS BY MOUTH AT BEDTIME SOLD: 10/01/2020 [facility] Covid-19 vaccine, Unspecified 09/28/2020 12:00:00 AM EST completed [facility] ([facility], ) Medication administered onsite 100-62.5-25 mcg 08/27/2020 12:00:00 AM EST blister with lynda ce 60 INHALE ONE PUFF BY MOUTH EVERY DAY INHALE ONE PUFF BY MOUTH EVERY DAY SOLD: 10/01/2020 [facility] 100-62.5-25 mcg 08/27/2020 12:00:00 AM EST blister with lynda ce 60 INHALE ONE PUFF BY MOUTH EVERY DAY INHALE ONE PUFF BY MOUTH EVERY DAY SOLD: 10/28/2020 [facility] 100-62.5-25 mcg 08/27/2020 12:00:00 AM EST blister with lynda ce 60 INHALE ONE PUFF BY MOUTH EVERY DAY INHALE ONE PUFF BY MOUTH EVERY DAY SOLD: 08/30/2020 [facility] 5 mg 08/20/2020 12:00:00 AM EST tablet 180 TAKE ONE TABLET BY MOUTH TWICE A DAY TAKE ONE TABLET BY MOUTH TWICE A DAY SOLD: 08/21/2020 [facility] 5 mg 08/20/2020 12:00:00 AM EST tablet 180 TAKE ONE TABLET BY MOUTH TWICE A DAY TAKE ONE TABLET BY MOUTH TWICE A DAY SOLD: 11/17/2020 [facility] 5-325 mg 07/18/2020 12:00:00 AM [...] TWICE A DAY SOLD: 07/18/2020 [facility] Trelegy Ellipta Trelegy Ellipta 06/24/2020 12:00:00 AM EDT RESPIRATORY active [facility] ([facility]) 200 ACTUAT Albuterol 0.09 MG/ACTUAT Metered Dose Inhal er [Ventolin] Ventolin HFA 06/24/2020 12:00:00 AM EDT RESPIRATORY active [facility] ([facility]) latanoprost 0.05 MG/ML Ophthalmic Solution Latanoprost 06/24/2020 12:00:00 AM EDT OPHTHALMIC active [facility] ([facility]) irbesartan 300 MG Oral Tablet Irbesartan 300 MG Oral T ablet Irbesartan 300 MG Oral Tablet 06/05/2020 12:00:00 AM EDT 1 active irbesartan 300 MG Oral Tablet [place] ([facility]) Amlodipine 5 MG Oral Tablet amLODIPine Besylate 5 MG O ral Tablet amLODIPine Besylate 5 MG Oral Tablet 06/05/2020 12:00:00 AM EDT 1 active amlodipine 5 MG Oral Tablet [facility] ([facility]) 200 ACTUAT Albuterol 0.09 MG/ACTUAT Mete red Dose Inhaler [Ventolin] Ventolin HFA 108 (90 Base) MCG/ACT Inhalation Aerosol Solution Ventolin HFA 108 (90 Base) MCG/ACT Inhalation Aerosol Solution 06/05/2020 12:00:00 AM EDT 1 active [id number] 200 ACTUAT albuter ol 0.09 MG/ACTUAT Metered Dose Inhaler [Ventolin] [facility] ([facility]) Bisoprolol Fumarate 5 MG Oral Tablet Bisoprolol Fumarate 5 M G Oral Tablet 06/05/2020 12:00:00 AM EDT 1 active bisoprolol fumarate 5 MG Oral Tablet [facility] ([facility]) Rosuvastatin calcium 10 MG Oral Tablet Rosuvastatin Ca lcium 10 MG Oral Tablet Rosuvastatin Calcium 10 MG Oral Tablet 06/05/2020 12:00:00 AM EDT 1 active rosuvastatin calcium 10 MG Oral Tablet [facility] ([facility]) Famotidine 40 MG Oral Tablet Famotidine 40 MG Oral Tablet 12:00:00 AM EDT 1 active famotidine 40 MG Oral Tablet [facility] ([facility]) Indapamide 1.25 MG Oral Tablet Indapamide 1.25 MG Oral Table t 06/05/2020 12:00:00 AM EDT 1 active indapami de 1.25 MG Oral Tablet [facility] ([facility]) Trelegy Ellipta 100-62.5-25 MCG/INH Inhalation Aerosol Powder Breath Activated Trelegy Ellipta 100-62.5-25 MCG/INH Inhalation Aerosol Powder Breath Activated 06/05/2020 12:00:00 AM EDT active 30 ACTUAT fluticasone furoate 0.1 MG/ACTUAT / umeclidinium 0.0625 MG/ACTUAT / vilanterol 0.025 MG/ACTUAT Dry Powder Inhaler [Trelegy] [facility] ([facility]) 90 mcg/actuation 06/04/2020 12:00:00 AM EDT HFA aerosol inha ler 18 INHALE TWO PUFFS BY MOUTH FOUR TIMES A DAY NEEDED INHALE TWO PUFFS BY MOUTH FOUR TIMES A DAY NEEDED SOLD: 06/04/2020 [facility] 90 mcg/actuation 06/04/2020 12:00:00 [...] TIMES A DAY NEEDED SOLD: 07/01/2020 [facility] Trelegy Ellipta Trelegy Ellipta 06/03/2020 12:00:00 AM EDT ORAL active [facility] ([facility], ) 100-62.5-25 mcg 06/03/2020 12:00:00 AM EDT blister with lynda ce 60 INHALE ONE PUFF BY MOUTH EVERY DAY INHALE ONE PUFF BY MOUTH EVERY DAY SOLD: 08/02/2020 [facility] 100-62.5-25 mcg 06/03/2020 12:00:00 AM EDT blister with lynda ce 60 INHALE ONE PUFF BY MOUTH EVERY DAY INHALE ONE PUFF BY MOUTH EVERY DAY SOLD: 06/03/2020 [facility] 200 ACTUAT Albuterol 0.09 MG/ACTUAT Metered Dose Inhal er [Ventolin] Ventolin HFA 06/03/2020 12:00:00 AM EDT RESPIRATORY active [facility] ([facility], ) 100-62.5-25 mcg 06/03/2020 12:00:00 AM EDT blister with lynda ce 60 INHALE ONE PUFF BY MOUTH EVERY DAY INHALE ONE PUFF BY MOUTH EVERY DAY SOLD: 07/01/2020 [facility] 20 mEq 05/30/2020 12:00:00 AM EDT tablet extended release 90 TAKE ONE TABLET BY MOUTH EVERY DAY WITH FOOD TAKE ONE TABLET BY MOUTH EVERY DAY WITH FOOD SOLD: 06/03/2020 [facility] Diphenhydramine Citrate 38 MG / Ibuprofen 200 MG Oral Tablet Ibuprofen PM 05/07/2020 12:00:00 AM EDT ORAL active [facility] ([facility]) Famotidine 40 MG Oral Tablet Famotidine 05/07/2020 12:00:00 AM EDT ORAL active [facility] ([facility]) Polyethylene Glycol 400 4 MG/ML / Propyl kristina glycol 3 MG/ML Ophthalmic Solution [Systane] Systane 05/07/2020 12:00:00 AM EDT activ e [facility] ([facility]) Glucosamine Chondroitin Complex 05/07/2020 12:00:00 AM EDT ORAL active [facility] ([facility]) 20 mEq 05/04/2020 12:00:00 AM EDT tablet,ER particles/cry stals 90 TAKE ONE TABLET BY MOUTH EVERY DAY TAKE ONE TABLET BY MOUTH EVERY DAY SOLD: 05/07/2020 [facility] Bisoprolol Fumarate 5 MG Oral Tablet Bisoprolol Fumarate 12:00:00 AM EDT ORAL active [facility] ([facility]) 5 mg 04/24/2020 12:00:00 AM EDT tablet 45 TAKE ONE-HALF TABLET BY MOUTH EVERY DAY TAKE ONE-HALF TABLET BY MOUTH EVERY DAY SOLD: 04/24/2020 [facility] 5 mg 04/24/2020 12:00:00 AM EDT tablet 45 TAKE ONE-HALF TABLET BY MOUTH EVERY DAY TAKE ONE-HALF TABLET BY MOUTH EVERY DAY SOLD: 07/18/2020 [facility] 5 mg 04/24/2020 12:00:00 AM EDT tablet 45 TAKE ONE-HALF TABLET BY MOUTH EVERY DAY TAKE ONE-HALF TABLET BY MOUTH EVERY DAY SOLD: 10/14/2020 [facility] Rosuvastatin calcium 10 MG Oral Tablet ROSUVASTATIN CALCIUM 04/22/2020 12:00:00 AM EDT tablet 90 TAKE ONE TABLET BY MOUTH AT BEDTIME TAKE ONE TABLET BY MOUTH AT BEDTIME SOLD: 10/14/2020 [facility] 10 mg 04/22/2020 12:00:00 AM EDT tablet 90 TAKE ONE TABLET BY MOUTH AT BEDTIME TAKE ONE TABLET BY MOUTH AT BEDTIME SOLD: 04/24/2020 [facility] 10 mg 04/22/2020 12:00:00 AM EDT tablet 90 TAKE ONE TABLET BY MOUTH AT BEDTIME TAKE ONE TABLET BY MOUTH AT BEDTIME SOLD: 07/18/2020 [facility] 5 mg 04/15/2020 12:00:00 AM EDT tablet 90 TAKE ONE TABLET BY MOUTH TWICE A DAY TAKE ONE TABLET BY MOUTH TWICE A DAY SOLD: 06/03/2020 [facility] 0.005 % 04/04/2020 12:00:00 AM EDT drops 7 PLACE 1 DROP IN EACH EYE AT BEDTIME PLACE 1 DROP IN EACH EYE AT BEDTIME SOLD: 08/30/2020 [facility] Atorvastatin 10 mg Oral Tablet Atorvastatin 10 mg Oral Table t 04/04/2020 12:00:00 AM EDT 1 aborted Atorvas tatin 10 mg [facility] ([facility]) latanoprost 0.05 MG/ML Ophthalmic Soluti on Latanoprost 0.005% Ophthalmic Solution Latanoprost 0.005% Ophthalmic Solution 04/04/2020 12:00:00 AM EDT 1 aborted latanoprost 0.05 MG/ ML Ophthalmic Solution [facility] ([facility]) 0.005 % 04/04/2020 12:00:00 AM EDT drops 7 PLACE 1 DROP IN EACH EYE AT BEDTIME PLACE 1 DROP IN EACH EYE AT BEDTIME SOLD: 06/19/2020 [facility] 0.005 % 04/04/2020 12:00:00 AM EDT drops 7 PLACE 1 DROP IN EACH EYE AT BEDTIME PLACE 1 DROP IN EACH EYE AT BEDTIME SOLD: 11/11/2020 [facility] Famotidine 40 MG Oral Tablet FAMOTIDINE 03/19/2020 12:00:00 AM EDT tab let 90 TAKE ONE TABLET BY MOUTH AT BEDTIME TAKE ONE TABLET BY MOUTH AT BEDTIME SOLD: 09/17/2020 [facility] 40 mg 03/19/2020 12:00:00 AM EDT tablet 90 TAKE ONE TABLET BY MOUTH AT BEDTIME TAKE ONE TABLET BY MOUTH AT BEDTIME SOLD: 06/19/2020 [facility] Famotidine 40 MG Oral Tablet FAMOTIDINE 03/19/2020 12:00:00 AM EDT tab let 90 TAKE ONE TABLET BY MOUTH AT BEDTIME TAKE ONE TABLET BY MOUTH AT BEDTIME SOLD: 12/17/2020 [facility] 300 mg 02/16/2020 12:00:00 AM EDT tablet 90 TAKE ONE TABLET BY MOUTH EVERY DAY AT BEDTIME TAKE ONE TABLET BY MOUTH EVERY DAY AT BEDTIME SOLD: 05/16/2020 [facility] 300 mg 02/16/2020 12:00:00 AM EDT tablet 90 TAKE ONE TABLET BY MOUTH EVERY DAY AT BEDTIME TAKE ONE TABLET BY MOUTH EVERY DAY AT BEDTIME SOLD: 08/16/2020 [facility] 300 mg 02/16/2020 12:00:00 AM EDT tablet 90 TAKE ONE TABLET BY MOUTH EVERY DAY AT BEDTIME TAKE ONE TABLET BY MOUTH EVERY DAY AT BEDTIME SOLD: 11/14/2020 [facility] 1.25 mg 01/23/2020 12:00:00 AM EDT tablet 90 TAKE ONE TABLET BY MOUTH EVERY DAY TAKE ONE TABLET BY MOUTH EVERY DAY SOLD: 10/14/2020 [facility] 1.25 mg 01/23/2020 12:00:00 AM EDT tablet 90 TAKE ONE TABLET BY MOUTH EVERY DAY TAKE ONE TABLET BY MOUTH EVERY DAY SOLD: 07/18/2020 [facility] 1.25 mg 01/23/2020 12:00:00 AM EDT tablet 90 TAKE ONE TABLET BY MOUTH EVERY DAY TAKE ONE TABLET BY MOUTH EVERY DAY SOLD: 04/24/2020 [facility] Spironolactone 25MG Oral Tablet Spironolactone 25MG Oral Tab let 01/31/2019 12:00:00 AM EDT 1 aborted Spirono lactone [facility] ([facility]) Magnesium-Vitamin D3-Turmeric [phone]-UNIT-MG O ral Capsule, conventional Magnesium-Vitamin D3-Turmeric [phone]-UNIT-MG Oral Capsule, conventional 08/05/2016 12:00:00 AM EST 1 aborted Magnesium-Vitamin D3-Turmeric [facility] ([facility]) Omeprazole 20 MG Delayed Release Oral Ca psule Omeprazole 20 MG Capsule, delayed-release Omeprazole 20 MG Capsule, delayed-release 03/11/2015 1 2:00:00 AM EDT 1 aborted omeprazole 20 MG Delayed Release Oral Capsule [facility] ([facility]) Amlodipine 10 MG Oral Tablet amLODIPine Besylate 10 MG OR TABS amLODIPine Besylate 10 MG OR TABS 03/07/2013 12:00:00 AM EDT 1 aborted amlodipine 10 MG Oral Tablet [facility] ([facility]) Insurance Providers Payer name Policy type / Coverage type Policy ID Covered alliance party ID Covered alliance party's relationship to [place] Policy [place] Plan Information MVP (pr) Commercial [id number] Self [id number] MVP (pr) Commercial [id number] Self [id number] MVP (pr) Commercial [id number] Self [id number] A MEDICARE [id number] SP [id number] A MEDICARE [id number] SP [id number] A MEDICARE [id number] SP [id number] A MEDICARE [id number] SP [id number] A MEDICARE [id number] SP [id number] MEDICAID [id number] SP [id number] MEDICAID [id number] SP [id number] MEDICAID [id number] SP [id number] [facility] [id number] [facility] Part B [id number] MEDICARE [id number] SP [id number] A [facility] [id number] [facility] B [id number] [facility]-Medicare Part B [id number] [facility]-Medicaid [id number] Medicaid Medigap Part B [id number] 4.0 Self [id number] Medicare (Part B) Medicare Primary [id number] Self [id number] Medicaid Medigap Part B [id number] 4.0 Self [id number] Medicare (Part B) Medicare Primary [id number] Self [id number] [facility]-Medicaid [id number] ANSI-Medicare Part B [id number] [facility] B [id number] [facility]-Medicaid [id number] Medicaid [place] Medigap Part B [id number] Self [id number] [place] Medicare Primary [id number] Self [id number] ANSI-Medicaid [id number] ANS-Medicare Part B [id number] Medicaid [place] Medigap Part B [id number] Self [id number] Medicare [place]/[facility] Medicare Primary [id number] Self [id number] Medicare [facility] Medicare Primary [id number] Self [id number] [place] [id number] [id number] Self [id number] [place] Primary [id number] Self 7 [id number] Medicaid [place] Medigap Part [place] [id number] [id number] Self [id number] [place] Medicare Primary [id number] Self 7 [id number] Medicaid [place] Medigap Part B [id number] [id number] Self [id number] Medicare [facility] Medicare Primary [id number] Self [id number] MEDICARE PART A [facility] [id number] Medicare Part B [facility] Other 0 [id number] S elf 0 [place] [id number] Self [id number] [place] Medicare Primary [id number] Self 0 [id number] Medicaid Medigap Part B [id number] 4.0 Self [id number] Medicare (Part B) Medicare Primary [id number] Self 0 [id number] Medicaid Medigap Part B [id number] 4.0 Self [id number] Medicare (Part B) Medicare Primary [id number] Self 0 [id number] [place] [id number] Self [id number] [place] Medicare Primary [id number] Self 0 [id number] Medicaid [place] Medigap Part B [id number] Self [id number] [place] Medicare Primary [id number] Self 0 [id number] Medicare (Part B) Medicare Primary [id number] Self Medicaid Medigap Part B 2 1 [id number] Self 2 1 MEDICARE C [id number] S [id number] A Medicare Natl Gov't Servi Medicare Primary [id number] Self Medicare [place] [id number] Self [id number] MEDICARE [id number] SP [id number] MEDICARE PART A [facility] [id number] 18 [id number] MEDICAID -PHYSICIAN [id number] MEDICAID [id number] Medicare Part B of [facility] Other 0 [id number] Self 0 [place] [id number] SP [id number] MEDICARE C [id number] S [id number] MEDICAID M [id number] S [id number] Medicare Part B [facility] Other 0 [id number] Self 0 Medicare Part B of [facility] Other 0 [id number] Self 0 Problems, Conditions, and Diagnoses Code Display Name Description Problem Type Effective Dates Data Source(s) L84 Corns and callosities Corns and callosities Diagnosis 06/03/2021 10:37:00 AM [facility] B351 Tinea unguium Tinea unguium Diagnosis 06/03/2021 10:37:00 AM [facility] M2041 Other hammer toe(s) (acquired), right fo ot Other hammer toe(s) (acquired), right foot Diagnosis 06/03/2021 10:37:00 AM [facility] M2010 Hallux valgus (acquired), unspecified fo ot Hallux valgus (acquired), unspecified foot Diagnosis 06/03/2021 10:37:00 AM EDT [facility] 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 Diagnosis 06/03/2021 10:37:00 AM EDT [facility] H25.11 [id number] Age-related nuclear cataract, right ey e Problem 05/16/2021 12:00:00 AM EDT eCW1 ([facility]) H25.12 [id number] Age-related nuclear cataract, left eye Problem 05/16/2021 12:00:00 AM EDT eCW1 ([facility]) E04.1 [id number] Thyroid nodule Problem 03/18/2021 12:00:00 A M EDT eCW1 ([facility]) 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 of left hip Problem 10/11/2020 12:00:00 AM EST eCW1 ([facility]) K21.9 [id number] Gastroesophageal ref lux disease, unspecified whether esophagitis present Problem 10/11/2020 12:00:00 AM EST eCW1 [facility] [id number] Excess skin of eyelid (finding) Dermatochalasis Both E yelids Finding 06/05/2020 03:07:00 PM EDT ANN (Jay Jay Ferrera MD [facility]) [id number] Excess skin of eyelid (finding) Dermatochalasis Both E yelids Finding 06/05/2020 03:07:00 PM EDT ANN (Jay Jay Ferrera MD [facility]) 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 Problem 0 04/24/2020 12:00:00 AM EDT MEDENT ([facility], ) Z87.891 Ex-smoker Ex-smoker Problem 04/24/2020 12:00:00 AM ED T MEDENT ([facility], ) Surgeries/Procedures Procedure Description Date Indications Data Source(s) Pare Hyperkeratotic Lesion, 2-4 06/03/2021 12:00:00 AM EDT MEDENT ([facility]) Debridement Nails Any Method 6 Or More 06/03/2021 12:0 0:00 AM EDT MEDENT ([facility]) ECG ROUTINE ECG W/LEAST 12 LDS W/I&R 05/16/2021 12:00: 00 AM EDT eCW1 ([facility]) Spirometry 04/09/2021 12:00:00 AM EDT M EDENT ([facility], ) OFFICE OUTPATIENT VISIT 15 MINUTES 04/09/2021 12:00:00 AM EDT MEDENT ([facility]) Pare Hyperkeratotic Lesion, 2-4 03/17/2021 12:00:00 AM EDT MEDENT ([facility]) Debridement Nails Any Method 6 Or More 03/17/2021 12:0 0:00 AM EDT MEDENT ([facility]) Spirometry 01/07/2021 12:00:00 AM EDT M EDENT ([facility]) OFFICE OUTPATIENT VISIT 25 MINUTES 01/07/2021 12:00:00 AM EDT MEDENT ([facility]) Pare Hyperkeratotic Lesion, 2-4 12/31/2020 12:00:00 AM EDT MEDENT ([facility]) Debridement Nails Any Method 6 Or More 12/31/2020 12:0 0:00 AM EDT MEDENT ([facility]) ECG ROUTINE ECG W/LEAST 12 LDS W/I&R 12/30/2020 12:00: 00 AM EDT MEDENT ([facility]) Comprehensive eye exam established patient (25) Compre hensive eye exam established patient (25) 12/04/2020 12:00:00 AM EDT ANN (Jay Jay Ferrera MD [facility]) COMPUTERIZED OPHTHALMIC IMAGING OPTIC NERVE Scodi, opt ic nerve with interpretation and report ([place]) 12/04/2020 12:00:00 AM EDT GR EENWAY (Jay Jay Ferrera MD [facility]) Pare Hyperkeratotic Lesion, 2-4 10/17/2020 12:00:00 AM EST MEDENT ([facility]) Debridement Nails Any Method 6 Or More 10/17/2020 12:0 0:00 AM EST MEDENT ([facility]) THERAPEUTIC PX 1/> AREAS EACH 15 MIN EXERCISES 12:00:00 AM EST MEDENT ([facility]) MANUAL THERAPY TQS 1/> REGIONS EACH 15 MINUTES 12:00:00 AM EST MEDENT ([facility]) THERAPEUTIC PX 1/> AREAS EACH 15 MIN EXERCISES 12:00:00 AM EST MEDENT ([facility]) MANUAL THERAPY TQS 1/> REGIONS EACH 15 MINUTES 12:00:00 AM EST MEDENT ([facility]) Physical Therapy Eval - Low Complexity 08/06/2020 12:0 0:00 AM EST MEDENT ([facility]) Pare Hyperkeratotic Lesion, 2-4 08/01/2020 12:00:00 AM EST MEDENT ([facility]) Debridement Nails Any Method 6 Or More 08/01/2020 12:0 0:00 AM EST MEDENT ([facility]) ECG ROUTINE ECG W/LEAST 12 LDS W/I&R 06/25/2020 12:00: 00 AM EDT MEDENT ([facility]) Intermediate Eye Exam Established Patient Intermediate Eye Exam Established Patient 06/05/2020 12:00:00 AM EDT ANN (Saeid Ferrera MD [facility]) Intermediate Eye Exam Established Patient Intermediate Eye Exam Established Patient 06/05/2020 12:00:00 AM EDT ANN (Saeid Ferrera MD [facility]) Aerosol Or Vapor Inhalations 06/03/2020 12:00:00 AM ED T MEDENT ([facility], ) Pare Hyperkeratotic Lesion, 2-4 05/22/2020 12:00:00 AM EDT MEDENT ([facility]) Debridement Nails Any Method 6 Or More 05/22/2020 12:0 0:00 AM EDT MEDENT ([facility]) Bronchospasm Evaluation 04/30/2020 12:00:00 AM EDT MEDENT ([facility], ) Maximum Breathing Capacity, Maximal Voluntary Ventilation 04/30/2020 12:00:00 AM EDT MEDENT ([facility] Plethysmography Determination Lung Volumes & Per Airway Resi st 04/30/2020 12:00:00 AM EDT MEDENT ([facility] ) DIFFUSING CAPACITY 04/30/2020 12:00:00 AM EDT MEDENT ([facility]) Results ID Date Data Source [id number] 05/21/2021 09:40:00 AM EDT [facility] Name Value Range Interpretation Code Description Data María Elena rce(s) Supporting Document(s) SARS-CoV-2 (COVID-19) RNA [Presence] in Respiratory specimen by APOLLO with probe detection Not Detected [facility] This lab was ordered by [facility] and reported by [employer]. ID Date Data Source [id number] 04/09/2021 09:51:00 AM EDT MEDENT ([facility], ) Name Value Range Interpretation Code Description Data María Elena rce(s) Supporting Document(s) PDFReport Laboratory test result MEDENT ([facility], ) FVC-Pred 2.12 L MEDENT ([facility]) FVC-Pre 2.56 L MEDENT ([facility]) FVC-%Pred-Pre 120 L MEDENT ([facility]) FVC-LLN 1.49 L MEDENT ([facility]) Fev1-Pred 1.56 L MEDENT ([facility]) Fev1-Pre 1.90 L MEDENT ([facility]) Fev1-%Pred-Pre 122 L MEDENT ([facility]) Fev6-Pre 2.56 L MEDENT ([facility]) Fev6-Pred 1.99 L MEDENT ([facility]) Fev1-LLN 1.02 L MEDENT ([facility]) Fev6-LLN 1.37 L MEDENT ([facility]) Fev6-%Pred-Pre 128 L MEDENT ([facility]) Fzn8hae-Eruz 73 % MEDENT ([facility]) Yyf3xjb-Dfp 74 % MEDENT ([facility]) Jxi9dxt-Gsrr 94 % MEDENT ([facility]) Bdg1fpp-%Pred-Pre 101 % MEDENT ([facility]) Vcd2wrr-POA 63 % MEDENT ([facility]) Zmx1htx-%Pred-Pre 106 % MEDENT ([facility]) Cdi2kxv-Fqt 100 % MEDENT ([facility]) FEFMax-Pre 5.21 L/E/sec MEDENT ([facility]) FEFMax-Pred 4.05 L/E/sec MEDENT ([facility]) FEFMax-LLN 2.49 L/E/sec MEDENT ([facility]) FEFMax-%Pred-Pre 128 L/E/sec MEDENT ([facility]) Vea2647-Mstj 1.09 L/E/sec MEDENT ([facility]) Emv3769-BTI -0.04 L/E/sec MEDENT ([facility]) Dqk0417-Nbx 1.40 L/E/sec MEDENT ([facility]) Zvw5783-%Pred-Pre 129 L/E/sec MEDENT ([facility]) ExpTime-Pre 5.29 sec MEDENT ([facility]) Mii3sjm4-Ompw 77 % MEDENT ([facility]) Gpl4gvi4-Yju 74 % MEDENT ([facility]) Yyn4stc8-%Pred-Pre 96 % MEDENT ([facility]) Ybq5lnc1-YBX 68 % MEDENT ([facility]) ID Date Data Source [id number] 01/07/2021 11:19:00 AM EDT MEDENT ([facility]) Name Value Range Interpretation Code Description Data María Elena rce(s) Supporting Document(s) PDFReport Laboratory test result MEDENT ([facility]) FVC-Pred 2.12 L MEDENT ([facility]) FVC-%Pred-Pre 120 L MEDENT ([facility]) FVC-LLN 1.49 L MEDENT ([facility]) FVC-Pre 2.57 L MEDENT ([facility], ) Fev1-Pred 1.56 L MEDENT ([facility]) Fev1-Pre 1.92 L MEDENT ([facility]) Fev1-%Pred-Pre 123 L MEDENT ([facility]) Fev1-LLN 1.02 L MEDENT ([facility]) Fev6-Pre 2.57 L MEDENT ([facility]) Fev6-Pred 1.99 L MEDENT ([facility]) Fev6-%Pred-Pre 129 L MEDENT ([facility]) Fev6-LLN 1.37 L MEDENT ([facility]) Dfv4dnw-Rnqc 73 % MEDENT ([facility]) Bzw7qnw-Qwr 75 % MEDENT ([facility]) Hrz2dus-NZE 63 % MEDENT ([facility]) Rfg0hip-%Pred-Pre 102 % MEDENT ([facility]) Ivb2btz-%Pred-Pre 106 % MEDENT ([facility]) Vpc2nrt-Cgpt 94 % MEDENT ([facility]) Ofe3uqm-Aax 100 % MEDENT ([facility]) FEFMax-Pred 4.05 L/E/sec MEDENT ([facility]) FEFMax-Pre 7.17 L/E/sec MEDENT ([facility]) FEFMax-LLN 2.49 L/E/sec MEDENT ([facility]) FEFMax-%Pred-Pre 177 L/E/sec MEDENT ([facility]) Knd5761-Efl 1.36 L/E/sec MEDENT ([facility]) Eip8302-Rsow 1.09 L/E/sec MEDENT ([facility]) Fjk5778-XJG -0.04 L/E/sec MEDENT ([facility]) Fob8643-%Pred-Pre 125 L/E/sec MEDENT ([facility]) ExpTime-Pre 5.96 sec MEDENT ([facility]) Eit1wap0-Cttz 77 % MEDENT ([facility]) Xqd1ehn7-Jlg 75 % MEDENT ([facility]) Dgs1soo6-PWG 68 % MEDENT ([facility], ) Cqs8wfr0-%Pred-Pre 96 % MEDENT ([facility]) ID Date Data Source [id number] 10/11/2020 03:11:00 PM EST MEDENT ([facility]) Name Value Range Interpretation Code Description Data María Elena rce(s) Supporting Document(s) Magnesium Level 1.6 1.8-2.4 MEDENT ([facility]) ID Date Data Source [id number] 10/11/2020 03:11:00 PM EST MEDENT ([facility]) Name Value Range Interpretation Code Description Data María Elena rce(s) Supporting Document(s) Sodium 136 MEDENT ([facility] Calcium [Mass/volume] in Serum or Plasma 9.6 MEDENT ([facility]) Carbon dioxide, total [Moles/volume] in Serum or Plasma 26 MEDENT ([facility]) Chloride [Moles/volume] in Serum or Plasma 100 MEDENT ([facility]) Blood Urea Nitrogen 24 7-18 MEDENT ([facility]) Potassium [Moles/volume] in Serum or Plasma 4.3 MEDENT ([facility]) Glucose 87 70-100 MEDENT ([facility] Glomerular filtration rate/1.73 sq M.pre dicted [Volume Rate/Area] in Serum or Plasma by Creatinine-based formula (MDRD) Laboratory test result MEDENT ([facility]) Creatinine 0.90 0.55-1.30 MEDENT ([facility]) ID Date Data Source MAGNESIUM LEVEL 10/11/2020 12:00:00 AM EST eCW1 ([facility] Name Value Range Interpretation Code Description Data María Elena rce(s) Supporting Document(s) 1.6 1.8-2.4 MAGNESIUM LEVEL eCW1 ([facility]) ID Date Data Source Basic Metabolic Profile (BMP) 10/11/2020 12:00:00 AM EST eCW 1 ([facility]) Name Value Range Interpretation Code Description Data María Elena rce(s) Supporting Document(s) 87 70-100 GLUCOSE, FASTING eCW1 ([facility]) 24 7-18 BLOOD UREA NITROGEN eCW1 ([facility]) 136 136-145 SODIUM LEVEL eCW1 ([facility]) > 60.0 >32 GLOMERULAR FILTRATION RATE eCW 1 ([facility]) 0.90 0.55-1.30 CREATININE FOR GFR eCW1 ([facility]) 4.3 3.5-5.1 POTASSIUM SERUM eCW1 ([facility]) 9.6 8.8-10.2 CALCIUM LEVEL eCW1 ([facility]) 100 98-107 CHLORIDE LEVEL eCW1 ([facility]) 26 21-32 CARBON DIOXIDE LEVEL eCW1 ([facility]) ID Date Data Source [id number] 09/29/2020 10:03:00 AM EST [facility] Name Value Range Interpretation Code Description Data María Elena rce(s) Supporting Document(s) SARS COVID ANTIGEN POSITIVE [facility] This lab was ordered by [facility]ery nd reported by [facility]. ID Date Data Source [id number] 09/17/2020 12:00:00 AM EST eCW1 ([facility]) Name Value Range Interpretation Code Description Data María Elena rce(s) Supporting Document(s) Hemoglobin A1c/Hemoglobin.total in Blood 5.5 HEMOGLOBIN A1c eCW1 ([facility]) ID Date Data Source [id number] 09/04/2020 12:00:00 AM EST [facility] Name Value Range Interpretation Code Description Data María Elena rce(s) Supporting Document(s) Carestart Rapid COVID Antigen Test Negative [facility] This lab was reported by Andrez ferreira. ID Date Data Source [id number] 09/04/2020 12:00:00 AM EST [facility] Name Value Range Interpretation Code Description Data María Elena rce(s) Supporting Document(s) SARS coronavirus 2 RNA [Presence] in Res piratory specimen by APOLLO with probe detection NEGATIVE [facility] This lab was ordered by Andrez Arango and reported by [employer]. ID Date Data Source [id number] 06/23/2020 08:04:00 AM EDT MEDENT ([facility]) Name Value Range Interpretation Code Description Data María Elena rce(s) Supporting Document(s) Blood Urea Nitrogen 13 mg/dL 7-18 MEDENT ([facility]) Glucose, Fasting 94 mg/dL 70-100 MEDENT ([facility]) Glomerular Filtration Rate Laboratory test result MEDENT ([facility]) <content>Units are mL/min/1.73 m2</content>
<content></content>
<content>Chronic Kidney Disease Staging per NKF:</content>
<content></content>
<content>Stage I & II GFR >=60 Normal to Mildly Decreased</content>
<content>Stage III GFR 30- 59 Moderately Decreased</content>
<content>Stage IV GFR 15-29 Severely Decreased</content>
<content>Stage V GFR <15 Very Little GFR Left</content>
<content>ESRD GFR <15 on [employer]</content>
<content></content> Creatinine For GFR 0.82 mg/dL 0.55-1.30 MEDENT ([facility]) Sodium Level 138 meq/L 136-145 MEDENT ([facility]) Carbon Dioxide Level 27 meq/L 21-32 MEDENT ([facility]) Chloride Level 103 meq/L 98-107 MEDENT ([facility]) Potassium Serum 3.9 meq/L 3.5-5.1 MEDENT ([facility]) Calcium Level 8.7 mg/dL 8.8-10.2 MEDENT ([facility]) Anion Gap 8 meq/L 8-16 [facility] Procedure Social History Code Duration Value Status Description Data Source(s ) Smoking 06/03/2021 12:00:00 AM EDT Never Smoked A Pipe complet ed Never Smoked A Pipe MEDENT ([facility]) Smoking 05/16/2021 12:00:00 AM EDT Former Smoker completed Former Smoker eCW1 ([facility]) Smoking 05/16/2021 12:00:00 AM EDT Former Smoker completed Former Smoker eCW1 ([facility]) Smoking 04/23/2021 12:00:00 AM EDT Former Smoker completed Former Smoker eCW1 ([facility]) Smoking 04/23/2021 12:00:00 AM EDT Former Smoker completed Former Smoker eCW1 ([facility]) Smoking 04/10/2021 12:00:00 AM EDT Former Smoker completed Former Smoker eCW1 ([facility]) Smoking 04/09/2021 12:00:00 AM EDT Patient is a former smoker completed Patient is a former smoker MEDENT ([facility], ) Smoking 03/18/2021 12:00:00 AM EDT Former Smoker completed Former Smoker eCW1 ([facility]) Smoking 03/18/2021 12:00:00 AM EDT Former Smoker completed Former Smoker eCW1 ([facility]) Smoking 02/17/2021 12:00:00 AM EDT Patient is a former smoker completed Patient is a former smoker MEDENT ([facility], [facility]) Smoking 12/30/2020 12:00:00 AM EDT Patient is a former smoker completed Patient is a former smoker MEDENT ([facility]) Smoking 12/04/2020 09:39:10 AM EDT Ex-smoker (finding) [facility] ed Ex-smoker (finding) ANN (Jay Jay Ferrera MD [facility]) Smoking 11/25/2020 12:00:00 AM EDT Former Smoker completed Former Smoker eCW1 ([facility]) Smoking 10/11/2020 12:00:00 AM EST Former Smoker completed Former Smoker eCW1 ([facility]) Smoking 10/11/2020 12:00:00 AM EST Former Smoker completed Former Smoker eCW1 ([facility]) Smoking 10/11/2020 12:00:00 AM EST Former Smoker completed Former Smoker eCW1 ([facility]) Smoking 09/17/2020 12:00:00 AM EST Former Smoker completed Former Smoker eCW1 ([facility]) Smoking 09/17/2020 12:00:00 AM EST Former Smoker completed Former Smoker eCW1 ([facility]) Smoking 09/17/2020 12:00:00 AM EST Former Smoker completed Former Smoker eCW1 ([facility]) Smoking 09/17/2020 12:00:00 AM EST Former Smoker completed Former Smoker eCW1 ([facility]) Smoking 09/17/2020 12:00:00 AM EST Former Smoker completed Former Smoker eCW1 ([facility]) Smoking 09/17/2020 12:00:00 AM EST Former Smoker completed Former Smoker eCW1 ([facility]) Smoking 09/17/2020 12:00:00 AM EST Former Smoker completed Former Smoker eCW1 ([facility]) Smoking 09/17/2020 12:00:00 AM EST Former Smoker completed Former Smoker eCW1 ([facility]) Smoking 06/06/2020 11:01:23 AM EDT Ex-smoker (finding) complet ed Ex-smoker (finding) ANN (Jay Jay Ferrera [facility]) Vital Signs ID Date Data Source UNK Name Value Range Interpretation Code Description Data Source(s) Body weight 214.8 [lb_av] 214.8 [lb_av] eCW1 ([facility]) Body weight 97.43 kg 97.43 kg eCW1 ([facility] Body height 61.5 [in_i] 61.5 [in_i] eCW1 ([facility]) Body mass index (BMI) [Ratio] 39.92 kg/m2 39.92 kg/m2 [facility] ([facility]) Heart rate 75 /min 75 /min eCW1 ([facility]) Respiratory rate 18 /min 18 /min eCW1 ([facility]) Body temperature 96.9 [degF] 96.9 [degF] eCW1 ( [facility]) Systolic blood pressure 124 mm[Hg] 124 mm[Hg] e CW1 ([facility]) Diastolic blood pressure 80 mm[Hg] 80 mm[Hg] eCW1 ([facility]) Body weight 211 [lb_av] 211 [lb_av] eCW1 ([facility]) Body weight 95.71 kg 95.71 kg eCW1 ([facility]) Body height 61.5 [in_i] 61.5 [in_i] eCW1 ([facility]) Body mass index (BMI) [Ratio] 39.22 kg/m2 39.22 kg/m2 eCW1 ([facility]) Heart rate 71 /min 71 /min eCW1 ([facility]) Respiratory rate 16 /min 16 /min eCW1 ([facility]) Body temperature 97.6 [degF] 97.6 [degF] eCW1 ( [facility]) Systolic blood pressure 138 mm[Hg] 138 mm[Hg] e CW1 ([facility]) Diastolic blood pressure 72 mm[Hg] 72 mm[Hg] eCW1 ([facility]) Body temperature 96.4 [degF] 96.4 [degF] eCW1 ( [facility]) Body weight 210 [lb_av] 210 [lb_av] eCW1 ([facility]) Body height 61.5 [in_i] 61.5 [in_i] eCW1 ([facility]) Body mass index (BMI) [Ratio] 39.03 kg/m2 39.03 kg/m2 eCW1 ([facility]) Heart rate 78 /min 78 /min eCW1 ([facility]) Respiratory rate 18 /min 18 /min eCW1 ([facility]) Systolic blood pressure 136 mm[Hg] 136 mm[Hg] e CW1 ([facility]) Diastolic blood pressure 78 mm[Hg] 78 mm[Hg] eCW1 ([facility]) Systolic blood pressure 140 mm[Hg] 140 mm[Hg] M EDENT ([facility]) Heart rate 66 /min 66 /min [facility] ([facility]) Oxygen saturation in Arterial blood by Pulse oximetry 93 % 93 % [facility] ([facility]) Body height 61 [in_i] 61 [in_i] [facility] ([facility]) 5'1" Body weight 210.25 [lb_av] 210.25 [lb_av] MEDEN T ([facility]) Body mass index (BMI) [Ratio] 39.7 kg/m2 39.7 k g/m2 [facility] ([facility]) Carter body weight 105 [lb_av] 105 [lb_av] [facility] Body weight 95.369 kg 95.369 kg [facility] ([facility]) Body surface area Derived from formula 1.93 m2 1.93 m2 [facility] ([facility]) Diastolic blood pressure 78 mm[Hg] 78 mm[Hg] [facility] ([facility]) Body temperature 97 [degF] 97 [degF] eCW1 ([facility]) Systolic blood pressure 130 mm[Hg] 130 mm[Hg] e CW1 ([facility]) Body weight 208 [lb_av] 208 [lb_av] eCW1 ([facility]) Body height 61.5 [in_i] 61.5 [in_i] eCW1 ([facility]) Body mass index (BMI) [Ratio] 38.66 kg/m2 38.66 kg/m2 W1 ([facility]) Heart rate 80 /min 80 /min eCW1 ([facility]) Respiratory rate 20 /min 20 /min eCW1 ([facility]) Diastolic blood pressure 80 mm[Hg] 80 mm[Hg] eCW1 ([facility]) Systolic blood pressure 157 mm[Hg] 157 mm[Hg] M EDENT ([facility], [facility]) Diastolic blood pressure 80 mm[Hg] 80 mm[Hg] MEDENT ([facility]) Heart rate 68 /min 68 /min MEDENT ([facility], [facility]) Respiratory rate 17 /min 17 /min MEDENT ( [facility], [facility]) Oxygen saturation in Arterial blood by Pulse oximetry 95 % 95 % MEDENT ([facility], [facility]) Body temperature 98.6 [degF] 98.6 [degF] MEDENT ([facility], [facility]) Body weight 203.00 [lb_av] 203.00 [lb_av] MEDEN T ([facility], [facility]) Body height 61 [in_i] 61 [in_i] MEDENT ([facility], [facility]) 5'1" Body mass index (BMI) [Ratio] 38.4 kg/m2 38.4 k g/m2 [facility], [facility]) Oxygen saturation in Arterial blood by Pulse oximetry 95 % 95 % [facility] Body temperature 96.8 [degF] 96.8 [degF] MEDENT ([facility]) Body height 61 [in_i] 61 [in_i] [facility] 5'1" Body weight 205.00 [lb_av] 205.00 [lb_av] MEDEN T ([facility]) Body mass index (BMI) [Ratio] 38.7 kg/m2 38.7 k g/m2 [facility] ([facility]) Carter body weight 105 [lb_av] 105 [lb_av] MEDEN T ([facility]) Body weight 92.988 kg 92.988 [facility] Body surface area Derived from formula 1.91 m2 1.91 m2 [facility] Diastolic blood pressure 80 mm[Hg] 80 mm[Hg] [facility] Heart rate 76 /min 76 /min [facility] Carter body weight 105 [lb_av] 105 [lb_av] MEDEN T ([facility]) Body weight 92.988 kg 92.988 kg [facility] Body surface area Derived from formula 1.91 m2 1.91 m2 [facility] ([facility]) Systolic blood pressure 160 mm[Hg] 160 mm[Hg] [facility] Oxygen saturation in Arterial blood by Pulse oximetry 95 % 95 % [facility] ([facility]) Body temperature 96.8 [degF] 96.8 [degF] [facility] ([facility]) Body height 61 [in_i] 61 [in_i] [facility] ([facility]) 5'1" Body weight 205.00 [lb_av] 205.00 [lb_av] MEDEN T ([facility]) Body mass index (BMI) [Ratio] 38.7 kg/m2 38.7 k g/m2 [facility] ([facility]) Body weight 203.00 [lb_av] 203.00 [lb_av] MEDEN T ([facility]) Systolic blood pressure 142 mm[Hg] 142 mm[Hg[facility] sittting Diastolic blood pressure 80 mm[Hg] 80 mm[Hg] MEDENT ([facility]) sittting Systolic blood pressure--standing 126 mm[Hg] 12 6 mm[Hg] [facility] ([facility]) Ra Diastolic blood pressure--standing 72 mm[Hg] 7 2 mm[Hg] [facility] ([facility]) Ra Body height 61 [in_i] 61 [in_i] [facility] 5'1" Body mass index (BMI) [Ratio] 38.4 kg/m2 38.4 k g/m2 [facility] ([facility]) Heart rate 72 /min 72 /min [facility] ([facility]) Respiratory rate 16 /min 16 /min [facility] ( [facility]) Systolic blood pressure 138 mm[Hg] 138 mm[Hg] M EDENT ([facility]) sitting, large cuff Diastolic blood pressure 78 mm[Hg] 78 mm[Hg] [facility] ([facility]) sitting, large cuff Body weight 205 [lb_av] 205 [lb_av] eCW1 ([facility]) Body height 61.5 [in_i] 61.5 [in_i] eCW1 ([facility]) Body mass index (BMI) [Ratio] 38.10 kg/m2 38.10 kg/m2 eCW1 ([facility]) Heart rate 92 /min 92 /min eCW1 ([facility]) Respiratory rate 18 /min 18 /min eCW1 ([facility]) Body temperature 97 [degF] 97 [degF] eCW1 ([facility]) Systolic blood pressure 138 mm[Hg] 138 mm[Hg] e CW1 ([facility]) Diastolic blood pressure 76 mm[Hg] 76 mm[Hg] eCW1 ([facility]) Body weight 203 [lb_av] 203 [lb_av] eCW1 ([facility]) Body height 61.5 [in_i] 61.5 [in_i] eCW1 ([facility]) Body mass index (BMI) [Ratio] 37.73 kg/m2 37.73 kg/m2 eCW1 ([facility]) Heart rate 101 /min 101 /min eCW1 ([facility]) Respiratory rate 18 /min 18 /min eCW1 ([facility]) Body temperature 96.8 [degF] 96.8 [degF] eCW1 ( [facility]) Systolic blood pressure 150 mm[Hg] 150 mm[Hg] e CW1 ([facility]) Diastolic blood pressure 82 mm[Hg] 82 mm[Hg] eCW1 ([facility]) Body weight 208 [lb_av] 208 [lb_av] eCW1 ([facility]) Body height 61.5 [in_i] 61.5 [in_i] eCW1 ([facility]) Body mass index (BMI) [Ratio] 38.66 kg/m2 38.66 kg/m2 eCW1 ([facility]) Heart rate 18 /min 18 /min eCW1 ([facility]) Respiratory rate 70 /min 70 /min eCW1 ([facility]) Body temperature 97.3 [degF] 97.3 [degF] eCW1 ( [facility]) Systolic blood pressure 150 mm[Hg] 150 mm[Hg] e CW1 ([facility]) Diastolic blood pressure 80 mm[Hg] 80 mm[Hg] eCW1 ([facility]) Body weight 204.00 [lb_av] 204.00 [lb_av] MEDEN T ([facility]) Body surface area Derived from formula 1.90 m2 1.90 m2 MEDENT ([facility]) Body mass index (BMI) [Ratio] 38.5 kg/m2 38.5 k g/m2 [facility] ([facility]) Body weight 92.534 kg 92.534 kg MEDENT ([facility]) Body height 61 [in_i] 61 [in_i] MEDENT ([facility]) 5'1" Body temperature 96.9 [degF] 96.9 [degF] MEDENT ([facility] ) Body height 60.5 [in_i] 60.5 [in_i] MEDENT ([facility] ) 5'0.50" Body weight 203.50 [lb_av] 203.50 [lb_av] MEDEN T ([facility] ) Body mass index (BMI) [Ratio] 39.1 kg/m2 39.1 k g/m2 [facility] ([facility] ) Systolic blood pressure 138 mm[Hg] 138 mm[Hg] M EDENT ([facility], ) Body height 61 [in_i] 61 [in_i] MEDENT ([facility], ) 5'1" Body weight 209.00 [lb_av] 209.00 [lb_av] MEDEN T ([facility], ) Body mass index (BMI) [Ratio] 39.5 kg/m2 39.5 k g/m2 [facility] ([facility], ) Carter body weight 105 [lb_av] 105 [lb_av] MEDEN T ([facility], ) Body weight 94.802 kg 94.802 [facility] Body surface area Derived from formula 1.92 m2 1.92 m2 [facility] Diastolic blood pressure 72 mm[Hg] 72 mm[Hg] MEDENT ([facility]) Heart rate 81 /min 81 /min [facility] ([facility]) Oxygen saturation in Arterial blood by Pulse oximetry 92 % 92 % [facility] ([facility]) Body temperature 97.4 [degF] 97.4 [degF] MEDENT ([facility]) Body weight 207.00 [lb_av] 207.00 [lb_av] MEDEN T ([facility]) Body height 61 [in_i] 61 [in_i] [facility] ([facility]) 5'1" Body mass index (BMI) [Ratio] 39.1 kg/m2 39.1 k g/m2 [facility] ([facility]) Heart rate 76 /min 76 /min [facility] ([facility]) Regular Respiratory rate 16 /min 16 /min [facility] ( [facility]) Systolic blood pressure 138 mm[Hg] 138 mm[Hg] [facility] sitting, large cuff Diastolic blood pressure 76 mm[Hg] 76 mm[Hg] [facility] ([facility]) sitting, large cuff Systolic blood pressure 136 mm[Hg] 136 mm[Hg] [facility] sitting Diastolic blood pressure 76 mm[Hg] 76 mm[Hg] [facility] ([facility]) sitting Systolic blood pressure--standing 130 mm[Hg] 13 0 mm[Hg] MED[facility] ([facility]) [place] Diastolic blood pressure--standing 70 mm[Hg] 7 0 mm[Hg] [facility] [place] Systolic blood pressure 168 mm[Hg] 168 mm[Hg] M [facility] ([facility]) Diastolic blood pressure 84 mm[Hg] 84 mm[Hg] [facility] ([facility]) Heart rate 66 /min 66 /min [facility] ([facility]) Oxygen saturation in Arterial blood by Pulse oximetry 96 % 96 % [facility] ([facility]) Body temperature 96.7 [degF] 96.7 [degF] [facility] ([facility]) Body height 61 [in_i] 61 [in_i] [facility] ([facility]) 5'1" Body weight 209.50 [lb_av] 209.50 [lb_av] MEDEN T ([facility]) Body mass index (BMI) [Ratio] 39.6 kg/m2 39.6 k g/m2 [facility] ([facility]) Carter body weight 105 [lb_av] 105 [lb_av] MEDEN T ([facility]) Body weight 95.029 kg 95.029 kg [facility] ([facility]) Body weight 207.00 [lb_av] 207.00 [lb_av] MEDEN T ([facility]) Body height 61 [in_i] 61 [in_i] [facility] ([facility]) 5'1" Body mass index (BMI) [Ratio] 39.1 kg/m2 39.1 k g/m2 [facility] ([facility]) Heart rate 80 /min 80 /min [facility] ([facility]) Regular Respiratory rate 16 /min 16 /min [facility] ( [facility]) Systolic blood pressure 136 mm[Hg] 136 mm[Hg] M EDENT ([facility]) sitting, large cuff Diastolic blood pressure 66 mm[Hg] 66 mm[Hg] [facility] ([facility]) sitting, large cuff Systolic blood pressure 176 mm[Hg] 176 mm[Hg] M EDENT ([facility]) Body height 61 [in_i] 61 [in_i] [facility] ([facility]) 5'1" Body weight 208.25 [lb_av] 208.25 [lb_av] MEDEN T ([facility]) Body mass index (BMI) [Ratio] 39.3 kg/m2 39.3 k g/m2 [facility] ([facility]) Carter body weight 105 [lb_av] 105 [lb_av] MEDEN T ([facility]) Heart rate 99 /min 99 /min [facility] ([facility]) Oxygen saturation in Arterial blood by Pulse oximetry 95 % 95 % [facility] ([facility]) Body temperature 97.9 [degF] 97.9 [degF] [facility] ([facility]) Diastolic blood pressure 82 mm[Hg] 82 mm[Hg] [facility] ([facility]) Body weight 94.462 kg 94.462 kg [facility] ([facility]) Patient Treatment Plan of Care Planned Activity Planned Date Details Description Data Source (s) Triamcinolone Acetonide 0.005 MG/MG Topical Ointment 12:00:00 AM EDT eCW1 ([facility]) Ketoconazole 20 MG/ML Topical Cream 03/18/2021 12:00:00 AM EDT eCW1 ([facility]) Ketoconazole 20 MG/ML Topical Cream 03/18/2021 12:00:00 AM EDT eCW1 ([facility]) latanoprost 0.05 MG/ML Ophthalmic Solution 12/04/2020 12:00:00 AM E LISBET JUAREZ (Jay Jay Ferrera MD [facility]) Omeprazole 20 MG Delayed Release Oral Capsule 10/11/2020 12:00:00 A M EST eCW1 ([facility]) Omeprazole 20 MG Delayed Release Oral Capsule 10/11/2020 12:00:00 A M EST eCW1 ([facility]) Omeprazole 20 MG Delayed Release Oral Capsule 10/11/2020 12:00:00 A M EST eCW1 ([facility]) Omeprazole 20 MG Delayed Release Oral Capsule 10/11/2020 12:00:00 A M EST eCW1 ([facility]) Dexamethasone 6 MG Oral Tablet 10/03/2020 12:00:00 AM EST eCW1 ([facility]) Dexamethasone 6 MG Oral Tablet 10/03/2020 12:00:00 AM EST eCW1 ([facility]) Dexamethasone 6 MG Oral Tablet 10/03/2020 12:00:00 AM EST eCW1 ([facility]) Dexamethasone 6 MG Oral Tablet 10/03/2020 12:00:00 AM EST eCW1 ([facility]) Dexamethasone 6 MG Oral Tablet 10/03/2020 12:00:00 AM EST eCW1 ([facility]) Dexamethasone 6 MG Oral Tablet 10/03/2020 12:00:00 AM EST eCW1 ([facility]) latanoprost 0.05 MG/ML Ophthalmic Solution 04/04/2020 12:00:00 AM Ashley JUAREZ (Jay Jay Ferrera MD [facility])
[2021-06-23] MEDS ORDERED: fentaNYL 100 MCG/2 ML INJECTION (J3010) As Ordered ONE (10:28)
[2021-06-23] MEDS ORDERED: MIDAZOLAM INJ 2MG/2ML VIAL (J2250 PER 1MG) As Ordered ONE (10:28)
[2021-06-23 11:35] VITALS: BP 174/78
--- NOTE | 2021-06-26 12:50 | RO ---
DATE OF SURGERY: 06/23/2021 PREOPERATIVE DIAGNOSIS: Senile cataract left eye. POSTOPERATIVE DIAGNOSIS: Senile cataract left eye. PROCEDURE: Phacoemulsification with posterior chamber intraocular lens implant left eye (toric). SURGEON: Jerry Jones Jr., CONCRETING SUPERVISOR: ANESTHESIA: IV sedation. DESCRIPTION OF PROCEDURE: The patient was brought into the operating room and given monitored anesthesia by the department of anesthesia by IV route. The patient was then given a standard prep by using betadine solution. One drop of tetracaine was placed in the eye prior to the prep. The patient was then draped in the usual manner. Lid speculum was placed in the eye. Ahmadi corneal axis ring was held over the cornea and marked out astigmatism with axis of 180 degrees; this was done with the aid of baseline markings placed at 180 degrees with the marking pencil with the patient sitting up in the holding area. The eye was grasped with 0.12 forceps for better exposure of the cornea. A 15- degree stab blade was made at 4-oclock position. 0.3 mL of 1% lidocaine in a syringe attached to a cannula was inserted into the anterior chamber through the port site. Viscoelastic was inserted into the anterior chamber through the port site. A 2.75 mm clear cornea keratome blade was then used to make a clear corneal wound at 3-oclock position. A cystotome was used to start a continuous tear capsulorrhexis, which was completed with Utrata forceps. Balanced salt solution (BSS) in a syringe attached to a cannula was then used to hydrodissect the lens nucleus. Phacoemulsification was then used to remove the lens nucleus using a divide and conquer-type technique. After this was completed, irrigation and aspiration apparatus was brought into the anterior chamber and the remaining cortical material was removed. ProVisc was inserted into the capsular bag. Then it was decided to use an Keshawn AcrySof toric one-piece foldable lens. It was then dialed into place using a Elbert pusher. The axis markings were aligned with the axis markings at 180 degrees on the cornea. Once this was seen, the case continued. Once the lens was in place, irrigation and aspiration was reinserted into the anterior chamber and the remaining ProVisc was removed. BSS was inserted through the port site, and then the port site was hydrated. The wound was checked. There was no need for sutures at this time. The patient then had the lid speculum removed. The shield was placed over the eye, and the patient was brought back to ambulatory surgery in stable condition. The patient tolerated the procedure well. Phacoemulsification time was 10.76 seconds. Besivance drops were placed in the eye in ambulatory surgery. FOSTER
== END 2021-06-23 11:50 | disposition home or self-care (01) ==
LOC: M SDC 08:26
PROVIDERS: ATTEND Ophthalmology
DX: H25.12 Age-related nuclear cataract, left eye (principal); I10 Essential (primary) hypertension; E78.5 Hyperlipidemia, unspecified; E03.9 Hypothyroidism, unspecified; M19.90 Unspecified osteoarthritis, unspecified site; J44.9 Chronic obstructive pulmonary disease, unspecified; M85.80 Other specified disorders of bone density and structure, unspecified site; Z88.0 Allergy status to penicillin; Z79.899 Other long term (current) drug therapy; Z79.82 Long term (current) use of aspirin; Z79.51 Long term (current) use of inhaled steroids; Z87.891 Personal history of nicotine dependence
CPT/HCPCS: 66984; 92015; J2250; J3010; V2787

== ENCOUNTER → 2022-01-23 | Outpatient (CLI) | payer MEDICARE, MEDICAID ==
[~2022-01-23] MED LIST changes: -CYCLOPENTOLATE 1% OPHTH SOLN 2 ML BTL OS SCH; -D31000TA2 PO; -DUOVISC (0.50ML VISCOAT/0.85ML PROVISC) OPHTH KIT As Ordered ONE; -FLURBIPROFEN 0.03% OPHTH SOLN 2.5 ML OS SCH; -LIDOCAINE 1% SDV 5ML VIAL As Ordered ONE; -LR 1,000 ML IV SCH; +OMEP-173 PO; -OMEP-218 PO; -PHENYLEPHRINE 2.5% OPHTH SOL 2ML OS SCH; -TETRACAINE 0.5% OPHTH SOLN 4ML OS SCH; +VITA100093 PO
[2022-01-23 11:21] LABS: HEMATOCRIT 44.8 % (36.0-47.0); HEMOGLOBIN 14.3 g/dl (12.0-15.5); MEAN CORPUSCULAR HEMOGLOBIN 28.9 pg (27.0-33.0); MEAN CORPUSCULAR HGB CONC 31.9 g/dl (32.0-36.5); MEAN CORPUSCULAR VOLUME 90.5 fl (80.0-96.0); PLATELET COUNT, AUTOMATED 254 10^3/uL (150-450); RED BLOOD COUNT 4.95 10^6/uL (4.00-5.40); WHITE BLOOD COUNT 8.8 10^3/uL (4.0-10.0)
[2022-01-23 11:42] LABS: BLOOD UREA NITROGEN 21 MG/DL (7-18); CALCIUM LEVEL 10.2 MG/DL (8.8-10.2); CARBON DIOXIDE LEVEL 28 MEQ/L (21-32); CHLORIDE LEVEL 106 MEQ/L (98-107); CHOLESTEROL LEVEL 126 MG/DL (<200); CHOLESTEROL RISK RATIO 2.135 (<5); FERRITIN 70 NG/ML (8-252); FREE T4 1.08 NG/DL (0.76-1.46); GLOMERULAR FILTRATION RATE > 60.0 (>32); GLUCOSE, FASTING 99 MG/DL (70-100); HDL CHOLESTEROL 59 MG/DL (>40); LDL CHOLESTEROL 47 MG/DL (<100); MAGNESIUM LEVEL 2.2 MG/DL (1.8-2.4); NON-HDL-C 67 MG/DL; POTASSIUM SERUM 4.3 MEQ/L (3.5-5.1); SODIUM LEVEL 142 MEQ/L (136-145); TOTAL 25(OH) VITAMIN D 44.7 NG/ML (30.0-100.0); TRIGLYCERIDES LEVEL 99 MG/DL (<150)
== END ==
LOC: M WUC 08:17
PROVIDERS: ATTEND Family Medicine
DX: I10 Essential (primary) hypertension (principal); E78.2 Mixed hyperlipidemia; E55.9 Vitamin D deficiency, unspecified; E04.1 Nontoxic single thyroid nodule; G25.81 Restless legs syndrome; Z79.899 Other long term (current) drug therapy

== ENCOUNTER → 2022-04-14 | Outpatient (CLI) | payer MEDICARE, MEDICAID ==
[~2022-04-14] MED LIST changes: +INDA1.253 PO; -INDA125TA PO
== END ==
LOC: M WUC 09:01
PROVIDERS: ATTEND Student in an Organized Health Care Education/Training Program
DX: M20.11 Hallux valgus (acquired), right foot (principal); M77.31 Calcaneal spur, right foot; M25.471 Effusion, right ankle

== ENCOUNTER → 2022-07-14 | Outpatient (CLI) | payer MEDICARE, MEDICAID ==
[2022-07-14 17:21] LABS: CREATININE, URINE 143.9 MG/DL; MAU/CREAT RATIO 176.5 MCG/MG (0.0-30.0)
[2022-07-14 17:43] LABS: HEMOGLOBIN A1c 5.7 % (4.0-6.0)
[2022-07-14 18:35] LABS: ALBUMIN 3.7 G/DL (3.2-5.2); ALT/SGPT 21 U/L (7.0-40); BILIRUBIN,TOTAL 0.6 MG/DL (0.3-1.2); BLOOD UREA NITROGEN 23 MG/DL (9-23); CALCIUM LEVEL 9.7 MG/DL (8.3-10.6); CARBON DIOXIDE LEVEL 26 MMOL/L (20-31); CHLORIDE LEVEL 100 MMOL/L (98-107); CHOLESTEROL LEVEL 138 MG/DL (<200); CHOLESTEROL RISK RATIO 2.19 (<5); FREE T4 1.19 NG/DL (0.89-1.76); GLOMERULAR FILTRATION RATE > 60.0 (>32); GLUCOSE, FASTING 112 MG/DL (74-106); LDL CHOLESTEROL 56.2 MG/DL (<100); MAGNESIUM LEVEL 1.8 MG/DL (1.8-2.4); NON-HDL-C 75 MG/DL; POTASSIUM SERUM 4.7 MMOL/L (3.5-5.1); SODIUM LEVEL 137 MMOL/L (136-145); THYROID STIMULATING HORMONE 2.556 uIU/ML (0.55-4.78); TOTAL 25(OH) VITAMIN D 52.5 NG/ML (20.0-100.0); TOTAL PROTEIN 6.8 G/DL; TRIGLYCERIDES LEVEL 94 MG/DL (<150)
== END ==
LOC: M WUC 08:40
PROVIDERS: ATTEND Nurse Practitioner Adult Health
DX: E04.1 Nontoxic single thyroid nodule (principal); R73.01 Impaired fasting glucose; E78.2 Mixed hyperlipidemia; I10 Essential (primary) hypertension; E55.9 Vitamin D deficiency, unspecified; G25.81 Restless legs syndrome; Z79.899 Other long term (current) drug therapy

== ENCOUNTER → 2023-01-04 | Outpatient (CLI) | payer MEDICARE, MEDICAID ==
[~2023-01-04] MED LIST changes: +POTA-298 PO; -POTA1TAB14 PO
[2023-01-04 11:31] LABS: ALBUMIN 3.8 G/DL (3.2-5.2); ALKALINE PHOSPHATASE 146 U/L (46-116); ALT/SGPT 22 U/L (7.0-40); AST/SGOT 23 U/L (<34); BILIRUBIN,TOTAL 0.7 MG/DL (0.3-1.2); BLOOD UREA NITROGEN 17 MG/DL (9-23); CALCIUM LEVEL 10.1 MG/DL (8.3-10.6); CARBON DIOXIDE LEVEL 28 MMOL/L (20-31); CHLORIDE LEVEL 101 MMOL/L (98-107); CHOLESTEROL LEVEL 119 MG/DL (<200); CHOLESTEROL RISK RATIO 2.36 (<5); CREATININE FOR GFR 0.72 MG/DL (0.55-1.30); GLOMERULAR FILTRATION RATE > 60.0 (>32); GLUCOSE, FASTING 99 MG/DL (74-106); HDL CHOLESTEROL 50.3 MG/DL (>40); HEMOGLOBIN A1c 5.7 % (4.0-6.0); LDL CHOLESTEROL 47.7 MG/DL (<100); MAGNESIUM LEVEL 1.8 MG/DL (1.8-2.4); NON-HDL-C 68.7 MG/DL; POTASSIUM SERUM 4.4 MMOL/L (3.5-5.1); SODIUM LEVEL 134 MMOL/L (136-145); TOTAL PROTEIN 6.9 G/DL (5.7-8.2); TRIGLYCERIDES LEVEL 105 MG/DL (<150)
[2023-01-04 11:34] LABS: TOTAL 25(OH) VITAMIN D 56.3 NG/ML (20.0-100.0)
== END ==
LOC: M WUC 08:10
PROVIDERS: ATTEND Nurse Practitioner Adult Health
DX: G25.81 Restless legs syndrome (principal); I10 Essential (primary) hypertension; R73.01 Impaired fasting glucose; E83.42 Hypomagnesemia; E78.2 Mixed hyperlipidemia; Z79.899 Other long term (current) drug therapy

== ENCOUNTER → 2023-05-17 | Outpatient (CLI) | payer MEDICARE | LOC: M WHC 10:08 | PROVIDERS: ATTEND Nurse Practitioner Adult Health | DX: M85.9 Disorder of bone density and structure, unspecified (principal) ==

== ENCOUNTER → 2023-06-23 | Outpatient (CLI) | payer MEDICARE ==
[2023-06-23 12:29] LABS: HEMATOCRIT 45.1 % (36.0-47.0); HEMOGLOBIN 14.6 g/dl (12.0-15.5); MEAN CORPUSCULAR HEMOGLOBIN 28.7 pg (27.0-33.0); MEAN CORPUSCULAR HGB CONC 32.4 g/dl (32.0-36.5); MEAN CORPUSCULAR VOLUME 88.8 fl (80.0-96.0); PLATELET COUNT, AUTOMATED 309 10^3/uL (150-450); RED BLOOD COUNT 5.08 10^6/uL (4.00-5.40)
[2023-06-23 12:48] LABS: HEMOGLOBIN A1c 5.4 % (4.0-6.0)
[2023-06-23 12:58] LABS: ALBUMIN 3.5 G/DL (3.2-5.2); ALKALINE PHOSPHATASE 178 U/L (46-116); ALT/SGPT 18 U/L (7.0-40); AST/SGOT 19 U/L (<34); BILIRUBIN,TOTAL 0.7 MG/DL (0.3-1.2); BLOOD UREA NITROGEN 18 MG/DL (9-23); CALCIUM LEVEL 9.8 MG/DL (8.3-10.6); CARBON DIOXIDE LEVEL 30 MMOL/L (20-31); CHLORIDE LEVEL 99 MMOL/L (98-107); CHOLESTEROL LEVEL 123 MG/DL (<200); CHOLESTEROL RISK RATIO 2.17 (<5); CREATININE FOR GFR 0.68 MG/DL (0.55-1.30); GLOMERULAR FILTRATION RATE > 60.0 (>32); GLUCOSE, FASTING 96 MG/DL (74-106); HDL CHOLESTEROL 56.6 MG/DL (>40); LDL CHOLESTEROL 48.8 MG/DL (<100); MAGNESIUM LEVEL 1.7 MG/DL (1.8-2.4); NON-HDL-C 66.4 MG/DL; POTASSIUM SERUM 4.3 MMOL/L (3.5-5.1); SODIUM LEVEL 137 MMOL/L (136-145); TOTAL PROTEIN 6.7 G/DL (5.7-8.2); TRIGLYCERIDES LEVEL 88 MG/DL (<150)
[2023-06-23 12:59] LABS: FREE T4 1.09 NG/DL (0.89-1.76)
[2023-06-23 13:00] LABS: THYROID STIMULATING HORMONE 3.561 uIU/ML (0.55-4.78); TOTAL 25(OH) VITAMIN D 50.2 NG/ML (20.0-100.0)
== END ==
LOC: M WUC 08:09
PROVIDERS: ATTEND Nurse Practitioner Adult Health
DX: I10 Essential (primary) hypertension (principal); G25.81 Restless legs syndrome; R73.01 Impaired fasting glucose; E04.1 Nontoxic single thyroid nodule

== ENCOUNTER → 2023-11-23 | Outpatient (CLI) | payer MEDICARE, MEDICAID ==
[~2023-11-23] MED LIST changes: +IRBE300T25 PO; -IRBE300T7 PO
[2023-11-23 12:06] LABS: HEMATOCRIT 45.9 % (36.0-47.0); HEMOGLOBIN 15.2 g/dl (12.0-15.5); MEAN CORPUSCULAR HEMOGLOBIN 29.1 pg (27.0-33.0); MEAN CORPUSCULAR HGB CONC 33.1 g/dl (32.0-36.5); MEAN CORPUSCULAR VOLUME 87.8 fl (80.0-96.0); PLATELET COUNT, AUTOMATED 287 10^3/uL (150-450); RED BLOOD COUNT 5.23 10^6/uL (4.00-5.40); WHITE BLOOD COUNT 8.1 10^3/uL (4.0-10.0)
[2023-11-23 12:33] LABS: ALBUMIN 3.6 G/DL (3.2-5.2); ALKALINE PHOSPHATASE 168 U/L (46-116); ALT/SGPT 20 U/L (7.0-40); AST/SGOT 18 U/L (<34); BILIRUBIN,TOTAL 0.8 MG/DL (0.3-1.2); BLOOD UREA NITROGEN 15 MG/DL (9-23); CALCIUM LEVEL 10.1 MG/DL (8.3-10.6); CARBON DIOXIDE LEVEL 28 MMOL/L (20-31); CHLORIDE LEVEL 100 MMOL/L (98-107); CHOLESTEROL LEVEL 138 MG/DL (<200); CHOLESTEROL RISK RATIO 2.55 (<5); CREATININE FOR GFR 0.62 MG/DL (0.55-1.30); GLOMERULAR FILTRATION RATE > 60.0 (>32); GLUCOSE, FASTING 103 MG/DL (74-106); HDL CHOLESTEROL 54.1 MG/DL (>40); LDL CHOLESTEROL 60.5 MG/DL (<100); MAGNESIUM LEVEL 1.8 MG/DL (1.8-2.4); NON-HDL-C 83.9 MG/DL; POTASSIUM SERUM 4.4 MMOL/L (3.5-5.1); SODIUM LEVEL 135 MMOL/L (136-145); THYROID STIMULATING HORMONE 2.932 uIU/ML (0.55-4.78); TOTAL PROTEIN 6.8 G/DL (5.7-8.2); TRIGLYCERIDES LEVEL 117 MG/DL (<150)
== END ==
LOC: M WUC 08:11
PROVIDERS: ATTEND Nurse Practitioner Adult Health
DX: G25.81 Restless legs syndrome (principal); I10 Essential (primary) hypertension; R73.01 Impaired fasting glucose; E78.2 Mixed hyperlipidemia